=== PATIENT | female | born 1950 | race Caucasian/White ===

== ENCOUNTER 2021-02-13 11:30 | Outpatient (RCR) | payer MEDICARE, BC, SELFPAY ==
[2021-02-11 07:55] VITALS: BP 165/80; PULSE 65
--- NOTE | 2021-02-11 09:11 | MHC.PT.EP ---
[facility] [place] [facility] [place] Office [place] Office [address] Young Singh [address] [phone] F: [phone] F: [phone] F: [phone] F: [phone] Physical Therapy Plan of Care Date of Evaluation: Date of Surgery: Diagnosis: Vestibular rehab Assessment: Roslyn is a 70 year old female who is referred to PT for vestibular rehab . She reports of having room spinning dizziness for about 3 weeks. She reports of having these symptoms when looking up or down and they last for a few seconds. She also reports of having nausea. On PT examination she presented with intact saccades, smooth pursuit, visual tracking, DVA, DGI and static balance. She was positive for BPPV in [place]. She is independent with ADLS but moved through them very slowly due to dizziness. She would benefit from skilled PT to address the aforementioned impairments and improve tolerance to ADLS. Frequency and Duration: The patient will be seen 2/week for 4 weeks Short Term Goals: Patient to be educated on symptoms and indications to return to therapy when needed min 4 weeks. Pt will be negative for nystagmus or reports of vertigo in all diagnostic positions bilaterally to resolution of BPPV in 4 weeks. Refractory Grinder Operator Goals: Patient to be able to functionally move in all planes and directions without provocation of dizziness to show return to PLOF in 6 weeks. Treatment Plan: Modalities to reduce pain, spasms and effusion. Manual therapy to restore motion and function. Therapeutic exercise to improve strength and flexibility. Neuromuscular re-education for posture and balance. Therapeutic activities to return to functional activities of daily living. Electronically signed by: Marilee Guajardo PT DPT Please sign and return to therapist. Thank you for your referral.
--- NOTE | 2021-04-17 08:38 | MHC.PT.DC ---
[facility] [place] Office [place] Office [place] Office [address] Young Singh 140 [facility] [phone] F: [phone] F: [phone] F: [phone] F: [phone] Physical Therapy Discharge Report Diagnosis: Vestibular rehab Date of Surgery: Date of Evaluation: 02/11/21 Date of Discharge: 04/17/21 Treatments to Date: 2 Cancellations to Date: 0 No Shows to Date: 0 Discharge Status: Achieved Goals Discharge Summary: Roslyn has been asymptomatic for vertigo in the last 2 months. She has therefore been d/c from therapy. Electronically signed by: Marilee Guajardo PT DPT Please sign and return to therapist. Thank you for your referral.
== END 2021-04-17 08:40 | disposition home or self-care (01) ==
LOC: HO.PT 11:30
PROVIDERS: Visit Provider Otolaryngology
DX: R42 Dizziness and giddiness (principal)
CPT/HCPCS: 95992; 97112; 97161

== ENCOUNTER 2023-03-03 07:40 | Outpatient (RCR) | payer MEDICARE, OTHER, SELFPAY | END 2023-04-28 07:27 | disposition home or self-care (01) | LOC: HO.PT 07:40 | PROVIDERS: PCP Physician Assistant; Visit Provider Otolaryngology | DX: R42 Dizziness and giddiness (principal) | CPT/HCPCS: 97161 ==

== ENCOUNTER 2023-05-28 08:24 | Outpatient (AMB) | payer MEDICARE, OTHER, SELFPAY ==
--- NOTE | 2023-05-28 08:31 | MHC.PC.OV ---
Vital Signs 05/28/23 08:42 Height 5 ft 1.5 in Weight 138 lb 2 oz BMI 25.7 BP 138/78 Blood Pressure Location Lt brachial Position Sitting Respiration 14 Pulse 76 Pulse Source Pulse Oximeter Temp 98.1 F Temp Source Temporal Artery Scan Pulse Oximetry (%) 90 L Oxygen Delivery Method Room Air Intake Visit Reasons: follow up Intake Note: Follow up. 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: No Allergies No Known Allergies Allergy (Verified 05/28/23 08:31) Medication List - Last Reconciled 05/28/23 by Zuleima Rosas PA-C albuterol sulfate 90 mcg/actuation 2 puffs inhalation Q6H PRN Bifidobacterium infantis (Align) mg PO dicyclomine 10 mg PO BID famotidine (Acid Physical Scientist (famotidine)) 20 mg PO BID meclizine 25 mg PO DAILY PRN paroxetine HCl 20 mg PO DAILY pravastatin 20 mg PO DAILY vit C,I-Qf-tlvah-lutein-zeaxan 250-90-40-1 mg (PreserVision AREDS-2) 1 tab PO BID Tobacco use date assessed: 05/28/23 Fall risk assessment: 1 Fall in past year Last assessed Fall Risk: 05/28/23 Dental Screening Dental Screen Date: 05/28/23 Did you have a dental visit in the last 12 months?: Yes Did you have a dental problem in the last 6 months where you did not have access to dental care?: No Was dental information given to patient?: Patient has dentist HPI follow up HPI Details Patient is a 72-year-old female who presents today for a follow-up. She is new to [facility]. She is transferring from [facility] where she previously was a patient of [facility]. She has a significant past medical history of htn, hyperlipidemia, asthma, subclinical hypothyroidism and generalized anxiety disorder. She recently returned from [place]. She was able to complete labs prior to today's appointment the accidentally did them at [facility] and did not yet transfer her records. CV: Blood pressure today in the office is elevated at 138/78. She is on lisinopril 10 mg, increased from last visit 3 months ago. Her lipids have been managed with pravastatin 20 mg. No myalgias. No cp, sob, palpitations. Endo: Had labs completed at [facility]. Unable to review. Had these done on Thursday. She tells me that she is going to get a copy of this and bring it here. Psych: on paroxetine 20 mg and feeling well. No SI/HI. Has been on this for years. Mammogram: UTD, ordered by ORTHOPEDIC CAST SPECIALIST and followed by Kaylah Pap: UTD, follows with Kaylah annually-has an appointment June 2023 Bone density: overdue- will order today Colonoscopy:overdue, booked in August [facility] Medical History (Updated 05/28/23 @ 11:15 by Zuleima Rosas PA-C) Dyslipidemia Hypertension Generalized anxiety disorder Family History (Updated 05/28/23 @ 08:56 by Tamara Taylor CMA) Mother HTN (hypertension) Father Bladder cancer Social History Housing: House Patient Tobacco Use Status: Former Tobacco user Cigarette Packs Per Day: 1 Years Smoked: 30 e-Cigarette/Vaping Use: Never Used Second Hand Smoke Exposure: Yes service: No Current occupational status: retired Cognitive needs: No Hearing needs: No Vision needs: No Questionnaire PHQ-9 Over the last 2 weeks, how often have you been bothered by any of the following problems? 1. Little interest or pleasure in doing things: not at all 2. Feeling down, depressed, or hopeless: not at all 3. Trouble falling or staying asleep, or sleeping too much: not at all 4. Feeling tired or having little energy: not at all 5. Poor appetite or overeating: not at all 6. Feeling bad about yourself - or that you are a failure or have let yourself or your family down: not at all 7. Trouble concentrating on things, such as reading the newspaper or watching television: not at all 8. Moving or speaking so slowly that other people could have noticed. Or the opposite - being so fidgety or restless that you have been moving around a lot more than usual: not at all 9. Thoughts that you would be better off or of hurting yourself in some way: not at all Total score: 0 Depression Screening Interpretation: Negative Depression Screening Done: Yes 25242 - PHQ-9 Billing: Yes Source: Developed by Drs. Nacho Gonzalez, Bell Egan, Dinesh Saxena and colleagues, with an educational katia from [employer] Thrive Questionnaire Date Thrive assessed: 05/28/23 I am a: Patient What is your living situation today?: I have a steady place to live Within the past 12 months, did the food you bought not last and you didn't have the money to get more?: Never true Within the past 12 months, did you worry whether your food would run out before you got money to buy more?: Never true Do you have trouble paying for medicines?: No Do you have trouble getting transportation to medical appointments?: No Do you have trouble paying your heating and electricity bill?: No Do you have trouble taking care of your child, family member or friend?: No Do you have trouble with day-to-day activities such as bathing, preparing meals, shopping, managing finances, etc.?: No Are you currently unemployed and looking for a job?: No Are you interested in more education?: No Please select the resources that you would like help with: None Currently or been in a relationship where the following occur: no concerns reported THRIVE Score: 0 AUDIT C Alcohol Use Questionnaire (AUDIT-C) 1. How often do you have a drink containing alcohol?: 2-4 times a month 2. How many drinks containing alcohol do you have on a typical day when you are drinking?: 1 or 2 3. How often do you have six or more drinks on one occasion?: Never Total Score: 2 MICHEAL-7 AMB Questionnaire MICHEAL-7 Date MICHEAL - 7 assessed: 05/28/23 Feeling nervous, anxious, or on edge: 1 = Several days Not being able to stop or control worryin = Not at all Worrying too much about different things: 0 = Not at all Trouble relaxin = Several days Being so restless that it is hard to sit still: 1 = Several days Becoming easily annoyed or irritable: 0 = Not at all Feeling afraid as if something awful might happen: 0 = Not at all Total MICHEAL-7 score (0-4 normal; 5-9 mild; 10-14 moderate; 15-21 severe): 3 Source: Developed by Drs. Nacho Gonzalez, Bell Egan, Dinesh Saxena and colleagues, with an educational katia from [employer] MICHEAL-7 Assessment Billing MICHEAL-7 Assessment Tool: MICHEAL-7 Assessment 39725 Physical exam (Primary Care) Vital Signs: Last Vital Signs Temp 98.1 F 05/28/23 08:42 Pulse 76 05/28/23 08:42 Resp 14 05/28/23 08:42 BP 138/78 05/28/23 08:42 Pulse Ox 90 L 05/28/23 08:42 Oxygen Delivery Method Room Air 05/28/23 08:42 BMI result Body Mass Index 25.7 BMI Assessment/Plan discussion: Declined counseling Tobacco/Smoking Status: Tobacco use Status Tobacco use date assessed 05/28/23 05/28/23 08:46 Patient Tobacco Use Status Former Tobacco user 05/28/23 08:46 e-Cigarette/Vaping Use Never Used 05/28/23 08:46 PHQ-9: PHQ-9 Score PHQ-9: Total score 0 05/28/23 10:53 Depression Screening Interpretation: Negative Thrive Assessment: Date of Thrive Assessment Date Thrive assessed 05/28/23 05/28/23 08:58 Currently or been in a relationship where the following occur: no concerns reported Const General: no acute distress, well developed, alert, awake and Physically active Orientation/consciousness: patient oriented x3 HENMT Ears: hearing grossly normal bilaterally and TM's normal bilaterally Face and sinus: Yes sinuses nontender Mouth: Normal oral and palatal mucosa present Eyes Pupils: Equal, round and reactive pupils present EOM: EOMs intact bilaterally Neck Thyroid: Thyroid normal Lymphatic: no lymphadenopathy noted Resp Auscultation: clear to auscultation bilaterally Cardio Rate: regular rate Rhythm: regular rhythm Heart sounds: S1 normal heart sound present and S2 normal heart sound present Skin General skin exam: no rashes or lesions noted Neuro General: patient oriented x3 and gait normal Cranial nerves: Yes CN's II-XII intact bilaterally and Yes Equal, round and reactive pupils present Cognition (Neuro): normal cognition Psych Appearance: grossly normal and well kempt Insight: Good insight present (Psych) Judgement: Good judgement present (Psych) Assessment and Plan Assessment & Plan (1) Hypertension: Code(s): I10 - Essential (primary) hypertension Qualifiers: Hypertension type: primary hypertension Qualified Code(s): I10 - Essential (primary) hypertension Plan: Increase lisinopril to 20 mg. (2) Dyslipidemia: Code(s): E78.5 - Hyperlipidemia, unspecified Plan: Continue on pravastatin. We will recheck lipids and LFTs in 6 months. (3) Generalized anxiety disorder: Code(s): F41.1 - Generalized anxiety disorder Plan: Well controlled with paroxetine. Offered refill today but states that she has plenty. Plan Bone density ordered. Has follow-up arranged with GI for colonoscopy later this summer. 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 Panel Fast 05/26/23 Z00.00 - Encounter for general adult medical examination without abnormal findings XR DEXA axial skeleton Today N95.1 - Menopausal and female climacteric states Complete Blood Count Auto Diff 05/26/23 Z00.00 - Encounter for general adult medical examination without abnormal findings TSH reflex Free T4 05/26/23 Z00.00 - Encounter for general adult medical examination without abnormal findings Lipid Panel 05/26/23 Z00.00 - Encounter for general adult medical examination without abnormal findings Medications: New lisinopril 20 mg PO DAILY 90 tabs 3RF Coding Level of Care Code Est Pt Level 4 (65618) Diagnoses Primary hypertension I10 Hypertension type: primary hypertension Dyslipidemia E78.5 Generalized anxiety disorder F41.1 Additional Codes MICHEAL-7 Assessment Billing - MICHEAL-7 Assessment Tool: MICHEAL-7 Assessment 17898 ([id number])
[2023-05-28 08:42] VITALS: BP 138/78; PULSE 76; RESP 14; TEMP 36.7; O2SAT 90; BMI 25.7
== END 2023-05-28 09:14 | disposition home or self-care (01) ==
PROVIDERS: PCP Physician Assistant; Visit Provider Physician Assistant
DX: I10 Essential (primary) hypertension (principal); E78.5 Hyperlipidemia, unspecified; F41.1 Generalized anxiety disorder
CPT/HCPCS: 96127; 99214

== ENCOUNTER 2023-07-23 10:22 | Outpatient (REF) | payer MEDICARE, OTHER, SELFPAY ==
--- NOTE | ~2023-07-23 | XR_ITS ---
EXAMINATION: XR KNEE, LEFT CLINICAL INFORMATION: Pain in the left knee. COMPARISON: None available. TECHNIQUE: 3 views of the left knee. FINDINGS: Moderate knee joint effusion. [id number] narrowing of the medial compartment with small medial marginal osteophytes. XR/XR knee LT 3V IMPRESSION: Moderate knee joint effusion. [id number] degenerative changes.
== END 2023-07-23 10:23 | disposition home or self-care (01) ==
LOC: HO.HOSX 10:22
PROVIDERS: Visit Provider Orthopaedic Surgery
DX: M25.562 Pain in left knee (principal)
CPT/HCPCS: 73562; 99202

== ENCOUNTER 2023-07-23 13:43 | Outpatient (AMB) | payer MEDICARE, OTHER, SELFPAY ==
--- NOTE | 2023-07-23 13:45 | A.OFFVIS_ITS ---
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 The patient states that she injured her left knee several months ago when she twisted her knee while playing pickleball. Patient denies a ny significant pain or mechanical symptoms prior to that injury. Since that time she states that her left knee will give out several times per day. The patient has difficulty going up and down stairs because of the instability. She has tried wearing a knee brace which gives her minimal relief. She has also done physical therapy which aggravated her pain. She has tried Tylenol and ibuprofen which gave her only mild relief. She has failed the last 6 weeks of conservative treatments. Allergies No Known Allergies Allergy (Verified 07/23/23 14:03) Medication List - Last Reconciled 07/23/23 by Tacos Britton MD albuterol sulfate 90 mcg/actuation 2 puffs inhalation Q6H PRN Bifidobacterium infantis (Align) mg PO dicyclomine 10 mg PO BID famotidine (Acid Motion Picture Actor (famotidine)) 20 mg PO BID lisinopril 20 mg PO DAILY meclizine 25 mg PO DAILY PRN paroxetine HCl 20 mg PO DAILY pravastatin 20 mg PO DAILY vit C,J-Hg-oufud-lutein-zeaxan 250-90-40-1 mg (PreserVision AREDS-2) 1 tab PO BID PFSH Medical History Dyslipidemia Hypertension Generalized anxiety disorder Surgical History Hx of section History of back surgery Family History Mother HTN (hypertension) Father Bladder cancer Social History Housing: House Patient Tobacco Use Status: Former Tobacco user Cigarette Packs Per Day: 1 Years Smoked: 30 e-Cigarette/Vaping Use: Never Used Second Hand Smoke Exposure: Yes service: No Current occupational status: retired Cognitive needs: No Hearing needs: No Vision needs: No Physical Exam Vital Signs: BMI result Body Mass Index 25.6 Const Other: Well-nourished well-developed very friendly female awake alert and oriented x3 in no acute distress Extrem Other: Bilateral lower extremity examination shows good capillary refill, no skin lesions noted, normal sensation light touch Left knee examination shows a minimal effusion, minimal crepitus with range of motion, positive Bruno's test, no instability Results Reviewed Results Reviewed: Standing full weight-bearing x-rays of the patient's left knee show mild joint space narrowing, no acute bony abnormalities Assessment & Plan Assessment & Plan (1) Left knee pain: Code(s): M25.562 - Pain in left knee Category: Medical Plan Ms. Kerr presents with progressively worsening left knee pain and mechanical symptoms most likely due to a tear of her medial meniscus. Thus, I will send her for an MRI of her left knee for further evaluation. I will see her back once the MRI is completed to discuss the findings and treatment options. Feel free to call me at any time should questions regarding her orthopedic management arise. Thank you very much for asking me to see this very friendly patient. I spent 21 minutes in reviewing the patient's records and imaging studies, seeing the patient and documenting in the medical record. Orders: Orders XR knee LT 3V Today M25.562 - Pain in left knee MR knee LT wo con Today S83.242A - Other tear of medial meniscus, current injury, left knee, initial encounter Coding Level of Care Code New Pt Level 3 (40356) Diagnoses Left knee pain M25.562
[2023-07-23 13:46] VITALS: BMI 25.6
== END 2023-07-23 14:29 | disposition home or self-care (01) ==
PROVIDERS: PCP Physician Assistant; Visit Provider Orthopaedic Surgery
DX: M25.562 Pain in left knee (principal)
CPT/HCPCS: 99203

== ENCOUNTER 2023-08-05 08:41 | Outpatient (REF) | payer MEDICARE, OTHER, SELFPAY ==
--- NOTE | ~2023-08-05 | MM_ITS ---
EXAMINATION: BONE DENSITOMETRY CLINICAL INDICATION: Asymptomatic menopausal state. COMPARISON: This is the patient's baseline examination. TECHNIQUE: Using a IMASTE DXA System (software version: 13.1) manufactured by [employer], dual-energy x-ray absorptiometry was performed of the lumbar spine and left hip. The images are of good technical quality. Summary results are attached. FINDINGS: LEFT FEMUR, NECK: BMD 0.986 g/cm2, Z-score 1.5, T-score -0.4, normal. LEFT FEMUR, TOTAL: BMD 1.139 g/cm2, Z-score 2.7, T-score 1.0, normal. AP SPINE L1-L4 (excluding L3): The data of L1-L4 has been changed to exclude the L3 vertebral body, because degenerative sclerosis at this level may cause overestimation of lumbar spine density. BMD 1.418 g/cm2, Z-score 3.8, T-score 2.1, normal. IDENTIFIED RISK FACTORS: Menopause, current smoker. HISTORY OF FRACTURE: None listed. MEDICATIONS: None listed. MM/XR DEXA axial skeleton IMPRESSION: 1. DIAGNOSIS: Normal bone density based on the lowest T-score value of -0.4 in the femoral neck applying World Health Organization criteria. 2. 10-YEAR FRACTURE RISK PREDICTION, FRAX: According to the guidelines, FRAX calculation should only be performed on patients in the osteopenia bone density category. Therefore, FRAX was not performed on this patient. 3. Treatment Recommendations: NOF guidelines recommend consideration for treatment in postmenopausal women and men age 50 and older presenting with the following: -A hip or vertebral (clinical or morphometric) fracture. -T-score less than or equal to -2.5 at the femoral neck or spine after appropriate evaluation to exclude secondary causes. -Low bone mass at the hip or spine and a 10-year fracture probability by FRAX of greater than or equal to 3% for hip fracture or greater than or equal to 20% for major osteoporotic fracture based on the [place] adapted WHO algorithm. 4. Other Recommendations: All treatment decisions require clinical judgment and consideration of individual patient factors, including patient preferences, comorbidities, previous drug use, risk factors not captured in the FRAX model (e.g. frailty, falls, vitamin D deficiency, increased bone turnover, interval significant decline in bone density) and possible under or overestimation of fracture risk by FRAX. FUTURE SCAN RECOMMENDATION: People with diagnosed cases of osteoporosis or at high risk for fracture should have regular bone mineral density tests. For patients eligible for Medicare, routine testing is allowed once every 2 years. The testing frequency can be increased to one year for patients who have rapidly progressing disease, those who are receiving or discontinuing medical therapy to restore bone mass, or have additional risk factors.
== END 2023-08-05 08:42 | disposition home or self-care (01) ==
LOC: HO.MAMMO 08:41
PROVIDERS: PCP Physician Assistant; Visit Provider Physician Assistant
DX: Z13.820 Encounter for screening for osteoporosis (principal); Z78.0 Asymptomatic menopausal state; Z91.89 Other specified personal risk factors, not elsewhere classified
CPT/HCPCS: 77080

== ENCOUNTER 2023-09-10 08:26 | Outpatient (AMB) | payer MEDICARE, OTHER, SELFPAY ==
--- NOTE | 2023-09-10 08:29 | A.OFFPC_ITS ---
Vital Signs 09/10/23 08:36 Height 5 ft 1.5 in Weight 139 lb BMI 25.8 BP 108/58 L Blood Pressure Location Lt brachial Position Sitting Pulse 74 Pulse Source Pulse Oximeter Pulse Oximetry (%) 94 Oxygen Delivery Method Room Air Intake Visit Reasons: follow up htn, hypothyriod, lipids Intake Note: Follow up HTN. Requesting referral to Neurologist for benign tremors discussed w katharina Rodas in the past. Sprue Knocker Required: No Allergies No Known Allergies Allergy (Verified 09/10/23 08:35) Tobacco use date assessed: 05/28/23 Dental Screening Dental Screen Date: 05/28/23 HPI HPI Comments History of Present Illness Details This is a 72-year-old female with a past medical history of generalized anxiety disorder, hyperlipidemia and hypertension presenting for follow up. I am seeing the patient for her PCP today. Hypertension is treated with lisinopril 20 mg. Her dose was increased after her last visit. Her last 2 readings at an appointment and at home were 118/72 and 128/72. Today her blood pressure is a little low, but she denies dizziness. Hyperlipidemia is treated with pravastatin 20 mg daily. She has orders for fasting labs in the system. Anxiety is treated with Paxil 20 mg daily. She is stable on this dose. Patient says she has mentioned a tremor in her hands to her provider in the past. She notices it when she is holding something or writing. She denies resting tremor, gait instability, increased fatigue. She was told in the past it was a benign tremor. She had been offered a referral to neurology in the past, and she would like to see the neurologist. ROS: Constitutional: No unexplained weight loss, fevers or chills. Respiratory: No shortness of breath, cough or sputum production. Cardiovascular: No chest pain, chest pressure or chest discomfort. No palpitations or pedal edema. Neurologic: No headache, dizziness, syncope, unilateral weakness, ataxia, numbness or tingling in the extremities. Psychiatric: No depression.. No SI/HI. Physical exam: Constitutional: Alert, in no distress. Head: Normocephalic. Eyes: Pupils are equal, round and reactive to light. Extraocular muscles intact. Neck: Supple, Full range of motion. No lymphadenopathy. Respiratory: Clear to auscultation. Cardiovascular: S1 S2 regular. No murmurs. Neurologic:?Alert and oriented x 3, no focal deficits observed, CN 2-12 intact, [id number]-[id number] normal, sensation equal and symmetric, strength UE and LE 5/5 bilaterally, reflexes equal and symmetric.? Normal gait.? Patient able to heel walk, toe walk and walk heel-to-toe across the floor.? No pronator drift.? Negative Romberg. Extremities: Warm and well perfused. No clubbing, cyanosis or edema. Psychiatric: Normal mood and affect [facility] Medical History (Updated 09/10/23 @ 09:09 by RADHA Cassidy) Tremor of both hands Dyslipidemia Hypertension Generalized anxiety disorder Surgical History Hx of section History of back surgery Family History Mother HTN (hypertension) Father Bladder cancer Social History Housing: House Patient Tobacco Use Status: Former Tobacco user Cigarette Packs Per Day: 1 Years Smoked: 30 e-Cigarette/Vaping Use: Never Used Second Hand Smoke Exposure: Yes service: No Current occupational status: retired Cognitive needs: No Hearing needs: No Vision needs: No Questionnaire Thrive Questionnaire Date Thrive assessed: 05/28/23 MICHEAL-7 AMB Questionnaire MICHEAL-7 Date MICHEAL - 7 assessed: 05/28/23 Source: Developed by Drs. Nacho Gonzalez, Bell Egan, Dinesh Saxena and colleagues, with an educational katia from [employer]. Physical exam (Primary Care) Vital Signs: Last Vital Signs Pulse 74 09/10/23 08:36 BP 108/58 L 09/10/23 08:36 Pulse Ox 94 09/10/23 08:36 Oxygen Delivery Method Room Air 09/10/23 08:36 BMI result Body Mass Index 25.8 Tobacco/Smoking Status: Tobacco use Status Tobacco use date assessed 05/28/23 09/10/23 08:31 Patient Tobacco Use Status Former Tobacco user 09/10/23 08:31 e-Cigarette/Vaping Use Never Used 09/10/23 08:31 Thrive Assessment: Date of Thrive Assessment Date Thrive assessed 05/28/23 09/10/23 08:31 Assessment and Plan Assessment & Plan (1) Dyslipidemia: Code(s): E78.5 - Hyperlipidemia, unspecified (2) Hypertension: Code(s): I10 - Essential (primary) hypertension Qualifiers: Hypertension type: primary hypertension Qualified Code(s): I10 - Essential (primary) hypertension (3) Generalized anxiety disorder: Code(s): F41.1 - Generalized anxiety disorder (4) Tremor of both hands: Code(s): R25.1 - Tremor, unspecified Plan The patient will continue her current medications. She will send home blood pressure readings over the patient portal in a few weeks. If they are trending lower we will decrease lisinopril to 10 mg. She will have her fasting lab work done. I believe she has a benign essential tremor. No red flags on neuro exam. Advised patient that increased stress, fatigue and caffeine may worsened symptoms. She would like to see Neurology. Referral placed. Follow up in 6 months with PCP for medical wellness visit. Coding Level of Care Code Est Pt Level 4 (86223) Complex EM visit Add On G2211 Diagnoses Dyslipidemia E78.5 Primary hypertension I10 Hypertension type: primary hypertension Generalized anxiety disorder F41.1 Tremor of both hands R25.1
[2023-09-10 08:36] VITALS: BP 108/58; PULSE 74; O2SAT 94; BMI 25.8
== END 2023-09-10 09:06 | disposition home or self-care (01) ==
PROVIDERS: PCP Physician Assistant; Visit Provider Physician Assistant Medical
DX: E78.5 Hyperlipidemia, unspecified (principal); I10 Essential (primary) hypertension; F41.1 Generalized anxiety disorder; R25.1 Tremor, unspecified
CPT/HCPCS: 99214; G2211

== ENCOUNTER 2023-09-15 14:38 | Outpatient (AMB) | payer MEDICARE, OTHER, SELFPAY ==
--- NOTE | 2023-09-15 14:40 | MHC.OFFVIS ---
Intake Visit Reasons: OV- LT knee MRI f/u Intake Note: Roslyn is a 72 year old female who presents with left knee pain and giving way. The patient states that she injured her left knee several months ago when she twisted her knee while playing pickleball. Patient denies any significant pain or mechanical symptoms prior to that injury. Since that time she states that her left knee will give out several times per day. The patient has difficulty going up and down stairs because of the instability. She has tried wearing a knee brace which gives her mild relief. She has also done physical therapy which aggravated her pain. She has tried Tylenol and ibuprofen which gave her only mild relief. The patient has been able to ride a stationary bike but has not tried playing pickleball. Allergies No Known Allergies Allergy (Verified 09/15/23 14:40) Medication List - Last Reconciled 09/16/23 by Tacos Britton MD albuterol sulfate 90 mcg/actuation 2 puffs inhalation Q6H PRN Bifidobacterium infantis (Align) mg PO dicyclomine 10 mg PO BID famotidine (Acid Customer Engagement Specialist (famotidine)) 20 mg PO BID lisinopril 20 mg PO DAILY meclizine 25 mg PO DAILY PRN paroxetine HCl 20 mg PO DAILY pravastatin 20 mg PO DAILY vit C,W-Ts-eslmw-lutein-zeaxan 250-90-40-1 mg (PreserVision AREDS-2) 1 tab PO BID PFSH Medical History (Updated 09/10/23 @ 09:09 by RADHA Cassidy) Tremor of both hands Dyslipidemia Hypertension Generalized anxiety disorder Surgical History Hx of section History of back surgery Family History Mother HTN (hypertension) Father Bladder cancer Social History Housing: House Patient Tobacco Use Status: Former Tobacco user Cigarette Packs Per Day: 1 Years Smoked: 30 e-Cigarette/Vaping Use: Never Used Second Hand Smoke Exposure: Yes service: No Current occupational status: retired Cognitive needs: No Hearing needs: No Vision needs: No Physical Exam Const Other: Well-nourished well-developed very friendly female awake alert and oriented x3 in no acute distress Extrem Other: Bilateral lower extremity examination shows good capillary refill, no skin lesions noted, normal sensation light touch Left knee examination shows a minimal effusion, minimal crepitus with range of motion, tenderness along her medial and lateral joint lines, positive Bruno's test, slightly positive Haile's test Results Reviewed Results Reviewed: MRI of the patient's left knee shows a tear of the anterior horn of the lateral meniscus as well as possible tearing of the anterior cruciate ligament Assessment & Plan Assessment & Plan (1) Left knee pain: Code(s): M25.562 - Pain in left knee Category: Medical Plan Ms. Kerr presents with left knee pain and mechanical symptoms due to lateral meniscus tearing as well as possible anterior cruciate ligament tearing. Because of the patient's age I am not sure that she is a candidate for anterior cruciate ligament reconstructive surgery. It is also not clear whether or not the patient's symptoms could be improved with arthroscopic partial lateral meniscectomy. In order to get more information regarding her treatment options I will have her evaluated by my partner, Dr. Barrera. She will continue with her activity modifications in the meantime. Feel free to call me at any time should questions regarding her orthopedic management arise. Thank you very much for asking me to see this very friendly patient. I spent 22 minutes in reviewing the patient's records and imaging studies, seeing the patient and documenting in the medical record. Coding Level of Care Code Est Pt Level 3 (00671) Diagnoses Left knee pain M25.562
== END 2023-09-15 15:16 | disposition home or self-care (01) ==
PROVIDERS: PCP Physician Assistant; Visit Provider Orthopaedic Surgery
DX: M25.562 Pain in left knee (principal)
CPT/HCPCS: 99213

== ENCOUNTER → 2023-09-15 14:38 | Outpatient (BNVA) | payer MEDICARE, OTHER, SELFPAY | PROVIDERS: PCP Physician Assistant; Visit Provider Orthopaedic Surgery | DX: S83.282A Other tear of lateral meniscus, current injury, left knee, initial encounter (principal); S83.512A Sprain of anterior cruciate ligament of left knee, initial encounter | CPT/HCPCS: 99212 ==

== ENCOUNTER 2023-10-12 08:21 | Outpatient (AMB) | payer MEDICARE, OTHER, SELFPAY ==
--- NOTE | 2023-10-12 08:23 | MHC.OFFVIS ---
Vital Signs 10/12/23 08:24 Height 5 ft 1.5 in Intake Visit Reasons: OV- LT knee possible ACL tear Intake Note: Roslyn is a 73year old female who presents today as she was referred by Dr. Britton to discuss possible surgical intervention for lateral meniscus tearing as well as possible anterior cruciate ligament tearing. Patient reports that in the end of June she was playing pickle ball when she twisted the knee and the knee had given out on her. Allergies No Known Allergies Allergy (Verified 10/12/23 08:26) HPI HPI OV- LT knee possible ACL tear: Details: Roslyn is a 73year old female who presents today as she was referred by Dr. Britton to discuss possible surgical intervention for lateral meniscus tearing as well as possible anterior cruciate ligament tearing. Patient reports that in the end of June she was playing pickle ball when she twisted the knee and the knee had given out on her. She has no pain. She describes a giving way. She has had no further incidents. She is active and is a little worried about returning to normal activity but she feels well and has no complaints. [facility] Medical History Tremor of both hands Dyslipidemia Hypertension Generalized anxiety disorder Surgical History Hx of section History of back surgery Family History Mother HTN (hypertension) Father Bladder cancer Social History Housing: House Patient Tobacco Use Status: Former Tobacco user Cigarette Packs Per Day: 1 Years Smoked: 30 e-Cigarette/Vaping Use: Never Used Second Hand Smoke Exposure: Yes service: No Current occupational status: retired Cognitive needs: No Hearing needs: No Vision needs: No Physical Exam Extrem Other: No tenderness to palpation and normal left knee examination. She has 1+ Haile's with a firm endpoint no pivot shift. Results Reviewed Results Reviewed: I personally reviewed the MR images. Small posteromedial meniscus tear and partial tearing of the ACL of unknown chronicity Assessment & Plan Assessment & Plan (1) Left knee injury: Code(s): S89.92XA - Unspecified injury of left lower leg, initial encounter Category: Medical Plan: Roslyn twisted her knee playing pickleball. I see no reason to abstain from further activity. Clinically her ACL appears to be intact and knee MRI shows that it is partially intact with a possible partial tear of unknown chronicity. She has very little pain and I suspect that she will be fine. I did explain to her I the possibility that she will re-injure it but there is no evidence to suggest that it is unstable at this point. She understands and she will let me know if anything changes. Coding Level of Care Code Est Pt Level 4 (61810) Diagnoses Left knee injury S89.92XA
== END 2023-10-12 08:47 | disposition home or self-care (01) ==
PROVIDERS: PCP Physician Assistant; Visit Provider Orthopaedic Surgery
DX: S89.92XA Unspecified injury of left lower leg, initial encounter (principal)
CPT/HCPCS: 99212

== ENCOUNTER → 2023-10-12 08:21 | Outpatient (BNVA) | payer MEDICARE, OTHER, SELFPAY | PROVIDERS: PCP Physician Assistant; Visit Provider Orthopaedic Surgery | DX: S83.8X2A Sprain of other specified parts of left knee, initial encounter (principal); X58.XXXA Exposure to other specified factors, initial encounter; Y93.89 Activity, other specified; Y92.9 Unspecified place or not applicable; Y99.9 Unspecified external cause status | CPT/HCPCS: 99212 ==

== ENCOUNTER 2023-10-19 07:42 | Outpatient (REF) | payer MEDICARE, OTHER, SELFPAY ==
[2023-10-19 11:50] LABS: MANUAL DIFF FLAG NO
[2023-10-19 12:05] LABS: Basophils Percent Auto 0.7 % (0-2); Eosinophils Absolute Auto 0.2 X10*3/uL (0.0-0.4); Eosinophils Percent Auto 3.7 % (0-4); Hematocrit 38.9 % (37.0-47.0); Hemoglobin 12.9 g/dl (12.0-16.0); Imm Gran Abs Auto 0.01 X10*3/uL (0.00-0.03); Imm Gran Pct Auto 0.2 % (0.0-0.4); Lymphocytes Absolute Auto 1.5 X10*3/uL (1.2-4.9); Lymphocytes Percent Auto 32.9 % (20-40); Mean Corpuscular HGB Conc 33.2 g/dl (31.0-35.0); Mean Corpuscular Hemoglobin 32.3 pg (27.0-33.0); Mean Corpuscular Volume 97.3 fL (80.0-98.0); Mean Platelet Volume 10.5 fL (9.4-12.3); Monocytes Absolute Auto 0.4 X10*3/uL (0.1-1.2); Monocytes Percent Auto 9.6 % (2-11); Neutrophils Absolute Auto 2.4 x10*3/uL (2.0-8.3); Neutrophils Percent Auto 52.9 % (45-73); Platelet Count 223 X10*3/uL (160-400); Red Cell Distribution Width 12.6 % (11.0-16.0); White Blood Count 4.6 X10*3/uL (4.8-10.8)
[2023-10-19 12:39] LABS: Alanine Aminotransferase 20 U/L (0-31); Albumin Level 4.3 g/dL (3.5-5.0); Alkaline Phosphatase 49 U/L (39-117); Anion Gap 13 (12-20); Aspartate Amino Transferase 23 U/L (5-31); Bilirubin Total 0.5 mg/dL (0.0-1.0); Blood Urea Nitrogen 27 mg/dL (9-16); Calcium 9.5 mg/dL (8.4-10.2); Carbon Dioxide 24 mmol/L (22-29); Chloride 107 mmol/L (96-108); Cholesterol 196 mg/dL (<200); Estimated Glomerular Filt Rate > 60; Glucose Fasting 101 mg/dL (60-99); HDL Cholesterol 52 mg/dL (>40); LDL Cholesterol Calculated 114 mg/dL (<100); Potassium 4.5 mmol/L (3.3-5.1); Sodium 139 mmol/L (135-145); Total Protein 6.9 g/dL (6.5-8.0); Triglycerides 153 mg/dL (<150)
[2023-10-19 12:41] LABS: TSH reflex Free T4 2.36 uIU/mL (0.32-4.0)
== END 2023-10-19 07:43 | disposition home or self-care (01) ==
LOC: HO.WFDLDS 07:42
PROVIDERS: Visit Provider Physician Assistant
DX: Z00.00 Encounter for general adult medical examination without abnormal findings (principal)
CPT/HCPCS: 36415; 80053; 80061; 84443; 85025

== ENCOUNTER 2024-03-17 10:26 | Outpatient (AMB) | payer MEDICARE, OTHER, SELFPAY ==
--- NOTE | 2024-03-17 10:45 | A.OFFPC_ITS ---
Vital Signs 03/17/24 10:48 Height 5 ft 1.5 in Weight 137 lb 6 oz BMI 25.5 BP 116/64 Blood Pressure Location Lt brachial Position Sitting Pulse 68 Pulse Source Pulse Oximeter Pulse Oximetry (%) 96 Oxygen Delivery Method Room Air Intake Visit Reasons: Medical Wellness Annual -Sub Intake Note: Medical wellness visit. Has appt with back specialist in May. Needs refill on pravastatin Other Sports Coach Or Instructor Required: No Allergies No Known Allergies Allergy (Verified 03/17/24 10:46) Medication List - Last Reconciled 03/17/24 by Zuleima Rosas PA-C albuterol sulfate 90 mcg/actuation 2 puffs inhalation Q6H PRN Bifidobacterium infantis (Align) mg PO dicyclomine 10 mg PO BID famotidine (Acid Land Checker (famotidine)) 20 mg PO BID 90 days lisinopril 20 mg PO DAILY meclizine 25 mg PO DAILY PRN multivitamin 1 tab PO DAILY paroxetine HCl 20 mg PO DAILY pravastatin 20 mg PO DAILY vit C,P-Rb-xbquk-lutein-zeaxan 250-90-40-1 mg (PreserVision AREDS-2) 1 tab PO BID Tobacco use date assessed: 05/28/23 Fall risk assessment: No Falls in past year Dental Screening Dental Screen Date: 05/28/23 HPI Medical Wellness Annual -Sub HPI Details Patient is a 73-year-old female with a significant past medical history of impaired fasting glucose, hyperlipidemia, hypertension, anxiety, hereditary hemorrhagic telangiectasia, pulmonary arterial venous malformation presenting today for a wellness visit. CV: Blood pressure today in the office is 116/64. She is currently on lisinopril 20 mg. Cholesterol has been controlled with pravastatin 20 mg. Her proof operator was Dr. Donis, he since retired. She is still wtih PVC since her TIA in 2006. Vascular: Saw vascular IR at [place] for embolizing of the pulmonary AVMs. Feeling well since the procedure. Neuro: She states that over the last few months she has noticed that she is a bit more forgetful. Has a harder time with word finding. She thinks that she is probably right on point with her age but wants to make sure that she is not developing anything like dementia or Parkinson's. She does have a tremor that is present at times with rest. It seems like her left side is more effective than her right. It can be either side however. She does have an appointment with Neurology but not until May. She says that she had to move her appointment because of a trip to [place] and then [facility]. No change in her baseline migraines. She says that she has had migraines for most of her life and they can be debilitating. She states that she plans to be seeing the neurologist for this as well. She reports having an MRI done many years ago, around the time that she had a supposed a TIA in 2006. She states that she does not believe that she truly had a TIA at that point. She was a [facility] patient at that point we do not have any records of this. She denies any paresthesias, abnormal gait, vision changes, nausea, vomiting or weakness. Psych: Anxiety is well-controlled with paroxetine 20 mg. No SI/HI. Colonoscopy: Up-to-date, 2023, due in 2028. Mammo: mammo utd at [facility] Pap: utd- follows with [facility] Bone density: Up-to-date, 08/13/2023-[facility] Medical History Tremor of both hands Dyslipidemia Hypertension Generalized anxiety disorder Surgical History Hx of section History of back surgery Family History Mother HTN (hypertension) Father Bladder cancer Social History (Updated 03/17/24 @ 10:53 by Tamara Taylor CMA) Housing: House Alcohol intake: current Patient Tobacco Use Status: Former Tobacco user Cigarette Packs Per Day: 1 Years Smoked: 30 e-Cigarette/Vaping Use: Never Used Second Hand Smoke Exposure: Yes service: No Current occupational status: retired Cognitive needs: No Hearing needs: No Vision needs: No Questionnaire Thrive Questionnaire Date Thrive assessed: 03/16/24 I am a: Patient What is your living situation today?: I have a steady place to live Within the past 12 months, did the food you bought not last and you didn't have the money to get more?: Never true Within the past 12 months, did you worry whether your food would run out before you got money to buy more?: Never true Do you have trouble paying for medicines?: No Do you have trouble getting transportation to medical appointments?: No Do you have trouble paying your heating and electricity bill?: No Do you have trouble taking care of your child, family member or friend?: No Do you have trouble with day-to-day activities such as bathing, preparing meals, shopping, managing finances, etc.?: No Are you currently unemployed and looking for a job?: No Are you interested in more education?: No THRIVE Score: 0 AUDIT C Alcohol Use Questionnaire (AUDIT-C) 1. How often do you have a drink containing alcohol?: 2-4 times a month Total Score: 2 MICHEAL-7 AMB Questionnaire MICHEAL-7 Date MICHEAL - 7 assessed: 05/28/23 Feeling nervous, anxious, or on edge: 0 = Not at all Not being able to stop or control worryin = Not at all Worrying too much about different things: 0 = Not at all Trouble relaxin = Not at all Being so restless that it is hard to sit still: 0 = Not at all Becoming easily annoyed or irritable: 0 = Not at all Feeling afraid as if something awful might happen: 0 = Not at all Total MICHEAL-7 score (0-4 normal; 5-9 mild; 10-14 moderate; 15-21 severe): 0 Source: Developed by Drs. Nacho Gonzalez, Bell Egan, Dinesh Saxena and colleagues, with an educational katia from [employer]. Physical exam (Primary Care) Vital Signs: Last Vital Signs Pulse 68 03/17/24 10:48 BP 116/64 03/17/24 10:48 Pulse Ox 96 03/17/24 10:48 Oxygen Delivery Method Room Air 03/17/24 10:48 BMI result Body Mass Index 25.5 Tobacco/Smoking Status: Tobacco use Status Tobacco use date assessed 05/28/23 03/17/24 10:53 Patient Tobacco Use Status Former Tobacco user 03/17/24 10:53 e-Cigarette/Vaping Use Never Used 03/17/24 10:53 Thrive Assessment: Date of Thrive Assessment Date Thrive assessed 03/16/24 03/17/24 10:53 Const Orientation/consciousness: patient oriented x3 HENMT Ears: hearing grossly normal bilaterally and TM's normal bilaterally General nose exam: No nasal polyps present Face and sinus: Yes sinuses nontender Mouth: Normal oral and palatal mucosa present Eyes Pupils: Equal, round and reactive pupils present EOM: EOMs intact bilaterally Neck Neck: Yes full ROM and Yes no lymphadenopathy Thyroid: Thyroid normal Chest Chest palpation & inspection: normal inspection of the chest Resp Auscultation: clear to auscultation bilaterally Cardio Rate: regular rate Rhythm: regular rhythm Heart sounds: S1 normal heart sound present and S2 normal heart sound present Peripheral pulses: Peripheral pulses 2+ throughout GI Other: Soft, nontender Auscultation: normal bowel sounds Rectal Exam - Female: deferred General: Yes no CVA tenderness Back/Spine/Pelvis Other: Nontender Back: no CVA tenderness Skin General skin exam: no rashes or lesions noted Neuro General: patient oriented x3, gait normal, CN's II-XI intact bilaterally and deep tendon reflexes 2+ bilaterally Cranial nerves: Yes Equal, round and reactive pupils present Motor exam (neuro): 5/5 motor strength present throughout Sensory Exam: double simultaneous stimulation for sensation normal Coordination: [id number] test normal and Romberg test negative Extrem General: Yes normal to inspection and Yes full ROM Psych Affect: normal affect Attitude: cooperative Thought process: Normal thought process present Thought content: Normal thought content present Insight: Good insight present (Psych) Judgement: Good judgement present (Psych) Coding Level of Care Code Est Pt Level 4 (39536) Complex EM visit Add On G2211 Diagnoses Tremor of both hands R25.1 IFG (impaired fasting glucose) R73.01 Hereditary hemorrhagic telangiectasia I78.0 Forgetfulness R68.89 Assessment & Plan Assessment & Plan (1) Tremor of both hands: Code(s): R25.1 - Tremor, unspecified Category: Medical Plan: Has an appointment with Neurology. This has been overall stable for the last year. At times she does think it is a bit worse but that is been just the last couple of months. Labs ordered. (2) IFG (impaired fasting glucose): Code(s): R73.01 - Impaired fasting glucose Category: Medical Plan: A1c ordered (3) Hereditary hemorrhagic telangiectasia: Code(s): I78.0 - Hereditary hemorrhagic telangiectasia Category: Medical Plan: Following with vascular surgery at [place] (4) Forgetfulness: Code(s): R68.89 - Other general symptoms and signs Category: Medical Plan: Labs ordered an MRI. We will follow up pending test results Orders: Orders Comprehensive [place]. Panel Fast Today I78.0 - Hereditary hemorrhagic telangiectasia, Q25.72 - Congenital pulmonary arteriovenous malformation, R25.1 - Tremor, unspecified, R68.89 - Other general symptoms and signs, R73.01 - Impaired fasting glucose Lipid Panel Today I78.0 - Hereditary hemorrhagic telangiectasia, Q25.72 - Congenital pulmonary arteriovenous malformation, R25.1 - Tremor, unspecified, R68.89 - Other general symptoms and signs, R73.01 - Impaired fasting glucose TSH reflex Free T4 Today I78.0 - Hereditary hemorrhagic telangiectasia, Q25.72 - Congenital pulmonary arteriovenous malformation, R25.1 - Tremor, unspecified, R68.89 - Other general symptoms and signs, R73.01 - Impaired fasting glucose UA CC w/rflx Micro + Cult Today I78.0 - Hereditary hemorrhagic telangiectasia, Q25.72 - Congenital pulmonary arteriovenous malformation, R25.1 - Tremor, unspecified, R68.89 - Other general symptoms and signs, R73.01 - Impaired fasting glucose, Z13.220 - Encounter for screening for lipoid disorders Erythrocyte Sedimentation Rate Today R25.1 - Tremor, unspecified, R68.89 - Other general symptoms and signs Ferritin Today G43.909 - Migraine, unspecified, not intractable, without status migrainosus, R25.1 - Tremor, unspecified, R68.89 - Other general symptoms and signs IRON PROFILE Today G43.909 - Migraine, unspecified, not intractable, without status migrainosus, R25.1 - Tremor, unspecified, R68.89 - Other general symptoms and signs Hemoglobin A1c Today R25.1 - Tremor, unspecified, R68.89 - Other general symptoms and signs, R73.01 - Impaired fasting glucose Syphilis Screen Today R25.1 - Tremor, unspecified, R68.89 - Other general symptoms and signs, Z20.2 - Contact with and (suspected) exposure to infections with a predominantly sexual mode of transmission MR head/brain wo con Today G43.909 - Migraine, unspecified, not intractable, without status migrainosus, R25.1 - Tremor, unspecified, R68.89 - Other general symptoms and signs Complete Blood Count Auto Diff Today I78.0 - Hereditary hemorrhagic telangiectasia, Q25.72 - Congenital pulmonary arteriovenous malformation, R25.1 - Tremor, unspecified, R68.89 - Other general symptoms and signs, R73.01 - Impaired fasting glucose Vitamin B12 and Folate Today R25.1 - Tremor, unspecified, R68.89 - Other general symptoms and signs Magnesium Today R25.1 - Tremor, unspecified, R68.89 - Other general symptoms and signs Lyme IgG/IgM w/reflex to WB Today R25.1 - Tremor, unspecified, R68.89 - Other general symptoms and signs HIV Ab/Ag Today R25.1 - Tremor, unspecified, R68.89 - Other general symptoms and signs, Z20.2 - Contact with and (suspected) exposure to infections with a predominantly sexual mode of transmission Medications: New pravastatin 20 mg PO DAILY 90 tabs 3RF Refilled paroxetine HCl 20 mg PO DAILY 90 tabs 3RF lisinopril 20 mg PO DAILY 90 tabs 3RF
[2024-03-17 10:48] VITALS: BP 116/64; PULSE 68; O2SAT 96; BMI 25.5
== END 2024-03-17 11:33 | disposition home or self-care (01) ==
PROVIDERS: PCP Physician Assistant; Visit Provider Physician Assistant
DX: R25.1 Tremor, unspecified (principal); R73.01 Impaired fasting glucose; I78.0 Hereditary hemorrhagic telangiectasia; R68.89 Other general symptoms and signs

== ENCOUNTER → 2024-03-17 10:26 | Outpatient (BNVA) | payer MEDICARE, OTHER, SELFPAY | PROVIDERS: PCP Physician Assistant; Visit Provider Physician Assistant | DX: R25.1 Tremor, unspecified (principal); R73.01 Impaired fasting glucose; I78.0 Hereditary hemorrhagic telangiectasia; R68.89 Other general symptoms and signs | CPT/HCPCS: 99212 ==

== ENCOUNTER 2024-03-18 08:15 | Outpatient (REF) | payer MEDICARE, OTHER, SELFPAY ==
--- OUTSIDE RECORDS SUMMARY | 2024-03-18 08:27 | XMS_ITS | Clinical Summary ---
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 [address] [place] [address] Dr Colleen MA PCP - General 11/11/23
--- OUTSIDE RECORDS SUMMARY | 2024-03-18 08:28 | XMS_ITS | Clinical Summary ---
Author Organization [address] Address [address] [place] [phone] Care Team Providers Care Actuarial Analyst Name Role Phone Ruthie Chandra MD Primary Care Provider Allergies No known active allergies Medications PARoxetine (PAXIL) 20 MG tablet Take 1 tablet (20 mg total) by mouth every morning. Active vitamins A,C,E-zinc-jeimy er (ICAPS AREDS) 4,296 mcg-226 mg-90 mg Cap Take by mouth. 3 Active pravastatin (PRAVACHOL) 20 mg tablet Take 1 tablet (20 mg total) by mouth daily. Active lisinopriL (PRINIVIL,ZESTR IL) 10 mg tablet Take 2 tablets (20 mg total) by mouth daily. Active famotidine (PEPCID) 20 mg tablet Take 1 tablet (20 mg total) by mouth 2 (two) times daily. Active dicyclomine (BENTYL) 10 mg capsule TAKE 1 CAPSULE BY MOUTH FOUR TIMES DAILY NEEDED 3 Active triamcinolone (KENALOG) 0.025 % cream Apply 1 Application topically. 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 Overview (09/07/2023): >>OVERVIEW FOR HEREDITARY HEMORRHAGIC TELANGIECTASIA (HC CODE) WRITTEN ON 11/28/2016 10:27 AM BY MARQUEZ SIMPSON MD Added automatically from request for surgery [id number] GERD (gastroesophageal reflux disease) Eczema Immunizations Name Administration Dates Next Due COVID-19, MODERNA 12Y+, 0.5 mL 2,12/27/2020,06/11/2020,05/14 Pneumococcal conjugate PCV 13 05/28/2018 Pneumococcal polysaccharide PPSV23 11/18/2019 Td (>7 yo), 2 LF tetanus tox oid, PF, absorbed 02/26/2018 Tdap 05/07/2009 Family History Medical History Relation Name Comments Diabetes Brother Cancer Father Epistaxis Father Kidney disease Mother Epistaxis Son Relation Name Status Comments Brother Father Mother Sister Alive Son Alive Social History Tobacco Use Types Packs/Day Years Used Date Smoking Tobacco: Former Smokeless Tobacco: Never Tobacco Cessation:Counseling Given: Not Answered Alcohol Use Standard Drinks/Week Comments Not Asked 0 (1 standard drink = 0.6 oz pur e alcohol) socially Interpersonal Safety Answer Date Record ed Is there anyone in your life that is hurting or threatening you in anyway? no 10/22/2023 Physical Indicators of Abuse No evidence of phys ical abuse 10/22/2023 Comments Unknown Sex and Gender Information Value Date Recorded Sex Assigned at Not on file Legal Sex Female 7:46 AM EST Gender Identity Female 08/07/2023 10:53 AM EDT Sexual Orientation Straight 08/07/2023 10 :53 AM EDT Last Filed Vital Signs Vital Sign Reading Time Taken Comments Blood Pressure 139/60 10/22/2023 3:00 PM EDT Pulse 63 10/22/2023 6:52 AM EDT Temperature 36.2 ??C (97.2 ??F) 10/22/2023 6:52 AM ED T Respiratory Rate 17 10/22/2023 6:52 AM EDT Oxygen Saturation 91% 10/22/2023 3:00 PM EDT Inhaled Oxygen Concentration - - Weight 62.1 kg (137 lb) 10/22/2023 6:52 AM EDT Height 157.5 cm (5' 2 ) 10/22/2023 6:52 AM EDT Body Mass Index 25.06 10/22/2023 6:52 AM EDT Plan of Treatment Health Maintenance Due Date Last Done Comments HIV screening 09/15/1964 Hepatitis C screening 09/15/1969 Breast cancer screening 1991 Lipid disorder screening 1991 Diabetes screening 09/15/1996 Shingles vaccine (Shingrix) (1 of 2 - Shingrix (RZV) 2 Dose Standard Series) 09/15/2001 RSV Discussion (1 - Risk 60-74 years 1-dose series) 2011 Osteoporosis screening (bone density) 09/15/2016 Influenza vaccine 09/24/2023 Covid-19 vaccine series ( season) 2023 07/16/2021, 12/27/2020, 06/11/2020, Additional history exists Tetanus adult (Td q 10,TDAP once) 02/27/2028 02/26/2018, 05/07/2009 Colon cancer screening, Colonoscopy 02/09/2034 02/10/2024 Pneumo Vaccine 65+ Completed 11/18/2019, 05/28/2018 Cervical cancer screening Discontinued Meningococcal Vaccine Aged Out No ankit kristen eligible based on patient's age to complete this topic Medical Devices Implanted Type Area Deputy Bailiff Device Identifier Shelf Expiration Date Model / Serial / Lot Handle Lavern Coil Detachment - [id number] Implanted:Qty: 1 on 10/22/2023 by Marquez Simpson MD at [address] [id number] 08/30/2026 RH1 / / [id number] Coil Lavern Complex Standard 5mm X 12 Cm - [id number] Implanted:Qty: 1 on 10/22/2023 by Marquez Simpson MD at [address] [id number] 05/12/2031 [id number] / / [id number] Coil Pod Packing J Soft 5cm - [id number] Implanted:Qty: 1 on 10/22/2023 by Marquez Simpson MD at [address] [id number] 07/26/2031 [id number] / / [id number] Coil Lavern Complex Soft 2mm X 4cm - [id number] Implanted:Qty: 1 on 10/22/2023 by Marquez Simpson MD at [address] Implant PENUMBRA [id number] 07/08/2031 [id number] / / [id number] Plug Microvascular 3mm Mvp3q - [id number] Implanted:Qty: 1 on 10/22/2023 by Marquez Simpson MD at [address] Implant MEDTRONIC [id number] 02/22/2025 MVP-3Q / / [id number] Coil Lavern Complex Soft 3mm X 5cm - [id number] Implanted:Qty: 1 on 10/22/2023 by Marquez Simpson MD at [address] Implant PENUMBRA [id number] 07/11/2031 [id number] / / [id number] Coil Embo Detach Embold 0wqa6wk - [id number] Implanted:Qty: 1 on 10/22/2023 by Marquez Simpson MD at [address] Implant [employer] [id number] 07/15/2026 [id number] / / [id number] Coil Embo Detach Embold 5teb2tf - [id number] Implanted:Qty: 1 on 10/22/2023 by Marquez Simpson MD at [address] Implant [employer] [id number] 06/23/2026 [id number] / / [id number] Coil Pv Embo Concerto 5wwf95no - [id number] Implanted:2016 by Marquez Simpson MD at [address] (Quantity not on file) Other-impl ant MEDTRONIC (MEDT-ZZZZ) 07/28/2019 NV-8-30-H ELIX / / [id number] Amplatzer Vasc Plug4 5mmx10.5 - [id number] Implanted:2016 by Marquez Simpson MD at [address] (Quantity not on file) Other-impl ant [facility] SHALINI (STJU-ZZZZ) 07/23/2021 [id number] / / [id number] Embolization Coil - [id number] Implanted:2016 by Marquez Simpson MD at [address] (Quantity not on file) Other-impl ant COOK DIAG INTERVEN PRDT 11/27/2021 [id number] / / [id number] Coil Pv Embo Concerto [id number] - [id number] Implanted:2016 by Marquez Simpson MD at [address] (Quantity not on file) Other-impl ant [employer] (MEDT-ZZZZ) 10/10/2019 NV-5-15-H ELIX / / [id number] Coil Pv Embo Concerto 8dwo71wy - [id number] Implanted:2016 by Marquez Simpson MD at [address] (Quantity not on file) Other-impl ant [employer] (MEDT-ZZZZ) 10/10/2019 NV-5-15-H ELIX / / [id number] Coil Pv Embo Concerto 8onn51se - [id number] Implanted:2016 by Marquez Simpson MD at [address] (Quantity not on file) Other-impl ant [employer] (MEDT-ZZZZ) 09/15/2019 NV-4-10-H ELIX / / [id number] Coil Pv Embo Concerto 6sgo5wq - [id number] Implanted:2016 by Marquez Simpson MD at [address] (Quantity not on file) Other-impl ant [employer] (MEDT-ZZZZ) 09/18/2019 NV-3-8-HE LIX / / [id number] Amplatzer Vasc Plug4 0luy70ye - [id number] Implanted:2016 by Marquez Simpson MD at [address] (Quantity not on file) Other-impl ant ST SHALINI (STJU-ZZZZ) 08/22/2021 [id number] / / [id number] Coil Embol Mwce 35-4/3 Tornado - [id number] Implanted:2016 by Marquez Simpson MD at [address] (Quantity not on file) Other-impl ant [employer] VASC[employer] 11/12/2021 [id number] / / [id number] Coil Embol Mwce 35-4/3 Tornado - [id number] Implanted:2016 by Marquez Simpson MD at [address] (Quantity not on file) Other-impl ant [employer] V[employer] 11/12/2021 [id number] / / [id number] Embolization Coil - [id number] Implanted:2016 by Marquez Simpson MD at [address] (Quantity not on file) Other-impl ant [employer] 10/13/2021 [id number] / / [id number] Insurance MEDICARE [facility] MEDICARE [facility] MEDICARE [facility] Care Teams Actuarial Analyst Relationship Specialty Start Date End Date Ruthie Chandra MD [address] [place] [address] PCP - General Internal Medicine 11/18/16
--- OUTSIDE RECORDS SUMMARY | 2024-03-18 08:28 | XMS_ITS | Encounter Summary ---
Author Organization [facility] Address [address] [place] [address] Care Team Providers Care Supervisor Shipfitters Name Role Phone Ruthie Chandra MD Primary Care Provider Reason for Visit * Reason Onset Date Comments Results 10/06/2023 Encounter Details Date Type Department Care Team ([facility] st Contact Info) Description 10/06/2023 Telephone [facility] Interventional Radiology at [address] [phone] Alvarado Bullock MD [address] [place] [phone] Results Social History Tobacco Use Types Packs/Day Years Used Date Smoking Tobacco: Former Smokeless Tobacco: Never Alcohol Use Standard Drinks/Week Comments Not Asked 0 (1 standard drink = 0.6 oz pur e alcohol) socially Comments Unknown Sex and Gender Information Value Date Recorded Sex Assigned at Not on file Legal Sex Female 7:46 AM EST Gender Identity Female 08/07/2023 10:53 AM EDT Sexual Orientation Straight 08/07/2023 10 :53 AM EDT documented as of this encounter Miscellaneous Notes * Telephone Encounter - Melissa Mchugh - 10/06/2023 3:01 PM EDT joey patient on 10/06/23. asking her to get addition lab results from which we have not received. she said the lab took 4 tubes of blood and she would call them to have the fax the rest of the results.. documented in this encounter Plan of Treatment Not on file documented as of this encounter Visit Diagnoses Not on filedocumented in this encounter Additional Health Concerns Assessment Noted Time PHQ-9 Depression Total Score: 0 11/25/19 17 3:28 PM EDT documented as of this encounter Care Teams Supervisor Shipfitters Relationship Specialty Start Date End Date Ruthie Chandra MD [address] [place] [phone] PCP - General Internal Medicine 11/18/16 documented as of this encounter
--- OUTSIDE RECORDS SUMMARY | 2024-03-18 08:28 | XMS_ITS | Encounter Summary ---
Author Organization [facility] Address [address] [place] [phone] Care Team Providers Care Corporate Learning Consultant Name Role Phone Ruthie Chandra MD Primary Care Provider Encounter Details Date Type Department Care Team (Late st Contact Info) Description 10/13/2023 Scanned Document Interventional Radiology at [address] [phone] Provider, Historical . Social History Tobacco Use Types Packs/Day Years [...] AM EDT documented as of this encounter Plan of Treatment Not on file documented as of this encounter Procedures Procedure Name Priority Date/Time Associated Diagnosis Comments LAB SCAN Routine 10/13/2023 1:38 PM EDT documented in this encounter Results * Lab Scan (10/13/2023 1:38 PM EDT) us Historical Provider LAB BLOOD ORDERABLES Final R esult documented in this encounter Visit Diagnoses Not on filedocumented in this encounter Additional Health Concerns Assessment Noted Time PHQ-9 Depression Total Score: 0 11/25/19 3:28 PM EDT documented as of this encounter Care Teams Corporate Learning Consultant Relationship Specialty Start Date End Date Ruthie Chandra MD [address] [place] [phone] PCP - General Internal Medicine 11/18/16 documented as of this encounter
--- OUTSIDE RECORDS SUMMARY | 2024-03-18 08:28 | XMS_ITS | Clinical Summary ---
Author Organization [facility] Address [address] [place] [address] Care Team Providers Care Feather Shaper Name Role Phone Unknown, Primary Care Provider Unavailabl e Medications No known medications Social History Tobacco Use Types Packs/Day Years Used Date Smoking Tobacco: Never Assessed Sex and Gender Information Value Date Recorded Sex Assigned at Not on file Gender Identity Not on file Sexual Orientation Not on file Job Start Date Occupation Industry Not on file Not on file Not on file Last Filed Vital Signs Vital Sign Reading Time Taken Comments Blood Pressure - - Pulse - - Temperature - - Respiratory Rate - - Oxygen Saturation - - Inhaled Oxygen Concentration - - Weight 61.2 kg (135 lb) 02/05/2022 9:28 AM EST Height 156.2 cm (5' 1.5 ) 02/05/2022 9:28 AM EST Body Mass Index 25.09 02/05/2022 9:28 AM EST Plan of Treatment Health Maintenance Due Date Last Done Comments Hepatitis C Screening 1950 COVID-19 Vaccine (#1) 03/18/1952 Depression Screening 1963 Preventative Health Evaluation 09/15/1969 DTap / Tdap / Td (1 - Tdap) 09/15/1970 Colon Cancer Screening (Colonoscopy) 09/15/1996 Breast Cancer Screening (Mammogram) 09/15/2001 Shingrix-Zoster Vaccine (1 o f 2) 09/15/2001 Fall Risk Assessment 09/15/2016 Osteoporosis Screening (DEXA Scan) 09/15/2016 Influenza Vaccine (#1) 2023 RSV Adult > 60+ Yrs or (1 - 1-dose 75+ series) 09/15/2026 Pneumococcal Vaccine Completed 11/18/2019, 05/28/2018 Hepatitis B Vaccines Aged Out No long er eligible based on patient's age to complete this topic RSV Ped < 20 months Aged Out No longe r eligible based on patient's age to complete this topic Care Teams Feather Shaper Relationship Specialty Start Date End Date Unknown, PCP - General 01/30/22
--- OUTSIDE RECORDS SUMMARY | 2024-03-18 08:28 | XMS_ITS | Encounter Summary ---
Author Organization [facility] Address [address] [place] [address] Care Team Providers Care Embossing Machine Operator Helper Name Role Phone Ruthie Chandra MD Primary Care Provider Reason for Visit * Reason Onset Date Comments Appointment 09/08/2023 Encounter Details Date Type Department Care Team ([facility] st Contact Info) Description 09/08/2023 Telephone [facility] Interventional Radiology at [address] [phone] Alvarado Bullock MD [address] [place] [phone] Appointment Social History Tobacco Use Types Packs/Day Years [...] * Telephone Encounter - Melissa Mchugh - 09/08/2023 1:52 PM EDT Not Available - called patient on 09/08/23 to schedule her procedure. Spoke with and said hewas not available and he would have her call me when she gets home documented in this encounter Plan of Treatment Not on file documented as of this encounter Visit Diagnoses Not on filedocumented in this encounter Additional Health Concerns Assessment Noted Time PHQ-9 Depression Total Score: 0 11/25/19 3:28 PM EDT documented as of this encounter Care Teams Embossing Machine Operator Helper Relationship Specialty Start Date End Date Ruthie Chandra MD [address] [place] [phone] PCP - General Internal Medicine 11/18/16 documented as of this encounter
[2024-03-18 11:44] LABS: Appearance Urine Clear; Color Urine Yellow; Glucose Urine UA Negative (Negative); Leukocyte Esterase Urine Small (1+) (Negative); Nitrite Urine Negative (Negative); PH 7.5 (5.0-9.0); UMIC TRIGGER UACC YES; Urine Blood Negative (Negative); Urine Ketones Negative (Negative); Urine Protein Trace mg/dL (Neg-Trace)
[2024-03-18 11:49] LABS: MANUAL DIFF FLAG NO
[2024-03-18 11:50] LABS: Bacteria Urine None Seen (None Seen); Hyaline Casts Urine 0-2 /LPF (0-2); RBC Urine 0-2 /HPF (0-2); Squamous Epithelial Cell Urine 0-2 /HPF (0-2); UACC Culture Trigger YES
[2024-03-18 12:05] LABS: Basophils Percent Auto 0.4 % (0-2); Eosinophils Absolute Auto 0.2 X10*3/uL (0.0-0.4); Eosinophils Percent Auto 3.8 % (0-4); Hemoglobin 12.8 g/dl (12.0-16.0); Imm Gran Abs Auto 0.01 X10*3/uL (0.00-0.03); Imm Gran Pct Auto 0.2 % (0.0-0.4); Lymphocytes Absolute Auto 1.5 X10*3/uL (1.2-4.9); Lymphocytes Percent Auto 31.3 % (20-40); Mean Corpuscular HGB Conc 32.8 g/dl (31.0-35.0); Mean Corpuscular Volume 97.5 fL (80.0-98.0); Mean Platelet Volume 10.8 fL (9.4-12.3); Monocytes Absolute Auto 0.4 X10*3/uL (0.1-1.2); Monocytes Percent Auto 8.3 % (2-11); Neutrophils Absolute Auto 2.6 x10*3/uL (2.0-8.3); Platelet Count 228 X10*3/uL (160-400); Red Cell Distribution Width 12.5 % (11.0-16.0); White Blood Count 4.7 X10*3/uL (4.8-10.8)
[2024-03-18 12:44] LABS: Erythrocyte Sedimentation Rate 10 MM/HR (0-20)
[2024-03-18 13:04] LABS: Folate > 20.0 ng/mL (> or = 4.0); Vitamin B12 338 pg/mL (200-900)
[2024-03-18 13:05] LABS: Estimated Average Glucose 114 mg/dL; Hemoglobin A1C 127.0969 umol/L; Hemoglobin A1c % 5.6 % (<6.0); Total Hemoglobin (HGBA1C) 3348.5853 umol/L
[2024-03-18 15:17] LABS: Ferritin 51 ng/mL (10-250); TSH reflex Free T4 1.87 uIU/mL (0.32-4.0)
[2024-03-18 15:27] LABS: Anion Gap 16 (12-20)
[2024-03-18 15:32] LABS: Alanine Aminotransferase 26 U/L (0-31); Albumin Level 4.2 g/dL (3.5-5.0); Alkaline Phosphatase 53 U/L (39-117); Aspartate Amino Transferase 30 U/L (5-31); Bilirubin Total 0.4 mg/dL (0.0-1.0); Blood Urea Nitrogen 19 mg/dL (9-16); Calcium 9.4 mg/dL (8.4-10.2); Carbon Dioxide 25 mmol/L (22-29); Chloride 107 mmol/L (96-108); Cholesterol 184 mg/dL (<200); Estimated Glomerular Filt Rate > 60; Glucose Fasting 97 mg/dL (60-99); HDL Cholesterol 49 mg/dL (>40); Iron 66 mcg/dL (30-160); LDL Cholesterol Calculated 109 mg/dL (<100); Magnesium 2.3 mg/dL (1.6-2.6); Percent Iron Saturation 23 % (15-50); Potassium 4.7 mmol/L (3.3-5.1); Sodium 143 mmol/L (135-145); Total Iron Binding Capacity 291 mcg/dL (228-428); Total Protein 7.2 g/dL (6.5-8.0); Triglycerides 132 mg/dL (<150); Unsaturated Iron Binding 225 ug/dL
[2024-03-19 07:52] LABS: Syphilis Screen Nonreactive (Nonreactive)
[2024-03-19 08:21] LABS: HIV AB/AG Nonreactive (Nonreactive); HIV Num 1 0.05 S/CO (0.00-0.99)
[2024-03-21 22:09] LABS: Lyme Abs Screen <0.90 index
== END 2024-03-18 08:16 | disposition home or self-care (01) ==
LOC: HO.WFDLDS 08:15
PROVIDERS: Visit Provider Physician Assistant
DX: R73.01 Impaired fasting glucose (principal); I78.0 Hereditary hemorrhagic telangiectasia; R25.1 Tremor, unspecified; R68.89 Other general symptoms and signs; Q25.72 Congenital pulmonary arteriovenous malformation; G43.909 Migraine, unspecified, not intractable, without status migrainosus; Z20.2 Contact with and (suspected) exposure to infections with a predominantly sexual mode of transmission; Z13.220 Encounter for screening for lipoid disorders
CPT/HCPCS: 36415; 80053; 80061; 81001; 82607; 82728; 82746; 83036; 83540; 83735; 84443; 85025; 85652; 86617; 86618; 86780; 87086; 87389

== ENCOUNTER 2024-06-15 14:15 | Outpatient (AMB) | payer MEDICARE, OTHER, SELFPAY ==
--- NOTE | 2024-06-15 14:18 | A.OFFVIS_ITS ---
Vital Signs 06/15/24 14:19 Height 5 ft 1.5 in Weight 138 lb BMI 25.6 BP 142/82 H Blood Pressure Location Rt brachial Position Sitting Intake Visit Reasons: INP: Tremors-Conf Intake Note: Patient referred in house for bilateral hand tremors. Allergies No Known Allergies Allergy (Verified 06/15/24 14:22) Medication List - Last Reconciled 06/15/24 by Marie Brownlee MD albuterol sulfate 90 mcg/actuation 2 puffs inhalation Q6H PRN Bifidobacterium infantis (Align (B.infantis)) mg PO dicyclomine 10 mg PO BID famotidine (Acid Studio Technician (famotidine)) 20 mg PO BID 90 days lisinopril 20 mg PO DAILY meclizine 25 mg PO DAILY PRN multivitamin 1 tab PO DAILY paroxetine HCl 20 mg PO DAILY pravastatin 20 mg PO DAILY HPI Comments Details: 73y/o Right handed female comes for evaluation of tremors. she started noticing tremors in both her hands about 1 year ago. The tremors are mild intremittent - with action and posture. The tremors varies in intensity and she notices when she is holding acup of coffee or when she is signing she denies any impact on her ADLs. she denies weakness , stiffness, numbness she has anxiety and is on paroxetine - well controlled. No clear family h/o tremors . No head injury she has neck tightness but no tremors she has chronic back pain. No gait difficulty she is scheduled for MRI brain next week. [facility] Medical History Tremor of both hands Dyslipidemia Hypertension Generalized anxiety disorder Surgical History Hx of section History of back surgery Family History Mother HTN (hypertension) Father Bladder cancer Social History Housing: House Alcohol intake: current Patient Tobacco Use Status: Former Tobacco user Cigarette Packs Per Day: 1 Years Smoked: 30 e-Cigarette/Vaping Use: Never Used Second Hand Smoke Exposure: Yes service: No Current occupational status: retired Cognitive needs: No Hearing needs: No Vision needs: No Physical Exam Vital Signs: Last Vital Signs BP 142/82 H 06/15/24 14:19 BMI result Body Mass Index 25.6 Const General: cooperative, healthy appearing, comfortable, no acute distress and well developed Nutritional Appearance: average body habitus Orientation/consciousness: patient oriented x3 Eyes Pupils: Equal, round and reactive pupils present Neuro Other: no rest tremors very mild postural tremors and action tremors - when she madeleine the archimedes spiral Normal speech Normal facial expression and blink No cog wheel rigidity General: patient oriented x3, gait normal, tone normal, moves all extremities and no focal motor deficits Cranial nerves: Yes Facial sensation intact/muscles of mastication intact, Yes Equal, round and reactive pupils present, Yes Bilaterally intact EOM present, Yes Nystagmus not present, Yes Normal facial strength present, Yes Midline tongue present and Yes Symmetric palate elevation present Cognition (Neuro): normal cognition Gait exam (Neuro): Normal gait present Motor exam (neuro): 5/5 motor strength present throughout and Normal motor muscle tone present throughout Deep tendon reflexes (DTR's): Right triceps reflex intensity grade: 2+, Left triceps reflex intensity grade: 2+, Rt Biceps (C5, C6): 2+, Left biceps reflex intensity grade: 2+, Right brachioradialis reflex intensity grade: 2+, Left brac hioradialis reflex intensity grade: 2+, Right patellar reflex intensity grade: 3+ and Left patellar reflex intensity grade: 3+ Coordination: [id number] test normal Assessment & Plan Assessment & Plan (1) Tremor of both hands: Comment: exaggerated physiological vs senile tremors Code(s): R25.1 - Tremor, unspecified Category: Medical Plan No evidence of Parkinsons on todays exam The tremors are mild and does not affect her ADLs. will hold off on medications and monitor clinically. Coding Level of Care Code New Pt Level 4 (00755) Diagnoses Tremor of both hands R25.1
[2024-06-15 14:19] VITALS: BP 142/82; BMI 25.6
--- OUTSIDE RECORDS SUMMARY | 2024-06-15 17:08 | XMS_ITS | Encounter Summary ---
Author Organization [facility] Address [address] [place] [address] Care Team Providers Care Aircraft Electrical Systems Specialist Name Role Phone Ruthie Chandra MD Primary Care Provider Reason for Visit * Reason Onset Date Comments Appointment 09/08/2023 Encounter Details Date Type Department Care Team ([facility] st Contact Info) Description 09/08/2023 Telephone [facility] Interventional Radiology at [address] [phone] Alvarado Bullock MD [address] [place] [phone] Appointment Social History Tobacco Use Types [...] documented as of this encounter Care Teams Aircraft Electrical Systems Specialist Relationship Specialty Start Date End Date Ruthie Chandra MD [address] [place] [phone] PCP - General Internal Medicine 11/18/16 documented as of this encounter
--- OUTSIDE RECORDS SUMMARY | 2024-06-15 17:08 | XMS_ITS | Clinical Summary ---
Author Organization [employer] [facility] Address [address] [place] [address] Care Team Providers Care Mud Analysis Supervisor Name Role Phone Unknown, Primary Care Provider [...] age to complete this topic Care Teams Mud Analysis Supervisor Relationship Specialty Start Date End Date Unknown, PCP - General 01/30/22
--- OUTSIDE RECORDS SUMMARY | 2024-06-15 17:08 | XMS_ITS | Clinical Summary ---
Author Organization [facility] Address [address] [place] [address] Care Team Providers Care Supervisor Car And Yard Name Role Phone Corky Schaefer MD Primary Care Provider Allergies No known active allergies Medications polyethylene glycol (Golytely) 236-22.74-6.74 -5.86 gram solution Take 4L by mouth once for one dose. May substitue any PEG. Starting at 6PM the night before your procedure drink 1 8oz glasses at your own pace until you complete half of the gallon. Finish 2nd half of the gallon 5 hours before your procedure. 4000 mL 4 Active bisacodyL (DULCOLAX) 5 mg EC tablet Take 2 tablets by mouth right before beginning bowel prep. See instructions provided by the office 2 tablet 4 Active albuterol HFA (PROAIR HFA ; PROVENTIL HFA ; VENTOLIN HFA) 90 mcg/actuation inhaler Inhale 2 puffs by mouth. 1 Active famotidine (PEPCID) 20 mg tablet Take 1 tablet (20 mg total) by mouth 2 (two) times a day. Active lisinopriL (PRINIVIL,ZESTR IL) 10 mg tablet Take 1 tablet (10 mg total) by mouth 1 (one) time each day. 4 Active PARoxetine (PAXIL) 20 mg tablet Take 1 tablet (20 mg total) by mouth daily. Active pravastatin (PRAVACHOL) 20 mg tablet Take 1 tablet (20 mg total) by mouth 1 (one) time each day. 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); COMMENT: Follows at [facility] Eczema 02/10/2018 DX:Eczema GERD (gastroesophageal reflu x [...] Comments CABG Brother Diabetes Brother at 59- [place] Bladder Cancer Father Hypertension Mother Hyperlipidemia Other: [...] ed Physical Abuse 02/10/2024 Verbal Abuse 02/10/2024 Comments No Sex and Gender Information Value Date Recorded Sex Assigned at Female 02/25/2021 6:22 PM EST Legal Sex Female 6:15 PM EST Gender Identity Female 02/25/2021 6:22 PM EST Sexual Orientation Not on file Obstetrics History Last Filed [...] Vaccines (1 of 2) 09/15/2001 RSV Immunization Adult Patients (1 - Risk 60-74 years 1-dose series) 2011 Cholesterol Screening (Lipid Panel) 02/25/2021 Depression Screening 02/25/2021 Hepatitis C Screening 02/25/2021 Medicare Annual Wellness Visit 02/25/2021 Social Influencers of Health Screening 02/25/2021 Hypertension/CHF/CAD Annual BMP Blood Test 02/02/2022 Osteoporosis Screening (Bone Density Screening) 05/07/2023 05/06/2018 COVID-19 Vaccine ( season) 2023 07/16/2021, 12/27/2020, 06/11/2020, Additional history exists Influenza Vaccine (Season Ended) 2024 Falls Risk Assessment 02/09/2025 02/10/2024 Breast Cancer Screening 10/07/2025 10/08/19 24, 10/02/2022, 09/30/2021, Additional history exists DTaP,Tdap,and Td Vaccines (3 - Td or Tdap) 02/27/2028 02/26/2018, 05/07/2009 Colorectal Cancer Screening: Colonoscopy 02/09/2029 02/10/2024 Pneumococcal Vaccine: 50+ Years Completed 11/18/2019, 05/28/2018 HIB Vaccines Aged [...] patient's age to complete this topic Meningococcal B Vaccine Aged Out No l onger eligible based on patient's age to complete this topic RSV Immunization Patients Under 20 months Aged Out No longer eligible based on patient's age to complete this topic Varicella Vaccines Aged Out No longer eligible based on patient's age to complete this topic Procedures Procedure Name Priority Date/Time Associated Diagnosis Comments COLONOSCOPY Routine 02/10/2024 4:33 PM EST Colon polyps Colon cancer screening [facility] SCREENING DIGITAL Routine 10/08/2023 9:38 AM EDT Encounter for screening mammogram for malignant neoplasm of breast [facility] DEXA AXIAL SKELETON Routine 05/06/2018 3:39 PM EDT Asymptomatic menopausal state from Last 3 Months or Most Recently Relevant to Health Maintenance Results * COLONOSCOPY Anesthesia - MAC; [facility] ENDOSCOPY (02/10/2024 4:33 PM EST) Anatomical Region [...] for surveillance. Narrative 02/10/2024 4:36 PM EST [facility] GI Patient Name: Roslyn Mena Procedure Date: 02/10/2024 4:08 PM Date of [...] verified by the physician, the nurse, the pumper head ? and the ground water technician in the pre-procedure area in the [...] Procedure Code(s): ? --- Professional --- ? 27249, Colonoscopy, flexible; with biopsy, single or ? multiple Diagnosis Code(s): ? --- Professional --- ? D12.5, Benign neoplasm of sigmoid colon ? D12.3, Benign neoplasm of transverse colon (hepatic ? flexure or splenic flexure) CPT copyright 2020 [employer]. All rights reserved. The codes documented in this report are preliminary and upon solar sales representative and assessor review may be revised to meet current compliance requirements. Kiko Jalloh MD 02/10/2024 4:35:56 PM This report has been signed electronically.Kiko Jalloh MD Number of Addenda: 0 Note Initiated On: 02/10/2024 4:08 PM Scope Withdrawal Time: 0 hours 8 minutes 6 seconds Scope In: 4:20:13 PM Scope Out: 4:33:23 PM ? Endoscopy Department at [facility] - [address] [place] [address], ? [place] [address] Procedure Note Kiko Jalloh MD - 02/10/2024 [facility] GI Patient Name: Roslyn Mena Procedure Date: 02/10/2024 4:08 PM Date of [...] the physician, the nurse, theanesthetist and the ground water technician in the pre-procedure area in the [...] reduce spontaneously). Procedure Code(s): --- Professional --- 77030, Colonoscopy, flexible; with biopsy, singleor multiple Diagnosis Code(s): --- Professional --- D12.5, Benign neoplasm of sigmoid colon D12.3, Benign neoplasm of transverse colon (hepatic flexure or splenic flexure) CPT copyright 2020 [employer]. All rights reserved. The codes documented in this report are preliminary and upon solar sales representative and assessor reviewmay be revised to meet current compliance requirements. Kiko Jalloh MD 02/10/2024 4:35:56 PM This report has been signed electronically.Kiko Jalloh MD Number of Addenda: 0 Note Initiated On: 02/10/2024 4:08 PM Scope Withdrawal Time: 0 hours 8 minutes 6 seconds Scope In: 4:20:13 PM Scope Out: 4:33:23 PM Endoscopy Department at [facility] - [address] [place] [phone] IMPRESSION: - Three 1 to 3 mm polyps in the sigmoid colon and in the transverse colon, removed with a jumbo cold forceps. Resected and retrieved. - Internal hemorrhoids. Recommendation: - Await pathology results. - Repeat colonoscopy in 5 years for surveillance. us Kiko Jalloh MD GI~PROCEDURE ORDERABLES Fin al Result * [facility] SCREENING DIGITAL (10/08/2023 9:38 AM EDT) Anatomical Region Laterality Modality Mammography 10/08/2023 7:14 AM EDT Narrative 10/08/2023 9:38 AM EDT [facility] Diagnostic Imaging Department [address] [place] [address] Patient: ??RAJESH,ROSLYN ?/Age/Sex: 1950 - 73 - F Unit#: ??[id number] ? Location/Status: ??SPDIMAM/REG CLI ? Mnemonic/Ordering Site: ??DIGSC/SPMAM Ordering Physician: ??DANIELLE DE DIOS Manish Screening Digital - 10/08/23742 Report Status:Signed EXAM: Manish Screening Digital EXAM DATE AND TIME: 10/08/2023 7:43 AM HISTORY: ??Screening. COMPARISON: ??8/10/23, 09/30/21, 09/26/20 TECHNIQUE: Bilateral digital breast tomosynthesis was performed in the CC and MLO projections. Computer aided detection with [employer] 3D 3.1 was employed. TISSUE DENSITY: c. [...] Signed by: ??BAILEY LANDAVERDE MD Dic Date/Time: ??10/08/23 0937 Sign date/Time: ??10/08/23 0938 Procedure Note Bailey Landaverde MD - 12/09/2023 [facility] Diagnostic Imaging Department [address] [place] [address] Patient: RAJESHROSLYN /Age/Sex: 1950 - 73 - F Unit#: [id number] Location/Status: [facility] Mnemonic/Ordering Site: [facility] Ordering Physician: DANIELLE DE DIOS [facility] Screening Digital - 10/08/23 - 0743 Report Status:Signed EXAM: [facility] Screening Digital EXAM DATE AND TIME: 10/08/2023 7:43 AM HISTORY: Screening. COMPARISON: 10/02/22, 09/30/21, 09/26/20 TECHNIQUE: Bilateral digital breast tomosynthesis was performed in the CCand MLO projections. Computer aided detection with [employer] 3D 3.1was employed. TISSUE DENSITY: c. The [...] Signed by: BAILEY LANDAVERDE MD Dic Date/Time: 10/08/23936 Sign date/Time: 10/08/23937 Danielle GARCIA IMG BI PROCEDURES Final Result * [facility] DEXA AXIAL SKELETON (05/06/2018 3:39 PM EDT) Anatomical Region Laterality Modality Mammography 05/06/2018 2:03 PM EDT Narrative 05/06/2018 3:39 PM EDT [facility] Diagnostic Imaging Department [address] [place] [address] Patient: ??RAJESHROSLYN ?/Age/Sex: 1950 - 67 - F Unit#: ??[id number] ? Location/Status: ??SPDIMAM/REG CLI ? Mnemonic/Ordering Site: ??MAMDEXAAX/SPMAM Ordering Physician: ??CASE,BEVERLEY GRAFF [facility] Dexa Axial Skeleton - 05/06/18 - 1539 HISTORY: ??The patient is a 67-year-old postmenopausal [...] probability of hip fracture of 0.7%. Code 66923 Dictating Physician: ??LINDA MONTES MD Electronically Signed by: ??LINDA MONTES MD Dic Date/Time: ??05/06/181536 Sign date/Time: ??05/06/181538 Procedure Note Linda Montes MD - 02/12/2022 [facility] Diagnostic Imaging Department [address] [place], [place] [id number] Patient: ROSLYN MENA D.O.B./Age/Sex: 1950 67 - F Unit#: [id number] Location/Status: [facility] Ordering Physician: BEVERLEY GORDON MD [facility] Dexa Axial Skeleton - 05/06/181533 HISTORY: The [...] density of the femurs bilaterally is 1.101 gm/hu0ydtvf is 109% of that of young normals [...] probability of hip fracture of 0.7%. Code 67769 Dictating Physician: LINDA MONTES MD Electronically Signed by: LINDA MONTES MD Dic Date/Time: 05/06/18 1537 Sign date/Time: 05/06/18 1539 Beverley Gordon MD IM BI PROCEDURES Final Result from Last 3 Months or Most Recently Relevant to Health Maintenance Insurance MEDICARE [facility] Care Teams Supervisor Car And Yard Relationship Specialty Start Date End Date Corky Schaefer MD [address] [place] [address] Dr Colleen [place] PCP - General 11/11/23
--- OUTSIDE RECORDS SUMMARY | 2024-06-15 17:08 | XMS_ITS | Encounter Summary ---
Author Organization [facility] Address [address] [place] [address] Care Team Providers Care Corporate Job Titles Name Role Phone Ruthie Chandra MD Primary Care Provider Reason for Visit * Reason Onset Date Comments Results 10/06/2023 Encounter Details Date Type Department Care Team ([facility] st Contact Info) Description 10/06/2023 Telephone [facility] Interventional Radiology at [address] [phone] Alvarado Bullock MD [address] [place] [phone] Results Social History Tobacco Use Types [...] as of this encounter Care Teams Corporate Job Titles Relationship Specialty Start Date End Date Ruthie Chandra MD [address] [place] [phone] PCP - General Internal Medicine 11/18/16 documented as of this encounter
--- OUTSIDE RECORDS SUMMARY | 2024-06-15 17:08 | XMS_ITS | Clinical Summary ---
Author Organization [address] Address [address] [place] [phone] Care Team Providers Care Web Interface Developer Name Role Phone Ruthie Chandra MD Primary [...] (11/28/2016): Added automatically from request for surgery [id number] HHT (hereditary hemorrhagic telangiectasia) 08/2013 Overview (09/07/2023): >>OVERVIEW FOR HEREDITARY HEMORRHAGIC TELANGIECTASIA (HC CODE) WRITTEN ON 11/28/2016 10:27 AM BY MARQUEZ SIMPSNO MD Added automatically from request for surgery [id number] GERD (gastroesophageal reflux disease) Eczema Immunizations Name [...] (RZV) 2 Dose Standard Series) 09/15/2001 RSV Immunization (1 - Risk 60-74 years 1-dose series) 2011 Osteoporosis screening (bone density) 09/15/2016 Covid-19 vaccine series ( season) 2023 07/16/2021, 12/27/2020, 06/11/2020, Additional history exists Influenza vaccine 10/24/2024 Tetanus adult (Td q 10,TDAP once) 02/27/2028 02/26/2018, 05/07/2009 Colon cancer screening, Colonoscopy 02/09/2034 02/10/2024 Pneumococcal Vaccine (50+ years) Completed 11/18/2019, 05/28/2018 Cervical cancer screening Discontinued Meningococcal Vaccine Aged Out No ankit kristen eligible based on patient's age to complete this topic Medical Devices Implanted Type Area Breakdown Person Device Identifier Shelf Expiration Date Model / Serial / Lot Handle Lavern Coil Detachment - [id number] Implanted:Qty: 1 on 10/22/2023 by Marquez Simpson MD at [address] [id number] 08/30/2026 [id number] / / [id number] Coil Lavern Complex Standard 5mm X 12 Cm - [id number] Implanted:Qty: 1 on 10/22/2023 by Marquez Simpson MD at [address] [id number] 05/12/2031 [id number] / / [id number] Coil Pod Packing J Soft 5cm - [id number] Implanted:Qty: 1 on 10/22/2023 by Marquez Simpson MD at [address] [id number] 07/26/2031 [id number] / / [id number] Coil Lavern Complex Soft 2mm X 4cm - [id number] Implanted:Qty: 1 on 10/22/2023 by Marquez Simpson MD at [address] Implant PENUM[employer]RA [id number] 07/08/2031 [id number] / / [id number] Plug Microvascular 3mm Mvp3q - [id number] Implanted:Qty: 1 on 10/22/2023 by Marquez Simpson MD at [address] Implant [employer] [id number] 02/22/2025 MVP-3Q / / [id number] Coil Lavern Complex Soft 3mm X 5cm - [id number] Implanted:Qty: 1 on 10/22/2023 by Marquez Simpson MD at [address] Implant PENUM[employer]RA [id number] 07/11/2031 [id number] / / [id number] Coil Embo Detach Embold 2ecs3vt - [id number] Implanted:Qty: 1 on 10/22/2023 by Marquez Simpson MD at [address] Implant [employer] [id number] 07/15/2026 [id number] / / [id number] Coil Embo Detach Embold 0mbw0vb - [id number] Implanted:Qty: 1 on 10/22/2023 by Marquez Simpson MD at [address] Implant [employer] [id number] 06/23/2026 [id number] / / [id number] Coil Pv Embo Concerto 8ohn59ra - [id number] Implanted:2016 by Marquez Simpson MD at [address] (Quantity not on file) Other-impl ant [employer] (MEDT-ZZZZ) 07/28/2019 NV-8-30-H ELIX / / [id number] Amplatzer Vasc Plug4 5mmx10.5 - [id number] Implanted:2016 by Marquez Simpson MD at [address] (Quantity not on file) Other-impl ant [facility] SH[employer] (STJU-ZZZZ) 07/23/2021 9-[id number]- [id number] / / [id number] Embolization Coil - [id number] Implanted:2016 by Marquez Simpson MD at [address] (Quantity not on file) Other-impl ant [employer] PRDT 11/27/2021 [id number] / / [id number] Coil Pv Embo Concerto 1tel09cm - [id number] Implanted:2016 by Marquez Simpson MD at [address] (Quantity not on file) Other-impl ant [employer] (MEDT-ZZZZ) 10/10/2019 NV-5-15-H ELIX / / [id number] Coil Pv Embo Concerto 9mfp66mm - [id number] Implanted:2016 by Marquez Simpson MD at [address] (Quantity not on file) Other-impl ant [employer] (MEDT-ZZZZ) 10/10/2019 NV-5-15-H ELIX / / [id number] Coil Pv Embo Concerto 5ixo52ix - [id number] Implanted:2016 by Marquez Simpson MD at [address] (Quantity not on file) Other-impl ant [employer] (MEDT-ZZZZ) 09/15/2019 NV-4-10-H ELIX / / [id number] Coil Pv Embo Concerto 1gkh6bo - [id number] Implanted:2016 by Marquez Simpson MD at [address] (Quantity not on file) Other-impl ant [employer] (MEDT-ZZZZ) 09/18/2019 NV-3-8-HE LIX / / [id number] Amplatzer Vasc Plug4 5btm11tm - [id number] Implanted:2016 by Marquez Simpson MD at [address] (Quantity not on file) Other-impl ant ST SH[employer]IN[employer] (STJU-ZZZZ) 08/22/2021 [id number]- [id number] / / [id number] Coil Embol Mwce 35-4/3 Tornado - [id number] Implanted:2016 by Marquez Simpson MD at [address] (Quantity not on file) Other-impl ant [employer] 11/12/2021 [id number] / / [id number] Coil Embol Mwce 35-4/3 Tornado - [id number] Implanted:2016 by Marquez Simpson MD at [address] (Quantity not on file) Other-impl ant [employer] 11/12/2021 [id number] / / [id number] Embolization Coil - [id number] Implanted:2016 by Marquez Simpson MD at [address] (Quantity not on file) Other-impl ant [employer] 10/13/2021 [id number] / / [id number] Insurance MEDICARE [facility] MEDICARE [facility] Care Teams Web Interface Developer Relationship Specialty Start Date End Date Ruthie Chandra MD [address] [place] [address] PCP - General Internal Medicine 11/18/16
--- OUTSIDE RECORDS SUMMARY | 2024-06-15 17:08 | XMS_ITS | Encounter Summary ---
Author Organization [facility] Address [address] [place] [phone] Care Team Providers Care Cabbage Salter Name Role Phone Ruthie Chandra MD Primary Care Provider Encounter Details Date Type Department Care Team (Late st Contact Info) Description 10/13/2023 Scanned Document Interventional Radiology at [address] [phone] Provider, Historical . Social History Tobacco Use [...] documented as of this encounter Care Teams Cabbage Salter Relationship Specialty Start Date End Date Ruthie Cahndra MD [address] [place] [phone] PCP - General Internal Medicine 11/18/16 documented as of this encounter
--- OUTSIDE RECORDS SUMMARY | 2024-06-15 17:09 | XMS_ITS ---
Author Name [facility] Organization Unknown Encounters Encounter Type Encounter Reason Primary Diagnosis Location Date Ambulatory Hereditary hemorrhag ic telangiectasia (HC Code) Hereditary hemorrhagic telangiectasia (HC Code) [facility] 10/22/2023 Care Team Organization Name Specialty Phone Email Start Date End Da te [facility] 10/23/2023 11/21/2023 [facility] 10/22/2023
== END 2024-06-15 14:52 | disposition home or self-care (01) ==
LOC: HO.HSMS 14:15
PROVIDERS: PCP Physician Assistant; Visit Provider Psychiatry & Neurology Neurology
DX: R25.1 Tremor, unspecified (principal)
CPT/HCPCS: 99204

== ENCOUNTER → 2024-06-15 14:15 | Outpatient (BNVA) | payer MEDICARE, OTHER, SELFPAY | PROVIDERS: PCP Physician Assistant; Visit Provider Psychiatry & Neurology Neurology | DX: R25.1 Tremor, unspecified (principal) | CPT/HCPCS: 99202 ==

== ENCOUNTER → 2024-06-23 07:10 | Outpatient (BNV) | payer MEDICARE, OTHER, SELFPAY | PROVIDERS: PCP Physician Assistant; Visit Provider Radiology Diagnostic Radiology | DX: R90.82 White matter disease, unspecified (principal) | CPT/HCPCS: 70551 ==

== ENCOUNTER 2024-06-23 07:12 | Outpatient (REF) | payer MEDICARE, OTHER, SELFPAY ==
--- NOTE | ~2024-06-23 | MR_ITS ---
EXAMINATION: MR BRAIN WITHOUT IV CONTRAST HISTORY: G43.909 - Migraine, unspecified, not intractable, without status migraine... TECHNIQUE: Sagittal T1, and axial T1, FLAIR, T2, gradient echo, and diffusion weighted MR images of the brain were obtained. COMPARISON: None FINDINGS: There is diffuse prominence of the ventricular system and cortical sulci, consistent with atrophy. Periventricular and subcortical white matter hyperintensities are noted on the FLAIR and T2-weighted images which are nonspecific, but often seen in the setting of small vessel ischemic disease. There are multiple old lacunar infarcts of the bilateral cerebellar hemispheres. There is no mass effect or midline shift. No intra or extra-axial fluid collections are identified. There are no foci of restricted diffusion. Normal vascular flow voids are noted in the basilar and carotid arteries. The visualized paranasal sinuses are clear. MR/MR head/brain wo con IMPRESSION: Nonspecific white matter hyperintensities which can be seen in the setting of small vessel ischemic disease, migraine, Lyme disease, vasculitis, and demyelinating disease. 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 Electronically signed by: Nacho Pacheco MD 06/23/2024 11:13 AM EDT
--- OUTSIDE RECORDS SUMMARY | 2024-06-23 07:18 | XMS_ITS | Clinical Summary ---
Author Organization [facility] Address [address] [place] [address] Care Team Providers Care Stereotyper Helper Name Role Phone Corky Schaefer MD Primary [...] Facetectomy, foraminotomy OTHER SURGICAL HISTORY 12/2017 PROCEDURE: [place] HEMORRHOIDECTOMY INT & XTRNL 2/> [facility] COLONOSCOPY 03/01/2019 PROCEDURE: HISTORICAL COLONOSCOPY; COMMENT: polyps ESOPHAGOGASTRODUODENOSCOPY 03/01/2019 PROCEDURE: [place] EGD TRANSORAL BIOPSY SINGLE/MULTIPLE; COMMENT: gastritis. 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); COMMENT: Follows at [facility] Eczema 02/10/2018 DX:Eczema GERD (gastroesophageal reflu [...] Comments CABG Brother Diabetes Brother at 59- [place] Bladder Cancer Father Hypertension Mother Hyperlipidemia Other: [...] PM EST Colon polyps Colon cancer screening [facility] SCREENING DIGITAL Routine 10/08/2023 9:38 AM EDT Encounter for screening mammogram for malignant neoplasm of breast [facility] DEXA AXIAL SKELETON Routine 05/06/2018 3:39 PM EDT Asymptomatic menopausal state from Last 3 Months or Most Recently Relevant to Health Maintenance Results * COLONOSCOPY Anesthesia - MAC; [facility] ENDOSCOPY (02/10/2024 4:33 PM EST) Anatomical [...] for surveillance. Narrative 02/10/2024 4:36 PM EST [facility] GI Patient Name: Roslyn Mena [...] verified by the physician, the nurse, the biodiesel process control technician ? and the pharmaceutical development technician in the pre-procedure area in the [...] Procedure Code(s): ? --- Professional --- ? 01852, Colonoscopy, flexible; with biopsy, single or ? multiple Diagnosis Code(s): ? --- Professional --- ? D12.5, Benign neoplasm of sigmoid colon ? D12.3, Benign neoplasm of transverse colon (hepatic ? flexure or splenic flexure) CPT copyright 2020 [employer]. All rights reserved. The codes documented in this report are preliminary and upon chronometer assembler review may be revised to meet current compliance requirements. Kiko Jalloh MD 02/10/2024 4:35:56 PM This report has been signed electronically.Kiko Jalloh MD Number of Addenda: 0 Note Initiated On: 02/10/2024 4:08 PM Scope Withdrawal Time: 0 hours 8 minutes 6 seconds Scope In: 4:20:13 PM Scope Out: 4:33:23 PM ? Endoscopy Department at [facility] - [address] [place] [address], ? [place] [address] Procedure Note Kiko Jalloh MD - 02/10/2024 [facility] GI Patient Name: Roslyn Mena [...] the physician, the nurse, theanesthetist and the pharmaceutical development technician in the pre-procedure area in the [...] reduce spontaneously). Procedure Code(s): --- Professional --- 45153, Colonoscopy, flexible; with biopsy, singleor multiple Diagnosis Code(s): --- Professional --- D12.5, Benign neoplasm of sigmoid colon D12.3, Benign neoplasm of transverse colon (hepatic flexure or splenic flexure) CPT copyright 2020 [employer]. All rights reserved. The codes documented in this report are preliminary and upon chronometer assembler reviewmay be revised to meet current compliance requirements. Kiko Jalloh MD 02/10/2024 4:35:56 PM This report has been signed electronically.Kiko Jalloh MD Number of Addenda: 0 Note Initiated On: 02/10/2024 4:08 PM Scope Withdrawal Time: 0 hours 8 minutes 6 seconds Scope In: 4:20:13 PM Scope Out: 4:33:23 PM Endoscopy Department at [facility] - [address] [place] [phone] IMPRESSION: - Three 1 to 3 mm [...] AM EDT Narrative 10/08/2023 9:38 AM EDT [facility] Diagnostic Imaging Department [address] [place] [address] Patient: ??RAJESH,ROSLYN ?/Age/Sex: 1950 - 73 - F Unit#: ??[id number] ? Location/Status: ??SPDIMAM/REG CLI ? Mnemonic/Ordering Site: ??DIGSC/SPMAM Ordering Physician: ??DANIELLE DE DIOS [facility] Screening Digital - 10/08/23742 Report Status:Signed EXAM: [facility] Screening Digital EXAM DATE AND TIME: 10/08/2023 7:43 AM HISTORY: ??Screening. COMPARISON: ??8/10/23, 09/30/21, 09/26/20 TECHNIQUE: Bilateral digital breast tomosynthesis was performed in the CC and MLO projections. Computer aided detection with Jibe 3D 3.1 was employed. TISSUE DENSITY: c. [...] Procedure Note Bailey Landaverde MD - 12/09/2023 [facility] Diagnostic Imaging Department [address] [place] [address] Patient: RAJESHROSLYN /Age/Sex: 1950 - 73 - F Unit#: [id number] Location/Status: [facility] Mnemonic/Ordering Site: [facility] Ordering Physician: DANIELLE DE DIOS [facility] Screening Digital - 10/08/23 - 0743 Report Status:Signed EXAM: [facility] Screening Digital EXAM DATE AND TIME: 10/08/2023 7:43 AM HISTORY: Screening. COMPARISON: 10/02/22, 09/30/21, 09/26/20 TECHNIQUE: Bilateral digital breast tomosynthesis was performed in the CCand MLO projections. Computer aided detection with Jibe 3D 3.1was employed. TISSUE DENSITY: c. The [...] GARCIA IMG BI PROCEDURES Final Result * [facility] DEXA AXIAL SKELETON (05/06/2018 3:39 PM EDT) Anatomical Region Laterality Modality Mammography 05/06/2018 2:03 PM EDT Narrative 05/06/2018 3:39 PM EDT [facility] Diagnostic Imaging Department [address] [place] [address] Patient: ??RAJESHROSLYN ?/Age/Sex: 1950 - 67 - F Unit#: ??[id number] ? Location/Status: ??SPDIMAM/REG CLI ? Mnemonic/Ordering Site: ??MAMDEXAAX/SPMAM Ordering Physician: ??CASE,BEVERLEY GRAFF [facility] Dexa Axial Skeleton - 05/06/18 - 1538 HISTORY: ??The patient is a 67-year-old postmenopausal [...] probability of hip fracture of 0.7%. Code 54568 Dictating Physician: ??LINDA MONTES MD Electronically Signed by: ??LINDA MONTES MD Dic Date/Time: ??05/06/181536 Sign date/Time: ??05/06/181538 Procedure Note Linda Montes MD - 02/12/2022 [facility] Diagnostic Imaging Department [address] [place], [place] [address] Patient: ROSLYN MENA D.O.B./Age/Sex: 1950 67 - F Unit#: [id number] [facility] Ordering Physician: BEVERLEY GORDON MD [facility] Dexa Axial Skeleton - 05/06/181533 HISTORY: The [...] density of the femurs bilaterally is 1.101 gm/za2ekjjs is 109% of that of young normals [...] probability of hip fracture of 0.7%. Code 91922 Dictating Physician: LINDA MONTES MD Electronically Signed by: LINDA MONTES MD Dic Date/Time: 05/06/18 1537 Sign date/Time: 05/06/18 1539 Beverley Gordon MD IM BI PROCEDURES Final Result from Last 3 Months or Most Recently Relevant to Health Maintenance Insurance MEDICARE [facility] Care Teams Stereotyper Helper Relationship Specialty Start Date End Date Corky Schaefre MD [address] [place] [address] Dr Colleen MA PCP - General 11/11/23
--- OUTSIDE RECORDS SUMMARY | 2024-06-23 07:18 | XMS_ITS | Clinical Summary ---
Author Organization [address] Address [address] [place] [phone] Care Team Providers Care International Sourcing Manager Name Role Phone Ruthie Chandra MD Primary [...] (11/28/2016): Added automatically from request for surgery [id number] HHT (hereditary hemorrhagic telangiectasia) 08/2013 Overview (09/07/2023): >>OVERVIEW FOR HEREDITARY HEMORRHAGIC TELANGIECTASIA (HC CODE) WRITTEN ON 11/28/2016 10:27 AM BY MARQUEZ SIMPSON MD Added automatically from request for surgery [id number] GERD (gastroesophageal reflux disease) Eczema Immunizations Name [...] this topic Medical Devices Implanted Type Area Venetian Blind Mechanic Device Identifier Shelf Expiration Date Model / Serial / Lot Handle Lavern Coil Detachment - [id number] Implanted:Qty: 1 on 10/22/2023 by Marquez Simpson MD at [address] [id number] 08/30/2026 RH1 / / [id number] Coil Lavern Complex Standard 5mm X 12 Cm - [id number] Implanted:Qty: 1 on 10/22/2023 by Marquez Simpson MD at [address] [id number] 05/12/2031 [id number] / / [id number] Coil Pod Packing J Soft 5cm - [id number] Implanted:Qty: 1 on 10/22/2023 by Marquez Simpson MD at [address] [id number] 07/26/2031 [id number] / / [id number] Coil Lavern Complex Soft 2mm X 4cm - [id number] Implanted:Qty: 1 on 10/22/2023 by Marquez Simpson MD at [address] Implant PENUMBRA [id number] 07/08/2031 [id number] / / [id number] Plug Microvascular 3mm Mvp3q - [id number] Implanted:Qty: 1 on 10/22/2023 by Marquez Simpson MD at [address] Implant [employer] [id number] 02/22/2025 MVP-3Q / / [id number] Coil Lavern Complex Soft 3mm X 5cm - [id number] Implanted:Qty: 1 on 10/22/2023 by Marquez Simpson MD at [address] Implant PENUMBRA [id number] 07/11/2031 [id number] / / [id number] Coil Embo Detach Embold 7kpo0fj - [id number] Implanted:Qty: 1 on 10/22/2023 by Marquez Simpson MD at [address] Implant [employer] [id number] 07/15/2026 [id number] / / [id number] Coil Embo Detach Embold 9zjd8bg - [id number] Implanted:Qty: 1 on 10/22/2023 by Marquez Simpson MD at [address] Implant [employer] [id number] 06/23/2026 [id number] / / [id number] Coil Pv Embo Concerto 8wey67jo - [id number] Implanted:2016 by Marquez Simpson MD at [address] (Quantity not on file) Other-impl ant [employer]TR[employer] (MEDT-ZZZZ) 07/28/2019 NV-8-30-H ELIX / / [id number] Amplatzer Vasc Plug4 5mmx10.5 - [id number] Implanted:2016 by Marquez Simpson MD at [address] (Quantity not on file) Other-impl ant [facility] SHAL[employer] (STJU-ZZZZ) 07/23/2021 [id number] 005 / / [id number] Embolization Coil - [id number] Implanted:2016 by Marquez Simpson MD at [address] (Quantity not on file) Other-impl ant [employer] INTERVEN PRDT 11/27/2021 [id number] / / [id number] Coil Pv Embo Concerto 7enu40ku - [id number] Implanted:2016 by Marquez Simpson MD at [address] (Quantity not on file) Other-impl ant [employer] (MEDT-ZZZZ) 10/10/2019 NV-5-15-H ELIX / / [id number] Coil Pv Embo Concerto 3oko45bu - [id number] Implanted:2016 by Marquez Simpson MD at [address] (Quantity not on file) Other-impl ant [employer] (MEDT-ZZZZ) 10/10/2019 NV-5-15-H ELIX / / [id number] Coil Pv Embo Concerto 2egg99nz - [id number] Implanted:2016 by Marquez Simpson MD at [address] (Quantity not on file) Other-impl ant [employer] (MEDT-ZZZZ) 09/15/2019 NV-4-10-H ELIX / / [id number] Coil Pv Embo Concerto 8iyn7oc - [id number] Implanted:2016 by Marquez Simpson MD at [address] (Quantity not on file) Other-impl ant [employer] (MEDT-ZZZZ) 09/18/2019 NV-3-8-HE LIX / / [id number] Amplatzer Vasc Plug4 2ssb73rw - [id number] Implanted:2016 by Marquez Simpsno MD at [address] (Quantity not on file) Other-impl ant ST SHALINI (STJU-ZZZZ) 08/22/2021 [id number] / / [id number] Coil Embol Mwce 35-4/3 Tornado - [id number] Implanted:2016 by Marquez Simpson MD at [address] (Quantity not on file) Other-impl ant [employer] VASC[employer] 11/12/2021 [id number] / / [id number] Coil Embol Mwce 35-4/3 Tornado - [id number] Implanted:2016 by Marquez Simpson MD at [address] (Quantity not on file) Other-impl ant [employer] 11/12/2021 [id number] / / [id number] Embolization Coil - [id number] Implanted:2016 by Marquez Simpson MD at [address] (Quantity not on file) Other-impl ant [employer] 10/13/2021 [id number] / / [id number] Insurance MEDICARE [facility] MEDICARE [facility] Care Teams International Sourcing Manager Relationship Specialty Start Date End Date Ruthie Chandra MD [address] [place] [address] PCP - General Internal Medicine 11/18/16
--- OUTSIDE RECORDS SUMMARY | 2024-06-23 07:18 | XMS_ITS | Clinical Summary ---
Author Organization [employer] [facility] Address [address] [place] [address] Care Team Providers Care Hybrid Corn Breeder Name Role Phone Unknown, Primary Care Provider [...] age to complete this topic Care Teams Hybrid Corn Breeder Relationship Specialty Start Date End Date Unknown, PCP - General 01/30/22
--- OUTSIDE RECORDS SUMMARY | 2024-06-23 07:18 | XMS_ITS | Encounter Summary ---
Author Organization [facility] Address [address] [place] [address] Care Team Providers Care Shove Up Name Role Phone Ruthie Chandra MD Primary Care Provider Reason for Visit * Reason Onset Date Comments Appointment 09/08/2023 Encounter Details Date Type Department Care Team ([facility] st Contact Info) Description 09/08/2023 Telephone [facility] Interventional Radiology at [address] [phone] Alvarado Bullock MD [address] [place] [phone] Appointment Social History Tobacco Use Types [...] documented as of this encounter Care Teams Shove Up Relationship Specialty Start Date End Date Ruthie Chandra MD [address] [place] [phone] PCP - General Internal Medicine 11/18/16 documented as of this encounter
--- OUTSIDE RECORDS SUMMARY | 2024-06-23 07:18 | XMS_ITS | Encounter Summary ---
Author Organization [facility] Address [address] [place] [phone] Care Team Providers Care Collar Separator Name Role Phone Ruthie Chandra MD Primary Care Provider Encounter Details Date Type Department Care Team (Late st Contact Info) Description 10/13/2023 Scanned Document Interventional Radiology at [address] [phone] Provider, Historical . Social History Tobacco Use [...] documented as of this encounter Care Teams Collar Separator Relationship Specialty Start Date End Date Ruthie Chandra MD [address] [place] [phone] PCP - General Internal Medicine 11/18/16 documented as of this encounter
--- OUTSIDE RECORDS SUMMARY | 2024-06-23 07:18 | XMS_ITS | Encounter Summary ---
Author Organization [facility] Address [address] [place] [address] Care Team Providers Care Knitting Machine Operator Name Role Phone Ruthie Chandra MD Primary Care Provider Reason for Visit * Reason Onset Date Comments Results 10/06/2023 Encounter Details Date Type Department Care Team ([facility] st Contact Info) Description 10/06/2023 Telephone [facility] Interventional Radiology at [address] [phone] Alvarado Bullock MD [address] [place] [phone] Results Social History Tobacco Use Types [...] documented as of this encounter Care Teams Knitting Machine Operator Relationship Specialty Start Date End Date Ruthie Chandra MD [address] [place] [phone] PCP - General Internal Medicine 11/18/16 documented as of this encounter
== END 2024-06-23 07:13 | disposition home or self-care (01) ==
LOC: HO.MRI 07:12
PROVIDERS: PCP Physician Assistant; Visit Provider Physician Assistant
DX: G43.909 Migraine, unspecified, not intractable, without status migrainosus (principal); R68.89 Other general symptoms and signs; R25.1 Tremor, unspecified
CPT/HCPCS: 70551

== ENCOUNTER 2024-06-30 10:09 | Outpatient (AMB) | payer MEDICARE, OTHER, SELFPAY ==
--- NOTE | 2024-06-30 10:17 | MHC.PC.OV ---
Vital Signs 06/30/24 10:22 Height 5 ft 1.5 in Weight 132 lb BMI 24.5 BP 126/64 Blood Pressure Location Lt brachial Position Sitting Respiration 12 Pulse 67 Pulse Source Pulse Oximeter Pulse Oximetry (%) 94 Oxygen Delivery Method Room Air Intake Visit Reasons: meds Intake Note: Saw Dr De Leon for back pain. Also saw neurologist with [facility] Allergies No Known Allergies Allergy (Verified 06/15/24 14:22) Medication List - Last Reconciled 06/30/24 by Zuleima Rosas PA-C albuterol sulfate 90 mcg/actuation 2 puffs inhalation Q6H PRN Bifidobacterium infantis (Align (B.infantis)) mg PO dicyclomine 10 mg PO BID famotidine (Acid Program Coordinator For Residence Life (famotidine)) 20 mg PO BID 90 days lisinopril 20 mg PO DAILY meclizine 25 mg PO DAILY PRN multivitamin 1 tab PO DAILY paroxetine HCl 20 mg PO DAILY pravastatin 20 mg PO DAILY Tobacco use date assessed: 06/30/24 Fall risk assessment: No Falls in past year Last assessed Fall Risk: 06/30/24 Dental Screening Dental Screen Date: 05/28/23 Did you have a dental visit in the last 12 months?: Yes Did you have a dental problem in the last 6 months where you did not have access to dental care?: No Was dental information given to patient?: Patient has dentist HPI meds HPI Details Patient is a 73-year-old female with a significant past medical history of impaired fasting glucose, hyperlipidemia, hypertension, anxiety, hereditary hemorrhagic telangiectasia, pulmonary arterial venous malformation presenting today for a wellness visit. CV: Blood pressure today in the office is 126/64. She is currently on lisinopril 20 mg. Cholesterol has been controlled with pravastatin 20 mg. She is still with PVC since her TIA in 2006. Vascular: Saw vascular IR at [place] for embolizing of the pulmonary AVMs. Feeling well since the procedure. Neuro: Seeing Dr. Salazar. Tremor is so far stable. She had a recent MRI which showed previous infarcts. She reports having an MRI done many years ago, around the time that she had a supposed a TIA in 2006. She states that she does not believe that she truly had a TIA at that point. She thinks it was a migraine. She also does not recall a full workup. She was a [facility] patient at that point we do not have any records of this. She denies any paresthesias, abnormal gait, vision changes, nausea, vomiting or weakness. MSK: On meloxicam for back pain with Dr. Price. Psych: Anxiety is well-controlled with paroxetine 20 mg. No SI/HI. Colonoscopy: Up-to-date, 2023, due in 2028. Mammo: mammo utd at [facility] Pap: utd- follows with [facility] Bone density: Up-to-date, 08/13/2023-[facility] Medical History Tremor of both hands Dyslipidemia Hypertension Generalized anxiety disorder Surgical History Hx of section History of back surgery Family History Mother HTN (hypertension) Father Bladder cancer Social History Housing: House Alcohol intake: current Patient Tobacco Use Status: Former Tobacco user Cigarette Packs Per Day: 1 Years Smoked: 30 e-Cigarette/Vaping Use: Never Used Second Hand Smoke Exposure: Yes service: No Current occupational status: retired Cognitive needs: No Hearing needs: No Vision needs: No Questionnaire PHQ-9 Over the last 2 weeks, how often have you been bothered by any of the following problems? 1. Little interest or pleasure in doing things: not at all 2. Feeling down, depressed, or hopeless: not at all 3. Trouble falling or staying asleep, or sleeping too much: several days 4. Feeling tired or having little energy: several days 5. Poor appetite or overeating: not at all 6. Feeling bad about yourself - or that you are a failure or have let yourself or your family down: not at all 7. Trouble concentrating on things, such as reading the newspaper or watching television: not at all 8. Moving or speaking so slowly that other people could have noticed. Or the opposite - being so fidgety or restless that you have been moving around a lot more than usual: not at all 9. Thoughts that you would be better off or of hurting yourself in some way: not at all Total score: 2 Depression Screening Interpretation: Positive Depression Screening Follow-up: Existing condition and In treatment Depression Screening Done: Yes 65717 - PHQ-9 Billing: Yes Source: Developed by Drs. Nacho Gonzalez, Dinesh Hatfield and colleagues, with an educational katia from [employer]. Thrive Questionnaire Date Thrive assessed: 03/16/24 I am a: Patient What is your living situation today?: I have a steady place to live Within the past 12 months, did the food you bought not last and you didn't have the money to get more?: Never true Within the past 12 months, did you worry whether your food would run out before you got money to buy more?: Never true Do you have trouble paying for medicines?: No Do you have trouble getting transportation to medical appointments?: No Do you have trouble paying your heating and electricity bill?: No Do you have trouble taking care of your child, family member or friend?: No Do you have trouble with day-to-day activities such as bathing, preparing meals, shopping, managing finances, etc.?: No Are you currently unemployed and looking for a job?: No Are you interested in more education?: No Please select the resources that you would like help with: None Currently or been in a relationship where the following occur: No concerns reported THRIVE Score: 0 AUDIT C Alcohol Use Questionnaire (AUDIT-C) 1. How often do you have a drink containing alcohol?: Monthly or less 2. How many drinks containing alcohol do you have on a typical day when you are drinking?: 1 or 2 3. How often do you have six or more drinks on one occasion?: Never Total Score: 1 MICHEAL-7 AMB Questionnaire MICHEAL-7 Date MICHEAL - 7 assessed: 05/28/23 Source: Developed by Drs. Nacho Gonzalez, Dinesh Hatfield and colleagues, with an educational katia from [employer]. Physical exam (Primary Care) Vital Signs: Last Vital Signs Pulse 67 06/30/24 10:22 Resp 12 06/30/24 10:22 BP 126/64 06/30/24 10:22 Pulse Ox 94 06/30/24 10:22 Oxygen Delivery Method Room Air 06/30/24 10:22 BMI result Body Mass Index 24.5 Tobacco/Smoking Status: Tobacco use Status Tobacco use date assessed 06/30/24 06/30/24 10:26 Patient Tobacco Use Status Former Tobacco user 06/30/24 10:26 e-Cigarette/Vaping Use Never Used 06/30/24 10:26 PHQ-9: PHQ-9 Score PHQ-9: Total score 2 06/30/24 10:26 Depression Screening Interpretation: Positive Depression Screening Follow-up: Existing condition and In treatment Thrive Assessment: Date of Thrive Assessment Date Thrive assessed 03/16/24 06/30/24 10:26 Currently or been in a relationship where the following occur: No concerns reported Const Orientation/consciousness: patient oriented x3 HENMT Ears: hearing grossly normal bilaterally Neck Thyroid: Thyroid normal Lymphatic: no lymphadenopathy noted Resp Auscultation: clear to auscultation bilaterally Cardio Rate: regular rate Rhythm: regular rhythm Heart sounds: S1 normal heart sound present and S2 normal heart sound present GI Inspection: Yes normal to inspection Palpation (GI): Soft to palpation and Other GI palpation findings present (nontender, no cva tenderness) Auscultation: normoactive bowel sounds Rectal Exam - Female: deferred Skin General skin exam: no rashes or lesions noted Neuro General: patient oriented x3, gait normal and no focal motor deficits Results Reviewed Results Reviewed: MR/MR head/brain wo con IMPRESSION: Nonspecific white matter hyperintensities which can be seen in the setting of small vessel ischemic disease, migraine, Lyme disease, vasculitis, and demyelinating disease. 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 Coding Level of Care Code Est Pt Level 4 (19613) Complex EM visit Add On G2211 Diagnoses Dyslipidemia E78.5 Primary hypertension I10 Hypertension type: primary hypertension Tremor of both hands R25.1 IFG (impaired fasting glucose) R73.01 Additional Codes PHQ-9 - 71963 - PHQ-9 Billing: Yes ([id number]) Assessment & Plan Assessment & Plan (1) Dyslipidemia: Code(s): E78.5 - Hyperlipidemia, unspecified Category: Medical Plan: We will monitor. Currently on pravastatin 20 mg (2) Hypertension: Code(s): I10 - Essential (primary) hypertension Category: Medical Qualifiers: Hypertension type: primary hypertension Qualified Code(s): I10 - Essential (primary) hypertension Plan: WNL. Blood pressures are normal at home. (3) Tremor of both hands: Comment: exaggerated physiological vs senile tremors Code(s): R25.1 - Tremor, unspecified Category: Medical Plan: Following with Neurology (4) IFG (impaired fasting glucose): Code(s): R73.01 - Impaired fasting glucose Category: Medical Plan: A1c ordered Orders: Orders Microalbumin, Random (w Creat) Today E78.5 - Hyperlipidemia, unspecified, I10 - Essential (primary) hypertension, R25.1 - Tremor, unspecified, R73.01 - Impaired fasting glucose Complete Blood Count Auto Diff Today E78.5 - Hyperlipidemia, unspecified, I10 - Essential (primary) hypertension, R25.1 - Tremor, unspecified, R73.01 - Impaired fasting glucose Comprehensive [place]. Panel Fast Today E78.5 - Hyperlipidemia, unspecified, I10 - Essential (primary) hypertension, R25.1 - Tremor, unspecified, R73.01 - Impaired fasting glucose TSH reflex Free T4 Today E78.5 - Hyperlipidemia, unspecified, I10 - Essential (primary) hypertension, R25.1 - Tremor, unspecified, R73.01 - Impaired fasting glucose Hemoglobin A1c Today R73.01 - Impaired fasting glucose Lipid Panel Today E78.5 - Hyperlipidemia, unspecified
[2024-06-30 10:22] VITALS: BP 126/64; PULSE 67; RESP 12; O2SAT 94; BMI 24.5
--- OUTSIDE RECORDS SUMMARY | 2024-06-30 11:18 | XMS_ITS | Encounter Summary ---
Author Organization [facility] Address [address] [place] [address] Care Team Providers Care Business Info Consultant Name Role Phone Jasson Mcnally MD Primary Care Provider Unavailable Jasson Mcnally MD Primary Care Provider Unavailable Jasson Mcnally MD Unavailable Unavai Miko Plata MD Unavailable [phone] Sobeida Velasco NP Unavailable [phone] Glen Bañuelos DO Primary Care Provider Unavaila [facility] Primary Care Provider UnavailZuleima aNsh PA-C Primary Care Provider Unavail able Mandi Corrigan DNP Unavailable [phone] Corky Schaefer MD Primary Care Provider Unav ailable Encounter Details Date Type Department Care Team Description 11/16/2017 Drink Box Mechanic Report Medical Records [address] [place] [address] Aissatou Gordon MD Social History Tobacco Use Types Packs/Day Years Used Date Smoking Tobacco: Never Assessed Alcohol Habits Answer Date Recorded How often do you have a drink containing alcohol ? 2-3 times a week 01/08/2021 How many drinks containing a lcohol do you have on a typical day when you are drinking? 1 or 2 01/08/2021 How often do you have six or more drinks on one occasion? Never 01/08/2021 Social Isolation Answer Date Recorded In a typical week, how many times do you talk on the phone with family, friends, or neighbors? More than three times a week 01/08/2021 How often do you get togethe r with friends or relatives? More than three times a week 01/08/2021 How often do you attend chur ch or sabianism services? More than 4 times per year 01/08/2021 Do you belong to any clubs o r organizations such as cheondoism groups, unions, fraternal or athletic groups, or school groups? Yes 01/08/2021 How often do you attend meet ings of the clubs or organizations you belong to? More than 4 times per year 01/08/2021 Are you now , , , , never or living with a partner? 01/08/2021 Physical Activity Answer Date Recorded On average, how many days pe r week do you engage in moderate to strenuous exercise (like walking fast, running, jogging, dancing, swimming, biking, or other activities that cause a light or heavy sweat)? 7 days 01/08/2021 On average, how many minutes do you engage in exercise at this level? 60 min 01/08/2021 Stress Answer Date Recorded Do you feel stress - tense, restless, nervous, or anxious, or unable to sleep at night because your mind is troubled all the time - these days? Not at all 01/08/2021 Financial Resource Strain Answer Date R ecorded How hard is it for you to pa y for the very basics like food, housing, medical care, and heating? Not hard at all 01/08/2021 Intimate Partner Violence Answer Date R ecorded Within the last year, have y ou been afraid of your partner or ex-partner? No 01/08/2021 Within the last year, have y ou been humiliated or emotionally abused in other ways by your partner or ex-partner? No Within the last year, have y ou been kicked, hit, slapped, or otherwise physically hurt by your partner or ex-partner? No 01/08/2021 Within the last year, have y ou been raped or forced to have any kind of sexual activity by your partner or ex-partner? No 01/08/2021 Food Insecurity Answer Date Recorded Within the past 12 months, y ou worried that your food would run out before you got money to buy more. Never true 01/08/2021 Within the past 12 months, t he food you bought just didn't last and you didn't have money to get more. Never true 01/08/2021 Transportation Needs Answer Date Record ed In the past 12 months, has l ack of transportation kept you from medical appointments or from getting medications? No 12/24 In the past 12 months, has l ack of transportation kept you from meetings, work, or getting things needed for daily living? No 01/08/2021 Housing Stability Answer Date Recorded In the last 12 months, was t here a time when you were not able to pay the mortgage or rent on time? No 01/08/2021 In the last 12 months, how many places have you lived? 1 01/08/2021 In the last 12 months, was t here a time when you did not have a steady place to sleep or slept in a snf (including now)? No 01/08/2021 Sex Assigned at Date Recorded Not on file Job Start Date Occupation Industry Not on file Not on file Not on file documented as of this encounter Plan of Treatment Not on file documented as of this encounter Visit Diagnoses Not on filedocumented in this encounter Care Teams Business Info Consultant Relationship Specialty Start Date End Date Jasson Mcnally MD PCP - General Internal Medicine 10/06/17 12/17/17 Jasson Mcnally MD PCP - General 12/18/17 03/03/21 Glen Bañuelos DO [address] [place] [address] PCP - General Internal Medicine 03/04/21 01/07/22 [facility] [address] [place] [address] PCP - General Internal Medicine 01/08/22 08/26/22 Zuleima Rosas PA-C [address] [place] [address] PCP - General Internal Medicine 08/27/22 11/10/23 Corky Schaefer MD [address] [place] [address]184 PCP - General Family Practice 11/11/23 Jasson Mcnally MD Internal Medicine 12/18/17 08/26/22 Miko Donis MD [address] [place] [address] Specialist Cardiovascular Disease 01/08/21 Sobeida Velasco, JULIA [address] [place] [address] Cardiology 02/19/21 09/23/23 Mandi Corrigan, JOÃO [address] [place] [address] Specialist Nurse Practitioner Family 09/24/23 documented as of this encounter
--- OUTSIDE RECORDS SUMMARY | 2024-06-30 11:18 | XMS_ITS | Encounter Summary ---
Author Organization [facility] Address [address] [place] [address] Care Team Providers Care Tattoo Artist Name Role Phone Jasson Mcnally MD Primary Care Provider Unavailable Jasson Mcnally MD Unavailable Unajailenei Miko Plata MD Unavailable [phone] Sobeida Velasco NP Unavailable [phone] Glen Bañuelos DO Primary Care Provider Unavaila [facility] Pcp Primary Care Provider UnavailZuleima Nash PA-C Primary Care Provider Unavail able Mandi Corrigan DNP Unavailable [phone] Corky Schaefer MD Primary Care Provider Unav ailable Encounter Details Date Type Department Care Team Description 06/28/2020 Cam Milling Machine Operator Report Medical Records [address] [place] [id number] Kiel Trotter Social History Tobacco Use Types Packs/Day Years Used Date Smoking Tobacco: Former Cigarettes 1 30 Q uit: 1994 Smokeless Tobacco: Never Alcohol Use Standard Drinks/Week Comments Yes 0 (1 standard drink = 0.6 oz pur e alcohol) occ. Alcohol Habits Answer Date Recorded How often [...] 01/08/2021 How often do you attend chur or buddhism services? More than 4 times per year 01/08/2021 Do you belong to any clubs o r organizations such as restorationist groups, unions, fraternal or athletic groups, or [...] place to sleep or slept in a penitentiary (including now)? No 01/08/2021 Sex Assigned at Date Recorded Not on file Job Start Date Occupation Industry Not on file Not on file Not on file COVID-19 Exposure Response Date Recorded In the last month, have you been in contact with someone who was confirmed or suspected to have Coronavirus / COVID-19? No / Unsure 05/29/2020 9:11 AM EDT documented as of this encounter Plan of Treatment Not on file documented as of this encounter Visit Diagnoses Not on filedocumented in this encounter Care Teams Tattoo Artist Relationship Specialty Start Date End Date Jasson Mcnally MD PCP - General 12/18/17 03/03/21 Glen Bañuelos DO [address] [place] [id number] PCP - General Internal Medicine 03/04/21 01/07/22 [facility], Pcp [address] [place] [address] PCP - General Internal Medicine 01/08/22 08/26/22 Zuleima Rosas PA-C [address] [place] [address]75 PCP - General Internal Medicine 08/27/22 11/10/23 Corky Schaefer MD [address] [place] [address]36 PCP - General Family Practice 11/11/23 Jasson Mcnally MD Internal Medicine 12/18/17 08/26/22 Miko Donis MD [address] [place] [address] Specialist Cardiovascular Disease 01/08/21 Sobeida Velasco NP [address] [place] [address] Cardiology 02/19/21 09/23/23 Mandi Corrigan DNP [address] [place] [address] Specialist Nurse Practitioner Family 09/24/23 documented as of this encounter
--- OUTSIDE RECORDS SUMMARY | 2024-06-30 11:18 | XMS_ITS | Encounter Summary ---
Author [facility] Address [address] [place] [address] Care Team Providers Care Rail Signal Mechanic Name Role Phone Jasson Mcnally MD Primary Care Provider Unavailable Jasson Mcnally MD Primary Care Provider Unavailable Jasson Mcnally MD Unavailable Unavai Miko Plata MD Unavailable Sobeida Velasco NP Unavailable [phone] Glen Bañuelos DO Primary Care Provider Unavaila [facility] Primary Care Provider UnavailZuleima Nash PA-C Primary Care Provider Unavail able Mandi Corrigan DNP Unavailable [phone] Corky Schaefer MD Primary Care Provider Unav ailable Encounter Details Date Type Department Care Team Description 11/24/2017 Release of Information Medical Records [address] [place] [id number] Abstract, Provider Social History Tobacco Use Types Packs/Day Years Used Date Smoking Tobacco: Former Cigarettes 1 Q uit: 1994 Smokeless Tobacco: Never Alcohol [...] How often do you attend chur or church services? More than 4 times per year [...] place to sleep or slept in a jail (including now)? No 01/08/2021 Sex Assigned at Date Recorded Not on file Job Start Date Occupation Industry Not on file Not on file Not on file documented as of this encounter Plan of Treatment Not on file documented as of this encounter Visit Diagnoses Not on filedocumented in this encounter Care Teams Rail Signal Mechanic Relationship Specialty Start Date End Date Jasson Mcnally MD PCP - General Internal Medicine 10/06/17 12/17/17 Jasson Mcnally MD PCP - General 12/18/17 03/03/21 Glen Bañuelos, [address] [place] [id number] PCP - General Internal Medicine 03/04/21 01/07/22 [facility], Pcp [address] [place] [address] PCP - General Internal Medicine 01/08/22 08/26/22 Zuleima Rosas PA-C [address] [place] [address] PCP - General Internal Medicine 08/27/22 11/10/23 Corky Schaefer MD [address] [place] [address] PCP - General Family Practice 11/11/23 Jasson Mcnally MD Internal Medicine 12/18/17 08/26/22 Miko Donis MD [address] [place] [address] Specialist Cardiovascular Disease 01/08/21 Sobeida Velasco NP [address] [place] [address] Cardiology 02/19/21 09/23/23 Mandi Corrigan DNP [address] [place] [address] Specialist Nurse Practitioner Family 09/24/23 documented as of this encounter
--- OUTSIDE RECORDS SUMMARY | 2024-06-30 11:18 | XMS_ITS | Encounter Summary ---
Author Organization [facility] Address [address] [place] [address] Care Team Providers Care Acquisitions Assistant Name Role Phone Jasson Mcnally MD Unavailable UnaMiko Baltazar MD Unavailable [phone] Sobeida Velasco NP Unavailable [phone] Glen Bañuelos DO Primary Care Provider Unavaila [facility] Primary Care Provider UnavailZuleima Nash PA-C Primary Care Provider Unavail able Mandi Corrigan DNP Unavailable [phone] Corky Schaefer MD Primary Care Provider Unav ailable Reason for Visit * Reason Onset Date Comments Blood Pressure Elevated 07/17/2021 Encounter Details Date Type Department Care Team Description 07/17/2021 Telephone Adult [facility] - [address] [address] Glen Bañuelos DO Blood Pressure Elevated Social History Tobacco Use Types Packs/Day Years Used Date Smoking Tobacco: Former Cigarettes 1 30 Q uit: 1994 Smokeless Tobacco: Never Alcohol Use Standard Drinks/Week Comments Yes 0 (1 standard drink = 0.6 oz pur e alcohol) Occasional Alcohol Habits Answer Date Recorded How often [...] How often do you attend chur or religion services? More than 4 times per year 01/08/2021 Do you belong to any clubs o r organizations such as anabaptist groups, unions, fraternal or athletic groups, or [...] Exposure Response Date Recorded In the last 10 days, have yo u been in contact with someone who was confirmed or suspected to have Coronavirus/COVID-19? No / Unsure 07/03/2021 9:42 AM EDT documented as of this encounter Miscellaneous Notes * Telephone Encounter - Kindra Pinto R.N. - 07/17/2021 9:05 AM EDT Spoke with patient. Just started tracking BP yesterday. Was away shortly after her appt with PCP so started tracking yesterday. Readings were 170/103 and 157/102 in the morning and then 157/97 and 141/83 in the evening 157/102, 155/97 This morning's reading 180/100 at 3 am and then 136/82 at 8 am No complaints of symptoms. Denies dizziness, chest pain, SOB. Reports she is eating healthy, avoiding too much salt, exercising. Will forward to PCP for review. * Telephone Encounter - Summer Carbajal - 07/17/2021 8:59 AM EDT Symptoms patient is presenting: told pt to track her bp - bp all over the place For ALL patients calling to schedule any appointment (routine, sick visit, follow up, consult, etc.) in the outpatient setting please ask the following questions: ?? Do you have fever of higher than 101, sore throat with difficulty swallowing or severe shortnessof breath? NO If YES to any of these above symptoms, send a message to triage and do not book. Red dot. If no, an audio or video visit should be booked. ?? Have you had close contact with someone with Coronavirus in the last 14 days? NO ?? Have you traveled abroad? NO ?? Have you traveled recently to another state outside of [place], [place], [place], [place], [place], [place], [place]? NO o If yes, did you quarantine for 14 days or have a negative covid test? NO If yes to any of the above, patient is not to be scheduled in office until after 14 day quarantine or negative covid test. If pain or injury related was it due to an accident at work or from a motor vehicle accident? NO If yes, gather 3rd democrat insurance information Date of accident/Injury: How long has patient had these symptoms?: this past week PCP: Glen Bañuelos [place] / Plan: MEDICARE-[employer] / Product Type: MEDICARE [id number] documented in this encounter Plan of Treatment Not on file documented as of this encounter Visit Diagnoses Not on filedocumented in this encounter Care Teams Acquisitions Assistant Relationship Specialty Start Date End Date Glen Bañuelos DO [address] [place] [address] PCP - General Internal Medicine 03/04/21 01/07/22 [facility], Pcp [address] [place] [address] PCP - General Internal Medicine 01/08/22 08/26/22 Zuleima Rosas PA-C [address] [place] [address] PCP - General Internal Medicine 08/27/22 11/10/23 Corky Schaefer MD [address] [place] [address] PCP - General Family Practice 11/11/23 Jasson Mcnally MD Internal Medicine 12/18/17 08/26/22 Miko Donis MD [address] [place] [address] Specialist Cardiovascular Disease 01/08/21 Sobeida Velasco NP [address] [place] [address] Cardiology 02/19/21 09/23/23 Mandi Corrigan DNP [address] [place] [address] Specialist Nurse Practitioner Family 09/24/23 documented as of this encounter
--- OUTSIDE RECORDS SUMMARY | 2024-06-30 11:18 | XMS_ITS | Encounter Summary ---
Author Organization [facility] Address [address] [place] [address] Care Team Providers Care Creative Perfumer Name Role Phone Jasson Mcnally MD Primary Care Provider Unavailable Jasson Mcnally MD Unavailable Howardi Miko Plata MD Unavailable [phone] Sobeida Velasco NP Unavailable [phone] Glen Bañuelos DO Primary Care Provider Unavaila [facility] Primary Care Provider UnavailZuleima Nash PA-C Primary Care Provider Unavail able Mandi Corrigan DNP Unavailable [phone] Corky Schaefer MD Primary Care Provider Unav ailable Encounter Details Date Type Department Care Team Description 03/12/2020 Transfer Records Medical Records [address] [place] [address] Abstract, Provider Social History Tobacco Use Types [...] How often do you attend chur or faith services? More than 4 times per year 01/08/2021 Do you belong to any clubs o r organizations such as buddhist groups, unions, fraternal or athletic groups, or [...] place to sleep or slept in a half-way (including now)? No 01/08/2021 Sex Assigned at Date Recorded Not on file Job Start Date Occupation Industry Not on file Not on file Not on file documented as of this encounter Plan of Treatment Not on file documented as of this encounter Visit Diagnoses Not on filedocumented in this encounter Care Teams Creative Perfumer Relationship Specialty Start Date End Date Jasson Mcnally MD PCP - General 12/18/17 03/03/21 Glen Bañuelos DO [address] [place] [address] PCP - General Internal Medicine 03/04/21 01/07/22 [facility] [address] [place] [address] PCP - General Internal Medicine 01/08/22 08/26/22 Zuleima Rosas PA-C [address] [place] [address] PCP - General Internal Medicine 08/27/22 11/10/23 Corky Schaefer MD [address] [place] [address] PCP - General Family Practice 11/11/23 Jasson Mcnally MD Internal Medicine 12/18/17 08/26/22 Miko Donis MD [address] [place] [address] Specialist Cardiovascular Disease 01/08/21 Sobeida Velasco, JULIA [address] [place] [address] Cardiology 02/19/21 09/23/23 Mandi Corrigan, JOÃO [address] [place] [address] Specialist Nurse Practitioner Family 09/24/23 documented as of this encounter
--- OUTSIDE RECORDS SUMMARY | 2024-06-30 11:18 | XMS_ITS | Clinical Summary ---
Author Organization [facility] Address [address] [place] [address] Care Team Providers Care Elementary Tutor Name Role Phone Unknown, Primary Care Provider [...] age to complete this topic Care Teams Elementary Tutor Relationship Specialty Start Date End Date Unknown, PCP - General 01/30/22
--- OUTSIDE RECORDS SUMMARY | 2024-06-30 11:19 | XMS_ITS | Clinical Summary ---
Author Organization [facility] Address [address] [place] [address] Care Team Providers Care Furnace Tender Name Role Phone Corky Schaefer MD Primary [...] Facetectomy, foraminotomy OTHER SURGICAL HISTORY 12/2017 PROCEDURE: [place] HEMORRHOIDECTOMY INT & XTRNL 2/> COLUMN/KIRIT COLONOSCOPY 03/01/2019 PROCEDURE: HISTORICAL COLONOSCOPY; COMMENT: polyps ESOPHAGOGASTRODUODENOSCOPY 03/01/2019 PROCEDURE: [place] EGD TRANSORAL BIOPSY SINGLE/MULTIPLE; COMMENT: gastritis. 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 Eczema 02/10/2018 DX:Eczema GERD (gastroesophageal reflu x [...] Comments CABG Brother Diabetes Brother at 59- [place] Bladder Cancer Father Hypertension Mother Hyperlipidemia Other: [...] PM EST Colon polyps Colon cancer screening [facility] SCREENING DIGITAL Routine 10/08/2023 9:38 AM EDT Encounter for screening mammogram for malignant neoplasm of breast [facility] DEXA AXIAL SKELETON Routine 05/06/2018 3:39 PM EDT Asymptomatic menopausal state from Last 3 Months or Most Recently Relevant to Health Maintenance Results * COLONOSCOPY Anesthesia - MAC; [facility] ENDOSCOPY (02/10/2024 4:33 PM EST) Anatomical Region [...] for surveillance. Narrative 02/10/2024 4:36 PM EST [facility] GI Patient Name: Roslyn Mena Procedure [...] verified by the physician, the nurse, the superintendent marine ? and the chief technician x ray in the pre-procedure area in the ? [...] Procedure Code(s): ? --- Professional --- ? 00070, Colonoscopy, flexible; with biopsy, single or ? multiple Diagnosis Code(s): ? --- Professional --- ? D12.5, Benign neoplasm of sigmoid colon ? D12.3, Benign neoplasm of transverse colon (hepatic ? flexure or splenic flexure) CPT copyright 2020 [employer]. All rights reserved. The codes documented in this report are preliminary and upon tie bucker review may be revised to meet current compliance requirements. Kiko Jalloh MD 02/10/2024 4:35:56 PM This report has been signed electronically.Kiko Jalloh MD Number of Addenda: 0 Note Initiated On: 02/10/2024 4:08 PM Scope Withdrawal Time: 0 hours 8 minutes 6 seconds Scope In: 4:20:13 PM Scope Out: 4:33:23 PM ? Endoscopy Department at [facility] - [address] [place] [address], ? [place] [address] Procedure Note Kiko Jalloh MD - 02/10/2024 [facility] GI Patient Name: Roslyn Mena Procedure [...] the physician, the nurse, theanesthetist and the chief technician x ray in the pre-procedure area in the endoscopy [...] reduce spontaneously). Procedure Code(s): --- Professional --- 77884, Colonoscopy, flexible; with biopsy, singleor multiple Diagnosis Code(s): --- Professional --- D12.5, Benign neoplasm of sigmoid colon D12.3, Benign neoplasm of transverse colon (hepatic flexure or splenic flexure) CPT copyright 2020 [employer]. All rights reserved. The codes documented in this report are preliminary and upon tie bucker reviewmay be revised to meet current compliance requirements. Kiko Jalloh MD 02/10/2024 4:35:56 PM This report has been signed electronically.Kiko Jalloh MD Number of Addenda: 0 Note Initiated On: 02/10/2024 4:08 PM Scope Withdrawal Time: 0 hours 8 minutes 6 seconds Scope In: 4:20:13 PM Scope Out: 4:33:23 PM Endoscopy Department at [facility] - [address] [place] [phone] IMPRESSION: - Three 1 to 3 mm [...] AM EDT Narrative 10/08/2023 9:38 AM EDT [facility] Diagnostic Imaging Department [address] [place] [address] Patient: ??RAJESH,ROSLYN ?/Age/Sex: 1950 - 73 - F Unit#: ??[id number] ? Location/Status: ??SPDIMAM/REG CLI ? Mnemonic/Ordering Site: ??DIGSC/SPMAM Ordering Physician: ??DANIELLE DE DIOS [facility] Screening Digital - 10/08/23742 Report Status:Signed EXAM: [facility] Screening Digital EXAM DATE AND TIME: 10/08/2023 7:43 AM HISTORY: ??Screening. COMPARISON: ??8/10/23, 09/30/21, 09/26/20 TECHNIQUE: Bilateral digital breast tomosynthesis was performed in the CC and MLO projections. Computer aided detection with [employer] 3D 3.1 was employed. TISSUE DENSITY: c. [...] Procedure Note Bailey Landaverde MD - 12/09/2023 [facility] Diagnostic Imaging Department [address] [place] [address] Patient: RAJESHROSLYN /Age/Sex: 1950 - 73 - F Unit#: [id number] Location/Status: [facility] Mnemonic/Ordering Site: [facility] Ordering Physician: DANIELLE DE DIOS [facility] Screening Digital - 10/08/23 - 0743 Report Status:Signed EXAM: [facility] Screening Digital EXAM DATE AND TIME: 10/08/2023 7:43 AM HISTORY: Screening. COMPARISON: 10/02/22, 09/30/21, 09/26/20 TECHNIQUE: Bilateral digital breast tomosynthesis was performed in the CCand MLO projections. Computer aided detection with [employer] 3D 3.1was employed. TISSUE DENSITY: c. The [...] GARCIA IMG BI PROCEDURES Final Result * [facility] DEXA AXIAL SKELETON (05/06/2018 3:39 PM EDT) Anatomical Region Laterality Modality Mammography 05/06/2018 2:03 PM EDT Narrative 05/06/2018 3:39 PM EDT [facility] Diagnostic Imaging Department [address] [place] [address] Patient: ??RAJESHROSLYN ?/Age/Sex: 1950 - 67 - F Unit#: ??[id number] ? Location/Status: ??SPDIMAM/REG CLI ? Mnemonic/Ordering Site: ??MAMDEXAAX/SPMAM Ordering Physician: ??CASE,BEVERLEY GRAFF [facility] Dexa Axial Skeleton - 05/06/18 - 1533 HISTORY: ??The patient is a 67-year-old postmenopausal [...] probability of hip fracture of 0.7%. Code 79018 Dictating Physician: ??LINDA MONTES MD Electronically Signed by: ??LINDA MONTES MD Dic Date/Time: ??05/06/181536 Sign date/Time: ??05/06/181538 Procedure Note Linda Montes MD - 02/12/2022 [facility] Diagnostic Imaging Department [address] [place], [place] [address] Patient: ROSLYN MENA D.O.B./Age/Sex: 1950 67 - F Unit#: [id number] [facility] Ordering Physician: BEVERLEY GORDON MD [facility] Dexa Axial Skeleton - 05/06/181533 HISTORY: [...] density of the femurs bilaterally is 1.101 gm/bw9mgeqr is 109% of that of young normals [...] probability of hip fracture of 0.7%. Code 59671 Dictating Physician: LINDA MONTES MD Electronically Signed by: LINDA MONTES MD Dic Date/Time: 05/06/18 1537 Sign date/Time: 05/06/18 1539 Beverley Gordon MD IM BI PROCEDURES Final Result from Last 3 Months or Most Recently Relevant to Health Maintenance Insurance MEDICARE [facility] Care Teams Furnace Tender Relationship Specialty Start Date End Date Corky Schaefer MD [address] [place] [address] Dr Colleen [place] PCP - General 11/11/23
--- OUTSIDE RECORDS SUMMARY | 2024-06-30 11:19 | XMS_ITS | Encounter Summary ---
Author Organization [facility] Address [address] [place] [address] Care Team Providers Care Scallop Shucker Name Role Phone Ruthie Chandra MD Primary Care Provider Reason for Visit * Reason Onset Date Comments Results 10/06/2023 Encounter Details Date Type Department Care Team ([facility] st Contact Info) Description 10/06/2023 Telephone [facility] Interventional Radiology at [address] [address] Alvarado Bullock MD [address] [place] [phone] Results Social History Tobacco Use Types [...] documented as of this encounter Care Teams Scallop Shucker Relationship Specialty Start Date End Date Ruthie Chandra MD [address] [place] [phone] PCP - General Internal Medicine 11/18/16 documented as of this encounter
--- OUTSIDE RECORDS SUMMARY | 2024-06-30 11:19 | XMS_ITS | Encounter Summary ---
Author Organization [facility] Address [address] [place] [address] Care Team Providers Care Screen Printer Name Role Phone Jasson Mcnally MD Primary Care Provider Unavailable Jasson Mcnally MD Unavailable Unavai Miko Plata MD Unavailable [phone] Sobeida Velasco NP Unavailable [phone] Glen Bañuelos DO Primary Care Provider Unavaila [facility] Primary Care Provider UnavailZuleima Nash PA-C Primary Care Provider Unavail able Mandi Corrigan DNP Unavailable [phone] Coryk Schaefer MD Primary Care Provider Unav ailable Encounter Details Date Type Department Care Team Description 07/04/2019 Zig Zag Spring Machine Operator Report Medical Records [address] [place] [address] [place] [address] Social History Tobacco Use Types Packs/Day Years [...] How often do you attend chur or worship services? More than 4 times per year 01/08/2021 Do you belong to any clubs o r organizations such as latter-day groups, unions, fraternal or athletic groups, or [...] place to sleep or slept in a senior care (including now)? No 01/08/2021 Sex Assigned at Date Recorded Not on file Job Start Date Occupation Industry Not on file Not on file Not on file documented as of this encounter Plan of Treatment Not on file documented as of this encounter Visit Diagnoses Not on filedocumented in this encounter Care Teams Screen Printer Relationship Specialty Start Date End Date Jasson Mcnally MD PCP - General 12/18/17 03/03/21 Glen Bañuelos DO [address] [place] [address] PCP - General Internal Medicine 03/04/21 01/07/22 [facility] [address] [place] [address] PCP - General Internal Medicine 01/08/22 08/26/22 Zuleima Rosas PA-C [address] [place] [address] PCP - General Internal Medicine 08/27/22 11/10/23 Corky Schaefer MD [address] [place] [address] PCP - General Family Practice 11/11/23 Jasson Mcnally MD Internal Medicine 12/18/17 08/26/22 Miko Donis MD [address] [place] [address] Specialist Cardiovascular Disease 01/08/21 Sobeida Velasco NP [address] [place] [address] Cardiology 02/19/21 09/23/23 Mandi Corrigan DNP [address] [place] [address] Specialist Nurse Practitioner Family 09/24/23 documented as of this encounter
--- OUTSIDE RECORDS SUMMARY | 2024-06-30 11:19 | XMS_ITS | Encounter Summary ---
Author Organization [facility] Address [address] [place] [phone] Care Team Providers Care Wrist Closer Name Role Phone Ruthie Chandra MD Primary Care Provider Encounter Details Date Type Department Care Team (Late st Contact Info) Description 10/13/2023 Scanned Document Interventional Radiology at [address] [phone] Provider, Historical . Social History Tobacco Use [...] documented as of this encounter Care Teams Wrist Closer Relationship Specialty Start Date End Date Ruthie Chandra MD [address] [place] [phone] PCP - General Internal Medicine 11/18/16 documented as of this encounter
--- OUTSIDE RECORDS SUMMARY | 2024-06-30 11:19 | XMS_ITS | Encounter Summary ---
Author Organization [facility] Address [address] [place] [address] Care Team Providers Care Correctional Supply Supervisor Name Role Phone Jasson Mcnally MD Primary Care Provider Unavailable Jasson Mcnally MD Unavailable UnaMiko Baltazar MD Unavailable [phone] Sobeida Velasco NP Unavailable [phone] Glen Bañuelos DO Primary Care Provider Unavaila [facility] Pcp Primary Care Provider UnavailZuleima Nash PA-C Primary Care Provider Unavail able Mandi Corrigan DNP Unavailable [phone] Corky Schaefer MD Primary Care Provider Unav ailable Reason for Visit * Reason Comments E-prescribe Rx Request Encounter Details Date Type Department Care Team Description 02/25/2020 Refill Adult Medicine [address] [address] Jasson Mcnally MD E-prescribe Rx Request Social History Tobacco Use Types Packs/Day Years [...] How often do you attend chur or restoration services? More than 4 times per year 01/08/2021 Do you belong to any clubs o r organizations such as caodaism groups, unions, fraternal or athletic groups, or [...] on file documented as of this encounter Miscellaneous Notes * Telephone Encounter - Stacey Finney - 03/01/2020 11:42 AM EST Patient would like script to be: E-PRESCRIBED/FAXED TO PHARMACY WHEN WAS THE PATIENT'S LAST APPOINTMENT IN ADULT MEDICINE? 02/13/20 WHEN WAS THE LAST TIME THE PATIENT SAW THEIR PCP? Same as above Does patient have an upcoming appointment? No-unable to [facility] appointment due to refill request. Appt due 6 month 07/[address] LMOM (THE MEDICATION REQUESTED IS ON THE MED LIST ABOVE) All of the medications requested were on the CURRENT MEDS list Did you check the Pharmacy information above?: YES Patient wants: 90 -day supply Is this a mail order prescription request ? NO If the refill is from a FAXED refill request what is the RX # listed on the fax? N/A Patients current insurance carrier is: [place] / [place] / Product Type: MEDICARE [id number] documented in this encounter Plan of Treatment Not on file documented as of this encounter Visit Diagnoses Not on filedocumented in this encounter Care Teams Correctional Supply Supervisor Relationship Specialty Start Date End Date Jasson Mcnally MD PCP - General 12/18/17 03/03/21 Glen Bañuelos DO [address] [place] [address] PCP - General Internal Medicine 03/04/21 01/07/22 [facility], [facility] [address] [place] [address] PCP - General Internal Medicine 01/08/22 08/26/22 Zuleima Rosas PA-C [address] [place] [address] PCP - General Internal Medicine 08/27/22 11/10/23 Corky Schaefer MD [address] [place] [address] PCP - General Family Practice 11/11/23 Jasson Mcnally MD Internal Medicine 12/18/17 08/26/22 Miko Donis MD [address] [place] [address] Specialist Cardiovascular Disease 01/08/21 Sobeida Velasco NP [address] [place] [address] Cardiology 02/19/21 09/23/23 Mandi Corrigan DNP [address] [place] [address] Specialist Nurse Practitioner Family 09/24/23 documented as of this encounter
--- OUTSIDE RECORDS SUMMARY | 2024-06-30 11:19 | XMS_ITS | Encounter Summary ---
Author Organization [facility] Address [address] [place] [address] Care Team Providers Care Medical File Clerk Name Role Phone Ruthie Chandra MD Primary Care Provider Reason for Visit * Reason Onset Date Comments Appointment 09/08/2023 Encounter Details Date Type Department Care Team ([facility] st Contact Info) Description 09/08/2023 Telephone [facility] Interventional Radiology at [address] [address] Alvarado Bullock MD [address] [place] [phone] Appointment Social History Tobacco Use Types [...] documented as of this encounter Care Teams Medical File Clerk Relationship Specialty Start Date End Date Ruthie Chandra MD [address] [place] [phone] PCP - General Internal Medicine 11/18/16 documented as of this encounter
--- OUTSIDE RECORDS SUMMARY | 2024-06-30 11:19 | XMS_ITS | Clinical Summary ---
Author Organization [address] Address [address] [place] [id number] Care Team Providers Care Broadcast Correspondent Name Role Phone Ruthie Chandra MD Primary [...] (11/28/2016): Added automatically from request for surgery [id number] HHT (hereditary hemorrhagic telangiectasia) 08/2013 Overview (09/07/2023): >>OVERVIEW FOR HEREDITARY HEMORRHAGIC TELANGIECTASIA (HC CODE) WRITTEN ON 11/28/2016 10:27 AM BY MARQUEZ SIMPSON MD Added automatically from request for surgery [id number] GERD (gastroesophageal reflux disease) Eczema Immunizations Name [...] this topic Medical Devices Implanted Type Area Tire Duster Device Identifier Shelf Expiration Date Model / Serial / Lot Handle Lavern Coil Detachment - [id number] Implanted:Qty: 1 on 10/22/2023 by Marquez Simpson MD at [address] [id number] 08/30/2026 [id number] / / [id number] Coil Lavern Complex Standard 5mm X 12 Cm - [id number] Implanted:Qty: 1 on 10/22/2023 by Marquez Simpson MD at [address] [id number] 05/12/2031 [id number] / / [id number] Coil Pod Packing J Soft 5cm - [id number] Implanted:Qty: 1 on 10/22/2023 by Marquez Simpson MD at [address] [id number] 07/26/2031 [id number] / / [id number] Coil Lavern Complex Soft 2mm X 4cm - [id number] Implanted:Qty: 1 on 10/22/2023 by Marquez Simpson MD at [address] Implant PENUMBRA [id number] 07/08/2031 [id number] / / [id number] Plug Microvascular 3mm Mvp3q - [id number] Implanted:Qty: 1 on 10/22/2023 by Marquez Simpson MD at [address] Implant [employer] [id number] 02/22/2025 MVP-3Q / / [id number] Coil Lavern Complex Soft 3mm X 5cm - [id number] Implanted:Qty: 1 on 10/22/2023 by Marquez Simpson MD at [address] Implant PENUMBRA [id number] 07/11/2031 [id number] / / [id number] Coil Embo Detach Embold 7alv0se - [id number] Implanted:Qty: 1 on 10/22/2023 by Marquez Simpson MD at [address] Implant [employer] [id number] 07/15/2026 [id number] / / [id number] Coil Embo Detach Embold 0kbx1bd - [id number] Implanted:Qty: 1 on 10/22/2023 by Marquez Simpson MD at [address] Implant [employer] [id number] 06/23/2026 [id number] / / [id number] Coil Pv Embo Concerto 7vpz05ig - [id number] Implanted:2016 by Marquez Simpson MD at [address] (Quantity not on file) Other-impl ant MED[employer] (MEDT-ZZZZ) 07/28/2019 NV-8-30-H ELIX / / [id number] Amplatzer Vasc Plug4 5mmx10.5 - [id number] Implanted:2016 by Marquez Simpson MD at [address] (Quantity not on file) Other-impl ant [facility] (STJU-ZZZZ) 07/23/2021 [id number]- 005 / / [id number] Embolization Coil - [id number] Implanted:2016 by Marquez Simpson MD at [address] (Quantity not on file) Other-impl ant [employer] PRDT 11/27/2021 [id number] / / [id number] Coil Pv Embo Concerto 7wkx71sc - [id number] Implanted:2016 by Marquez Simpson MD at [address] (Quantity not on file) Other-impl ant [employer] (MEDT-ZZZZ) 10/10/2019 NV-5-15-H ELIX / / [id number] Coil Pv Embo Concerto 6xtf21ko - [id number] Implanted:2016 by Marquez Simpson MD at [address] (Quantity not on file) Other-impl ant [employer] (MEDT-ZZZZ) 10/10/2019 NV-5-15-H ELIX / / [id number] Coil Pv Embo Concerto 8buz95su - [id number] Implanted:2016 by Marquez Simpson MD at [address] (Quantity not on file) Other-impl ant [employer] (MEDT-ZZZZ) 09/15/2019 NV-4-10-H ELIX / / [id number] Coil Pv Embo Concerto [id number] - [id number] Implanted:2016 by Marquez Simpson MD at [address] (Quantity not on file) Other-impl ant [employer] (MEDT-ZZZZ) 09/18/2019 NV-3-8-HE LIX / / [id number] Amplatzer Vasc Plug4 0jxt89pp - [id number] Implanted:2016 by Marquez Simpson MD at [address] (Quantity not on file) Other-impl ant [employer] (STJU-ZZZZ) 08/22/2021 [id number]- 004 / / [id number] Coil Embol Mwce 35-4/3 Tornado - [id number] Implanted:2016 by Marquez Simpson MD at [address] (Quantity not on file) Other-impl ant [employer] 11/12/2021 [id number] / / [id number] Coil Embol Mwce 35-4/3 Tornado - [id number] Implanted:2016 by Marquez Simpson MD at [address] (Quantity not on file) Other-impl ant [employer] 11/12/2021 [id number] / / [id number] Embolization Coil - [id number] Implanted:2016 by Marquez Simpson MD at [address] (Quantity not on file) Other-impl ant [employer] 10/13/2021 [id number] / / [id number] Insurance MEDICARE [facility] MEDICARE [facility] Care Teams Broadcast Correspondent Relationship Specialty Start Date End Date Ruthie Chandra MD [address] [place] [address] PCP - General Internal Medicine 11/18/16
--- OUTSIDE RECORDS SUMMARY | 2024-06-30 11:19 | XMS_ITS | Encounter Summary ---
Author Organization [facility] Address [address] [place] [address] Care Team Providers Care Welder Oxyhydrogen Name Role Phone Jasson Mcnally MD Unavailable UnavaMiko Madrid MD Unavailable RodSobeida TOP SCREW Unavailable [phone] [facility], Pcp Primary Care Provider UnavailZuleima Nash PA-C Primary Care Provider Unavail able Mandi Corrigan DNP Unavailable [phone] Corky Schaefer MD Primary Care Provider Unav ailable Encounter Details Date Type Department Care Team Description 02/20/2022 Hospital Medical Records [address] [place] [id number] [place] [address] [place] Social History Tobacco Use Types Packs/Day Years [...] often do you attend chur ch or anglican services? More than 4 times per year 01/08/2021 Do you belong to any clubs o r organizations such as gnosticist groups, unions, fraternal or athletic groups, or [...] Procedure Name Priority Date/Time Associated Diagnosis Comments OUTSIDE PLAIN FILM Routine 02/20/2022 documented in this encounter Results * OUTSIDE PLAIN FILM (02/20/2022) Provider Default RADIOLOGY documented in this encounter Visit Diagnoses Not on filedocumented in this encounter Care Teams Welder Oxyhydrogen Relationship Specialty Start Date End Date Community, Pcp [address] [place] [address] PCP - General Internal Medicine 01/08/22 08/26/22 Zuleima Rosas PA-C [address] [place] [address] PCP - General Internal Medicine 08/27/22 11/10/23 Corky Schaefer MD [address] [place] [address] PCP - General Family Practice 11/11/23 Jasson Mcnally MD Internal Medicine 12/18/17 08/26/22 Miko Donis MD [address] [place] [address] Specialist Cardiovascular Disease 01/08/21 Sobeida Velasco NP [address] [place] [address] Cardiology 02/19/21 09/23/23 Mandi Corrigan, [facility] [address] [place] [address] Specialist Nurse Practitioner Family 09/24/23 documented as of this encounter
--- OUTSIDE RECORDS SUMMARY | 2024-06-30 11:19 | XMS_ITS | Encounter Summary ---
Author Organization [facility] Address [address] [place] [address] Care Team Providers Care Press Feeder Broomcorn Name Role Phone Jasson Mcnally MD Unavailable UnavaMiko Madrid MD Unavailable [phone] RodSobeida TANK CAR LOADER Unavailable [phone] [facility], Pcp Primary Care Provider UnavailZuleima Nash PA-C Primary Care Provider Unavail able Mandi Corrigan DNP Unavailable [phone] Corky Schaefer MD Primary Care Provider Unav ailable Encounter Details Date Type Department Care Team Description 06/27/2022 Hospital Medical Records [address] [place] [id number] [place] [address] [place] Social History Tobacco Use Types Packs/Day [...] often do you attend chur ch or jehovah's witness services? More than 4 times per year 01/08/2021 Do you belong to any clubs o r organizations such as mu-ism groups, unions, fraternal or athletic groups, or [...] place to sleep or slept in a alf (including now)? No 01/08/2021 Sex Assigned at Date Recorded Not on file Job Start Date Occupation Industry Not on file Not on file Not on file documented as of this encounter Plan of Treatment Not on file documented as of this encounter Procedures Procedure Name Priority Date/Time Associated Diagnosis Comments OUTSIDE EKG Routine 06/27/[address] Routine 06/27/2022 OUTSIDE LAB Routine 06/27/2022 documented in this encounter Results * OUTSIDE CT (06/27/2022) Provider Default RADIOLOGY * OUTSIDE LAB (06/27/2022) Provider Default LAB * OUTSIDE EKG (06/27/2022) Provider Default CARDIOLOGY documented in this encounter Visit Diagnoses Not on filedocumented in this encounter Care Teams Press Feeder Broomcorn Relationship Specialty Start Date End Date Community, Pcp [address] [place] [address] PCP - General Internal Medicine 01/08/22 08/26/22 Zuleima Rosas PA-C [address] [place] [address] PCP - General Internal Medicine 08/27/22 11/10/23 Corky Schaefer MD [address] [place] [address] PCP - General Family Practice 11/11/23 Jasson Mcnally MD Internal Medicine 12/18/17 08/26/22 Miko Donis MD [address] [place] [address] Specialist Cardiovascular Disease 01/08/21 Sobeida Velasco NP [address] [place] [address] Cardiology 02/19/21 09/23/23 Mandi Corrigan DNP [address] [place] [address] Specialist Nurse Practitioner Family 09/24/23 documented as of this encounter
--- OUTSIDE RECORDS SUMMARY | 2024-06-30 11:19 | XMS_ITS | Clinical Summary ---
Author Organization [facility] Address [address] [place] [address] Care Team Providers Care Manager Balance Name Role Phone Miko Donis MD Unavailable [phone] Mandi Corrigan DNP Unavailable [phone] Corky Schaefer MD Primary Care Provider Unav ailable Allergies No known active allergies Medications Medication Sig Dispensed Refills Start Date End Date Status ALBUTEROL SULFATE (ProAir HFA) 108 (90 Base) MCG/ACT Aero Soln Inhale 2 Puffs into the lungs every 4 hours as needed for Shortness of Breath for up to 180 days. 10 g 5 01/25/2021 Active paroxetine (PAXIL) 20 MG tablet Take 1 Tablet by mouth every morning. 30 Tablet 5 08/02/2021 Active amoxicillin (AMOXIL) 500 MG capsule TAKE 4 CAPSULES BY MOUTH 1 HOUR PRIOR TO DENTAL APPOINTMENT 0 08/29/2021 Active pravastatin (PRAVACHOL) 20 MG tablet Take 1 Tablet by mouth daily. 0 Active Multiple Vitamins-Minerals (PRESERVISION AREDS 2 OR) Take by mouth 2 times daily. 0 Active Lactobacillus (PROBIOTIC ACIDOPHILUS OR) Take by mouth daily. 0 Active dicyclomine (BENTYL) 10 MG capsule Take 1 Capsule by mouth 4 times daily as needed (For lower abdominal discomfort.). 120 Capsule 5 01/13/2023 Active lisinopril (PRINIVIL,ZESTRIL) 20 MG tablet Take 1 Tablet by mouth daily. 0 Active lisinopril (PRINIVIL,ZESTRIL) 10 MG tablet Take 1 Tablet by mouth daily. 0 10/21/2023 Active Probiotic Product (Align Dualbiotic) Chew Tab Take by mouth. 0 Active famotidine (PEPCID) 20 MG tablet Take 1 Tablet by mouth 2 times daily. 0 Active Meclizine HCl 25 MG Tab Take by mouth. 0 Active Iron-Vitamin C 65-125 MG Tab Take by mouth. 0 Active Active Problems Problem Noted Date Essential hypertension 08/28/2022 Last Assessment & Plan: Her blood pressure is well controlled on the increased dose of lisinopril yet she reports an increase of fatigue since this medication change. Patient to trial taking lisinopril 10 mg in AM and 10 mg in PM to see if this helps alleviate her symptoms. She is agreeable to this plan and instructed to call office if this change is not effective. If ineffective, would consider decreasing lisinopril to 10 mg daily with the addition of HCTZ or a beta chaparrita. A beta chaparrita may be beneficial for her as she is currently being worked up for a tremor in her hands. Chest pain 02/19/2021 Last Assessment & Plan: Patients description of very rare pain in her right lower chest that does not appear to be of cardiac nature. Patient educated to notify office is she has any new symptoms of chest discomfort. Numbness of right thumb 12/31/2019 Overview: CT head-patchy white matter changes Tubular adenoma 03/15/2019 Overview: 02/2019- rpt in 5 yrs PFO (patent foramen ovale) 05/28/2018 Overview: Dr Donis Irritable bowel syndrome with diarrhea 1 04/13/2017 Overview: Follows with GI Migraine 02/10/2018 Eczema 02/10/2018 Cataract 02/10/2018 Overview: Dr Gtz Insulin resistance 02/10/2018 Chronic neck pain 02/10/2018 Hyperlipidemia 11/18/2017 Overview: ASCVD 6.5% on Pravastatin Last Assessment & Plan: Patient started on an increased pravastatin dose last year and is planning to have lipid profile checked tomorrow 10/01/23. Her previous LDL from 06/12/22 was 144. Will assess the need to change her regimen once the labs are back. Patient educated to continue with active lifestyle and heart healthy diet. 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 Follows at [facility] [place] ?coiling-metallic fragment in the CAT scan noted in the right lung Last Assessment & Plan: Patient's exercise capacity is stable. She denies any worrisome sounding shortness of breath or chest discomfort. Her echocardiogram is stable as well. Would repeat her echocardiogram 3 years from her last (about 2 years from now). She will notify us of any changes in her current condition or exercise capacity. Immunizations Name Administration Dates Next Due COVID-19 (Moderna) 07/16/2021,,06/11/2020,05/14 Pneumoccoccal(Adult) Polysac charide PPSV23 11/18/2019 Pneumococcal Conjugate PCV-13 05/28/2018 TD (STATE SUPPLIED FOR ADULT S AND CHILDREN) 02/26/2018 Family History Medical History Relation Name Comments CABG Brother Diabetes Brother at 59- [place] Cancer of the Bladder Father Hypertension Mother Hyperlipidemia Other Sister on Paxil Relation Name Status Comments Brother Father Mother Sister Alive Son Alive Social History Tobacco Use Types Packs/Day Years Used Date Smoking Tobacco: Former Cigarettes 1 30 Q uit: 1994 Smokeless Tobacco: Never Tobacco Cessation:Counseling Given: Yes Alcohol Use Standard Drinks/Week Comments Yes 0 [...] week 01/08/2021 How often do you attend [facility] or rastafari services? More than 4 times per year [...] place to sleep or slept in a mcc (including now)? No 01/08/2021 Sex Assigned at Date Recorded Not on file Job Start Date Occupation Industry Not on file Not on file Not on file Last Filed Vital Signs Vital Sign Reading Time Taken Comments Blood Pressure 129/70 09/30/2023 10:09 AM EDT Pulse 65 09/30/2023 10:09 AM EDT Temperature 36.4 ??C (97.6 ??F) 10/08/2021 11:21 AM E DT Respiratory Rate 14 02/03/2020 9:47 AM EST Oxygen Saturation 91% 09/30/2023 10:09 AM EDT Inhaled Oxygen Concentration - - Weight 64 kg (141 lb) 09/30/2023 10:09 AM EDT Height 157.5 cm (5' 2 ) 09/30/2023 10:09 AM EDT Body Mass Index 25.79 09/30/2023 10:09 AM EDT Plan of Treatment Health Maintenance Due Date Last Done Comments SHINGLES VACCINE (1 of 2) 09/15/2001 DEPRESSION SCREEN 01/08/2022 01/08/2021, (Completed), 09/28/2018 FALL RISK ASSESSMENT 01/08/2022 01/08/2021, 09/28/2018 (Completed), 09/28/2018 COLON CANCER SCREENING 03/01/2022 0 (Completed), 03/01/2019, 05/02/2015 (External Completion) MAMMOGRAM 09/30/2022 09/30/2021 (Exte rnal Completion), 09/26/2020, 09/26/2020 (External Completion), Additional history exists BONE DENSITY SCREENING 05/07/2023 9, 06/02/2013 (External Completion) Covid-19 Vaccine ( season) 2023 07/16/2021, 12/27/2020, 06/11/2020, Additional history exists BMI CHECK/ADVISE 02/24/2024 05/16/2019 (Com pleted), 05/16/2019, 05/28/2018, Additional history exists INFLUENZA (Season Ended) 2024 020 (Refused), 05/16/2019 (Refused), 11/17/2017 (Refused) CHOLESTEROL SCREENING 10/10/2026 10/10/2021 , 11/23/2020, 05/17/2020, Additional history exists DTAP/TDAP/TD (4 - Td or Tdap) 05/28/2028 05/28/2018 (Exception), 02/26/2018, 05/07/2009 HEPATITIS C SCREENING Addressed 08/05/2016 (External Completion of test per patient (Patient reports normal results)) Overridden with the intention of not completing the topic PNEUMOCOCCAL VACCINE Completed 11/18/2019, 05/29/19 19 Care Teams Manager Balance Relationship Specialty Start Date End Date Corky Schaefer MD [address] [place] [address] PCP - General Family Practice 11/11/23 Miko Donis MD [address] [place] [address] Specialist Cardiovascular Disease 01/08/21 Mandi Corrigan DNP [address] [place] [address] Specialist Nurse Practitioner Family 09/24/23
--- OUTSIDE RECORDS SUMMARY | 2024-06-30 11:19 | XMS_ITS | Encounter Summary ---
Author Organization [facility] Address [address] [place] [address] Care Team Providers Care Custom Designer Name Role Phone Jasson Mcnally MD Unavailable Unavai Miko Plata MD Unavailable [phone] Sobeida Velasco NP Unavailable [phone] Glen Bañuelos DO Primary Care Provider Unavaila [facility] Primary Care Provider UnavailZuleima Nash PA-C Primary Care Provider Unavail able Mandi Corrigan DNP Unavailable [phone] Corky Schaefer MD Primary Care Provider Unav ailable Reason for Visit * Reason Comments E-prescribe Rx Request Encounter Details Date Type Department Care Team Description 01/02/2022 Refill Adult Medicine [address] [address] Glen Bañuelos DO E-prescribe Rx Request Social History Tobacco Use [...] How often do you attend chur or buddhist services? More than 4 times per year 01/08/2021 Do you belong to any clubs o r organizations such as yazidism groups, unions, fraternal or athletic groups, or [...] encounter Miscellaneous Notes * Telephone Encounter - Yessy Victoria - 01/07/2022 10:07 AM EST REFILL LAST OFFICE VIST: 10/08/21 LAST PCP VISIT: NEXT OFFICE VISIT: 01/08/22 documented in this encounter Plan of Treatment Not on file documented as of this encounter Visit Diagnoses Diagnosis Hypertension, unspecified type documented in this encounter Care Teams Custom Designer Relationship Specialty Start Date End Date Glen Bañuelos DO [address] [place] [address] PCP - General Internal Medicine 03/04/21 01/07/22 [facility], Pcp [address] [place] [address] PCP - General Internal Medicine 01/08/22 08/26/22 Zuleima Rosas PA-C [address] [place] [address] PCP - General Internal Medicine 08/27/22 11/10/23 Corky Schaefer MD [address] [place] [address] PCP - General Family Practice 11/11/23 Jasson Mcnally MD Internal Medicine 12/18/17 08/26/22 Miko Donis MD [address] [place] [address] Specialist Cardiovascular Disease 01/08/21 Sobeida Velasco NP [address] [place] [address] Cardiology 02/19/21 09/23/23 Mandi Corrigan DNP [address] [place] [address] Specialist Nurse Practitioner Family 09/24/23 documented as of this encounter
== END 2024-06-30 10:52 | disposition home or self-care (01) ==
LOC: HO.HMCFM 10:10
PROVIDERS: PCP Physician Assistant; Visit Provider Physician Assistant
DX: E78.5 Hyperlipidemia, unspecified (principal); I10 Essential (primary) hypertension; R25.1 Tremor, unspecified; R73.01 Impaired fasting glucose

== ENCOUNTER → 2024-06-30 10:09 | Outpatient (BNVA) | payer MEDICARE, OTHER, SELFPAY | PROVIDERS: PCP Physician Assistant; Visit Provider Physician Assistant | DX: E78.5 Hyperlipidemia, unspecified (principal); R25.1 Tremor, unspecified; I10 Essential (primary) hypertension; R73.01 Impaired fasting glucose | CPT/HCPCS: 96127; 99212 ==

== ENCOUNTER 2024-07-11 07:29 | Outpatient (REF) | payer MEDICARE, OTHER, SELFPAY ==
--- OUTSIDE RECORDS SUMMARY | 2024-07-11 07:33 | XMS_ITS | Encounter Summary ---
Author Organization [facility] Address [address] [place] [address] Care Team Providers Care Lead Electrician Name Role Phone Jasson Mcnally MD Primary Care Provider Unavailable Jasson Mcnally MD Primary Care Provider Unavailable Jasson Mcnally MD Unavailable Unavai Miko Plata MD Unavailable [phone] Sobeida Velasco NP Unavailable [phone] Glen Bañuelos DO Primary Care Provider Unavaila [facility] Primary Care Provider UnavailZuleima Nash PA-C Primary Care Provider Unavail able Mandi Corrigan DNP Unavailable [phone] Corky Schaefer MD Primary Care Provider Unav ailable Encounter Details Date Type Department Care Team Description 11/24/2017 Orders Only Adult Medicine - [address] [address] Jasson Mcnally MD Preoperative examination; Screening for deficiency anemia Social History Tobacco Use Types Packs/Day Years [...] How often do you attend chur or mu-ism services? More than 4 times per year 01/08/2021 Do you belong to any clubs o r organizations such as baptism groups, unions, fraMusicnotes or athletic groups, or school groups? Yes [...] place to sleep or slept in a intermediate (including now)? No 01/08/2021 Sex Assigned at Date Recorded Not on file Job Start Date Occupation Industry Not on file Not on file Not on file documented as of this encounter Plan of Treatment Not on file documented as of this encounter Results * (ABNORMAL) COMPREHENSIVE METABOLIC PANEL (12/22/2017 11:42 AM EDT) [facility] GLUCOSE 106(H) 70 - 100 mg/dL 12/22/2017 4:24 PM [facility] Comment: Reference range applicable to fasting specimens only Based on recommendations from the ADA and AACE, the fasting glucose reference range has been changed to 70-100 mg/dL. ??This change is effective July 09, 2009 BUN 21 5 - 25 mg/dL 12/22/2017 4:24 PM [facility] CREAT 1.0 0.7 - 1.5 mg/dL 12/22/2017 4:24 PM [facility] BUN/CREAT RATIO 21.0(H) 6.0 - 20.0 12/22/2017 4:24 PM EDT [facility] GFR 59(L) >60 12/22/2017 4:24 PM EDT [facility] Comment: If patient is -Martiniquais, multiply result by 1.21 Chronic Kidney Disease: < 60 ml/min/1.73 square meters Kidney Failure: < 15 ml/min/1.73 square meters Sodium 142 133 - 145 mEq/L 12/22/2017 4:24 PM EDT [facility] Potassium 4.6 3.5 - 5.5 mEq/L 12/22/2017 4:24 PM EDT [facility] Chloride 103 96 - 108 mEq/L 12/22/2017 4:24 PM EDT [facility] CO2 23.9 21.0 - 32.0 mEq/L 12/22/2017 4:24 PM EDT [facility] CALCIUM 9.9 8.5 - 10.5 mg/dL 12/22/2017 4:24 PM EDT [facility] TOTAL PROTEIN 7.4 6.0 - 8.3 gm/dL 12/22/2017 4:24 PM EDT [facility] Albumin 4.6 3.2 - 5.6 gm/dL 12/22/2017 4:24 PM EDT [facility] GLOBULIN 2.8 1.9 - 4.4 gm/dL 12/22/2017 4:24 PM EDT [facility] A/G RATIO 1.6 1.1 - 2.3 12/22/2017 4:24 PM EDT [facility] BILI,TOTAL 0.4 0.0 - 1.2 mg/dL 12/22/2017 4:24 PM EDT [facility] AST (SGOT) 19 10 - 42 U/L 12/22/2017 4:24 PM EDT [facility] ALT( SGPT) 15 10 - 60 U/L 12/22/2017 4:24 PM EDT [facility] ALK PHOS 51 42 - 121 U/L 12/22/2017 4:24 PM EDT [facility] 12/22/2017 11:4 2 AM EDT 12/22/2017 11:42 AM EDT Jasson Mcnally MD LAB [facility] [address] [facility] * (ABNORMAL) CBC (AUTO DIFF PLATELET) (12/22/2017 11:42 AM EDT) WBC 5.6 4.8 - 10.8 x10-3 12/22/2017 3:14 PM EDT [facility] RBC 4.5 3.8 - 4.8 x10-6 12/22/2017 3:14 PM EDT [facility] HGB 12.8 11.5 - 16.0 g/dl 12/22/2017 3:14 PM EDT [facility] HCT 39.5 35 - 47 % 12/22/2017 3:14 PM EDT [facility] MCV 88.6 79 - 98 fl 12/22/2017 3:14 PM EDT [facility] MCH 28.7 27 - 32 pg 12/22/2017 3:14 PM EDT [facility] MCHC 32.4 32 - 37 g/dl 12/22/2017 3:14 PM EDT [facility] RDW 14.0 11 - 15 % 12/22/2017 3:14 PM EDT [facility] PLT COUNT 259 130 - 400 x10-3 12/22/2017 3:14 PM EDT [facility] MEAN PLATELET VOLUME 11.4(H) 7 - 11 fl 12/22/2017 3:14 PM EDT [facility] NEUT % 55.8 41 - 85 % 12/22/2017 3:14 PM EDT [facility] LYMPH % 33.6 15 - 48 % 12/22/2017 3:14 PM EDT [facility] MONO % 7.7 0 - 12 % 12/22/2017 3:14 PM EDT [facility] EOS % 2.5 0 - 5 % 12/22/2017 3:14 PM EDT [facility] BASO % 0.4 0 - 2 % 12/22/2017 3:14 PM EDT [facility] 12/22/2017 11:4 2 AM EDT 12/22/2017 11:42 AM EDT Jasson Mcnally MD LAB Performing Organization Address City/State/[facility] Co de Phone Number [facility] [address] [facility] documented in this encounter Visit Diagnoses Diagnosis Preoperative examination Preoperative examination, unspecified Screening for deficiency anemia Screening for other and unspecified deficiency anemia documented in this encounter Care Teams Lead Electrician Relationship Specialty Start Date End Date Jasson Mcnally MD PCP - General Internal Medicine 10/06/17 12/17/17 Jasson Mcnally MD PCP - General 12/18/17 03/03/21 Glen Bañuelos DO [address] [place] [address] PCP - General Internal Medicine 03/04/21 01/07/22 [facility] [address] [place] [address] PCP - General Internal Medicine 01/08/22 08/26/22 Zuleima Rosas PA-C [address] [place] [address] PCP - General Internal Medicine 08/27/22 11/10/23 Corky Schaefer MD [address] [place] [address] PCP - General Family Practice 11/11/23 Jasson Mcnally MD Internal Medicine 12/18/17 08/26/22 Miko Donis MD [address] [place] [address] Specialist Cardiovascular Disease 01/08/21 Sobeida Velasco, JULIA [address] [place] [address] Cardiology 02/19/21 09/23/23 Mandi Corrigan DNP [address] [place] [address] Specialist Nurse Practitioner Family 09/24/23 documented as of this encounter
--- OUTSIDE RECORDS SUMMARY | 2024-07-11 07:33 | XMS_ITS | Encounter Summary ---
Author Organization [facility] Address [address] [place] [address] Care Team Providers Care Bezel Cutter Name Role Phone Jasson Mcnally MD Primary Care Provider Unavailable Jasson Mcnally MD Unavailable UnaMiko Blatazar MD Unavailable [phone] Sobeida Velasco NP Unavailable [phone] Glen Bañuelos DO Primary Care Provider Unavaila [facility] Pcp Primary Care Provider UnavailZuleima Nash PA-C Primary Care Provider Unavail able Mandi Corrigan DNP Unavailable [phone] Corky Schaefer MD Primary Care Provider Unav ailable Reason for Visit * Reason Comments E-prescribe Rx Request Encounter Details Date Type Department Care Team Description 02/25/2020 Refill Adult Medicine [address] [address] Jasson Mcnally MD E-prescribe Rx Request Social [...] How often do you attend chur or sikh services? More than 4 times per year 01/08/2021 Do you belong to any clubs o r organizations such as protestant groups, unions, fraternal or athletic groups, or [...] place to sleep or slept in a halfway (including now)? No 01/08/2021 Sex Assigned at [...] have an upcoming appointment? No-unable to reach [facility] to call for appointment due to refill [...] / Plan: [place] / Product Type: MEDICARE [id number] documented in this encounter Plan of Treatment Not on file documented as of this encounter Visit Diagnoses Not on filedocumented in this encounter Care Teams Bezel Cutter Relationship Specialty Start Date End Date Jasson Mcnally MD PCP - General 12/18/17 03/03/21 Glen Bañuelos DO [address] [place] [address] PCP - General Internal Medicine 03/04/21 01/07/22 [facility] [address] [place] [address] PCP - General Internal Medicine 01/08/22 08/26/22 Zuleima Rosas PA-C [address] [place] [address] PCP - General Internal Medicine 08/27/22 11/10/23 Corky Schaefer MD [address] [place] [address] PCP - General Family Practice 11/11/23 Jasson Mcnally MD Internal Medicine 12/18/17 08/26/22 Miko Donis MD [address] [place] [address] Specialist Cardiovascular Disease 01/08/21 Sobeida Velasco NP [address] [place] [address] Cardiology 02/19/21 09/23/23 Mandi Corrigan DNP [address] [place] [address] Specialist Nurse Practitioner Family 09/24/23 documented as of this encounter
--- OUTSIDE RECORDS SUMMARY | 2024-07-11 07:33 | XMS_ITS | Encounter Summary ---
Author Organization [facility] Address [address] [place] [phone] Care Team Providers Care Psychiatric Tech Name Role Phone Ruthie Chandra MD Primary Care Provider Encounter Details Date Type Department Care Team (Late st Contact Info) Description 10/13/2023 Scanned Document Interventional Radiology at [address] [phone] Provider, Historical . Social History Tobacco Use [...] documented as of this encounter Care Teams Psychiatric Tech Relationship Specialty Start Date End Date Ruthie Chandra MD [address] [place] [phone] PCP - General Internal Medicine 11/18/16 documented as of this encounter
--- OUTSIDE RECORDS SUMMARY | 2024-07-11 07:33 | XMS_ITS | Encounter Summary ---
Author Organization [facility] Address [address] [place] [address] Care Team Providers Care Tourist Home Keeper Name Role Phone Jasson Mcnally MD Unavailable Unavai Miko Plata MD Unavailable Sobeida Velasco HEADING SAW OPERATOR Unavailable [phone] [facility], Pcp Primary Care Provider Unavailabl Zuleima Rubio PA-C Primary Care Provider Unavail able Mandi Corrigan DNP Unavailable [phone] Corky Schaefer MD Primary Care Provider Unav ailable Encounter Details Date Type Department Care Team Description 06/12/2022 SCAN Medical Records [address] [place] [address] Zuleima Rosas PA-C Social History Tobacco Use Types Packs/Day Years [...] How often do you attend chur or temple services? More than 4 times per year 01/08/2021 Do you belong to any clubs o r organizations such as adventist groups, unions, fraternal or athletic groups, or [...] place to sleep or slept in a fci (including now)? No 01/08/2021 Sex Assigned at Date Recorded Not on file Job Start Date Occupation Industry Not on file Not on file Not on file documented as of this encounter Plan of Treatment Not on file documented as of this encounter Procedures Procedure Name Priority Date/Time Associated Diagnosis Comments OUTSIDE LAB Routine 06/12/2022 documented in this encounter Results * OUTSIDE LAB (06/12/2022) Provider Default LAB documented in this encounter Visit Diagnoses Not on filedocumented in this encounter Care Teams Tourist Home Keeper Relationship Specialty Start Date End Date Community, Pcp [address] [place] [address] PCP - General Internal Medicine 01/08/22 08/26/22 Zuleima Rosas PA-C [address] [place] [address] PCP - General Internal Medicine 08/27/22 11/10/23 Corky Schaefer MD [address] [place] [address] PCP - General Family Practice 11/11/23 Jasson Mcnally MD Internal Medicine 12/18/17 08/26/22 Miko Donis MD [address] [place] [address] Specialist Cardiovascular Disease 01/08/21 Sobeida Velasco NP [address] [place] [address] Cardiology 02/19/21 09/23/23 Mandi Corrigan, JOÃO [address] [place] [address] Specialist Nurse Practitioner Family 09/24/23 documented as of this encounter
--- OUTSIDE RECORDS SUMMARY | 2024-07-11 07:33 | XMS_ITS | Encounter Summary ---
Author Organization [facility] Address [address] [place] [address] Care Team Providers Care Gold Prospector Name Role Phone Jasson Mcnally MD Primary Care Provider Unavailable Jasson Mcnally MD Unavailable Unajailenei Miko Plata MD Unavailable [phone] Sobeida Velasco NP Unavailable [phone] Glen Bañuelos DO Primary Care Provider Unavaila [facility] Primary Care Provider UnavailZuleima Nash PA-C Primary Care Provider Unavail able Mandi Corrigan DNP Unavailable [phone] Corky Schaefer MD Primary Care Provider Unav ailable Reason for Visit * Reason Onset Date Comments TEST RESULTS 06/04/2020 Encounter Details Date Type Department Care Team Description 06/04/2020 Telephone Adult [facility] - [address] [address] Jasson Mcnally MD TEST RESULTS Social History Tobacco Use Types Packs/Day Years [...] How often do you attend chur or voodoo services? More than 4 times per year 01/08/2021 Do you belong to any clubs o r organizations such as mandaen groups, unions, fraternal or athletic groups, or [...] encounter Miscellaneous Notes * Telephone Encounter - Naomie Petty M.A. - 06/05/2020 11:48 AM EDT Left voicemail asking to return call regarding message below. * Telephone Encounter - Jasson Mcnally MD - 06/05/2020 11:37 AM EDT Patient was notified of the results on 05/31/2020. See result note for details. Ultrasound normal. If still has issues will refer her to gastroenterology. * Telephone Encounter - Summer Carbajal - 06/04/2020 4:03 PM EDT Inform patient: ANY URGENT OR ABNORMAL RESULTS WIILL RESULT IN A CALL BACK TO THE PATIENT TRACIE. Type of test: : ultrasound Date test was performed: 05/29/2020 Where was the test performed: [email or web address] Who ordered this test?: Dr Mata Is the doctor here today?: YES Can the message wait until the doctor returns?: NO IF PATIENT'S PCP IS NOT IN INSTRUCT PATIENT THAT THEY WILL RECEIVE A CALL BACK WHEN THE PCP IS IN THE OFFICE NEXT. documented in this encounter Plan of Treatment Not on file documented as of this encounter Visit Diagnoses Not on filedocumented in this encounter Care Teams Gold Prospector Relationship Specialty Start Date End Date Jasson Mcnally MD PCP - General 12/18/17 03/03/21 Glen Bañuelos DO [address] [place] [address] PCP - General Internal Medicine 03/04/21 01/07/22 [facility] [address] [place] [address] PCP - General Internal Medicine 01/08/22 08/26/22 Zuleima Rosas PA-C [address] [place] [address] PCP - General Internal Medicine 08/27/22 11/10/23 Corky Schaefer MD [address] [place] [address] PCP - General Family Practice 11/11/23 Jasson Mcnally MD Internal Medicine 12/18/17 08/26/22 Miko Donis MD [address] [place] [address] Specialist Cardiovascular Disease 01/08/21 Sobeida Velasco, JULIA [address] [place] [address] Cardiology 02/19/21 09/23/23 Mandi Corrigan DNP [address] [place] [address] Specialist Nurse Practitioner Family 09/24/23 documented as of this encounter
--- OUTSIDE RECORDS SUMMARY | 2024-07-11 07:33 | XMS_ITS | Encounter Summary ---
Author Organization [facility] Address [address] [place] [address] Care Team Providers Care Silk Blocker Name Role Phone Ruthie Chandra MD Primary Care Provider Reason for Visit * Reason Onset Date Comments Results 10/06/2023 Encounter Details Date Type Department Care Team ([facility] st Contact Info) Description 10/06/2023 Telephone [facility] Interventional Radiology at [address] [address] Alvarado Bullock MD [address] [place] [phone] Results Social History Tobacco Use Types [...] documented as of this encounter Care Teams Silk Blocker Relationship Specialty Start Date End Date Ruthie Chandra MD [address] [place] [phone] PCP - General Internal Medicine 11/18/16 documented as of this encounter
--- OUTSIDE RECORDS SUMMARY | 2024-07-11 07:33 | XMS_ITS | Encounter Summary ---
Author Organization [facility] Address [address] [place] [address] Care Team Providers Care Limb Driver Name Role Phone Jasson Mcnally MD Primary Care Provider Unavailable Jasson Mcnally MD Unavailable Unavai Miko Plata MD Unavailable Sobeida Velasco NP Unavailable [phone] Glen Bañuelos DO Primary Care Provider Unavaila [facility] Primary Care Provider UnavailZuleima Nash PA-C Primary Care Provider Unavail able Mandi Corrigan DNP Unavailable [phone] Corky Schaefer MD Primary Care Provider Unav ailable Encounter Details Date Type Department Care Team Description 06/29/2018 Tile Machine Operator Report Medical Records [address] [place] [address] [address] [place] [address] Social History Tobacco Use Types Packs/Day Years [...] How often do you attend chur or catholic services? More than 4 times per year 01/08/2021 Do you belong to any clubs o r organizations such as episcopalian groups, unions, fraternal or athletic groups, or [...] on filedocumented in this encounter Care Teams Limb Driver Relationship Specialty Start Date End Date Jasson Mcnally MD PCP - General 12/18/17 03/03/21 Glen Bañuelos DO [address] [place] [address] PCP - General Internal Medicine 03/04/21 01/07/22 [facility] [address] [place] [address] PCP - General Internal Medicine 01/08/22 08/26/22 Zuleima Rosas PA-C [address] [place] [address] PCP - General Internal Medicine 08/27/22 11/10/23 Corky Schaefer MD [address] [place] [address] PCP - General Family Practice 11/11/23 Jasson Mcnally MD Internal Medicine 12/18/17 08/26/22 Miko Donis MD [address] [place] [address] Specialist Cardiovascular Disease 01/08/21 Sobeida Velasco NP [address] [place] [address] Cardiology 02/19/21 09/23/23 Mandi Corrigan DNP [address] [place] [address] Specialist Nurse Practitioner Family 09/24/23 documented as of this encounter
--- OUTSIDE RECORDS SUMMARY | 2024-07-11 07:33 | XMS_ITS | Clinical Summary ---
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 Overview (09/07/2023): >>OVERVIEW FOR HEREDITARY HEMORRHAGIC TELANGIECTASIA (HC CODE) WRITTEN ON 11/28/2016 10:27 AM BY MARQUEZ SIMPSON MD Added automatically from request for surgery [id number] GERD (gastroesophageal reflux disease) Eczema Immunizations Name [...] this topic Medical Devices Implanted Type Area Automobile Brake Bonder Device Identifier Shelf Expiration Date Model / Serial / Lot Handle Lavern Coil Detachment - [id number] Implanted:Qty: 1 on 10/22/2023 by Marquez Simpson MD at [address] [id number] 08/30/2026 [id number] / / [id number] Coil Lavern Complex Standard 5mm X 12 Cm - [id number] Implanted:Qty: 1 on 10/22/2023 by Marquez Simpson MD at [address] [id number] 05/12/2031 [id number] / / [id number] Coil Pod Packing J Soft 5cm - [id number] Implanted:Qty: 1 on 10/22/2023 by Marquez Simpson MD at [address] [id number] 07/26/2031 [id number] / / [id number] Coil Lvaern Complex Soft 2mm X 4cm - [id number] Implanted:Qty: 1 on 10/22/2023 by Marquez Simpson MD at [address] Implant PENUMBRA [id number] 07/08/2031 [id number] / / [id number] Plug Microvascular 3mm Mvp3q - [id number] Implanted:Qty: 1 on 10/22/2023 by Marquez Simpson MD at [address] Implant [employer] [id number] 02/22/2025 MVP-3Q / / [id number] Coil Lavern Complex Soft 3mm X 5cm - [id number] Implanted:Qty: 1 on 10/22/2023 by Marquez Simpson MD at [address] Implant PENUMBRA [id number] 07/11/2031 [id number] / / [id number] Coil Embo Detach Embold 0mxj0ip - [id number] Implanted:Qty: 1 on 10/22/2023 by Marquez Simpson MD at [address] Implant [employer] [id number] 07/15/2026 [id number] / / [id number] Coil Embo Detach Embold 6enk3zo - [id number] Implanted:Qty: 1 on 10/22/2023 by Marquez Simpson MD at [address] Implant [employer] [id number] 06/23/2026 [id number] / / [id number] Coil Pv Embo Concerto [id number] - [id number] Implanted:2016 by Marquez Simpson MD at [address] (Quantity not on file) Other-impl ant [employer] (MEDT-ZZZZ) 07/28/2019 NV-8-30-H ELIX / / [id number] Amplatzer Vasc Plug4 5mmx10.5 - [id number] Implanted:2016 by Marquez Simpson MD at [address] (Quantity not on file) Other-impl ant [facility] (STJU-ZZZZ) 07/23/2021 [id number]- 005 / / [id number] Embolization Coil - [id number] Implanted:2016 by Marquez Simpson MD at [address] (Quantity not on file) Other-impl ant [employer] INTERVEN PRDT 11/27/2021 [id number] / / [id number] Coil Pv Embo Concerto [id number] - [id number] Implanted:2016 by Marquez Simpson MD at [address] (Quantity not on file) Other-impl ant [employer] (MEDT-ZZZZ) 10/10/2019 NV-5-15-H ELIX / / [id number] Coil Pv Embo Concerto 8vue02sa - [id number] Implanted:2016 by Marquez Simpson MD at [address] (Quantity not on file) Other-impl ant [employer] (MEDT-ZZZZ) 10/10/2019 NV-5-15-H ELIX / / [id number] Coil Pv Embo Concerto [id number] - [id number] Implanted:2016 by Marquez Simpson MD at [address] (Quantity not on file) Other-impl ant [employer] (MEDT-ZZZZ) 09/15/2019 NV-4-10-H ELIX / / [id number] Coil Pv Embo Concerto 0ltt3su - [id number] Implanted:2016 by Marquez Simpson MD at [address] (Quantity not on file) Other-impl ant [employer] (MEDT-ZZZZ) 09/18/2019 NV-3-8-HE LIX / / [id number] Amplatzer Vasc Plug4 2vqm77ka - [id number] Implanted:2016 by Marquez Simpson MD at [address] (Quantity not on file) Other-impl ant [facility] SH[employer]IN[employer] (STJU-ZZZZ) 08/22/2021 9-[id number]- 004 / / [id number] Coil Embol Mwce 35-4/3 Tornado - [id number] Implanted:2016 by Marquez Simpson MD at [address] (Quantity not on file) Other-impl ant [employer] 11/12/2021 [id number] / / [id number] Coil Embol Mwce 35-4/3 Tornado - [id number] Implanted:2016 by Marquez Simpson MD at [address] (Quantity not on file) Other-impl ant [employer] 11/12/2021 [id number] / / [id number] Embolization Coil - [id number] Implanted:2016 by Marquez Simpson MD at [address] (Quantity not on file) Other-impl ant [employer] 10/13/2021 [id number] / / [id number] Insurance [facility] Care Teams Discharge Rn Relationship Specialty Start Date End Date Ruthie Chandra MD [address] [place] [address] PCP - General Internal Medicine 11/18/16
--- OUTSIDE RECORDS SUMMARY | 2024-07-11 07:33 | XMS_ITS | Clinical Summary ---
Author Organization [facility] Address [address] [place] [address] Care Team Providers Care Facilities Specialist Name Role Phone Corky Schaefer MD Primary [...] Facetectomy, foraminotomy OTHER SURGICAL HISTORY 12/2017 PROCEDURE: NM HEMORRHOIDECTOMY INT & XTRNL 2/> COLUMN/KIRIT COLONOSCOPY 03/01/2019 PROCEDURE: HISTORICAL COLONOSCOPY; COMMENT: polyps ESOPHAGOGASTRODUODENOSCOPY 03/01/2019 PROCEDURE: NM EGD TRANSORAL BIOPSY SINGLE/MULTIPLE; COMMENT: gastritis. 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); COMMENT: Follows at [facility] Eczema 02/10/2018 DX:Eczema GERD (gastroesophageal reflu x [...] Comments CABG Brother Diabetes Brother at 59- [place] Bladder Cancer Father Hypertension Mother Hyperlipidemia Other: [...] PM EST Colon polyps Colon cancer screening [facility] SCREENING DIGITAL Routine 10/08/2023 9:38 AM EDT Encounter for screening mammogram for malignant neoplasm of breast [facility] DEXA AXIAL SKELETON Routine 05/06/2018 3:39 PM EDT Asymptomatic menopausal state from Last 3 Months or Most Recently Relevant to Health Maintenance Results * COLONOSCOPY Anesthesia - MAC; [facility] ENDOSCOPY (02/10/2024 4:33 PM EST) [...] for surveillance. Narrative 02/10/2024 4:[address] [facility] Patient Name: Roslyn Mena Procedure Date: [...] verified by the physician, the nurse, the registered dental assistant rda ? and the electronic development technician in the pre-procedure area in [...] Procedure Code(s): ? --- Professional --- ? 12678, Colonoscopy, flexible; with biopsy, single or ? multiple Diagnosis Code(s): ? --- Professional --- ? D12.5, Benign neoplasm of sigmoid colon ? D12.3, Benign neoplasm of transverse colon (hepatic ? flexure or splenic flexure) CPT copyright 2020 [employer]. All rights reserved. The codes documented in this report are preliminary and upon riding teacher review may be revised to meet current compliance requirements. Kiko Jalloh MD 02/10/2024 4:35:56 PM This report has been signed electronically.Kiko Jalloh MD Number of Addenda: 0 Note Initiated On: 02/10/2024 4:08 PM Scope Withdrawal Time: 0 hours 8 minutes 6 seconds Scope In: 4:20:13 PM Scope Out: 4:33:23 PM ? Endoscopy Department at [facility] - [address] [place] [address], ? [place] [address] Procedure Note Kiko Jalloh MD - 02/10/2024 [facility] Patient Name: Roslyn Mena Procedure Date: [...] the physician, the nurse, theanesthetist and the electronic development technician in the pre-procedure area in [...] reduce spontaneously). Procedure Code(s): --- Professional --- 83792, Colonoscopy, flexible; with biopsy, singleor multiple Diagnosis Code(s): --- Professional --- D12.5, Benign neoplasm of sigmoid colon D12.3, Benign neoplasm of transverse colon (hepatic flexure or splenic flexure) CPT copyright 2020 [employer]. All rights reserved. The codes documented in this report are preliminary and upon riding teacher reviewmay be revised to meet current compliance requirements. Kiko Jalloh MD 02/10/2024 4:35:56 PM This report has been signed electronically.Kiko Jalloh MD Number of Addenda: 0 Note Initiated On: 02/10/2024 4:08 PM Scope Withdrawal Time: 0 hours 8 minutes 6 seconds Scope In: 4:20:13 PM Scope Out: 4:33:23 PM Endoscopy Department at [facility] - [address] [place] [phone] IMPRESSION: - Three 1 to 3 mm [...] AM EDT Narrative 10/08/2023 9:38 AM EDT [facility] Diagnostic Imaging Department [address] [place] [address] Patient: ??RAJESH,ROSLYN ?/Age/Sex: 1950 - 73 - F Unit#: ??[id number] ? Location/Status: ??SPDIMAM/REG CLI ? Mnemonic/Ordering Site: ??DIGSC/SPMAM Ordering Physician: ??DANIELLE DE DIOS [facility] Screening Digital - 10/08/23742 Report Status:Signed EXAM: [facility] Screening Digital EXAM DATE AND TIME: 10/08/2023 7:43 AM HISTORY: ??Screening. COMPARISON: ??8/10/23, 09/30/21, 09/26/20 TECHNIQUE: Bilateral digital breast tomosynthesis was performed in the CC and MLO projections. Computer aided detection with [employer] 3D 3.1 was employed. TISSUE DENSITY: c. [...] Procedure Note Bailey Landaverde MD - 12/09/2023 [facility] Diagnostic Imaging Department [address] [place] [address] Patient: RAJESHROSLYN /Age/Sex: 1950 - 73 - F Unit#: [id number] Location/Status: [facility] Mnemonic/Ordering Site: [facility] Ordering Physician: DANIELLE DE DIOS [facility] Screening Digital - 10/08/23 - 0743 Report Status:Signed EXAM: [facility] Screening Digital EXAM DATE AND TIME: 10/08/2023 7:43 AM HISTORY: Screening. COMPARISON: 10/02/22, 09/30/21, 09/26/20 TECHNIQUE: Bilateral digital breast tomosynthesis was performed in the CCand MLO projections. Computer aided detection with [employer] 3D 3.1was employed. TISSUE DENSITY: c. The [...] GARCIA IMG BI PROCEDURES Final Result * [facility] DEXA AXIAL SKELETON (05/06/2018 3:39 PM EDT) Anatomical Region Laterality Modality Mammography 05/06/2018 2:03 PM EDT Narrative 05/06/2018 3:39 PM EDT [facility] Diagnostic Imaging Department [address] [place] [address] Patient: ??RAJESHROSLYN ?/Age/Sex: 1950 - 67 - F Unit#: ??[id number] ? Location/Status: ??SPDIMAM/REG CLI ? Mnemonic/Ordering Site: ??MAMDEXAAX/SPMAM Ordering Physician: ??CASE,BEVERLEY GRAFF [facility] Dexa Axial Skeleton - 05/06/18 - 1530 HISTORY: ??The patient is a 67-year-old postmenopausal [...] probability of hip fracture of 0.7%. Code 30043 Dictating Physician: ??LINDA MONTES MD Electronically Signed by: ??LINDA MONTES MD Dic Date/Time: ??05/06/181536 Sign date/Time: ??05/06/181538 Procedure Note Linda Montes MD - 02/12/2022 [facility] Diagnostic Imaging Department [address] [place], [place] [id number] Patient: ROSLYN MENA D.O.B./Age/Sex: 1950 67 - F Unit#: [id number] [facility] Ordering Physician: BEVERLEY GORDON MD [facility] Dexa Axial Skeleton - 05/06/181533 HISTORY: [...] density of the femurs bilaterally is 1.101 gm/gv2mpaxp is 109% of that of young normals [...] probability of hip fracture of 0.7%. Code 64568 Dictating Physician: LINDA MONTES MD Electronically Signed by: LINDA MONTES MD Dic Date/Time: 05/06/18 1537 Sign date/Time: 05/06/18 1539 Beverley Gordon MD IM BI PROCEDURES Final Result from Last 3 Months or Most Recently Relevant to Health Maintenance Insurance MEDICARE [employer] Care Teams Facilities Specialist Relationship Specialty Start Date End Date Corky Schaefer MD [address] [place] [address] Dr Colleen [place] PCP - General 11/11/23
--- OUTSIDE RECORDS SUMMARY | 2024-07-11 07:33 | XMS_ITS | Encounter Summary ---
Author Organization [facility] Address [address] [place] [address] Care Team Providers Care Metal Control Coordinator Name Role Phone Jasson Mcnally MD Primary Care Provider Unavailable Jasson Mcnally MD Unavailable Miko Ríos MD Unavailable [phone] Sobeida Velasco NP Unavailable [phone] Glen Bañuelos DO Primary Care Provider Unavaila [facility] Primary Care Provider UnavailZuleima Nash PA-C Primary Care Provider Unavail able Mandi Corrigan DNP Unavailable [phone] Corky Schaefer MD Primary Care Provider Unav ailable Encounter Details Date Type Department Care Team Description 02/26/2018 Orders Only Adult Medicine - [address] [address] Jasson Mcnally MD Social History Tobacco Use Types Packs/Day [...] How often do you attend chur or pentecostal services? More than 4 times per year 01/08/2021 Do you belong to any clubs o r organizations such as pentecostalism groups, unions, fraternal or athletic groups, or [...] on filedocumented in this encounter Care Teams Metal Control Coordinator Relationship Specialty Start Date End Date Jasson Mcnally MD PCP - General 12/18/17 03/03/21 Glen Bañuelos DO [address] [place] [address] PCP - General Internal Medicine 03/04/21 01/07/22 [facility], [facility] [address] [place] [address] PCP - General Internal Medicine 01/08/22 08/26/22 Zuleima Rosas PA-C [address] [place] [address] PCP - General Internal Medicine 08/27/22 11/10/23 Corky Schaefer MD [address] [place] [address] PCP - General Family Practice 11/11/23 Jasson Mcnally MD Internal Medicine 12/18/17 08/26/22 Miko Donis MD [address] [place] [address] Specialist Cardiovascular Disease 01/08/21 Sobeida Velasco, JULIA [address] [place] [address] Cardiology 02/19/21 09/23/23 Mandi Corrigan, JOÃO [address] [place] [address] Specialist Nurse Practitioner Family 09/24/23 documented as of this encounter
--- OUTSIDE RECORDS SUMMARY | 2024-07-11 07:33 | XMS_ITS | Encounter Summary ---
Author Organization [facility] Address [address] [place] [address] Care Team Providers Care Urogynaecologist Name Role Phone Jasson Mcnally MD Unavailable UnaMiko Baltazar MD Unavailable [phone] Sobeida Velasco NP Unavailable [phone] Glen Bañuelos DO Primary Care Provider Unavaila [facility] Primary Care Provider UnavailZuleima Nash PA-C Primary Care Provider Unavail able Mandi Corrigan DNP Unavailable [phone] Corky Schaefer MD Primary Care Provider Unav ailable Reason for Visit * Reason Onset Date Comments Blood Pressure Elevated 07/17/2021 Encounter Details Date Type Department Care Team Description 07/17/2021 Telephone Adult [facility] - [address] [address] Glen Bañuelos DO Blood Pressure Elevated Social [...] How often do you attend chur or quaker services? More than 4 times per year 01/08/2021 Do you belong to any clubs o r organizations such as restoration groups, unions, fraternal or athletic groups, or [...] place to sleep or slept in a care home (including now)? No 01/08/2021 Sex Assigned at [...] traveled recently to another state outside of [place], [place], [place], [place], [place], [place], [place]? NO o If yes, did you quarantine [...] vehicle accident? NO If yes, gather 3rd libertarian insurance information Date of accident/Injury: How long has patient had these symptoms?: this past week PCP: Glen Bañuelos [place] / Plan: [email or web address] / Product Type: MEDICARE [id number] documented in this encounter Plan of Treatment Not on file documented as of this encounter Visit Diagnoses Not on filedocumented in this encounter Care Teams Urogynaecologist Relationship Specialty Start Date End Date Glen Bañuelos DO [address] [place] [address] PCP - General Internal Medicine 03/04/21 01/07/22 [facility], Pcp [address] [place] [address] PCP - General Internal Medicine 01/08/22 08/26/22 Zuleima Rosas PA-C [address] [place] [address] PCP - General Internal Medicine 08/27/22 11/10/23 Corky Schaefer MD [address] [place] [address] PCP - General Family Practice 11/11/23 Jasson Mcnally MD Internal Medicine 12/18/17 08/26/22 Miko Donis MD [address] [place] [address] Specialist Cardiovascular Disease 01/08/21 Sobeida Velasco NP [address] [place] [address] Cardiology 02/19/21 09/23/23 Mandi Corrigan DNP [address] [place] [address] Specialist Nurse Practitioner Family 09/24/23 documented as of this encounter
--- OUTSIDE RECORDS SUMMARY | 2024-07-11 07:33 | XMS_ITS | Encounter Summary ---
Author Organization [facility] Address [address] [place] [address] Care Team Providers Care Strategic Marketing Associate Name Role Phone Jasson Mcnally MD Unavailable UnavaMiko Madrid MD Unavailable [phone] RodSobeida FISH PEDDLER Unavailable [phone] [facility], Pcp Primary Care Provider UnavailZuleima Nash PA-C Primary Care Provider Unavail able Mandi Corrigan DNP Unavailable [phone] Corky Schaefer MD Primary Care Provider Unav ailable Encounter Details Date Type Department Care Team Description 06/27/2022 Hospital Medical Records [address] [place] [id number] [place] [address] [place] Social History Tobacco Use Types Packs/Day [...] often do you attend chur ch or jew services? More than 4 times per year 01/08/2021 Do you belong to any clubs o r organizations such as hoahaoism groups, unions, fraternal or athletic groups, or [...] place to sleep or slept in a [place] health care facility (including now)? No 01/08/2021 Sex Assigned at [...] on filedocumented in this encounter Care Teams Strategic Marketing Associate Relationship Specialty Start Date End Date Community, Pcp [address] [place] [address] PCP - General Internal Medicine 01/08/22 08/26/22 Zuleima Rosas PA-C [address] [place] [address] PCP - General Internal Medicine 08/27/22 11/10/23 Corky Schaefer MD [address] [place] [address] PCP - General Family Practice 11/11/23 Jasson Mcnally MD Internal Medicine 12/18/17 08/26/22 Miko Donis MD [address] [place] [address] Specialist Cardiovascular Disease 01/08/21 Sobeida Velasco NP [address] [place] [address] Cardiology 02/19/21 09/23/23 Mandi Corrigan DNP [address] [place] [address] Specialist Nurse Practitioner Family 09/24/23 documented as of this encounter
--- OUTSIDE RECORDS SUMMARY | 2024-07-11 07:33 | XMS_ITS | Clinical Summary ---
Author Organization [facility] Address [address] [place] [address] Care Team Providers Care Home Day Care Provider Name Role Phone Miko Donis MD Unavailable [phone] Mandi Corrigan DNP Unavailable [phone] Corky Schaefer MD Primary Care Provider [...] telangiectasia Overview: PFO, Pulmonary AVMs. Follows at [facility] [place] ?coiling-metallic fragment in the CAT scan noted [...] Comments CABG Brother Diabetes Brother at 59- [place] Cancer of the Bladder Father Hypertension Mother [...] week 01/08/2021 How often do you attend [facility] or islam services? More than 4 times per year 01/08/2021 Do you belong to any clubs o r organizations such as jain groups, unions, fraternal or athletic groups, or [...] VACCINE Completed 11/18/2019, 05/29/19 19 Care Teams Home Day Care Provider Relationship Specialty Start Date End Date Corky Schaefer MD [address] [place] [address] PCP - General Family Practice 11/11/23 Miko Donis MD [address] [place] [address] Specialist Cardiovascular Disease 01/08/21 Mandi Corrigan DNP [address] [place] [address] Specialist Nurse Practitioner Family 09/24/23
--- OUTSIDE RECORDS SUMMARY | 2024-07-11 07:33 | XMS_ITS | Encounter Summary ---
Author Organization [facility] Address [address] [place] [address] Care Team Providers Care Central Lab Technician Name Role Phone Jasson Mcnally MD Unavailable UnavaMiko Madrid MD Unavailable [phone] RodSobeida TOOL MACHINE SET UP OPERATOR Unavailable [phone] [facility], Pcp Primary Care Provider UnavailZuleima Nash PA-C Primary Care Provider Unavail able Mandi Corrigan DNP Unavailable [phone] Corky Schaefer MD Primary Care Provider Unav ailable Encounter Details Date Type Department Care Team Description 02/20/2022 Hospital Medical Records [address] [place] [id number] [place] [address] Kess[place] Social History Tobacco Use Types Packs/Day [...] often do you attend chur ch or scientology services? More than 4 times per year 01/08/2021 Do you belong to any clubs o r organizations such as sikhism groups, unions, fraternal or athletic groups, or [...] on filedocumented in this encounter Care Teams Central Lab Technician Relationship Specialty Start Date End Date Community, Pcp [address] [place] [address] PCP - General Internal Medicine 01/08/22 08/26/22 Zuleima Rosas PA-C [address] [place] [address] PCP - General Internal Medicine 08/27/22 11/10/23 Corky Schaefer MD [address] [place] [address] PCP - General Family Practice 11/11/23 Jasson Mcnally MD Internal Medicine 12/18/17 08/26/22 Miko Donis MD [address] [place] [address] Specialist Cardiovascular Disease 01/08/21 Sobeida Velasco NP [address] [place] [address] Cardiology 02/19/21 09/23/23 Mandi Corrigan, [facility] [address] [place] [address] Specialist Nurse Practitioner Family 09/24/23 documented as of this encounter
--- OUTSIDE RECORDS SUMMARY | 2024-07-11 07:33 | XMS_ITS | Encounter Summary ---
Author Organization [facility] Address [address] [place] [address] Care Team Providers Care Object Oriented Programmer Name Role Phone Jasson Mcnally MD Primary Care Provider Unavailable Jasson Mcnally MD Unavailable Unavai Miko Plata MD Unavailable [phone] Sobeida Velasco NP Unavailable [phone] Glen Bañuelos DO Primary Care Provider Unavaila [facility] Primary Care Provider UnavailZuleima Nash PA-C Primary Care Provider Unavail able Mandi Corrigan DNP Unavailable [phone] Corky Schaefer MD Primary Care Provider Unav ailable Encounter Details Date Type Department Care Team Description 07/04/2019 Nail Machine Operator Report Medical Records [address] [place] [address] [address] [place] [address] Social History Tobacco Use Types Packs/Day Years [...] How often do you attend chur or taoist services? More than 4 times per year [...] on filedocumented in this encounter Care Teams Object Oriented Programmer Relationship Specialty Start Date End Date Jasson Mcnally MD PCP - General 12/18/17 03/03/21 Glen Bañuelos DO [address] [place] [address] PCP - General Internal Medicine 03/04/21 01/07/22 [facility] [address] [place] [address] PCP - General Internal Medicine 01/08/22 08/26/22 Zuleima Rosas PA-C [address] [place] [address] PCP - General Internal Medicine 08/27/22 11/10/23 Corky Schaefer MD [address] [place] [address] PCP - General Family Practice 11/11/23 Jasson Mcnally MD Internal Medicine 12/18/17 08/26/22 Miko Donis MD [address] [place] [address] Specialist Cardiovascular Disease 01/08/21 Sobeida Velasco NP [address] [place] [address] Cardiology 02/19/21 09/23/23 Mandi Corrigan DNP [address] [place] [address] Specialist Nurse Practitioner Family 09/24/23 documented as of this encounter
--- OUTSIDE RECORDS SUMMARY | 2024-07-11 07:33 | XMS_ITS | Encounter Summary ---
Author Organization [facility] Address [address] [place] [address] Care Team Providers Care Fine Arts Model Name Role Phone Jasson Mcnally MD Unavailable Unavai Miko Plata MD Unavailable [phone] Sobeida Velasco NP Unavailable [phone] [facility], Pcp Primary Care Provider UnavailZuleima Nash PA-C Primary Care Provider Unavail able Mandi Corrigan DNP Unavailable [phone] Corky Schaefer MD Primary Care Provider Unav ailable Reason for Visit * Reason Onset Date Comments APPOINTMENT 05/03/2022 Recall appointme nt Encounter Details Date Type Department Care Team Description 05/03/2022 Telephone Cardio PVC POC [address] [place] [address] Miko Donis MD [address] [place] [address] APPOINTMENT (Recall appointment) Social History Tobacco Use Types Packs/Day Years [...] How often do you attend chur or baptist services? More than 4 times per year 01/08/2021 Do you belong to any clubs o r organizations such as bahai groups, unions, fraternal or athletic groups, or [...] place to sleep or slept in a group home (including now)? No 01/08/2021 Sex Assigned at Date Recorded Not on file Job Start Date Occupation Industry Not on file Not on file Not on file documented as of this encounter Miscellaneous Notes * Telephone Encounter - Tamar Lee - 05/03/2022 1:13 PM EST Called patient, [email or web address] Please schedule patient from recall list . documented in this encounter Plan of Treatment Not on file documented as of this encounter Visit Diagnoses Not on filedocumented in this encounter Care Teams Fine Arts Model Relationship Specialty Start Date End Date Community, Pcp [address] [place] [address] PCP - General Internal Medicine 01/08/22 08/26/22 Zuleima Rosas PA-C [address] [place] [address] PCP - General Internal Medicine 08/27/22 11/10/23 Corky Schaefer MD [address] [place] [address] PCP - General Family Practice 11/11/23 Jasson Mcnally MD Internal Medicine 12/18/17 08/26/22 Miko Donis MD [address] [place] [address] Specialist Cardiovascular Disease 01/08/21 Sobeida Velasco NP [address] [place] [address] Cardiology 02/19/21 09/23/23 Mandi Corrigan DNP [address] [place] [address] Specialist Nurse Practitioner Family 09/24/23 documented as of this encounter
--- OUTSIDE RECORDS SUMMARY | 2024-07-11 07:33 | XMS_ITS | Encounter Summary ---
Author Organization [facility] Address [address] [place] [address] Care Team Providers Care Mortician Supplies Sales Representative Name Role Phone Jasson Mcnally MD Primary Care Provider Unavailable Jasson Mcnally MD Unavailable Miko Ríos MD Unavailable [phone] Sobeida Velasco NP Unavailable [phone] Glen Bañuelos DO Primary Care Provider Unavaila [facility] Pcp Primary Care Provider UnavailZuleima Nash PA-C Primary Care Provider Unavail able Mandi Corrigan DNP Unavailable [phone] Corky Schaefer MD Primary Care Provider Unav ailable Encounter Details Date Type Department Care Team Description 03/04/2019 Orders Only Medical Records [address] [place] [id number] Taylor Jalloh MD [address] [place] [address] Social History Tobacco Use Types Packs/Day Years [...] How often do you attend chur or amish services? More than 4 times per year 01/08/2021 Do you belong to any clubs o r organizations such as synagogue groups, unions, fraternal or athletic groups, or [...] place to sleep or slept in a residential (including now)? No 01/08/2021 Sex Assigned at Date Recorded Not on file Job Start Date Occupation Industry Not on file Not on file Not on file documented as of this encounter Progress Notes * Kiko Jalloh MD - 03/14/2019 1:55 PM EST Dear Roslyn, The polyp(s) that were removed during your colonoscopy were precancerous, but benign. Fortunately, we removed them and therefore, they will not cause any more problems in the future. Based on the number, the size, and the features of the polyp(s) removed, I recommend a follow-up colonoscopy in 5 years. Before, the 5 years are due, we will send you a reminder in the mail asking you to contact our office to have the colonoscopy scheduled. In addition to this, the stomach biopsies taken during your endoscopy show inflammation associated with irritants. Please follow up in order to discuss these findings with the referring physician at [facility] gastroenterology clinic. I would like to personally thank you for allowing us to take care of you. Please don't hesitate to call us for any questions or concerns. Regards, Silverio Jalloh MD Board Certified Gastroenterology and Internal Medicine Transplant Hepatology [facility] documented in this encounter Plan of Treatment Not on file documented as of this encounter Procedures Procedure Name Priority Date/Time Associated Diagnosis Comments OUTSIDE PATHOLOGY Routine 03/01/2019 documented in this encounter Results * OUTSIDE PATHOLOGY (03/01/2019) H Jeff Jalloh MD OUTSIDE LAB documented in this encounter Visit Diagnoses Not on filedocumented in this encounter Care Teams Mortician Supplies Sales Representative Relationship Specialty Start Date End Date Jasson Mcnally MD PCP - General 12/18/17 03/03/21 Glen Bañuelos DO [address] [place] [address] PCP - General Internal Medicine 03/04/21 01/07/22 [facility], [facility] [address] [place] [address]374 PCP - General Internal Medicine 01/08/22 08/26/22 Zuleima Rosas PA-C [address] [place] [address]692 PCP - General Internal Medicine 08/27/22 11/10/23 Corky Schaefer MD [address] [place] [address]275 PCP - General Family Practice 11/11/23 Jasson Mcnally MD Internal Medicine 12/18/17 08/26/22 Miko Donis MD [address] [place] [address]563 Specialist Cardiovascular Disease 01/08/21 Sobeida Velasco, JULIA [address] [place] [address]295 Cardiology 02/19/21 09/23/23 Mandi Corrigan, JOÃO [address] [place] [address]292 Specialist Nurse Practitioner Family 09/24/23 documented as of this encounter
--- OUTSIDE RECORDS SUMMARY | 2024-07-11 07:33 | XMS_ITS | Encounter Summary ---
Author Organization [facility] Address [address] [place] [address] Care Team Providers Care Drum Carrier Name Role Phone Jasson Mcnally MD Primary Care Provider Unavailable Jasson Mcnally MD Unavailable Miko Ríos MD Unavailable [phone] Sobeida Velasco NP Unavailable [phone] Glen Bañuelos DO Primary Care Provider Unavaila [facility] Pcp Primary Care Provider UnavailZuleima Nash PA-C Primary Care Provider Unavail able Mandi Corrigan DNP Unavailable [phone] Corky Schaefer MD Primary Care Provider Unav ailable Encounter Details Date Type Department Care Team Description 03/01/2019 Hospital Medical Records [address] [place] [address] Taylor Jalloh MD [address] [place] [address] Social History Tobacco Use Types Packs/Day Years [...] often do you attend chur ch or mormon services? More than 4 times per year 01/08/2021 Do you belong to any clubs o r organizations such as rastafari groups, unions, fraternal or athletic groups, or [...] place to sleep or slept in a usp (including now)? No 01/08/2021 Sex Assigned at Date Recorded Not on file Job Start Date Occupation Industry Not on file Not on file Not on file documented as of this encounter Plan of Treatment Not on file documented as of this encounter Visit Diagnoses Not on filedocumented in this encounter Care Teams Drum Carrier Relationship Specialty Start Date End Date Jasson Mcnally MD PCP - General 12/18/17 03/03/21 Glen Bañuelos DO [address] [place] [address] PCP - General Internal Medicine 03/04/21 01/07/22 [facility] [address] [place] [address]107 PCP - General Internal Medicine 01/08/22 08/26/22 Zuelima Rosas PA-C [address] [place] [address]122 PCP - General Internal Medicine 08/27/22 11/10/23 Corky Schaefer MD [address] [place] [address] 31183 PCP - General Family Practice 11/11/23 Jasson Mcnally MD Internal Medicine 12/18/17 08/26/22 Miko Donis MD [address] [place] [address]80 Specialist Cardiovascular Disease 01/08/21 Sobeida Velasco, JULIA [address] [place] [address] 39207 Cardiology 02/19/21 09/23/23 Mandi Corrigan, JOÃO [address] [place] [address] Specialist Nurse Practitioner Family 09/24/23 documented as of this encounter
--- OUTSIDE RECORDS SUMMARY | 2024-07-11 07:33 | XMS_ITS | Clinical Summary ---
Author Organization [facility] Address [address] [place] [address] Care Team Providers Care Wall Washer Name Role Phone Unknown, Primary Care Provider [...] age to complete this topic Care Teams Wall Washer Relationship Specialty Start Date End Date Unknown, PCP - General 01/30/22
--- OUTSIDE RECORDS SUMMARY | 2024-07-11 07:33 | XMS_ITS | Encounter Summary ---
Author Organization [facility] Address [address] [place] [address] Care Team Providers Care Nurse Case Manager Name Role Phone Ruthie Chandra MD Primary Care Provider Reason for Visit * Reason Onset Date Comments Appointment 09/08/2023 Encounter Details Date Type Department Care Team ([facility] st Contact Info) Description 09/08/2023 Telephone [facility] Interventional Radiology at [address] [phone] Alvarado Bullock MD [address] [place] [phone] Appointment Social History Tobacco Use Types [...] documented as of this encounter Care Teams Nurse Case Manager Relationship Specialty Start Date End Date Ruthie Chandra MD [address] [place] [phone] PCP - General Internal Medicine 11/18/16 documented as of this encounter
--- OUTSIDE RECORDS SUMMARY | 2024-07-11 07:33 | XMS_ITS | Encounter Summary ---
Author Organization [facility] Address [address] [place] [address] Care Team Providers Care Tracer Bullet Charging Machine Operator Name Role Phone Jasson Mcnally MD Primary Care Provider Unavailable Jasson Mcnally MD Unavailable Unavai Miko Plata MD Unavailable [phone] Sobeida Velasco NP Unavailable [phone] Glen Bañuelos DO Primary Care Provider Unavaila [facility] Pcp Primary Care Provider UnavailZuleima Nash PA-C Primary Care Provider Unavail able Mandi Corrigan DNP Unavailable [phone] Corky Schaefer MD Primary Care Provider Unav ailable Reason for Visit * Reason Comments E-prescribe Rx Request Encounter Details Date Type Department Care Team Description 11/27/2020 Refill Cardio PVC POC [address] [facility] [address] [place] [address] Miko Donis MD [address] [place] [address] E-prescribe Rx Request Social History Tobacco Use [...] week 01/08/2021 How often do you attend [facility] or mu-ism services? More than 4 times per year 01/08/2021 Do you belong to any clubs o r organizations such as moravian groups, unions, fraternal or athletic groups, or [...] have Coronavirus / COVID-19? No / Unsure 11/23/2020 8:50 AM EDT documented as of this encounter Miscellaneous Notes * Telephone Encounter - Tri Marrero - 11/27/2020 2:26 PM EDT Pt due for f/u last appt was a telehealth 08/25/19. Per note f/u 6 months or a year dx chest discomfort sob hld. Pravastatin 10 mg refilled Lab Results Component Value Date CHOL 185 11/23/2020 LDL 95 11/23/2020 HDL 56 11/23/2020 TRIG 171 11/23/2020 SGOT 20 11/23/2020 SGPT 23 11/23/2020 documented in this encounter Plan of Treatment Not on file documented as of this encounter Visit Diagnoses Not on filedocumented in this encounter Care Teams Tracer Bullet Charging Machine Operator Relationship Specialty Start Date End Date Jasson Mcnally MD PCP - General 12/18/17 03/03/21 Glen Bañuelos, [address] [place] [address] PCP - General Internal Medicine 03/04/21 01/07/22 [facility], [facility] [address] [place] [address] PCP - General Internal Medicine 01/08/22 08/26/22 Zuleima Rosas PA-C [address] [place] [address] PCP - General Internal Medicine 08/27/22 11/10/23 Corky Schaefer MD [address] [place] [address]97 PCP - General Family Practice 11/11/23 Jasson Mcnally MD Internal Medicine 12/18/17 08/26/22 Miko Donis MD [address] [place] [address] Specialist Cardiovascular Disease 01/08/21 Sobeida Velasco, JULIA [address] [place] [address] Cardiology 02/19/21 09/23/23 Mandi Corrigan DNP [address] [place] [address] Specialist Nurse Practitioner Family 09/24/23 documented as of this encounter
[2024-07-11 11:02] LABS: MANUAL DIFF FLAG NO
[2024-07-11 11:14] LABS: Appearance Urine Clear; Color Urine Yellow; Glucose Urine UA Negative (Negative); Leukocyte Esterase Urine Trace (Negative); Nitrite Urine Negative (Negative); Specific Gravity - Urine 1.025 (1.005-1.025); UMIC TRIGGER UACC YES; Urine Blood Negative (Negative); Urine Ketones Negative (Negative); Urine Protein Negative (Neg-Trace)
[2024-07-11 11:18] LABS: Estimated Average Glucose 111 mg/dL; Hemoglobin A1C 120.8167 umol/L; Hemoglobin A1c % 5.5 % (<6.0)
[2024-07-11 11:21] LABS: Basophils Percent Auto 0.5 % (0-2); Eosinophils Absolute Auto 0.2 X10*3/uL (0.0-0.4); Eosinophils Percent Auto 3.8 % (0-4); Hemoglobin 12.5 g/dl (12.0-16.0); Imm Gran Abs Auto 0.01 X10*3/uL (0.00-0.03); Imm Gran Pct Auto 0.2 % (0.0-0.4); Lymphocytes Absolute Auto 1.5 X10*3/uL (1.2-4.9); Lymphocytes Percent Auto 27.3 % (20-40); Mean Corpuscular HGB Conc 32.1 g/dl (31.0-35.0); Mean Corpuscular Hemoglobin 31.5 pg (27.0-33.0); Mean Corpuscular Volume 98.2 fL (80.0-98.0); Mean Platelet Volume 10.7 fL (9.4-12.3); Monocytes Absolute Auto 0.5 X10*3/uL (0.1-1.2); Monocytes Percent Auto 8.1 % (2-11); Neutrophils Absolute Auto 3.4 x10*3/uL (2.0-8.3); Neutrophils Percent Auto 60.1 % (45-73); Platelet Count 227 X10*3/uL (160-400); Red Blood Count 3.97 X10*6/uL (4.20-5.50); Red Cell Distribution Width 13.2 % (11.0-16.0); White Blood Count 5.6 X10*3/uL (4.8-10.8)
[2024-07-11 11:38] LABS: Creatinine Urine 77.46 mg/dL; Microalbum/Creatinine Ratio Ur 30.9 ug/mg cr (<30)
[2024-07-11 11:47] LABS: RBC Urine 0-2 /HPF (0-2); WBC Urine 0-5 /HPF (0-5)
[2024-07-11 11:48] LABS: Bacteria Urine None Seen (None Seen); Hyaline Casts Urine 0-2 /LPF (0-2); Squamous Epithelial Cell Urine 0-2 /HPF (0-2)
[2024-07-11 12:04] LABS: Alanine Aminotransferase 34 U/L (0-31); Albumin Level 4.1 g/dL (3.5-5.0); Alkaline Phosphatase 53 U/L (39-117); Anion Gap 11 (12-20); Aspartate Amino Transferase 28 U/L (5-31); Bilirubin Total 0.4 mg/dL (0.0-1.0); Blood Urea Nitrogen 27 mg/dL (9-16); Calcium 9.4 mg/dL (8.4-10.2); Carbon Dioxide 26 mmol/L (22-29); Chloride 107 mmol/L (96-108); Cholesterol 178 mg/dL (<200); Estimated Glomerular Filt Rate > 60; Glucose Fasting 90 mg/dL (60-99); HDL Cholesterol 58 mg/dL (>40); LDL Cholesterol Calculated 95 mg/dL (<100); Potassium 4.6 mmol/L (3.3-5.1); Sodium 139 mmol/L (135-145); Total Protein 6.8 g/dL (6.5-8.0); Triglycerides 125 mg/dL (<150)
== END 2024-07-11 07:30 | disposition home or self-care (01) ==
LOC: HO.WFDLDS 07:29
PROVIDERS: Visit Provider Physician Assistant
DX: R73.01 Impaired fasting glucose (principal); E78.5 Hyperlipidemia, unspecified; I10 Essential (primary) hypertension; R25.1 Tremor, unspecified; Z13.220 Encounter for screening for lipoid disorders; R68.89 Other general symptoms and signs; I78.0 Hereditary hemorrhagic telangiectasia; Q25.72 Congenital pulmonary arteriovenous malformation
CPT/HCPCS: 36415; 80053; 80061; 81001; 82043; 82570; 83036; 84443; 85025

== ENCOUNTER → 2024-08-03 13:55 | Outpatient (REF) | payer MEDICARE, OTHER, SELFPAY ==
--- NOTE | ~2024-08-03 | US_ITS ---
EXAMINATION: US EXTRACRANIAL CAROTID DUPLEX, BILATERAL CLINICAL INFORMATION: Palpitations, hyperlipidemia, hypertension and tobacco abuse. COMPARISON: None available. TECHNIQUE: Real-time ultrasound and Doppler techniques (integrating B-mode 2-D vascular images, Doppler spectral analysis and color-flow Doppler imaging) were utilized to interrogate the extracranial carotid arteries, the vertebral arteries and proximal subclavian arteries bilaterally. The degree of stenosis is determined by criteria similar to NASCET. FINDINGS: Right Side: 1. There is calcified atherosclerotic plaque seen in the bifurcation/proximal ICA region. 2. The common carotid artery PSV proximally is 102 cm/s and distally 84 cm/s. 3. The proximal internal carotid artery velocities are 86 cm/s systolic and 19 cm/s diastolic. 4. The proximal external carotid artery PSV is 94 cm/s. 5. The vertebral artery shows antegrade flow. 6. The subclavian artery waveforms are normal. Left Side: 1. There is minimal atherosclerotic plaque seen in the bifurcation/proximal ICA region. Minimal intimal thickening 2. The common carotid artery PSV proximally is 81 cm/s and distally 104 cm/s. 3. The proximal internal carotid artery velocities are 94 cm/s systolic and 21 cm/s diastolic. 4. The proximal external carotid artery PSV is 119 cm/s. 5. The vertebral artery shows antegrade flow. 6. The subclavian artery waveforms are normal. US/US carotid duplex BI IMPRESSION: 1. RIGHT: 0-49% stenosis 2. LEFT: 0-49% range stenosis 3. There is no change in the category severity of disease when compared to the previous study dated. Electronically signed by: Gary Dunbar MD 08/04/2024 07:07 AM EDT
--- NOTE | 2024-08-03 13:58 | HM_ITS ---
Conclusion: 1. Patient was monitored for total period of 14 days 2. Baseline was normal sinus rhythm with average heart of 67 beats per minute 3. Occasional PACs noted with frequent short runs of SVT, longest lasting 13 beats with a max heart rate of 183 beats per minute 4. No significant pauses noted next 5. Patient marked the counter 1 time with no symptoms reported correlating with sinus rhythm MTDD
--- NOTE | 2024-08-03 13:58 | CA_ITS ---
Transthoracic Echocardiogram Patient (Last, First, Middle): Roslyn Kerr, Gender: Female Date of : 1950 Age: 73 Procedure Date: 08/03/2024 Procedure Type: Transthoracic Echocardiogram Location: OP Height: 154.94 cm Weight: 59.88 kg BSA: 1.58 m2 Heart Rate: bpm BP: 126 / 62 mmHg Client Development Consultant: MARY Referring MD: Zuleima Rosas PA-C Personal Lines Account Manager: Benji Gamez MD Symptoms: Z86.73 - Personal history of transient ischemic attack (TIA), and cerebr... Study Quality: Adequate ECG Rhythm: Sinus Conclusions: - Essentially normal study with grade 1 diastolic dysfunction Findings Left Ventricle Normal left ventricular size, thickness, and systolic function. The visually estimated ejection fraction is between 65-70%. Spectral Doppler is indicative of an impaired relaxation filling pattern. E/E prime ratio is <8, consistent with normal filling pressures. Evidence suggests grade I (mild) diastolic dysfunction. Right Ventricle Normal right ventricular cavity size and systolic function. Atria Both atria are normal in size. There is no evidence of interatrial shunt. Aortic Valve The aortic valve structure and function is likely normal. There is no aortic valve stenosis. There is no aortic valve regurgitation. Mitral Valve Normal mitral valve structure and function. There is trace mitral valve regurgitation. There is no mitral valve stenosis. Pulmonic Valve The pulmonic valve was not well visualized. Tricuspid Valve Likely normal tricuspid valve structure and function. There is trace tricuspid valve regurgitation. The right ventricular systolic pressure is normal. The right ventricular systolic pressure is 24 mmHg. Normal right atrial pressure. There is no evidence of pulmonary hypertension. Great Vessels The pulmonary artery was not well visualized. There is no dilatation of the ascending aorta measuring 2.70 cm. Venous The inferior vena cava is normal in size and collapses greater than 50% with inspiration. Pericardium/Pleural There is no evidence of pericardial effusion. Prior Study Comparison No prior study available for comparison. Measurements 2D Linear Measurements IVSd: 0.98 0.6-0.9/0.6-1.0 cm LVIDd: 3.97 3.9-5.3/4.2-5.9 cm LVIDd Index: 2.51 2.4-3.2/2.2-3.1 cm/m2 LVIDs: 2.04 2.0-3.6 cm LVPWd: 0.93 0.7-1.1 cm LA Diam: 2.90 2.7-3.8/3.0-4.0 cm LAIDs Index: 1.84 1.5-2.3 cm/m2 LV Mass: 146.79 67-162/88-224 g LV Mass Index: 92.90 43-95/49-115 g/m2 LVOT Diam: 1.90 3.0+(-)1.3 cm 2D Systolic Function EF 4C: 69.10 >55% EF 2C: 69.10 >55% EF BiP: 68.30 >55% Mitral Valve MV Pk E: 0.77 MV PK A: 1.06 MV Decel Time: 324.00 E/A: 0.70 E'Lateral: 6.09 E'Medial: 5.11 E/E' Med: 15.10 E/E' Lat: 12.70 PHT: 95.00 MVA PHT: 2.32 Decel Eagle: 2.38 Aortic Valve AoV Pk Chip: 2.00 AoV Mn Chip: 1.40 AoV VTI: 0.43 AoV Pk Grad: 16.00 Aov Mn Grad: 9.00 YANIV Cont.VTI: 1.83 LVOT LVOT Pk Chip: 1.27 LVOT Mn Chip: 0.90 LVOT VTI: 0.28 LVOT Pk Grad: 6.00 LVOT Mn Grad: 4.00 LVOT Diam: 1.90 LVOT Area: 2.84 Diastolic Function MV Pk E: 0.77 MV Pk A: 1.06 E/A: 0.70 E'Medial: 5.11 E/E' Med: 15.10 E' Laterial: 6.09 E/E' Lat: 12.70 Right Ventricle TAPSE (mm): 23.80 TVS' Chip: 14.90 Tricuspid Valve TR Pk Chip: 2.27 TR Pk Grad: 21.00 RA Press: 3.00 RVSP: 24.00 Great Vessels Aorta Sinus of Valsalva: 2.87 2.0-3.5 cm Ao Asc: 2.70 2.1-3.4 cm Updated in Other Vendor System with Status of Final Benji Gamez MD electronically signed on 08/03/2024 5:15:40 PM with status of Final
--- OUTSIDE RECORDS SUMMARY | 2024-08-03 15:54 | XMS_ITS | Encounter Summary ---
Author Organization [facility] Address [address] [place] [address] Care Team Providers Care Underwriting Operations Manager Name Role Phone Jasson Mcnally MD Primary Care Provider Unavailable Jasson Mcnally MD Unavailable Miko Ríos MD Unavailable Sobeida Velasco NP Unavailable [phone] Glen Bañuelos DO Primary Care Provider Unavaila [facility] Primary Care Provider UnavailZuleima Nash PA-C Primary Care Provider Unavail able Mandi Corrigan DNP Unavailable [phone] Corky Schaefer MD Primary Care Provider Unav ailable Encounter Details Date Type Department Care Team Description 02/26/2018 Orders Only Adult Medicine - [address] [address] Jasson Mcnally MD Social History Tobacco Use [...] How often do you attend chur or mormonism services? More than 4 times per year 01/08/2021 Do you belong to any clubs o r organizations such as rastafarian groups, unions, fraternal or athletic groups, or [...] place to sleep or slept in a chcf (including now)? No 01/08/2021 Sex Assigned at Date Recorded Not on file Job Start Date Occupation Industry Not on file Not on file Not on file documented as of this encounter Plan of Treatment Not on file documented as of this encounter Visit Diagnoses Not on filedocumented in this encounter Care Teams Underwriting Operations Manager Relationship Specialty Start Date End Date Jasson Mcnally MD PCP - General 12/18/17 03/03/21 Glen Bañuelos DO [address] [place] [address] PCP - General Internal Medicine 03/04/21 01/07/22 [facility] [address] [place] [address]23 PCP - General Internal Medicine 01/08/22 08/26/22 Zuleima Rosas PA-C [address] [place] [address]20 PCP - General Internal Medicine 08/27/22 11/10/23 Corky Schaefer MD [address] [place] [address]507 PCP - General Family Practice 11/11/23 Jsason Mcnally MD Internal Medicine 12/18/17 08/26/22 Miko Donis MD [address] [place] [address] Specialist Cardiovascular Disease 01/08/21 Sobeida Velasco, JULIA [address] [place] [address] Cardiology 02/19/21 09/23/23 Mandi Corrigan, JOÃO [address] [place] [address] Specialist Nurse Practitioner Family 09/24/23 documented as of this encounter
== END ==
LOC: HO.CARD 13:55
PROVIDERS: PCP Physician Assistant; Visit Provider Physician Assistant
DX: G43.909 Migraine, unspecified, not intractable, without status migrainosus (principal); R00.2 Palpitations; I10 Essential (primary) hypertension; Z86.73 Personal history of transient ischemic attack (TIA), and cerebral infarction without residual deficits
CPT/HCPCS: 93246; 93306; 93880

== ENCOUNTER → 2024-08-03 13:58 | Outpatient (BNV) | payer MEDICARE, OTHER, SELFPAY | PROVIDERS: PCP Physician Assistant; Visit Provider Internal Medicine Cardiovascular Disease | DX: I49.1 Atrial premature depolarization (principal); I47.10 Supraventricular tachycardia, unspecified | CPT/HCPCS: 93248 ==

== ENCOUNTER → 2024-08-03 15:19 | Outpatient (BNV) | payer MEDICARE, OTHER, SELFPAY | PROVIDERS: PCP Physician Assistant; Visit Provider Radiology Diagnostic Radiology | DX: I65.23 Occlusion and stenosis of bilateral carotid arteries (principal) | CPT/HCPCS: 93880 ==

== ENCOUNTER 2024-10-10 11:23 | Outpatient (AMB) | payer MEDICARE, OTHER, SELFPAY ==
--- NOTE | 2024-10-10 11:30 | A.OFFPC_ITS ---
Vital Signs 10/10/24 11:42 Height 5 ft 1.5 in Weight 137 lb 4 oz BMI 25.5 BP 116/62 Blood Pressure Location Rt brachial Position Sitting Respiration 12 Pulse 87 Pulse Source Pulse Oximeter Temp 98.6 F Temp Source Temporal Artery Scan Pulse Oximetry (%) 95 Oxygen Delivery Method Room Air Intake Visit Reasons: Stomach pain /abdomen Intake Note: Roslyn presents in the office today for stomach/abdominal pain. Allergies No Known Allergies Allergy (Verified 10/10/24 11:38) Tobacco use date assessed: 10/10/24 Dental Screening Dental Screen Date: 10/10/24 Did you have a dental visit in the last 12 months?: Yes Did you have a dental problem in the last 6 months where you did not have access to dental care?: No Was dental information given to patient?: Patient has dentist HPI HPI Comments History of Present Illness Details This is a 74-year-old female with a past medical history of TIA, hereditary hemorrhagic telangiectasia, impaired fasting glucose, hypertension, anxiety and dyslipidemia presenting for evaluation of abdominal pain. Yesterday she was not feeling well, and over the course of the day she developed pain in the right lower quadrant. It is constant. It varies in intensity. It sometimes is an 8/10 and feels like a knife is stabbing her, and she doubles over. She has had some nausea and decreased appetite as well as diarrhea yesterday. It was difficult to sleep last night due to the pain. She denies fevers or chills. She has a history of IBS, and she treats with dicyclomine. This pain feels different than her IBS symptoms. She does need a refill on dicyclomine. She denies symptoms. No recent hospitalizations or infections. She has a history of chronic back pain. She sees Albert. This is at baseline. She needs a refill of her meloxicam. ROS: Constitutional: Denies fevers, chills, night sweats, unexplained weight loss. +fatigue. Respiratory: No shortness of breath Cardiovascular: No chest pain Gastrointestinal: See HPI Genitourinary: No dysuria, hematuria, urinary frequency. Denies flank pain. Neurologic: No headache, dizziness, syncope Skin: No rash Physical exam: Constitutional: Alert, in no distress. Neck: Supple, Full range of motion. No lymphadenopathy. Respiratory: Clear to auscultation. Cardiovascular: S1 S2 regular. No murmurs. Gastrointestinal: No palpable masses. Bowel sounds normoactive in 4 quadrants.+ tenderness in the right lower quadrant with guarding. Patient winces with palpation in the right lower quadrant. +rovsings sign. Genitourinary: No costovertebral angle tenderness. Neurologic: No focal neurological deficits. Skin: No rash Extremities: Warm and well perfused. No clubbing, cyanosis or edema. [facility] Medical History Tremor of both hands Dyslipidemia Hypertension Generalized anxiety disorder Surgical History Hx of section History of back surgery Family History Mother HTN (hypertension) Father Bladder cancer Social History (Updated 10/10/24 @ 11:42 by Naomie Jerome MA) Housing: House Alcohol intake: current Patient Tobacco Use Status: Former Tobacco user Cigarette Packs Per Day: 1 Years Smoked: 30 e-Cigarette/Vaping Use: Never Used Second Hand Smoke Exposure: Yes service: No Current occupational status: retired Cognitive needs: No Hearing needs: No Vision needs: No Questionnaire Thrive Questionnaire Date Thrive assessed: 03/16/24 I am a: Patient What is your living situation today?: I have a steady place to live Within the past 12 months, did the food you bought not last and you didn't have the money to get more?: Never true Within the past 12 months, did you worry whether your food would run out before you got money to buy more?: Never true Do you have trouble paying for medicines?: No Do you have trouble getting transportation to medical appointments?: No Do you have trouble paying your heating and electricity bill?: No Do you have trouble taking care of your child, family member or friend?: No Do you have trouble with day-to-day activities such as bathing, preparing meals, shopping, managing finances, etc.?: No Are you currently unemployed and looking for a job?: No Are you interested in more education?: No Please select the resources that you would like help with: None Currently or been in a relationship where the following occur: No concerns reported THRIVE Score: 0 MICHEAL-7 AMB Questionnaire MICHEAL-7 Date MICHEAL - 7 assessed: 05/28/23 Source: Developed by Drs. Nacho Gonzalez, Bell Egan, Dinesh Saxena and colleagues, with an educational katia from [employer]. Physical exam (Primary Care) Vital Signs: Last Vital Signs Temp 98.6 F 10/10/24 11:42 Pulse 87 10/10/24 11:42 Resp 12 10/10/24 11:42 BP 116/62 10/10/24 11:42 Pulse Ox 95 10/10/24 11:42 Oxygen Delivery Method Room Air 10/10/24 11:42 BMI result Body Mass Index 25.5 Tobacco/Smoking Status: Tobacco use Status Tobacco use date assessed 10/10/24 10/10/24 11:46 Patient Tobacco Use Status Former Tobacco user 10/10/24 11:42 e-Cigarette/Vaping Use Never Used 10/10/24 11:42 Thrive Assessment: Date of Thrive Assessment Date Thrive assessed 03/16/24 10/10/24 11:31 Currently or been in a relationship where the following occur: No concerns reported Coding Level of Care Code Est Pt Level 4 (45678) Complex EM visit Add On G2211 Diagnoses Right lower quadrant pain R10.31 Assessment & Plan Assessment & Plan (1) Right lower quadrant pain: Code(s): R10.31 - Right lower quadrant pain Plan 74-year-old female with acute right lower quadrant pain with positive Rovsing's sign and guarding on exam. Advised patient to go to the ED for further evaluation. She needs emergent imaging to rule out appendicitis, diverticulitis, colitis, ovarian torsion not excluding other diagnoses. She verbalizes understanding. She declined ambulance. I called the hospital with a the expect and called the patient later to confirmed she went to ED. She was waiting to be seen. Medications: New dicyclomine 10 mg PO BID 60 caps 0RF meloxicam 7.5 mg PO DAILY PRN 30 tabs 0RF pain
[2024-10-10 11:42] VITALS: BP 116/62; PULSE 87; RESP 12; TEMP 37; O2SAT 95; BMI 25.5
--- OUTSIDE RECORDS SUMMARY | 2024-10-10 12:45 | XMS_ITS | Clinical Summary ---
Author Organization [address] Address [address] [place] [id number] Care Team Providers Care Rn Medication Name Role Phone Ruthie Chandra MD Primary [...] (11/28/2016): Added automatically from request for surgery [id number] HHT (hereditary hemorrhagic telangiectasia) 08/2013 Overview (09/07/2023): >>OVERVIEW FOR HEREDITARY HEMORRHAGIC TELANGIECTASIA (HC CODE) WRITTEN ON 11/28/2016 10:27 AM BY MARQUEZ SIMPSON MD Added automatically from request for surgery [id number] GERD (gastroesophageal reflux disease) Eczema Immunizations Immunization Administration Dates Next Due COVID-19, MODERNA 12Y+, [...] 64 10/22/2023 6:52 AM EDT Temperature 36.2 C (97.2 F) 10/22/2023 6:52 AM EDT Respiratory Rate 17 10/22/2023 6:52 AM EDT [...] Shingrix (RZV) 2 Dose Standard Series) 09/15/2001 Osteoporosis screening (bone density) 09/15/2016 Covid-19 vaccine series ( season) 2023 07/16/2021, 12/27/2020, 06/11/2020, Additional history exists Influenza vaccine 10/24/2024 RSV Immunization (1 - 1-dose 75+ series) 09/15/2026 Tetanus adult (Td q 10,TDAP once) 02/27/2028 02/26/2018, 05/07/2009 Colon cancer screening, Colonoscopy 02/09/2034 02/10/2024 Pneumococcal Vaccine (50+ years) Completed 11/18/2019, 05/28/2018 Cervical cancer screening Discontinued Meningococcal Vaccine Aged Out No ankit kristen eligible based on patient's age to complete this topic Medical Devices Implanted Type Area Bowling Alley Manager Device Identifier Shelf Expiration Date Model / Serial / Lot Handle Lavern Coil Detachment - [id number] Implanted:Qty: 1 on 10/22/2023 by Marquez Simpson MD at [address] [id number] 08/30/2026 [id number] / / [id number] Coil Lavern Complex Standard 5mm X 12 Cm - [id number] Implanted:Qty: 1 on 10/22/2023 by Marquez Simpson MD at [address] [id number] 05/12/2031 [id number] / / [id number] Coil Pod Packing J Soft 5cm - [id number] Implanted:Qty: 1 on 10/22/2023 by Marquez Simpson MD at [address] [id number] 07/26/2031 [id number] / / [id number] Coil Lavern Complex Soft 2mm X 4cm - [id number] Implanted:Qty: 1 on 10/22/2023 by Marquez Simpson MD at [address] Implant PENUMBRA [id number] 07/08/2031 [id number] / / [id number] Plug Microvascular 3mm Mvp3q - [id number] Implanted:Qty: 1 on 10/22/2023 by Marquez Simpson MD at [address] Implant [employer] [id number] 02/22/2025 MVP-3Q / / [id number] Coil Lavern Complex Soft 3mm X 5cm - [id number] Implanted:Qty: 1 on 10/22/2023 by Marquez Simpson MD at [address] Implant PENUMBRA [id number] 07/11/2031 [id number] / / [id number] Coil Embo Detach Embold 4lcf3uy - [id number] Implanted:Qty: 1 on 10/22/2023 by Marquez Simpson MD at [address] Implant [employer] [id number] 07/15/2026 [id number] / / [id number] Coil Embo Detach Embold 2ftv5iq - [id number] Implanted:Qty: 1 on 10/22/2023 by Marquez Simpson MD at [address] Implant [employer] [id number] 06/23/2026 [id number] / / [id number] Coil Pv Embo Concerto 2dgq20vo - [id number] Implanted:2016 by Marquez Simpson MD at [address] (Quantity not on file) Other-impl ant [employer] (MEDT-ZZZZ) 07/28/2019 NV-8-30-H ELIX / / [id number] Amplatzer Vasc Plug4 5mmx10.5 - [id number] Implanted:2016 by Marquez Simpson MD at [address] (Quantity not on file) Other-impl ant [facility] SHALIN[employer] (STJU-ZZZZ) 07/23/2021 [id number] / / [id number] Embolization Coil - [id number] Implanted:2016 by Marquez Simpson MD at [address] (Quantity not on file) Other-impl ant [employer] PRDT 11/27/2021 [id number] / / [id number] Coil Pv Embo Concerto 6bhf83rm - [id number] Implanted:2016 by Marquez Simpson MD at [address] (Quantity not on file) Other-impl ant [employer] (MEDT-ZZZZ) 10/10/2019 NV-5-15-H ELIX / / [id number] Coil Pv Embo Concerto 1kjf06zk - [id number] Implanted:2016 by Marquez Simpson MD at [address] (Quantity not on file) Other-impl ant [employer] (MEDT-ZZZZ) 10/10/2019 NV-5-15-H ELIX / / [id number] Coil Pv Embo Concerto 5man58li - [id number] Implanted:2016 by Marquez Simpson MD at [address] (Quantity not on file) Other-impl ant [employer] (MEDT-ZZZZ) 09/15/2019 NV-4-10-H ELIX / / [id number] Coil Pv Embo Concerto 6fbu2fx - [id number] Implanted:2016 by Marquez Simpson MD at [address] (Quantity not on file) Other-impl ant [employer] (MEDT-ZZZZ) 09/18/2019 NV-3-8-HE LIX / / [id number] Amplatzer Vasc Plug4 5qab40ct - [id number] Implanted:2016 by Marquez Simpson MD at [address] (Quantity not on file) Other-impl ant ST SHALINI (STJU-ZZZZ) 08/22/2021 [id number] / / [id number] Coil Embol Mwce 35-4/3 Tornado - [id number] Implanted:2016 by Marquez Simpson MD at [address] (Quantity not on file) Other-impl ant [employer] 11/12/2021 [id number] / / [id number] Coil Embol Mwce 35-4/3 Tornado - [id number] Implanted:2016 by Marquez Simpson MD at [address] (Quantity not on file) Other-impl ant [employer] 11/12/2021 [id number] / / [id number] Embolization Coil - [id number] Implanted:2016 by Marquez Simpson MD at [address] (Quantity not on file) Other-impl ant [employer] 10/13/2021 [id number] / / [id number] Insurance MEDICARE [facility] MEDICARE [facility] MEDICARE [facility] [employer] Care Teams Rn Medication Relationship Specialty Start Date End Date Ruthie Chandra MD [address] [place] [address] PCP - General Internal Medicine 11/18/16
--- OUTSIDE RECORDS SUMMARY | 2024-10-10 12:45 | XMS_ITS | Clinical Summary ---
Author Organization [facility] Address [address] [place] [address] Care Team Providers Care Ice Seller Name Role Phone Corky Schaefer MD Primary [...] Facetectomy, foraminotomy OTHER SURGICAL HISTORY 12/2017 PROCEDURE: ND HEMORRHOIDECTOMY INT & XTRNL 2/> COLUMN/KIRIT COLONOSCOPY 03/01/2019 PROCEDURE: HISTORICAL COLONOSCOPY; COMMENT: polyps ESOPHAGOGASTRODUODENOSCOPY 03/01/2019 PROCEDURE: ND EGD TRANSORAL BIOPSY SINGLE/MULTIPLE; COMMENT: gastritis. 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); COMMENT: Follows at [facility] Eczema 02/10/2018 DX:Eczema GERD (gastroesophageal reflu [...] Comments CABG Brother Diabetes Brother at 59- NE Bladder Cancer Father Hypertension Mother Hyperlipidemia Other: [...] 73 02/10/2024 4:54 PM EST Temperature 36.6 C (97.8 F) 02/10/2024 3:19 PM EST Respiratory Rate 20 02/10/2024 4:54 PM EST Oxygen Saturation 96% 02/10/2024 4:54 PM EST Inhaled Oxygen Concentration - - Weight 61.7 kg (136 lb) 02/10/2024 3:19 PM EST Height 157.5 cm (5' 2 ) 02/10/2024 3:19 PM EST Body Mass Index 24.87 02/10/2024 3:19 PM EST Plan of Treatment Health Maintenance Due Date Last Done Comments Zoster Vaccines (1 of 2) 09/15/2001 Cholesterol Screening (Lipid Panel) 02/25/2021 Hepatitis C Screening 02/25/2021 Medicare Annual Wellness Visit 02/25/2021 Social Influencers of Health Screening 02/25/2021 Hypertension/CHF/CAD Annual BMP Blood Test 02/02/2022 Osteoporosis Screening (Bone Density Screening) 05/07/2023 05/06/2018 COVID-19 Vaccine ( season) 2023 07/16/2021, 12/27/2020, 06/11/2020, Additional history exists Depression Screening 02/24/2024 Influenza Vaccine (#1) 2024 Falls Risk Assessment 02/09/2025 02/10/2024 Breast Cancer Screening 10/07/2025 10/08/19, 10/02/2022, 09/30/2021, Additional history exists RSV Immunization Adult Patients (1 - 1-dose 75+ series) 09/15/2026 DTaP,Tdap,and Td Vaccines (3 - Td or [...] PM EST Colon polyps Colon cancer screening [facility] SCREENING DIGITAL Routine 10/08/2023 9:38 AM EDT Encounter for screening mammogram for malignant neoplasm of breast [facility] DEXA AXIAL SKELETON Routine 05/06/2018 3:39 PM EDT Asymptomatic menopausal state from Last 3 Months or Most Recently Relevant to Health Maintenance Results * COLONOSCOPY Anesthesia - MAC; [facility] ENDOSCOPY (02/10/2024 4:33 PM EST) Anatomical [...] for surveillance. Narrative 02/10/2024 4:36 PM EST [facility] GI Patient Name: Roslyn Mena Procedure Date: 02/10/2024 4:08 PM Date of : 1950 Age: 73 Gender: Female Note Status: Finalized Attending MD: Kiko Jalloh MD, Procedure Date No Time: 02/10/2024 Procedure: Colonoscopy Indications: High risk colon cancer surveillance: Personal history of colonic polyps, Last colonoscopy: February 2019 Providers: Kiko Jalloh MD Referring MD: Kiko Jalloh MD Medicines: Monitored Anesthesia Care Complications: No immediate complications. Estimated blood loss: Minimal. Estimated Blood Loss: Estimated blood loss was minimal. Procedure: Pre-Anesthesia Assessment: - Prior to the procedure, a History and Physical was performed, and patient medications and allergies were reviewed. The patient is competent. The risks and benefits of the procedure and the sedation options and risks were discussed with the patient. All questions were answered and informed consent was obtained. Patient identification and proposed procedure were verified by the physician, the nurse, the ambulance paramedic and the motorcycle technician in the pre-procedure area in the endoscopy suite. Mental Status Examination: alert and oriented. Airway Examination: normal oropharyngeal airway and neck mobility. Respiratory Examination: clear to auscultation. CV Examination: normal. Prophylactic Antibiotics: The patient does not require prophylactic antibiotics. Prior Anticoagulants: The patient has taken no anticoagulant or antiplatelet agents. ASA Grade Assessment: II - A patient with mild systemic disease. After reviewing the risks and [...] monitored throughout the procedure. The physical status of the patient was re-assessed after the procedure. After I obtained informed consent, the scope was passed under direct vision. Throughout the procedure, the patient's blood pressure, pulse, and oxygen saturations were monitored continuously. The Olympus Colonoscope was introduced through the anus and advanced to the cecum, identified by appendiceal orifice and ileocecal valve. The colonoscopy was performed without difficulty. The patient tolerated the procedure well. The quality of the bowel preparation was good. Findings: The perianal and digital rectal examinations were normal. Three sessile polyps were found in the sigmoid colon and transverse colon. The polyps were 1 to 3 mm in size. These polyps were removed with a jumbo cold forceps. Resection and retrieval were complete. Estimated blood loss was minimal. Internal hemorrhoids were found during retroflexion. The hemorrhoids were Grade II (internal hemorrhoids that prolapse but reduce spontaneously). Procedure Code(s): --- Professional --- 91085, Colonoscopy, flexible; with biopsy, single or multiple Diagnosis Code(s): --- Professional --- D12.5, Benign neoplasm of sigmoid colon D12.3, Benign neoplasm of transverse colon (hepatic flexure or splenic flexure) CPT copyright 2020 [employer]. All rights reserved. The codes documented in this report are preliminary and upon ballistic technician review may be revised to meet current compliance requirements. Kiko Jalloh MD 02/10/2024 4:35:56 PM This report has been signed electronically.Kiko Jalloh MD Number of Addenda: 0 Note Initiated On: 02/10/2024 4:08 PM Scope Withdrawal Time: 0 hours 8 minutes 6 seconds Scope In: 4:20:13 PM Scope Out: 4:33:23 PM Endoscopy Department at [facility] - [address] [place] [phone] Procedure Note Kiko Jalloh MD - 02/10/2024 [facility] GI Patient Name: Roslyn Mena Procedure Date: [...] the physician, the nurse, theanesthetist and the motorcycle technician in the pre-procedure area in the [...] reduce spontaneously). Procedure Code(s): --- Professional --- 69446, Colonoscopy, flexible; with biopsy, singleor multiple Diagnosis Code(s): --- Professional --- D12.5, Benign neoplasm of sigmoid colon D12.3, Benign neoplasm of transverse colon (hepatic flexure or splenic flexure) CPT copyright 2020 [employer]. All rights reserved. The codes documented in this report are preliminary and upon ballistic technician reviewmay be revised to meet current compliance requirements. Kiko Jalloh MD 02/10/2024 4:35:56 PM This report has been signed electronically.Kiko Jalloh MD Number of Addenda: 0 Note Initiated On: 02/10/2024 4:08 PM Scope Withdrawal Time: 0 hours 8 minutes 6 seconds Scope In: 4:20:13 PM Scope Out: 4:33:23 PM Endoscopy Department at [facility] - [address] [place] [phone] IMPRESSION: - Three 1 to 3 mm [...] EDT Narrative 10/08/2023 9:38 AM EDT [facility] Diagnostic Imaging Department [address] [place] [address] Patient: ROSLYN MENA /Age/Sex: 1950 - 73 - F Unit#: [id number] Location/Status: SPDIMAM/REG CLI Mnem[facility] Order[facility] Physician: DANIELLE DE DIOS [facility] Screening Digital - 10/08/23 - 43 Report Status:Signed EXAM: [facility] Screening Digital EXAM DATE AND TIME: 10/08/2023 7:43 AM HISTORY: Screening. COMPARISON: 10/02/22, 09/30/21, 09/26/20 TECHNIQUE: Bilateral digital breast tomosynthesis was performed in the CC and MLO projections. Computer aided detection with [employer] 3D 3.1 was employed. TISSUE DENSITY: c. [...] appearance of the breasts. No evidence of malignancy is seen. A negative mammogram in the presence of a clinically suspicious palpable abnormality does not preclude the possibility of malignancy or alter the indications for biopsy. BI-RADS: Category 2: Benign RECOMMENDATION(S): 1: Routine screening mammogram BILATERAL in 1 year. Dictating Physician: BAILEY LANDAVERDE MD Electronically Signed by: BAILEY LANDAVERDE MD Dic Date/Time: 10/08/23936 Sign date/Time: 10/08/23937 Procedure Note Bailey Landaverde MD - 12/09/2023 [facility] Diagnostic Imaging Department [address] [place] [address] Patient: ROSLYN MENA /Age/Sex: 1950 - 73 - F Unit#: [id number] Location/Status: [facility] CLI Mnemonic/Ordering Site: [facility] Ordering Physician: DANIELLE DE DIOS [facility] Screening Digital - 10/08/23 - 0743 Report Status:Signed EXAM: [facility] Screening Digital EXAM DATE AND TIME: 10/08/2023 7:43 AM HISTORY: Screening. COMPARISON: 10/02/22, 09/30/21, 09/26/20 TECHNIQUE: Bilateral digital breast tomosynthesis was performed in the CCand MLO projections. Computer aided detection with [employer] 3D 3.1was employed. TISSUE DENSITY: c. The [...] Signed by: BAILEY LANDAVERDE MD Dic Date/Time: 10/08/23 0937 Sign date/Time: 10/08/23937 us Danielle GARCIA IMG BI PROCEDURES Final Result * [facility] DEXA AXIAL SKELETON (05/06/2018 3:39 PM EDT) Anatomical Region Laterality Modality Mammography 05/06/2018 2:0 3 PM EDT Narrative 05/06/2018 3:39 PM EDT [facility] Diagnostic Imaging Department [address] [place] [address] Patient: ROSLYN MENA /Age/Sex: 1950 - 67 - F Unit#: [id number] Location/Status: SPDIMAM/REG CLI Mnemonic[facility] Ordering Physician: BEVERLEY GORDON MD [facility] Dexa Axial Skeleton - 05/06/18 - 5304 HISTORY: The patient is a 67-year-old postmenopausal female with clinical concern for metabolic bone disease. FINDINGS: Dual [...] 131% of that of age matched controls. This yields a T-score of 0.7 and a Z-score of 2.1 and there is therefore no evidence of osteoporosis or osteopenia here. IMPRESSION: 1. There is no evidence of osteoporosis or osteopenia. There has been an increase of 4.5% in bone mineral density in the lumbar spine since the prior examination of 04/04/2013. There has been a decrease of 0.7% in bone mineral density in the right femur and an increase of 1.2% in bone mineral density in the left femur. 2. FRAX analysis yields a 10-year probability of major osteoporotic fracture of 8.4% and a 10-year probability of hip fracture of 0.7%. Code 28150 Dictating Physician: LINDA MONTES MD Electronically Signed by: LINDA MONTES MD Dic Date/Time: 05/06/181536 Sign date/Time: 05/06/181538 Procedure Note Linda Montes MD - 02/12/2022 [facility] Diagnostic Imaging Department [address] [place] [address] Patient: RAJESHROSLYN./Age/Sex: 1950 67 - F Unit#: [id number] Location/Status: [facility] Mnemonic[facility] Ordering Physician: BEVERLEY GORDON MD [facility] Dexa Axial Skeleton - 05/06/181533 [...] density of the femurs bilaterally is 1.101 gm/zf4dtdda is 109% of that of young normals [...] probability of hip fracture of 0.7%. Code 68482 Dictating Physician: LINDA MONTES MD Electronically Signed by: LINDA MONTES MD Dic Date/Time: 05/06/18 1537 Sign date/Time: 05/06/18 153 Beverley Gordon MD IM BI PROCEDURES Final Result from Last 3 Months or Most Recently Relevant to Health Maintenance Insurance MEDICARE [facility] Care Teams Ice Seller Relationship Specialty Start Date End Date Corky Schaefer MD [address] [place] [address] Dr Colleen MA PCP - General 11/11/23
--- OUTSIDE RECORDS SUMMARY | 2024-10-10 12:45 | XMS_ITS ---
Author Name [facility] Organization Unknown Encounters Encounter Type Encounter Reason Primary Diagnosis Location Date Ambulatory Hereditary hemorrhag ic telangiectasia (HC Code) Hereditary hemorrhagic telangiectasia (HC Code) [facility] 10/22/2023 Care Team Organization Name Specialty Phone Email Start Date End Da te [facility] Primary Care 10/23/2023 11/21/2023 [facility] Primary Care 10/22/2023 [facility] Glen Bañuelos DO Primary Care 04/30/202209/23 [facility] Termed, PROVIDER Primary Care 12/31/202109/23
--- OUTSIDE RECORDS SUMMARY | 2024-10-10 12:45 | XMS_ITS | Clinical Summary ---
Author Organization [facility] Address [address] [place] [address] Care Team Providers Care Shrimp Pond Laborer Name Role Phone Unknown, Primary Care Provider [...] Screening (DEXA Scan) 09/15/2016 Influenza Vaccine (#1) 2024 RSV Adult > 60+ Yrs or (1 - 1-dose 75+ series) 09/15/2026 Pneumococcal Vaccine Completed 11/18/2019, 05/28/2018 Hepatitis B Vaccines Aged Out No long er eligible based on patient's age to complete this topic RSV Ped < 20 months Aged Out No longe r eligible based on patient's age to complete this topic Care Teams Shrimp Pond Laborer Relationship Specialty Start Date End Date Unknown, PCP - General 01/30/22
== END 2024-10-10 12:19 | disposition home or self-care (01) ==
LOC: HO.HMCFM 11:24
PROVIDERS: PCP Physician Assistant; Visit Provider Physician Assistant Medical
DX: R10.31 Right lower quadrant pain (principal)

== ENCOUNTER → 2024-10-10 11:23 | Outpatient (BNVA) | payer MEDICARE, OTHER, SELFPAY | PROVIDERS: PCP Physician Assistant; Visit Provider Physician Assistant Medical | DX: R10.31 Right lower quadrant pain (principal); I10 Essential (primary) hypertension; I78.0 Hereditary hemorrhagic telangiectasia; F41.9 Anxiety disorder, unspecified; E78.5 Hyperlipidemia, unspecified; Z86.73 Personal history of transient ischemic attack (TIA), and cerebral infarction without residual deficits | CPT/HCPCS: 99212 ==

== ENCOUNTER 2024-10-20 13:39 | Outpatient (AMB) | payer MEDICARE, OTHER, SELFPAY ==
--- NOTE | 2024-10-20 13:45 | A.OFFPC_ITS ---
Vital Signs 10/20/24 13:47 Height 5 ft 1.5 in Weight 138 lb BMI 25.6 BP 122/64 Blood Pressure Location Rt brachial Position Sitting Respiration 12 Pulse 64 Pulse Source Pulse Oximeter Temp 98.1 F Temp Source Oral Pulse Oximetry (%) 94 Oxygen Delivery Method Room Air Intake Visit Reasons: [facility] Intake Note: Emergency room follow up Financial Management Consultant Required: No Allergies No Known Allergies Allergy (Verified 10/20/24 13:45) Medication List - Last Reconciled 10/20/24 by Zuleima Rosas PA-C albuterol sulfate 90 mcg/actuation 2 puffs inhalation Q6H PRN Bifidobacterium infantis (Align (B.infantis)) mg PO dicyclomine 10 mg PO BID famotidine (Acid Family Services Specialist (famotidine)) 20 mg PO BID 90 days lisinopril 20 mg PO DAILY meloxicam 7.5 mg PO DAILY PRN multivitamin 1 tab PO DAILY paroxetine HCl 20 mg PO DAILY pravastatin 20 mg PO DAILY Tobacco use date assessed: 10/20/24 Fall risk assessment: No Falls in past year Last assessed Fall Risk: 10/20/24 Dental Screening Dental Screen Date: 10/10/24 HPI pi[facility] apendisitis HPI Details Patient is a 74-year-old female with a significant past medical history of impaired fasting glucose, hyperlipidemia, hypertension, anxiety, hereditary hemorrhagic telangiectasia, pulmonary arterial venous malformation presenting today for a hospital follow up. GI: recently went to [facility] with RLQ pain and was dx with appendicitis. She had an appendectomy on 10/11/2024 and was able to go home that same day. She says that she is doing well just feels a little bit bloated and distended from it. She is having bowel movements. She is currently on a stool softener. She has follow up with her surgeon on 11/03. No fever chills. She has some slight tenderness in the lower abdomen but overall is feeling a lot better. She was referred last year to GI for a possible endoscopy for ongoing GERD but never heard from Clint. She says that she is having breakthrough symptoms despite being on famotidine. She used to be on pantoprazole but had stopped this due to concerns over possible risks of long-term use of PPIs. She tries to follow a healthy diet but states that she could do a little bit better with an acid reflux like diet. No difficulty swallowing, weight loss, swelling in the neck. CV: Blood pressure today in the office is 122/64. She is currently on lisinopril 20 mg. Cholesterol has been controlled with pravastatin 20 mg. She is still with PVC since her TIA in 2006. Vascular: Saw vascular IR at [facility] for embolizing of the pulmonary AVMs. Feeling well since the procedure. Neuro: Seeing Dr. Salazar. Tremor is so far stable. She had a recent MRI which showed previous infarcts. She reports having an MRI done many years ago, around the time that she had a supposed a TIA in 2006. She states that she does not believe that she truly had a TIA at that point. She thinks it was a migraine. She also does not recall a full workup. She was a [facility] patient at that point we do not have any records of this. She denies any paresthesias, abnormal gait, vision changes, nausea, vomiting or weakness. MSK: On meloxicam for back pain with Dr. Price. Psych: Anxiety is well-controlled with paroxetine 20 mg. No SI/HI. Colonoscopy: Up-to-date, 2023, due in 2028. Mammo: mammo utd at [facility] Pap: utd- follows with [facility] Bone density: Up-to-date, 08/13/2023[facility] Medical History Tremor of both hands Dyslipidemia Hypertension Generalized anxiety disorder Surgical History Hx of section History of back surgery Family History Mother HTN (hypertension) Father Bladder cancer Social History (Updated 10/10/24 @ 11:42 by Naomie Jerome MA) Housing: House Alcohol intake: current Patient Tobacco Use Status: Former Tobacco user Cigarette Packs Per Day: 1 Years Smoked: 30 e-Cigarette/Vaping Use: Never Used Second Hand Smoke Exposure: Yes service: No Current occupational status: retired Cognitive needs: No Hearing needs: No Vision needs: No Questionnaire Thrive Questionnaire Date Thrive assessed: 03/16/24 I am a: Patient What is your living situation today?: I have a steady place to live Within the past 12 months, did the food you bought not last and you didn't have the money to get more?: Never true Within the past 12 months, did you worry whether your food would run out before you got money to buy more?: Never true Do you have trouble paying for medicines?: No Do you have trouble getting transportation to medical appointments?: No Do you have trouble paying your heating and electricity bill?: No Do you have trouble taking care of your child, family member or friend?: No Do you have trouble with day-to-day activities such as bathing, preparing meals, shopping, managing finances, etc.?: No Are you currently unemployed and looking for a job?: No Are you interested in more education?: No Please select the resources that you would like help with: None Currently or been in a relationship where the following occur: No concerns reported THRIVE Score: 0 MICHEAL-7 AMB Questionnaire MICHEAL-7 Date MICHEAL - 7 assessed: 05/28/23 Source: Developed by Drs. Nacho Gonzalez, Bell Egan, Dinesh Saxena and colleagues, with an educational katia from [employer]. Physical exam (Primary Care) BMI result Body Mass Index 25.6 Tobacco/Smoking Status: Tobacco use Status Tobacco use date assessed 10/20/24 10/20/24 13:47 Patient Tobacco Use Status Former Tobacco user 10/20/24 13:47 e-Cigarette/Vaping Use Never Used 10/20/24 13:47 Thrive Assessment: Date of Thrive Assessment Date Thrive assessed 03/16/24 10/20/24 13:47 Currently or been in a relationship where the following occur: No concerns reported Const Orientation/consciousness: patient oriented x3 HENMT Ears: hearing grossly normal bilaterally Neck Thyroid: Thyroid normal Lymphatic: no lymphadenopathy noted Resp Auscultation: clear to auscultation bilaterally Cardio Rate: regular rate Rhythm: regular rhythm Heart sounds: S1 normal heart sound present and S2 normal heart sound present GI Inspection: Yes normal to inspection Palpation (GI): Soft to palpation and Other GI palpation findings present (nontender, no cva tenderness) Auscultation: normoactive bowel sounds Rectal Exam - Female: deferred Skin General skin exam: no rashes or lesions noted Neuro General: patient oriented x3, gait normal and no focal motor deficits Coding Level of Care Code Est Pt Level 4 (80405) Complex EM visit Add On G2211 Diagnoses GERD (gastroesophageal reflux disease) K21.9 Primary hypertension I10 Hypertension type: primary hypertension S/P appendectomy Z90.49 Assessment & Plan Assessment & Plan (1) GERD (gastroesophageal reflux disease): Code(s): K21.9 - Gastro-esophageal reflux disease without esophagitis Category: Medical Plan: Advised H pylori test into avoid H2 blockers and PPIs for a couple of weeks before providing the stool test Referral to GI (2) Hypertension: Code(s): I10 - Essential (primary) hypertension Category: Medical Qualifiers: Hypertension type: primary hypertension Qualified Code(s): I10 - Essential (primary) hypertension Plan: WNL. Continue current regimen (3) S/P appendectomy: Code(s): Z90.49 - Acquired absence of other specified parts of digestive tract Category: Surgical Plan: Feeling better. Has follow up with surgeon. We will let us know if anything changes Orders: Orders H pylori Ag Stool Today K21.9 - Gastro-esophageal reflux disease without esophagitis Complete Blood Count Auto Diff Today I10 - Essential (primary) hypertension, K21.9 - Gastro-esophageal reflux disease without esophagitis, Z90.49 - Acquired absence of other specified parts of digestive tract Comprehensive Met. Panel Today I10 - Essential (primary) hypertension, K21.9 - Gastro-esophageal reflux disease without esophagitis, Z90.49 - Acquired absence of other specified parts of digestive tract TSH reflex Free T4 Today I10 - Essential (primary) hypertension, K21.9 - G angelina-esophageal reflux disease without esophagitis, Z90.49 - Acquired absence of other specified parts of digestive tract Ferritin Today I10 - Essential (primary) hypertension, K21.9 - Gastro- esophageal reflux disease without esophagitis, Z90.49 - Acquired absence of other specified parts of digestive tract IRON PROFILE Today I10 - Essential (primary) hypertension, K21.9 - Gastro- esophageal reflux disease without esophagitis, Z90.49 - Acquired absence of other specified parts of digestive tract Referrals Gastroenterology Referral K21.9 - Gastro-esophageal reflux disease without esophagitis
[2024-10-20 13:47] VITALS: BP 122/64; PULSE 64; RESP 12; TEMP 36.7; O2SAT 94; BMI 25.6
--- OUTSIDE RECORDS SUMMARY | 2024-10-20 14:23 | XMS_ITS | Clinical Summary ---
Author Organization [employer] [facility] Address [address] [place] [address] Care Team Providers Care Crime Lab Technician Name Role Phone Unknown, Primary Care Provider [...] age to complete this topic Care Teams Crime Lab Technician Relationship Specialty Start Date End Date Unknown, PCP - General 01/30/22
--- OUTSIDE RECORDS SUMMARY | 2024-10-20 14:23 | XMS_ITS | Clinical Summary ---
Author Organization [facility] Address [address] [place] [address] Care Team Providers Care Last Puller Name Role Phone Corky Schaefer MD Primary [...] Facetectomy, foraminotomy OTHER SURGICAL HISTORY 12/2017 PROCEDURE: MI HEMORRHOIDECTOMY INT & XTRNL 2/> COLUMN/KIRIT COLONOSCOPY 03/01/2019 PROCEDURE: HISTORICAL COLONOSCOPY; COMMENT: polyps ESOPHAGOGASTRODUODENOSCOPY 03/01/2019 PROCEDURE: MI EGD TRANSORAL BIOPSY SINGLE/MULTIPLE; COMMENT: gastritis. 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); COMMENT: Follows at [facility] Eczema 02/10/2018 DX:Eczema GERD (gastroesophageal reflu [...] Comments CABG Brother Diabetes Brother at 59- [place] Bladder Cancer Father Hypertension Mother Hyperlipidemia Other: [...] PM EST Colon polyps Colon cancer screening [facility] SCREENING DIGITAL Routine 10/08/2023 9:38 AM EDT Encounter for screening mammogram for malignant neoplasm of breast [facility] DEXA AXIAL SKELETON Routine 05/06/2018 3:39 PM EDT Asymptomatic menopausal state from Last 3 Months or Most Recently Relevant to Health Maintenance Results * COLONOSCOPY Anesthesia - MAC; [facility] ENDOSCOPY (02/10/2024 4:33 PM EST) [...] for surveillance. Narrative 02/10/2024 4:36 PM EST [facility] GI Patient Name: Roslyn Mena [...] verified by the physician, the nurse, the high school hvac r instructor and the thin film technician in the pre-procedure area in the [...] reduce spontaneously). Procedure Code(s): --- Professional --- 53004, Colonoscopy, flexible; with biopsy, single or multiple Diagnosis Code(s): --- Professional --- D12.5, Benign neoplasm of sigmoid colon D12.3, Benign neoplasm of transverse colon (hepatic flexure or splenic flexure) CPT copyright 2020 [employer]. All rights reserved. The codes documented in this report are preliminary and upon dietary clerk review may be revised to meet current compliance requirements. Kiko Jalloh MD 02/10/2024 4:35:56 PM This report has been signed electronically.Kiko Jalloh MD Number of Addenda: 0 Note Initiated On: 02/10/2024 4:08 PM Scope Withdrawal Time: 0 hours 8 minutes 6 seconds Scope In: 4:20:13 PM Scope Out: 4:33:23 PM Endoscopy Department at [facility] - [address] [place] [phone] Procedure Note Kiko Jalloh MD - 02/10/2024 [facility] GI Patient Name: Roslyn Mena [...] the physician, the nurse, theanesthetist and the thin film technician in the pre-procedure area in the [...] reduce spontaneously). Procedure Code(s): --- Professional --- 82759, Colonoscopy, flexible; with biopsy, singleor multiple Diagnosis Code(s): --- Professional --- D12.5, Benign neoplasm of sigmoid colon D12.3, Benign neoplasm of transverse colon (hepatic flexure or splenic flexure) CPT copyright 2020 [employer]. All rights reserved. The codes documented in this report are preliminary and upon dietary clerk reviewmay be revised to meet current compliance requirements. Kiko Jalloh MD 02/10/2024 4:35:56 PM This report has been signed electronically.Kiko Jalloh MD Number of Addenda: 0 Note Initiated On: 02/10/2024 4:08 PM Scope Withdrawal Time: 0 hours 8 minutes 6 seconds Scope In: 4:20:13 PM Scope Out: 4:33:23 PM Endoscopy Department at [facility] - [address] [place] [phone] IMPRESSION: - Three 1 to 3 mm [...] AM EDT Narrative 10/08/2023 9:38 AM EDT [facility] Diagnostic Imaging Department [address] [place] [address] Patient: ROSLYN MENA /Age/Sex: 1950 - 73 - F Unit#: [id number] Location/Status: SPDIMAM/REG CLI Mnemonic/Ordering Site: [facility] Ordering Physician: DANIELLE DE DIOS [facility] Screening Digital - 10/08/23 - 43 Report Status:Signed EXAM: [facility] Screening Digital EXAM DATE AND TIME: 10/08/2023 7:43 AM HISTORY: Screening. COMPARISON: 10/02/22, 09/30/21, 09/26/20 TECHNIQUE: Bilateral digital breast tomosynthesis was performed in the CC and MLO projections. Computer aided detection with [employer] 3D 3.1 was employed. TISSUE DENSITY: c. [...] Physician: BAILEY LANDAVERDE MD Electronically Signed by: BAILYE LANDAVERDE MD Dic Date/Time: 10/08/23936 Sign date/Time: 10/08/23937 Procedure Note Bailey Landaverde MD - 12/09/2023 [facility] Diagnostic Imaging Department [address] [place] [address] Patient: ROSLYN MENA /Age/Sex: 1950 - 73 - F Unit#: [id number] Location/Status: [facility] CLI Mnemonic/Ordering Site: [facility] Ordering Physician: DANIELLE DE DIOS [facility] Screening Digital - 10/08/23 - 0743 Report Status:Signed EXAM: [facility] Screening Digital EXAM DATE AND TIME: 10/08/2023 7:43 AM HISTORY: Screening. COMPARISON: 10/02/22, 09/30/21, 09/26/20 TECHNIQUE: Bilateral digital breast tomosynthesis was performed in the CCand MLO projections. Computer aided detection with [employer] 3D 3.1was employed. TISSUE DENSITY: c. The [...] GARCIA IMG BI PROCEDURES Final Result * [facility] DEXA AXIAL SKELETON (05/06/2018 3:39 PM EDT) Anatomical Region Laterality Modality Mammography 05/06/2018 2:03 PM EDT Narrative 05/06/2018 3:39 PM EDT [facility] Diagnostic Imaging Department [address] [place] [address] Patient: ROSLYN MENA /Age/Sex: 1950 - 67 - F Unit#: [id number] Location/Status: SPDIMAM/REG CLI Mnemonic/Ordering Site: [facility] Ordering Physician: BEVERLEY GORDON MD [facility] Dexa Axial Skeleton - 05/06/181533 [...] probability of hip fracture of 0.7%. Code 34604 Dictating Physician: LINDA MONTES MD Electronically Signed by: LINDA MONTES MD Dic Date/Time: 05/06/181536 Sign date/Time: 05/06/181538 Procedure Note Linda Montes MD - 02/12/2022 [facility] Diagnostic Imaging Department [address] [place] [address] Patient: MIRAUGUSTINE BULLOCKROSLYNMARSHAL Daniel D.O.B./Age/Sex: 1950 67 - F Unit#: [id number] Location/Status: [facility]em[facility] Ordering Physician: BEVERLEY GORDON MD [facility] Dexa Axial Skeleton - 05/06/181533 [...] density of the femurs bilaterally is 1.101 gm/yi8ptlee is 109% of that of young normals [...] probability of hip fracture of 0.7%. Code 12000 Dictating Physician: LINDA MONTES MD Electronically Signed by: LINDA MONTES MD Dic Date/Time: 05/06/18 1537 Sign date/Time: 05/06/18 153 Beverley Gordon MD IM BI PROCEDURES Final Result from Last 3 Months or Most Recently Relevant to Health Maintenance Insurance MEDICARE [facility] Care Teams Last Puller Relationship Specialty Start Date End Date Corky Schaefer MD [address] [place] [address] Dr Colleen MA PCP - General 11/11/23
--- OUTSIDE RECORDS SUMMARY | 2024-10-20 14:23 | XMS_ITS | Encounter Summary ---
Author Organization [facility] Address [address] [place] [phone] Care Team Providers Care Clockmaker Name Role Phone Ruthie Chandra MD Primary Care Provider Encounter Details Date Type Department Care Team (Late st Contact Info) Description 10/13/2023 Scanned Document Interventional Radiology at [address] [phone] Provider, Historical . Social History Tobacco Use [...] documented as of this encounter Care Teams Clockmaker Relationship Specialty Start Date End Date Ruthie Chandra MD [address] [place] [phone] PCP - General Internal Medicine 11/18/16 documented as of this encounter
--- OUTSIDE RECORDS SUMMARY | 2024-10-20 14:23 | XMS_ITS | Clinical Summary ---
Author Organization [address] Address [address] [place] [phone] Care Team Providers Care Forwarder Operator Name Role Phone Ruthie Chandra MD [...] (11/28/2016): Added automatically from request for surgery [id number] HHT (hereditary hemorrhagic telangiectasia) 08/2013 Overview (09/07/2023): >>OVERVIEW FOR HEREDITARY HEMORRHAGIC TELANGIECTASIA (HC CODE) WRITTEN ON 11/28/2016 10:27 AM BY MARQUEZ SIMPSON MD Added automatically from request for surgery [id number] GERD (gastroesophageal reflux disease) Eczema Immunizations Immunization [...] this topic Medical Devices Implanted Type Area Permit Agent Device Identifier Shelf Expiration Date Model / Serial / Lot Handle Lavern Coil Detachment - [id number] Implanted:Qty: 1 on 10/22/2023 by Marquez Simpson MD at [address] [id number] 08/30/2026 [id number] / / [id number] Coil Lavern Complex Standard 5mm X 12 Cm - [id number] Implanted:Qty: 1 on 10/22/2023 by Marquez Simpson MD at [address] [id number] 05/12/2031 [id number] / / [id number] Coil Pod Packing J Soft 5cm - [id number] Implanted:Qty: 1 on 10/22/2023 by Marquez Simspon MD at [address] [id number] 07/26/2031 [id number] / / [id number] Coil Lavern Complex Soft 2mm X 4cm - [id number] Implanted:Qty: 1 on 10/22/2023 by Marquez Simpson MD at [address] Implant PENUM[employer]RA [id number] 07/08/2031 [id number] / / [id number] Plug Microvascular 3mm Mvp3q - [id number] Implanted:Qty: 1 on 10/22/2023 by Marquez Simpson MD at [address] Implant [employer] [id number] 02/22/2025 MVP-3Q / / [id number] Coil Lavern Complex Soft 3mm X 5cm - [id number] Implanted:Qty: 1 on 10/22/2023 by Marquez Simpson MD at [address] Implant PENUM[employer]RA [id number] 07/11/2031 [id number] / / [id number] Coil Embo Detach Embold 8rbu0eb - [id number] Implanted:Qty: 1 on 10/22/2023 by Marquez Simpson MD at [address] Implant [employer] [id number] 07/15/2026 [id number] / / [id number] Coil Embo Detach Embold 3yiz8ep - [id number] Implanted:Qty: 1 on 10/22/2023 by Marquez Simpson MD at [address] Implant [employer] [id number] 06/23/2026 [id number] / / [id number] Coil Pv Embo Concerto 8gqt09lu - [id number] Implanted:2016 by Marquez Simpson MD at [address] (Quantity not on file) Other-impl ant [employer] (MEDT-ZZZZ) 07/28/2019 NV-8-30-H ELIX / / [id number] Amplatzer Vasc Plug4 5mmx10.5 - [id number] Implanted:2016 by Marquez Simpson MD at [address] (Quantity not on file) Other-impl ant [facility] (STJU-ZZZZ) 07/23/2021 [id number]- 005 / / [id number] Embolization Coil - [id number] Implanted:2016 by Marquez Simpson MD at [address] (Quantity not on file) Other-impl ant [employer] PRDT 11/27/2021 [id number] / / [id number] Coil Pv Embo Concerto 3ckj02en - [id number] Implanted:2016 by Marquez Simpson MD at [address] (Quantity not on file) Other-impl ant [employer] (MEDT-ZZZZ) 10/10/2019 NV-5-15-H ELIX / / [id number] Coil Pv Embo Concerto [id number] - [id number] Implanted:2016 by Marquez Simpson MD at [address] (Quantity not on file) Other-impl ant [employer] (MEDT-ZZZZ) 10/10/2019 NV-5-15-H ELIX / / [id number] Coil Pv Embo Concerto 0utu60la - [id number] Implanted:2016 by Marquez Simpson MD at [address] (Quantity not on file) Other-impl ant [employer] (MEDT-ZZZZ) 09/15/2019 NV-4-10-H ELIX / / [id number] Coil Pv Embo Concerto 5dat7au - [id number] Implanted:2016 by Marquez Simpson MD at [address] (Quantity not on file) Other-impl ant [employer] (MEDT-ZZZZ) 09/18/2019 NV-3-8-HE LIX / / [id number] Amplatzer Vasc Plug4 0uwv38zz - [id number] Implanted:2016 by Marquez Simpson MD at [address] (Quantity not on file) Other-impl ant [employer] (STJU-ZZZZ) 08/22/2021 [id number]- [id number] / / [id number] Coil Embol Mwce 35-4/3 Tornado - [id number] Implanted:2016 by Marquez Simpson MD at [address] (Quantity not on file) Other-impl ant [employer] 11/12/2021 [id number] / / [id number] Coil Embol Mwce 35-4/3 Tornado - [id number] Implanted:2016 by Marquez Simpson MD at [address] (Quantity not on file) Other-impl ant [employer] 11/12/2021 [id number] / / [id number] Embolization Coil - [id number] Implanted:2016 by aMrquez Simpson MD at [address] (Quantity not on file) Other-impl ant [employer] 10/13/2021 [id number] / / [id number] Insurance [facility]ICARE [facility] Care Teams Forwarder Operator Relationship Specialty Start Date End Date Ruthie Chandra MD [address] [place] [phone] PCP - General Internal Medicine 11/18/16
--- OUTSIDE RECORDS SUMMARY | 2024-10-20 14:23 | XMS_ITS | Encounter Summary ---
Author Organization [facility] and [facility] Address [address] [place] [address] Care Team Providers Care Sap Treasury Consultant Name Role Phone Ruthie Chandra MD Primary Care Provider Reason for Visit * Reason Onset Date Comments Appointment 09/08/2023 Encounter Details Date Type Department Care Team ([facility] st Contact Info) Description 09/08/2023 Telephone [facility] Interventional Radiology at [address] [address] Alvarado Bullock MD [address] [place] [phone] Appointment Social History Tobacco Use Types [...] documented as of this encounter Care Teams Sap Treasury Consultant Relationship Specialty Start Date End Date Ruthie Chandra MD [address] [place] [phone] PCP - General Internal Medicine 11/18/16 documented as of this encounter
--- OUTSIDE RECORDS SUMMARY | 2024-10-20 14:23 | XMS_ITS | Encounter Summary ---
Author Organization [facility] and [facility] Address [address] [place] [address] Care Team Providers Care Christian Science Healer Name Role Phone Ruthie Chandra MD Primary Care Provider Reason for Visit * Reason Onset Date Comments Results 10/06/2023 Encounter Details Date Type Department Care Team ([facility] st Contact Info) Description 10/06/2023 Telephone [facility] Interventional Radiology at [address] [address] Alvarado Bullock MD [address] [place] [phone] Results Social History Tobacco Use Types [...] documented as of this encounter Care Teams Christian Science Healer Relationship Specialty Start Date End Date Ruthie Chandra MD [address] [place] [address] PCP - General Internal Medicine 11/18/16 documented as of this encounter
== END 2024-10-20 15:30 | disposition home or self-care (01) ==
LOC: HO.HMCFM 13:40
PROVIDERS: PCP Physician Assistant; Visit Provider Physician Assistant
DX: K21.9 Gastro-esophageal reflux disease without esophagitis (principal); I10 Essential (primary) hypertension; Z90.49 Acquired absence of other specified parts of digestive tract

== ENCOUNTER → 2024-10-20 13:39 | Outpatient (BNVA) | payer MEDICARE, OTHER, SELFPAY | PROVIDERS: PCP Physician Assistant; Visit Provider Physician Assistant | DX: K21.9 Gastro-esophageal reflux disease without esophagitis (principal); I10 Essential (primary) hypertension; Z90.49 Acquired absence of other specified parts of digestive tract | CPT/HCPCS: 99212 ==

== ENCOUNTER 2024-10-21 07:34 | Outpatient (REF) | payer MEDICARE, OTHER, SELFPAY ==
--- OUTSIDE RECORDS SUMMARY | 2024-10-21 07:36 | XMS_ITS | Clinical Summary ---
Author Organization [facility] Address [address] [place] [address] Care Team Providers Care Wastewater Treatment Plant Attendant Name Role Phone Unknown, Primary Care Provider [...] age to complete this topic Care Teams Wastewater Treatment Plant Attendant Relationship Specialty Start Date End Date Unknown, PCP - General 01/30/22
--- OUTSIDE RECORDS SUMMARY | 2024-10-21 07:36 | XMS_ITS | Encounter Summary ---
Author Organization [facility] Address [address] [place] [address] Care Team Providers Care Rooter Operator Name Role Phone Jasson Mcnally MD Primary Care Provider Unavailable Jasson Mcnally MD Unavailable Unavai Miko Plata MD Unavailable [phone] Sobeida Velasco NP Unavailable [phone] Glen Bañuelos DO Primary Care Provider Unavaila [facility] Primary Care Provider UnavailZuleima Nash PA-C Primary Care Provider Unavail able Mandi Corrigan DNP Unavailable [phone] Corky Schaefer MD Primary Care Provider Unav ailable Encounter Details Date Type Department Care Team Description 07/04/2019 Tack Puller Report Medical Records [address] [place] [address] [address] [place] [address] Social History Tobacco Use Types Packs/Day Years [...] How often do you attend chur or hinduism services? More than 4 times per year 01/08/2021 Do you belong to any clubs o r organizations such as buddhism groups, unions, fraternal or athletic groups, or [...] on filedocumented in this encounter Care Teams Rooter Operator Relationship Specialty Start Date End Date Jasson Mcnally MD PCP - General 12/18/17 03/03/21 Glen Bañuelos DO [address] [place] [address] PCP - General Internal Medicine 03/04/21 01/07/22 [facility] [address] [place] [address] PCP - General Internal Medicine 01/08/22 08/26/22 Zuleima Rosas PA-C [address] [place] [address] PCP - General Internal Medicine 08/27/22 11/10/23 Corky Schaefer MD [address] [place] [address] PCP - General Family Practice 11/11/23 Jasson Mcnally MD Internal Medicine 12/18/17 08/26/22 Miko Donis MD [address] [place] [address] Specialist Cardiovascular Disease 01/08/21 Sobeida Velasco NP [address] [place] [address] Cardiology 02/19/21 09/23/23 Mandi Corrigan DNP [address] [place] [address] Specialist Nurse Practitioner Family 09/24/23 documented as of this encounter
--- OUTSIDE RECORDS SUMMARY | 2024-10-21 07:36 | XMS_ITS | Encounter Summary ---
Author Organization [facility] Address [address] [place] [address] Care Team Providers Care Engraver Automatic Name Role Phone Jasson Mcnally MD Primary Care Provider Unavailable Jasson Mcnally MD Unavailable UnaMiko Baltazar MD Unavailable [phone] Sobeida Velasco NP Unavailable [phone] Glen Bañuelos DO Primary Care Provider Unavaila [facility] Pcp Primary Care Provider UnavailZuleima Nash PA-C Primary Care Provider Unavail able Mandi Corrigan DNP Unavailable [phone] Corky Schaefer MD Primary Care Provider Unav ailable Reason for Visit * Reason Comments E-prescribe Rx Request Encounter Details Date Type Department Care Team Description 02/25/2020 Refill Adult Medicine [address] [address] Jasson Mcnally MD E-prescribe Rx Request Social [...] How often do you attend chur or orthodoxy services? More than 4 times per year 01/08/2021 Do you belong to any clubs o r organizations such as gnosticism groups, unions, fraternal or athletic groups, or [...] upcoming appointment? No-unable to reach [facility] to call for appointment due to [...] / Plan: [place] / Product Type: MEDICARE [id number] documented in this encounter Plan of Treatment Not on file documented as of this encounter Visit Diagnoses Not on filedocumented in this encounter Care Teams Engraver Automatic Relationship Specialty Start Date End Date Jasson Mcnally MD PCP - General 12/18/17 03/03/21 Glen Bañuelos DO [address] [place] [address] PCP - General Internal Medicine 03/04/21 01/07/22 [facility] [address] [place] [address] PCP - General Internal Medicine 01/08/22 08/26/22 Zuleima Rosas PA-C [address] [place] [address] PCP - General Internal Medicine 08/27/22 11/10/23 Corky Schaefer MD [address] [place] [address] PCP - General Family Practice 11/11/23 Jasson Mcnally MD Internal Medicine 12/18/17 08/26/22 Miko Donis MD [address] [place] [address] Specialist Cardiovascular Disease 01/08/21 Sobeida Velasco NP [address] [place] [address] Cardiology 02/19/21 09/23/23 Mandi Corrigan DNP [address] [place] [address] Specialist Nurse Practitioner Family 09/24/23 documented as of this encounter
--- OUTSIDE RECORDS SUMMARY | 2024-10-21 07:36 | XMS_ITS | Encounter Summary ---
Author Organization [facility] Address [address] [place] [address] Care Team Providers Care Business Intelligence Administrator Name Role Phone Jasson Mcnally MD Primary Care Provider Unavailable Jasson Mcnally MD Unavailable Howardi Miko Plata MD Unavailable [phone] Sobeida Velasco NP Unavailable [phone] Glen Bañuelos DO Primary Care Provider Unavaila [facility] Primary Care Provider UnavailZuleima Nash PA-C Primary Care Provider Unavail able Mandi Corrigan DNP Unavailable [phone] Corky Schaefer MD Primary Care Provider Unav ailable Encounter Details Date Type Department Care Team Description 03/12/2020 Transfer Records Medical Records [address] [place] [address] Abstract, Provider Social History Tobacco Use Types [...] How often do you attend chur or mosque services? More than 4 times per year [...] filedocumented in this encounter Care Teams Business Intelligence Administrator Relationship Specialty Start Date End Date Jasson Mcnally MD PCP - General 12/18/17 03/03/21 Glen Bañuelos DO [address] [place] [address] PCP - General Internal Medicine 03/04/21 01/07/22 [facility] [address] [place] [address] PCP - General Internal Medicine 01/08/22 08/26/22 Zuleima Rosas PA-C [address] [place] [address] PCP - General Internal Medicine 08/27/22 11/10/23 Corky Schaefer MD [address] [place] [address] PCP - General Family Practice 11/11/23 Jasson Mcnally MD Internal Medicine 12/18/17 08/26/22 Miko Donis MD [address] [place] [address] Specialist Cardiovascular Disease 01/08/21 Sobeida Velasco, JULIA [address] [place] [address] Cardiology 02/19/21 09/23/23 Mandi Corrigan, JOÃO [address] [place] [address] Specialist Nurse Practitioner Family 09/24/23 documented as of this encounter
--- OUTSIDE RECORDS SUMMARY | 2024-10-21 07:36 | XMS_ITS | Encounter Summary ---
Author Organization [facility] and [facility] Address [address] [place] [address] Care Team Providers Care Cna Ltc Name Role Phone Ruthie Chandra MD Primary Care Provider Reason for Visit * Reason Onset Date Comments Results 10/06/2023 Encounter Details Date Type Department Care Team ([facility] st Contact Info) Description 10/06/2023 Telephone [facility] Interventional Radiology at [address] [address] Alvarado Bullock MD [address] [place] [phone] Results Social History Tobacco Use Types [...] documented as of this encounter Care Teams Cna Ltc Relationship Specialty Start Date End Date Ruthie Chandra MD [address] [place] [address] PCP - General Internal Medicine 11/18/16 documented as of this encounter
--- OUTSIDE RECORDS SUMMARY | 2024-10-21 07:36 | XMS_ITS | Encounter Summary ---
Author Organization [facility] and [facility] Address [address] [place] [address] Care Team Providers Care Byproducts Maker Name Role Phone Ruthie Chandra MD Primary Care Provider Reason for Visit * Reason Onset Date Comments Appointment 09/08/2023 Encounter Details Date Type Department Care Team ([facility] st Contact Info) Description 09/08/2023 Telephone [facility] Interventional Radiology at [address] [address] Alvarado Bullock MD [address] [place] [phone] Appointment Social History Tobacco Use Types [...] Miscellaneous Notes * Telephone Encounter - Melissa Mchuhg - 09/08/2023 1:52 PM EDT Not Available [...] documented as of this encounter Care Teams Byproducts Maker Relationship Specialty Start Date End Date Ruthie Chandra MD [address] [place] [phone] PCP - General Internal Medicine 11/18/16 documented as of this encounter
--- OUTSIDE RECORDS SUMMARY | 2024-10-21 07:36 | XMS_ITS | Encounter Summary ---
Author Organization [facility] Address [address] [place] [address] Care Team Providers Care Guest Relations Manager Name Role Phone Jasson Mcnally MD Unavailable UnaMiko Baltazar MD Unavailable Sobeida Velasco NP Unavailable [phone] Glen Bañuelos DO Primary Care Provider Unavaila [facility] Primary Care Provider UnavailZuleima Nash PA-C Primary Care Provider Unavail able Mandi Corrigan DNP Unavailable [phone] Corky Schaefer MD Primary Care Provider Unav ailable Reason for Visit * Reason Onset Date Comments Blood Pressure Elevated 07/17/2021 Encounter Details Date Type Department Care Team Description 07/17/2021 Telephone Adult [facility] - [address] [address] Glen Bañuelos DO Blood Pressure Elevated Social [...] How often do you attend chur or christianity services? More than 4 times per year 01/08/2021 Do you belong to any clubs o r organizations such as baptist groups, unions, fraternal or athletic groups, or [...] place to sleep or slept in a custodial (including now)? No 01/08/2021 Sex Assigned at [...] traveled recently to another state outside of [place], [place], [place], [place], [place], [place], [place]? NO o If yes, did you [...] vehicle accident? NO If yes, gather 3rd republican insurance information Date of accident/Injury: How long has patient had these symptoms?: this past week PCP: Glen Bañuelos Payor: [place]ARE-[place] / Plan: MEDICARE-[employer] / Product Type: MEDICARE [id number] documented in this encounter Plan of Treatment Not on file documented as of this encounter Visit Diagnoses Not on filedocumented in this encounter Care Teams Guest Relations Manager Relationship Specialty Start Date End Date Glen Bañuelos DO [address] [place] [address] PCP - General Internal Medicine 03/04/21 01/07/22 [facility], Pcp [address] [place] [address] PCP - General Internal Medicine 01/08/22 08/26/22 Zuleima Rosas PA-C [address] [place] [address] PCP - General Internal Medicine 08/27/22 11/10/23 Corky Schaefer MD [address] [place] [address] PCP - General Family Practice 11/11/23 Jasson Mcnally MD Internal Medicine 12/18/17 08/26/22 Miko Donis MD [address] [place] [address] Specialist Cardiovascular Disease 01/08/21 Sobeida Velasco NP [address] [place] [address] Cardiology 02/19/21 09/23/23 Mandi Corrigan DNP [address] [place] [address] Specialist Nurse Practitioner Family 09/24/23 documented as of this encounter
--- OUTSIDE RECORDS SUMMARY | 2024-10-21 07:36 | XMS_ITS | Encounter Summary ---
Author Organization [facility] Address [address] [place] [address] Care Team Providers Care Payer Specialist Name Role Phone Jasson Mcnally MD Primary Care Provider Unavailable Jasson Mcnally MD Unavailable Unavai Miko Plata MD Unavailable [phone] Sobeida Velasco NP Unavailable [phone] Glen Bañuelos DO Primary Care Provider Unavaila [facility] Primary Care Provider UnavailZuleima Nash PA-C Primary Care Provider Unavail able Mandi Corrigan DNP Unavailable [phone] Corky Schaefer MD Primary Care Provider Unav ailable Encounter Details Date Type Department Care Team Description 07/04/2019 Artist Relationship Manager Report Medical Records [address] [place] [address] Miko Donis MD [address] [place] [address] Social History Tobacco Use Types Packs/Day Years [...] How often do you attend chur or shinto services? More than 4 times per year [...] on filedocumented in this encounter Care Teams Payer Specialist Relationship Specialty Start Date End Date Jasson Mcnally MD PCP - General 12/18/17 03/03/21 Glen Bañuelos DO [address] [place] [address] PCP - General Internal Medicine 03/04/21 01/07/22 [facility] [address] [place] [address] PCP - General Internal Medicine 01/08/22 08/26/22 Zuleima Rosas PA-C [address] [place] [address] PCP - General Internal Medicine 08/27/22 11/10/23 Corky Schaefer MD [address] [place] [address] PCP - General Family Practice 11/11/23 Jasson Mcnally MD Internal Medicine 12/18/17 08/26/22 Miko Donis MD [address] [place] [address] Specialist Cardiovascular Disease 01/08/21 Sobeida Velasco NP [address] [place] [address] Cardiology 02/19/21 09/23/23 Mandi Corrigan DNP [address] [place] [address] Specialist Nurse Practitioner Family 09/24/23 documented as of this encounter
--- OUTSIDE RECORDS SUMMARY | 2024-10-21 07:36 | XMS_ITS | Encounter Summary ---
Author Organization [facility] and [facility] Address [address] [place] [address] Care Team Providers Care Typewriter Repairer Name Role Phone Ruthie Chandra MD Primary Care Provider Encounter Details Date Type Department Care Team (Late st Contact Info) Description 10/13/2023 Scanned Document Interventional Radiology at [address] [phone] Provider, Historical . Social History Tobacco Use [...] documented as of this encounter Care Teams Typewriter Repairer Relationship Specialty Start Date End Date Ruthie Chandra MD [address] [place] [address] PCP - General Internal Medicine 11/18/16 documented as of this encounter
--- OUTSIDE RECORDS SUMMARY | 2024-10-21 07:36 | XMS_ITS | Encounter Summary ---
Author Organization [facility] Address [address] [place] [address] Care Team Providers Care Rehabilitation Caseworker Name Role Phone Jasson Mcnally MD Primary Care Provider Unavailable Jasson Mcnally MD Unavailable UnaMiko Baltazar MD Unavailable [phone] Sobeida Velasco NP Unavailable [phone] Glen Bañuelos DO Primary Care Provider Unavaila [facility] Primary Care Provider UnavailZuleima Nash PA-C Primary Care Provider Unavail able Mandi Corrigan DNP Unavailable [phone] Corky Schaefer MD Primary Care Provider Unav ailable Reason for Visit * Reason Onset Date Comments TEST RESULTS 06/04/2020 Encounter Details Date Type Department Care Team Description 06/04/2020 Telephone Adult [facility] - [address] [address] Jasson Mcnally MD TEST RESULTS Social History [...] How often do you attend chur or yazidi services? More than 4 times per year [...] on filedocumented in this encounter Care Teams Rehabilitation Caseworker Relationship Specialty Start Date End Date Jasson Mcnally MD PCP - General 12/18/17 03/03/21 Glen Bañuelso DO [address] [place] [address] PCP - General Internal Medicine 03/04/21 01/07/22 [facility] [address] [place] [address] PCP - General Internal Medicine 01/08/22 08/26/22 Zuleima Rosas PA-C [address] [place] [address] PCP - General Internal Medicine 08/27/22 11/10/23 Corky Schaefer MD [address] [place] [address] PCP - General Family Practice 11/11/23 Jasson Mcnally MD Internal Medicine 12/18/17 08/26/22 Miko Donis MD [address] [place] [address] Specialist Cardiovascular Disease 01/08/21 Sobeida Velasco, JULIA [address] [place] [address] Cardiology 02/19/21 09/23/23 Mandi Corrigan DNP [address] [place] [address] Specialist Nurse Practitioner Family 09/24/23 documented as of this encounter
--- OUTSIDE RECORDS SUMMARY | 2024-10-21 07:36 | XMS_ITS | Encounter Summary ---
Author Organization [facility] Address [address] [place] [address] Care Team Providers Care Administration Dean Name Role Phone Jasson Mcnally MD Primary Care Provider Unavailable Jasson Mcnally MD Unavailable Unavai Miko Plata MD Unavailable [phone] Sobeida Velasco NP Unavailable [phone] Glen Bañuelos DO Primary Care Provider Unavaila [facility] Primary Care Provider UnavailZuleima Nash PA-C Primary Care Provider Unavail able Mandi Corrigan DNP Unavailable [phone] Corky Schaefer MD Primary Care Provider Unav ailable Encounter Details Date Type Department Care Team Description 08/25/2019 Pit Supervisor Report Medical Records [address] [place] [address] [address] [place] [address] Social History Tobacco Use Types Packs/Day Years [...] How often do you attend chur or jainism services? More than 4 times per year 01/08/2021 Do you belong to any clubs o r organizations such as denominational groups, unions, fraternal or athletic groups, or [...] place to sleep or slept in a fpc (including now)? No 01/08/2021 Sex Assigned at Date Recorded Not on file Job Start Date Occupation Industry Not on file Not on file Not on file documented as of this encounter Plan of Treatment Not on file documented as of this encounter Visit Diagnoses Not on filedocumented in this encounter Care Teams Administration Dean Relationship Specialty Start Date End Date Jasson Mcnally MD PCP - General 12/18/17 03/03/21 Glen Bañuelos DO [address] [place] [address] PCP - General Internal Medicine 03/04/21 01/07/22 [facility] [address] [place] [address] PCP - General Internal Medicine 01/08/22 08/26/22 Zuleima Rosas PA-C [address] [place] [address] PCP - General Internal Medicine 08/27/22 11/10/23 Corky Schaefer MD [address] [place] [address] PCP - General Family Practice 11/11/23 Jasson Mcnally MD Internal Medicine 12/18/17 08/26/22 Miko Donis MD [address] [place] [address] Specialist Cardiovascular Disease 01/08/21 Sobeida Velasco NP [address] [place] [address] Cardiology 02/19/21 09/23/23 Mandi Corrigan DNP [address] [place] [address] Specialist Nurse Practitioner Family 09/24/23 documented as of this encounter
--- OUTSIDE RECORDS SUMMARY | 2024-10-21 07:36 | XMS_ITS | Encounter Summary ---
Author Organization [facility] Address [address] [place] [address] Care Team Providers Care Flame Hardener Name Role Phone Jasson Mcnally MD Primary Care Provider Unavailable Jasson Mcnally MD Unavailable Unajailenei Miko Plata MD Unavailable [phone] Sobeida Velasco NP Unavailable [phone] Glen Bañuelos DO Primary Care Provider Unavaila [facility] Pcp Primary Care Provider UnavailZuleima Nash PA-C Primary Care Provider Unavail able Mandi Corrigan DNP Unavailable [phone] Corky Schaefer MD Primary Care Provider Unav ailable Encounter Details Date Type Department Care Team Description 06/28/2020 Counter Pocket Trimmer Report Medical Records [address] [place] [address] Kiel Trotter Social History Tobacco Use Types [...] How often do you attend chur or episcopalian services? More than 4 times per year 01/08/2021 Do you belong to any clubs o r organizations such as mormon groups, unions, fraternal or athletic groups, or [...] on filedocumented in this encounter Care Teams Flame Hardener Relationship Specialty Start Date End Date Jsason Mcnally MD PCP - General 12/18/17 03/03/21 Glen Bañuelos DO [address] [place] [address] PCP - General Internal Medicine 03/04/21 01/07/22 [facility], Pcp [address] [place] [address] PCP - General Internal Medicine 01/08/22 08/26/22 Zuleima Rosas PA-C [address] [place] [address] PCP - General Internal Medicine 08/27/22 11/10/23 Corky Schaefer MD [address] [place] [address] PCP - General Family Practice 11/11/23 Jasosn Mcnally MD Internal Medicine 12/18/17 08/26/22 Miko Donis MD [address] [place] [address] Specialist Cardiovascular Disease 01/08/21 Sobeida Velasco NP [address] [place] [address] Cardiology 02/19/21 09/23/23 Mandi Corrigan DNP [address] [place] [address] Specialist Nurse Practitioner Family 09/24/23 documented as of this encounter
--- OUTSIDE RECORDS SUMMARY | 2024-10-21 07:36 | XMS_ITS | Encounter Summary ---
Author Organization [facility] Address [address] [place] [address] Care Team Providers Care Scheduling Clerk Name Role Phone Jasson Mcnally MD Primary Care Provider Unavailable Jasson Mcnally MD Primary Care Provider Unavailable Jasson Mcnally MD Unavailable Unavai Miko Plata MD Unavailable [phone] Sobeida Velasco NP Unavailable [phone] Glen Bañuelos DO Primary Care Provider Unavaila [facility] Primary Care Provider UnavailZuleima Nash PA-C Primary Care Provider Unavail able Mandi Corrigan DNP Unavailable [phone] Corky Schaefer MD Primary Care Provider Unav ailable Encounter Details Date Type Department Care Team Description 11/24/2017 Release of Information Medical Records [address] [place] [address] Abstract, Provider Social History Tobacco Use Types [...] How often do you attend chur or orthodox services? More than 4 times per year 01/08/2021 Do you belong to any clubs o r organizations such as congregation groups, unions, fraternal or athletic groups, or [...] place to sleep or slept in a assisted (including now)? No 01/08/2021 Sex Assigned at Date Recorded Not on file Job Start Date Occupation Industry Not on file Not on file Not on file documented as of this encounter Plan of Treatment Not on file documented as of this encounter Visit Diagnoses Not on filedocumented in this encounter Care Teams Scheduling Clerk Relationship Specialty Start Date End Date Jasson Mcnally MD PCP - General Internal Medicine 10/06/17 12/17/17 Jasson Mcnally MD PCP - General 12/18/17 03/03/21 Glen Bañuelos, [address] [place] [address] PCP - General Internal Medicine 03/04/21 01/07/22 [facility], Pcp [address] [place] [address]892 PCP - General Internal Medicine 01/08/22 08/26/22 Zuleima Rosas PA-C [address] [place] [address]1974 PCP - General Internal Medicine 08/27/22 11/10/23 Corky Schaefer MD [address] [place] [address] PCP - General Family Practice 11/11/23 Jasson Mcnally MD Internal Medicine 12/18/17 08/26/22 Miko Donis MD [address] [place] [address] Specialist Cardiovascular Disease 01/08/21 Sobeida Velasco NP [address] [place] [address] Cardiology 02/19/21 09/23/23 Mandi Corrigan DNP [address] [place] [address] Specialist Nurse Practitioner Family 09/24/23 documented as of this encounter
--- OUTSIDE RECORDS SUMMARY | 2024-10-21 07:36 | XMS_ITS | Clinical Summary ---
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 Overview (09/07/2023): >>OVERVIEW FOR HEREDITARY HEMORRHAGIC TELANGIECTASIA (HC CODE) WRITTEN ON 11/28/2016 10:27 AM BY MARQUEZ SIMPSON MD Added automatically from request for surgery [id number] GERD (gastroesophageal reflux disease) Eczema Immunizations Immunization [...] 11/18/2019, 05/28/2018 Cervical cancer screening Discontinued Meningococcal B Vaccine Aged Out No l onger eligible based on patient's age to complete this topic Meningococcal Vaccine Aged Out No ankit kristen eligible based on patient's age to complete this topic Medical Devices Implanted Type Area Hotel [employer] Mot[employer] Room Service Supervisor Device Identifier Shelf Expiration Date Model / Serial / Lot Handle Lavern Coil Detachment - [id number] Implanted:Qty: 1 on 10/22/2023 by Marquez Simpson MD at [address] [id number] 08/30/2026 [id number] / / [id number] Coil Lavern Complex Standard 5mm X 12 Cm - [id number] Implanted:Qty: 1 on 10/22/2023 by Marquez Simpson MD at [address] [id number] 05/12/2031 [id number] / / [id number] Coil Pod Packing J Soft 5cm - [id number] Implanted:Qty: 1 on 10/22/2023 by Marquez Simpson MD at [address] [id number] 07/26/2031 [id number] / / [id number] Coil Lavern Complex Soft 2mm X 4cm - [id number] Implanted:Qty: 1 on 10/22/2023 by Marquez Simpson MD at [address] Implant [facility] [id number] 07/08/2031 [id number] / / [id number] Plug Microvascular 3mm Mvp3q - [id number] Implanted:Qty: 1 on 10/22/2023 by Marquez Simpson MD at [address] Implant [employer] [id number] 02/22/2025 MVP-3Q / / [id number] Coil Lavern Complex Soft 3mm X 5cm - [id number] Implanted:Qty: 1 on 10/22/2023 by Marquez Simpson MD at [address] [facility] [id number] 07/11/2031 [id number] / / [id number] Coil Embo Detach Embold 5arp4es - [id number] Implanted:Qty: 1 on 10/22/2023 by Marquez Simpson MD at [address] Implant [employer] [id number] 07/15/2026 [id number] / / [id number] Coil Embo Detach Embold 4pup7rp - [id number] Implanted:Qty: 1 on 10/22/2023 by Marquez Simpson MD at [address] Implant [employer] [id number] 06/23/2026 [id number] / / [id number] Coil Pv Embo Concerto 8rgj02pe - [id number] Implanted:2016 by Marquez Simpson MD at [address] (Quantity not on file) Other-impl ant [employer] (MEDT-ZZZZ) 07/28/2019 NV-8-30-H ELIX / / [id number] Amplatzer Vasc Plug4 5mmx10.5 - [id number] Implanted:2016 by Marquez Simpson MD at [address] (Quantity not on file) Other-impl ant [facility] (STJU-ZZZZ) 07/23/2021 [id number]- 005 / / [id number] Embolization Coil - [id number] Implanted:2016 by Marquez Simpson MD at [address] (Quantity not on file) Other-impl ant [employer] PR[employer] 11/27/2021 [id number] / / [id number] Coil Pv Embo Concerto 1blb75rg - [id number] Implanted:2016 by Marquez Simpson MD at [address] (Quantity not on file) Other-impl ant [employer] (MEDT-ZZZZ) 10/10/2019 NV-5-15-H ELIX / / [id number] Coil Pv Embo Concerto 7hvm54yy - [id number] Implanted:2016 by Marquez Simpson MD at [address] (Quantity not on file) Other-impl ant [employer] (MEDT-ZZZZ) 10/10/2019 NV-5-15-H ELIX / / [id number] Coil Pv Embo Concerto 8gyd23aa - [id number] Implanted:2016 by Marquez Simpson MD at [address] (Quantity not on file) Other-impl ant [employer] (MEDT-ZZZZ) 09/15/2019 NV-4-10-H ELIX / / [id number] Coil Pv Embo Concerto 3ymm6wp - [id number] Implanted:2016 by Marquez Simpson MD at [address] (Quantity not on file) Other-impl ant [employer] (MEDT-ZZZZ) 09/18/2019 NV-3-8-HE LIX / / [id number] Amplatzer Vasc Plug4 4uei09cb - [id number] Implanted:2016 by Marquez Simpson MD at [address] (Quantity not on file) Other-impl ant [facility] (STJU-ZZZZ) 08/22/2021 [id number]- 004 / / [id number] Coil Embol Mwce 35-4/3 Tornado - [id number] Implanted:2016 by Mraquez Simpson MD at [address] (Quantity not on file) Other-impl ant [employer] 11/12/2021 [id number] / / [id number] Coil Embol Mwce 35-4/3 Tornado - [id number] Implanted:2016 by Marquez Simpson MD at [address] (Quantity not on file) Other-impl ant [employer] 11/12/2021 [id number] / / [id number] Embolization Coil - [id number] Implanted:2016 by Marquez Simpson MD at [address] (Quantity not on file) Other-impl ant [employer] 10/13/2021 [id number] / / [id number] Insurance MEDICARE [facility] MEDICARE [facility] MEDICARE [facility] Care Teams Machining Manager Relationship Specialty Start Date End Date Ruthie Chandra MD [address] [place] [id number] PCP - General Internal Medicine 11/18/16
--- OUTSIDE RECORDS SUMMARY | 2024-10-21 07:36 | XMS_ITS | Encounter Summary ---
Author Organization [facility] Address [address] [place] [address] Care Team Providers Care Insect Control Aide Name Role Phone Jasson Mcnally MD Primary Care Provider Unavailable Jasson Mcnally MD Primary Care Provider Unavailable Jasson Mcnally MD Unavailable Unavai Miko Plata MD Unavailable [phone] Sobeida Velasco NP Unavailable [phone] Glen Bañuelos DO Primary Care Provider Unavaila [facility] Primary Care Provider UnavailZuleima Nash PA-C Primary Care Provider Unavail able Mandi Corrigan DNP Unavailable [phone] Corky Schaefer MD Primary Care Provider Unav ailable Encounter Details Date Type Department Care Team Description 11/16/2017 Gravity Prospector Report Medical Records [address] [place] [address] Aissatou Gordon MD Social History Tobacco Use [...] often do you attend chur ch or orthodox services? More than 4 times per year 01/08/2021 Do you belong to any clubs o r organizations such as yazidi groups, unions, fraternal or athletic groups, or [...] on filedocumented in this encounter Care Teams Insect Control Aide Relationship Specialty Start Date End Date Jasson Mcnally MD PCP - General Internal Medicine 10/06/17 12/17/17 Jasson Mcnally MD PCP - General 12/18/17 03/03/21 Glen Bañuelos DO [address] [place] [address] PCP - General Internal Medicine 03/04/21 01/07/22 [facility], [facility] [address] [place] [address] PCP - General Internal Medicine 01/08/22 08/26/22 Zuleima Rosas PA-C [address] [place] [address] PCP - General Internal Medicine 08/27/22 11/10/23 Corky Schaefer MD [address] [place] [address]494 PCP - General Family Practice 11/11/23 Jasson Mcnally MD Internal Medicine 12/18/17 08/26/22 Miko Donis MD [address] [place] [address] Specialist Cardiovascular Disease 01/08/21 Sobeida Velasco, JULIA [address] [place] [address] Cardiology 02/19/21 09/23/23 Mandi Corrigan, JOÃO [address] [place] [address] Specialist Nurse Practitioner Family 09/24/23 documented as of this encounter
--- OUTSIDE RECORDS SUMMARY | 2024-10-21 07:37 | XMS_ITS | Clinical Summary ---
Author Organization [facility] Address [address] [place] [address] Care Team Providers Care Design Project Manager Name Role Phone Miko Donis MD Unavailable [phone] Mandi Corrigan DNP Unavailable [phone] Corky Schaefer MD Primary Care Provider [...] telangiectasia Overview: PFO, Pulmonary AVMs. Follows at [place], [place] ?coiling-metallic fragment in the CAT scan noted [...] CABG Brother Diabetes Brother at 59- CT Cancer of the Bladder Father Hypertension Mother [...] week 01/08/2021 How often do you attend [facility] or roman catholic services? More than 4 times per year 01/08/2021 Do you belong to any clubs o r organizations such as christianity groups, unions, fraternal or athletic groups, or [...] 66 09/30/2023 10:09 AM EDT Temperature 36.4 C (97.6 F) 10/08/2021 11:21 AM EDT Respiratory Rate 14 02/03/2020 9:47 AM EST [...] pleted), 05/16/2019, 05/28/2018, Additional history exists INFLUENZA (#1) 2024 11/18/2019 (Refu sed), 05/16/2019 (Refused), 11/17/2017 (Refused) CHOLESTEROL SCREENING 10/10/2026 10/10/2021 , 11/23/2020, 05/17/2020, Additional history exists DTAP/TDAP/TD (4 - Td or Tdap) 05/28/2028 05/28/2018 (Exception), 02/26/2018, 05/07/2009 HEPATITIS C SCREENING Addressed 08/05/2016 (External Completion of test per patient (Patient reports normal results)) Overridden with the intention of not completing the topic PNEUMOCOCCAL VACCINE Completed 11/18/2019, 05/29/19 19 Care Teams Design Project Manager Relationship Specialty Start Date End Date Corky Schaefer MD [address] [place] [address] PCP - General Family Practice 11/11/23 Miko Donis MD [address] [place] [address] Specialist Cardiovascular Disease 01/08/21 Mandi Corrigan DNP [address] [place] [address] Specialist Nurse Practitioner Family 09/24/23
--- OUTSIDE RECORDS SUMMARY | 2024-10-21 07:37 | XMS_ITS | Encounter Summary ---
Author Organization [facility] Address [address] [place] [address] Care Team Providers Care Linen Tech Name Role Phone Jasson Mcnally MD Primary Care Provider Unavailable Jasson Mcnally MD Unavailable Unavai Miko Plata MD Unavailable [phone] Sobeida Velasco NP Unavailable [phone] Glen Bañuelos DO Primary Care Provider Unavaila [facility] Primary Care Provider UnavailZuleima Nash PA-C Primary Care Provider Unavail able Mandi Corrigan DNP Unavailable [phone] Corky Schaefer MD Primary Care Provider Unav ailable Encounter Details Date Type Department Care Team Description 06/29/2018 Senior Cobol Developer Report Medical Records [address] [place] [address] [address] [place] [address] Social History Tobacco Use Types Packs/Day Years [...] How often do you attend chur or cheondoism services? More than 4 times per year [...] place to sleep or slept in a detention (including now)? No 01/08/2021 Sex Assigned at Date Recorded Not on file Job Start Date Occupation Industry Not on file Not on file Not on file documented as of this encounter Plan of Treatment Not on file documented as of this encounter Visit Diagnoses Not on filedocumented in this encounter Care Teams Linen Tech Relationship Specialty Start Date End Date Jasson Mcnally MD PCP - General 12/18/17 03/03/21 Glen Bañuelos DO [address] [place] [address] PCP - General Internal Medicine 03/04/21 01/07/22 [facility] [address] [place] [address]15 PCP - General Internal Medicine 01/08/22 08/26/22 Zuleima Rosas PA-C [address] [place] [address]81 PCP - General Internal Medicine 08/27/22 11/10/23 Corky Schaefer MD [address] [place] [address]112 PCP - General Family Practice 11/11/23 Jasson Mcnally MD Internal Medicine 12/18/17 08/26/22 Miko Donis MD [address] [place] [address] Specialist Cardiovascular Disease 01/08/21 Sobeida Velasco NP [address] [place] [address] Cardiology 02/19/21 09/23/23 Mandi Corrigan DNP [address] [place] [address] Specialist Nurse Practitioner Family 09/24/23 documented as of this encounter
--- OUTSIDE RECORDS SUMMARY | 2024-10-21 07:37 | XMS_ITS | Encounter Summary ---
Author Organization [facility] Address [address] [place] [address] Care Team Providers Care Gas Shovel Operator Name Role Phone Jasson Mcnally MD Unavailable UnavaMiko Madrid MD Unavailable [phone] RodSobeida INSPECTOR PLUMBING Unavailable [phone] [facility], Pcp Primary Care Provider UnavailZuleima Nash PA-C Primary Care Provider Unavail able Mandi Corrigan DNP Unavailable [phone] Corky Schaefer MD Primary Care Provider Unav ailable Encounter Details Date Type Department Care Team Description 02/20/2022 Hospital Medical Records [address] [place] [id number] [place] [address] [place] Social History Tobacco Use Types Packs/Day [...] often do you attend chur ch or mandaeism services? More than 4 times per year [...] place to sleep or slept in a long-term (including now)? No 01/08/2021 Sex Assigned at [...] on filedocumented in this encounter Care Teams Gas Shovel Operator Relationship Specialty Start Date End Date Community, Pcp [address] [place] [address] PCP - General Internal Medicine 01/08/22 08/26/22 Zuleima Rosas PA-C [address] [place] [address]289 PCP - General Internal Medicine 08/27/22 11/10/23 Corky Schaefer MD [address] [place] [address]08 PCP - General Family Practice 11/11/23 Jasson Mcnally MD Internal Medicine 12/18/17 08/26/22 Miko Donis MD [address] [place] [address] Specialist Cardiovascular Disease 01/08/21 Sobeida Velasco NP [address] [place] [address] Cardiology 02/19/21 09/23/23 Mandi Corrigan, [facility] [address] [place] [address] Specialist Nurse Practitioner Family 09/24/23 documented as of this encounter
--- OUTSIDE RECORDS SUMMARY | 2024-10-21 07:37 | XMS_ITS | Encounter Summary ---
Author Organization [facility] Address [address] [place] [address] Care Team Providers Care Milk Tester Name Role Phone Jasson Mcnally MD Primary Care Provider Unavailable Jasson Mcnally MD Unavailable UnaMiko Baltazar MD Unavailable [phone] Sobeida Velasco NP Unavailable [phone] Glen Bañuelos DO Primary Care Provider Unavaila [facility] Pcp Primary Care Provider UnavailZuleima Nash PA-C Primary Care Provider Unavail able Mandi Corrigan DNP Unavailable [phone] Corky Schaefer MD Primary Care Provider Unav ailable Encounter Details Date Type Department Care Team Description 04/26/2018 Orders Only Radiology - [address] [address] Jasson Mcnally MD Screening for diabetes mellitus (Primary Dx) Social History Tobacco Use Types Packs/Day Years [...] often do you attend chur ch or christianity services? More than 4 times per year 01/08/2021 Do you belong to any clubs o r organizations such as mormonism groups, unions, fraternal or athletic groups, or [...] to sleep or slept in a senior living (including now)? No 01/08/2021 Sex Assigned at Date Recorded Not on file Job Start Date Occupation Industry Not on file Not on file Not on file documented as of this encounter Plan of Treatment Not on file documented as of this encounter Results * CREATININE, BLOOD ASSAY (05/01/2018 8:31 AM EST) CREAT 0.93 0.5 - 1.1 mg/dL 05/01/2018 12:34 PM EST [facility] GLOMERULAR FILTRATION RATE 60 05/01/2018 12:34 PM EST [facility] Comment: If patient is -Tai[place]ese, multiply result by 1.21 Chronic Kidney Disease: < 60 ml/min/1.73 square meters Kidney Failure: < 15 ml/min/1.73 square meters 05/01/2018 8:31 AM EST 05/01/2018 8:33 AM EST Jasson Mcnally MD LAB [facility] documented in this encounter Visit Diagnoses Diagnosis Screening for diabetes mellitus- Primary documented in this encounter Care Teams Milk Tester Relationship Specialty Start Date End Date Jasson Mcnally MD PCP - General 12/18/17 03/03/21 Glen Bañuelos DO [address] [place] [address] PCP - General Internal Medicine 03/04/21 01/07/22 [facility], [facility] [address] [place] [address] PCP - General Internal Medicine 01/08/22 08/26/22 Zuleima Rosas PA-C [address] [place] [address] PCP - General Internal Medicine 08/27/22 11/10/23 Corky Schaefer MD [address] [place] [address]649 PCP - General Family Practice 11/11/23 Jasson Mcnally MD Internal Medicine 12/18/17 08/26/22 Miko Donis MD [address] [place] [address] Specialist Cardiovascular Disease 01/08/21 Sobeida Velasco, JULIA [address] [place] [address]36 Cardiology 02/19/21 09/23/23 Mandi Corrigan DNP [address] [place] [address] Specialist Nurse Practitioner Family 09/24/23 documented as of this encounter
--- OUTSIDE RECORDS SUMMARY | 2024-10-21 07:37 | XMS_ITS | Encounter Summary ---
Author Organization [facility] Address [address] [place] [address] Care Team Providers Care Residential Caregiver Name Role Phone Jasson Mcnally MD Unavailable Unavai Miko Plata MD Unavailable [phone] RodSobeida TUMBLER DYEING MACHINE OPERATOR Unavailable [phone] [facility], Pcp Primary Care Provider Unavailabl Zuleima Rubio PA-C Primary Care Provider Unavail able Mandi Corrigan DNP Unavailable [phone] Corky Schaefer MD Primary Care Provider Unav ailable Encounter Details Date Type Department Care Team Description 06/10/2022 Machine Etcher Report Medical Records [address] [place] [address] Zuleima Rosas PA-C Social History Tobacco Use [...] How often do you attend chur or yarsanism services? More than 4 times per year [...] on filedocumented in this encounter Care Teams Residential Caregiver Relationship Specialty Start Date End Date Community, Pcp [address] [place] [address] PCP - General Internal Medicine 01/08/22 08/26/22 Zuleima Rosas PA-C [address] [place] [address] PCP - General Internal Medicine 08/27/22 11/10/23 Corky Schaefer MD [address] [place] [address] 6[address]48 PCP - General Family Practice 11/11/23 Jasson Mcnally MD Internal Medicine 12/18/17 08/26/22 Miko Donis MD [address] [place] [address] Specialist Cardiovascular Disease 01/08/21 Sobeida Velasco, JULIA [address] [place] [address] Cardiology 02/19/21 09/23/23 Mandi Corrigan DNP [address] [place] [address]204 Specialist Nurse Practitioner Family 09/24/23 documented as of this encounter
--- OUTSIDE RECORDS SUMMARY | 2024-10-21 07:37 | XMS_ITS | Clinical Summary ---
Author Organization [facility] Address [address] [place] [address] Care Team Providers Care Career Technology Teacher Name Role Phone Corky Schaefer MD Primary [...] Comments CABG Brother Diabetes Brother at 59- [place] Bladder Cancer Father Hypertension Mother Hyperlipidemia Other: [...] PM EST Colon polyps Colon cancer screening [facility] SCREENING DIGITAL Routine 10/08/2023 9:38 AM EDT Encounter for screening mammogram for malignant neoplasm of breast [facility] DEXA AXIAL SKELETON Routine 05/06/2018 3:39 PM EDT Asymptomatic menopausal state from Last 3 Months or Most Recently Relevant to Health Maintenance Results * COLONOSCOPY Anesthesia - MAC; [facility] ENDOSCOPY (02/10/2024 4:33 PM EST) [...] for surveillance. Narrative 02/10/2024 4:36 PM EST [facility] Patient Name: Roslyn Mena Procedure Date: [...] verified by the physician, the nurse, the crayon grader and the construction services technician in the pre-procedure area in the [...] reduce spontaneously). Procedure Code(s): --- Professional --- 87890, Colonoscopy, flexible; with biopsy, single or multiple Diagnosis Code(s): --- Professional --- D12.5, Benign neoplasm of sigmoid colon D12.3, Benign neoplasm of transverse colon (hepatic flexure or splenic flexure) CPT copyright 2020 [employer]. All rights reserved. The codes documented in this report are preliminary and upon dyed raw stock blower feeder review may be revised to meet current compliance requirements. Kiko Jalloh MD 02/10/2024 4:35:56 PM This report has been signed electronically.Kiko Jalloh MD Number of Addenda: 0 Note Initiated On: 02/10/2024 4:08 PM Scope Withdrawal Time: 0 hours 8 minutes 6 seconds Scope In: 4:20:13 PM Scope Out: 4:33:23 PM Endoscopy Department at [facility] - [address] [place] [phone] Procedure Note Kiko Jalloh MD - 02/10/2024 [facility] Patient Name: Roslyn Mena Procedure Date: [...] the physician, the nurse, theanesthetist and the construction services technician in the pre-procedure area in the [...] reduce spontaneously). Procedure Code(s): --- Professional --- 54194, Colonoscopy, flexible; with biopsy, singleor multiple Diagnosis Code(s): --- Professional --- D12.5, Benign neoplasm of sigmoid colon D12.3, Benign neoplasm of transverse colon (hepatic flexure or splenic flexure) CPT copyright 2020 [employer]. All rights reserved. The codes documented in this report are preliminary and upon dyed raw stock blower feeder reviewmay be revised to meet current compliance requirements. Kiko Jalloh MD 02/10/2024 4:35:56 PM This report has been signed electronically.Kiko Jalloh MD Number of Addenda: 0 Note Initiated On: 02/10/2024 4:08 PM Scope Withdrawal Time: 0 hours 8 minutes 6 seconds Scope In: 4:20:13 PM Scope Out: 4:33:23 PM Endoscopy Department at [facility] - [address] [place] [phone] IMPRESSION: - Three 1 to 3 mm [...] AM EDT Narrative 10/08/2023 9:38 AM EDT [facility] Diagnostic Imaging Department [address] [place] [address] Patient: ROSLYN MENA /Age/Sex: 1950 - 73 - F Unit#: [id number] Location/Status: SPDIMAM/REG CLI Mnemonic[facility] Physician: DANIELLE DE DIOS [facility] Screening Digital - 10/08/23 - 43 Report Status:Signed EXAM: [facility] Screening Digital EXAM DATE AND TIME: 10/08/2023 7:43 AM HISTORY: Screening. COMPARISON: 10/02/22, 09/30/21, 09/26/20 TECHNIQUE: Bilateral digital breast tomosynthesis was performed in the CC and MLO projections. Computer aided detection with Huupy 3D 3.1 was employed. TISSUE DENSITY: c. [...] Procedure Note Bailey Landaverde MD - 12/09/2023 [facility] Diagnostic Imaging Department [address] [place] [address] Patient: ROSLYN MENA /Age/Sex: 1950 - 73 - F Unit#: [id number] Location/Status: [facility] CLI Mnemonic/Ordering Site: [facility] Ordering Physician: DANIELLE DE DIOS [facility] Screening Digital - 10/08/23 - 0743 Report Status:Signed EXAM: [facility] Screening Digital EXAM DATE AND TIME: 10/08/2023 7:43 AM HISTORY: Screening. COMPARISON: 10/02/22, 09/30/21, 09/26/20 TECHNIQUE: Bilateral digital breast tomosynthesis was performed in the CCand MLO projections. Computer aided detection with Huupy 3D 3.1was employed. TISSUE DENSITY: c. The [...] GARCIA IMG BI PROCEDURES Final Result * [facility] DEXA AXIAL SKELETON (05/06/2018 3:39 PM EDT) Anatomical Region Laterality Modality Mammography 05/06/2018 2:03 PM EDT Narrative 05/06/2018 3:39 PM EDT [facility] Diagnostic Imaging Department [address] [place] [address] Patient: ROSLYN MENA /Age/Sex: 1950 - 67 - F Unit#: [id number] Location/Status: SPDIMAM/REG CLI Mnemonic/Ordering Site: [facility] Ordering [...] probability of hip fracture of 0.7%. Code 21118 Dictating Physician: LINDA MONTES MD Electronically Signed by: LINDA MONTES MD Dic Date/Time: 05/06/181536 Sign date/Time: 05/06/181538 Procedure Note Linda Montes MD - 02/12/2022 [facility] Diagnostic Imaging Department [address] [place] [address] Patient: MIRAUGUSTINE BULLOCKROSLYNMARSHAL Daniel D.O.B./Age/Sex: 1950 67 - F Unit#: [id number] Location/Status: [facility] Mnemonic[facility]ing [facility] Ordering Physician: BEVERLEY GORDON MD [facility] Dexa Axial Skeleton - 05/06/181533 HISTORY: [...] density of the femurs bilaterally is 1.101 gm/xi7ljjnm is 109% of that of young normals [...] probability of hip fracture of 0.7%. Code 41310 Dictating Physician: LINDA MONTES MD Electronically Signed by: LINDA MONTES MD Dic Date/Time: 05/06/18 1537 Sign date/Time: 05/06/18 153 Beverley Gordon MD IM BI PROCEDURES Final Result from Last 3 Months or Most Recently Relevant to Health Maintenance Insurance MEDICARE [employer] Care Teams Career Technology Teacher Relationship Specialty Start Date End Date Corky Schaefer MD [address] [place] [address] Dr Colleen [place] PCP - General 11/11/23
--- OUTSIDE RECORDS SUMMARY | 2024-10-21 07:37 | XMS_ITS | Encounter Summary ---
Author Organization [facility] Address [address] [place] [address] Care Team Providers Care Machine Cloth Measurer Name Role Phone Miko Donis MD Unavailable [phone] Sobeida Velasco NP Unavailable [phone] Zuleima Rosas PA-C Primary Care Provider Unavail able Mandi Corrigan DNP Unavailable [phone] Corky Schaefer MD Primary Care Provider Unav ailable Reason for Visit * Reason Onset Date Comments Faxed Refill 01/12/2023 Encounter Details Date Type Department Care Team Description 01/12/2023 Refill Gastroenterology [address] [place] [address] Nancy Whitt MD Faxed Refill Social History Tobacco Use Types Packs/Day Years [...] place to sleep or slept in a longterm (including now)? No 01/08/2021 Sex Assigned at Date Recorded Not on file Job Start Date Occupation Industry Not on file Not on file Not on file documented as of this encounter Miscellaneous Notes * Telephone Encounter - Sophia Baron - 01/12/2023 12:50 PM EST Prev [place] patient, not est with new provider LOV12/11/20 NOV n/a documented in this encounter Plan of Treatment Not on file documented as of this encounter Visit Diagnoses Not on filedocumented in this encounter Care Teams Machine Cloth Measurer Relationship Specialty Start Date End Date Zuleima Rsoas PA-C [address] [place] [address] PCP - General Internal Medicine 08/27/22 11/10/23 Corky Schaefer MD [address] [place] [address] PCP - General Family Practice 11/11/23 Miko Donis MD [address] [place] [address] Specialist Cardiovascular Disease 01/08/21 Sobeida Velasco NP [address] [place] [address] Cardiology 02/19/21 09/23/23 Mandi Corrigan, JOÃO [address] [place] [address] Specialist Nurse Practitioner Family 09/24/23 documented as of this encounter
[2024-10-21 11:39] LABS: MANUAL DIFF FLAG NO
[2024-10-21 12:04] LABS: Hematocrit 38.5 % (37.0-47.0); Hemoglobin 12.3 g/dl (12.0-16.0); Imm Gran Abs Auto 0.06 X10*3/uL (0.00-0.03); Imm Gran Pct Auto 1.0 % (0.0-0.4); Lymphocytes Absolute Auto 1.9 X10*3/uL (1.2-4.9); Mean Corpuscular HGB Conc 31.9 g/dl (31.0-35.0); Mean Corpuscular Hemoglobin 31.1 pg (27.0-33.0); Mean Corpuscular Volume 97.5 fL (80.0-98.0); NRBC Abs Auto 0.000 X10*3/uL (0.0-0.012); NRBC Pct Auto 0.0 /100WBC (0.0-0.2); Platelet Count 351 X10*3/uL (160-400); Red Blood Count 3.95 X10*6/uL (4.20-5.50); White Blood Count 6.0 X10*3/uL (4.8-10.8)
[2024-10-21 13:00] LABS: Alanine Aminotransferase 28 U/L (0-31); Albumin Level 4.3 g/dL (3.5-5.0); Alkaline Phosphatase 64 U/L (39-117); Anion Gap 15 (12-20); Aspartate Amino Transferase 27 U/L (5-31); Blood Urea Nitrogen 26 mg/dL (9-16); Calcium 9.7 mg/dL (8.4-10.2); Carbon Dioxide 25 mmol/L (22-29); Chloride 106 mmol/L (96-108); Estimated Glomerular Filt Rate 56; Iron 74 mcg/dL (30-160); Percent Iron Saturation 23 % (15-50); Potassium 4.5 mmol/L (3.3-5.1); Sodium 141 mmol/L (135-145); Total Iron Binding Capacity 315 mcg/dL (228-428); Total Protein 7.2 g/dL (6.5-8.0); Unsaturated Iron Binding 241 ug/dL
[2024-10-21 13:19] LABS: Ferritin 102 ng/mL (10-250)
[2024-10-21 14:15] LABS: Free T4 (Free Thyroxine) 0.91 ng/dL (0.71-1.85)
== END 2024-10-21 07:35 | disposition home or self-care (01) ==
LOC: HO.WFDLDS 07:34
PROVIDERS: Visit Provider Physician Assistant
DX: K21.9 Gastro-esophageal reflux disease without esophagitis (principal); I10 Essential (primary) hypertension; R79.89 Other specified abnormal findings of blood chemistry; Z90.49 Acquired absence of other specified parts of digestive tract
CPT/HCPCS: 36415; 80053; 82248; 82728; 83540; 84439; 84443; 85025

== ENCOUNTER 2024-10-25 11:11 | Outpatient (REF) | payer MEDICARE, OTHER, SELFPAY ==
--- OUTSIDE RECORDS SUMMARY | 2024-10-25 12:45 | XMS_ITS | Encounter Summary ---
Author Organization [facility] Address [address] [place] [address] Care Team Providers Care Machine Sewer Name Role Phone Jasson Mcnally MD Primary Care Provider Unavailable Jasson Mcnally MD Unavailable Unavai Miko Plata MD Unavailable [phone] Sobeida Velasco NP Unavailable [phone] Glen Bañuelos DO Primary Care Provider Unavaila [facility] Primary Care Provider UnavailZuleima Nash PA-C Primary Care Provider Unavail able Mandi Corrigan DNP Unavailable [phone] Corky Schaefer MD Primary Care Provider Unav ailable Encounter Details Date Type Department Care Team Description 07/04/2019 Composition Worker Report Medical Records [address] [place] [address] [address] [place] [address] Social History Tobacco Use Types Packs/Day Years [...] How often do you attend chur or lutheran services? More than 4 times per year [...] place to sleep or slept in a retirement (including now)? No 01/08/2021 Sex Assigned at Date Recorded Not on file Job Start Date Occupation Industry Not on file Not on file Not on file documented as of this encounter Plan of Treatment Not on file documented as of this encounter Visit Diagnoses Not on filedocumented in this encounter Care Teams Machine Sewer Relationship Specialty Start Date End Date Jasson Mcnally MD PCP - General 12/18/17 03/03/21 Glen Bañuelos DO [address] [place] [address] PCP - General Internal Medicine 03/04/21 01/07/22 [facility] [address] [place] [address] PCP - General Internal Medicine 01/08/22 08/26/22 Zuleima Rosas PA-C [address] [place] [address] PCP - General Internal Medicine 08/27/22 11/10/23 Corky Schaefer MD [address] [place] [address] PCP - General Family Practice 11/11/23 Jasson Mcnally MD Internal Medicine 12/18/17 08/26/22 Miko Donis MD [address] [place] [address] Specialist Cardiovascular Disease 01/08/21 Sobeida Velasco NP [address] [place] [address] Cardiology 02/19/21 09/23/23 Mandi Corrigan DNP [address] [place] [address] Specialist Nurse Practitioner Family 09/24/23 documented as of this encounter
--- OUTSIDE RECORDS SUMMARY | 2024-10-25 12:45 | XMS_ITS | Encounter Summary ---
Author Organization [facility] Address [address] [place] [address] Care Team Providers Care Building Mover Name Role Phone Jasson Mcnally MD Primary Care Provider Unavailable Jasson Mcnally MD Unavailable Unavai Miko Plata MD Unavailable [phone] Sobeida Velasco NP Unavailable [phone] Glen Bañuelos DO Primary Care Provider Unavaila [facility] Primary Care Provider UnavailZuleima Nash PA-C Primary Care Provider Unavail able Mandi Corrigan DNP Unavailable [phone] Corky Schaefer MD Primary Care Provider Unav ailable Encounter Details Date Type Department Care Team Description 07/04/2019 Chisel Mortiser Operator Report Medical Records [address] [place] [address] Miko Donis MD [address] [place] [address] Social History Tobacco Use Types Packs/Day Years [...] How often do you attend chur or roman catholic services? More than 4 times per year 01/08/2021 Do you belong to any clubs o r organizations such as mandaeism groups, unions, fraternal or athletic groups, or [...] on filedocumented in this encounter Care Teams Building Mover Relationship Specialty Start Date End Date Jasson Mcnally MD PCP - General 12/18/17 03/03/21 Glen Bañuelos DO [address] [place] [address] PCP - General Internal Medicine 03/04/21 01/07/22 [facility] [place] [facility] [place] [place] [address] [place] [address] PCP - General Internal Medicine 01/08/22 08/26/22 Zuleima Rosas PA-C [address] [place] [address] PCP - General Internal Medicine 08/27/22 11/10/23 Corky Schaefer MD [address] [place] [address] PCP - General Family Practice 11/11/23 Jasson Mcnally MD Internal Medicine 12/18/17 08/26/22 Miko Donis MD [address] [place] [address] Specialist Cardiovascular Disease 01/08/21 Sobeida Velasco NP [address] [place] [address] Cardiology 02/19/21 09/23/23 Mandi Corrigan DNP [address] [place] [address] Specialist Nurse Practitioner Family 09/24/23 documented as of this encounter
--- OUTSIDE RECORDS SUMMARY | 2024-10-25 12:45 | XMS_ITS | Encounter Summary ---
Author Organization [facility] Address [address] [place] [address] Care Team Providers Care Lead Applications Developer Name Role Phone Jasson Mcnally MD Unavailable Unavai Miko Plata MD Unavailable [phone] Sobeida Velasco NP Unavailable [phone] [facility], Pcp Primary Care Provider UnavailZuleima Nash PA-C Primary Care Provider Unavail able Mandi Corrigan DNP Unavailable [phone] Corky Schaefer MD Primary Care Provider Unav ailable Reason for Visit * Reason Onset Date Comments APPOINTMENT 05/03/2022 Recall appointme nt Encounter Details Date Type Department Care Team Description 05/03/2022 Telephone Cardio PVC POC [address] [place] [address] Miko Donis MD [address] [place] [address] APPOINTMENT (Recall appointment) Social History Tobacco Use [...] any clubs o r organizations such as sabianism groups, unions, fraternal or athletic groups, or [...] on filedocumented in this encounter Care Teams Lead Applications Developer Relationship Specialty Start Date End Date Community, Pcp [address] [place] [address] PCP - General Internal Medicine 01/08/22 08/26/22 Zuleima Rosas PA-C [address] [place] [address] PCP - General Internal Medicine 08/27/22 11/10/23 Corky Schaefer MD [address] [place] [address] PCP - General Family Practice 11/11/23 Jasson Mcnally MD Internal Medicine 12/18/17 08/26/22 Miko Donis MD [address] [place] [address] Specialist Cardiovascular Disease 01/08/21 Sobeida Velasco NP [address] [place] [address] Cardiology 02/19/21 09/23/23 Mandi Corrigan DNP [address] [place] [address] Specialist Nurse Practitioner Family 09/24/23 documented as of this encounter
--- OUTSIDE RECORDS SUMMARY | 2024-10-25 12:45 | XMS_ITS | Encounter Summary ---
Author Organization [facility] Address [address] [place] [address] Care Team Providers Care Choir Director Name Role Phone Jasson Mcnally MD Unavailable UnaMiko Baltazar MD Unavailable Sobeida Velasco NP Unavailable [phone] Glen Bañuelos DO Primary Care Provider Unavaila [facility] Primary Care Provider UnavailZuleima Nash PA-C Primary Care Provider Unavail able Mandi Corrigan DNP Unavailable [phone] Corky Schaefer MD Primary Care Provider Unav ailable Reason for Visit * Reason Onset Date Comments Blood Pressure Elevated 07/17/2021 Encounter Details Date Type Department Care Team Description 07/17/2021 Telephone Adult [facility] - [address] [address] Glen Bañuelos DO Blood Pressure Elevated Social [...] How often do you attend chur or caodaism services? More than 4 times per year [...] place to sleep or slept in a nursing home (including now)? No 01/08/2021 Sex Assigned [...] traveled recently to another state outside of [place], [place], [place], [place], [place], [place], [place]? NO o If yes, did you quarantine [...] PCP: Glen Bañuelos [place] / Plan: [place]IC[place]-[employer] / Product Type: MEDICARE [id number] documented in this encounter Plan of Treatment Not on file documented as of this encounter Visit Diagnoses Not on filedocumented in this encounter Care Teams Choir Director Relationship Specialty Start Date End Date Glen Bañuelos DO [address] [place] [address] PCP - General Internal Medicine 03/04/21 01/07/22 [facility], Pcp [address] [place] [address] PCP - General Internal Medicine 01/08/22 08/26/22 Zuleima Rosas PA-C [address] [place] [address] PCP - General Internal Medicine 08/27/22 11/10/23 Corky Schaefer MD [address] [place] [address] PCP - General Family Practice 11/11/23 Jasson Mcnally MD Internal Medicine 12/18/17 08/26/22 Miko Donis MD [address] [place] [address] Specialist Cardiovascular Disease 01/08/21 Sobeida Velasco NP [address] [place] [address] Cardiology 02/19/21 09/23/23 Mandi Corrigan DNP [address] [place] [address] Specialist Nurse Practitioner Family 09/24/23 documented as of this encounter
--- OUTSIDE RECORDS SUMMARY | 2024-10-25 12:45 | XMS_ITS | Encounter Summary ---
Author Organization [facility] Address [address] [place] [address] Care Team Providers Care Breaker Unit Assembler Name Role Phone Jasson Mcnally MD Primary Care Provider Unavailable Jasson Mcnally MD Unavailable Unajailenei Miko Plata MD Unavailable [phone] Sobeida Velasco NP Unavailable [phone] Glen Bañuelos DO Primary Care Provider Unavaila [facility] Primary Care Provider UnavailZuleima Nash PA-C Primary Care Provider Unavail able Mandi Corrigan DNP Unavailable [phone] Corky Schaefer MD Primary Care Provider Unav ailable Reason for Visit * Reason Onset Date Comments TEST RESULTS 06/04/2020 Encounter Details Date Type Department Care Team Description 06/04/2020 Telephone Adult [facility] - [address] [address] Jasson Mcnally MD TEST RESULTS Social History [...] How often do you attend chur or jehovah's witness services? More than 4 times per year 01/08/2021 Do you belong to any clubs o r organizations such as temple groups, unions, fraternal or athletic groups, or [...] on filedocumented in this encounter Care Teams Breaker Unit Assembler Relationship Specialty Start Date End Date Jasson Mcnally MD PCP - General 12/18/17 03/03/21 Glen Bañuelos DO [address] [place] [address] PCP - General Internal Medicine 03/04/21 01/07/[facility] [address] [place] [address] PCP - General Internal Medicine 01/08/22 08/26/22 Zuleima Rosas PA-C [address] [place] [address] PCP - General Internal Medicine 08/27/22 11/10/23 Corky Schaefer MD [address] [place] [address] PCP - General Family Practice 11/11/23 Jasson Mcnally MD Internal Medicine 12/18/17 08/26/22 Miko Donis MD [address] [place] [address] Specialist Cardiovascular Disease 01/08/21 Sobeida Velasco, JULIA [address] [place] [address] Cardiology 02/19/21 09/23/23 Mandi Corrigan DNP [address] [place] [address] Specialist Nurse Practitioner Family 09/24/23 documented as of this encounter
--- OUTSIDE RECORDS SUMMARY | 2024-10-25 12:45 | XMS_ITS | Encounter Summary ---
Author Organization [facility] Address [address] [place] [phone] Care Team Providers Care Burglar Alarm Mechanic Name Role Phone Ruthie Chandra MD Primary Care Provider Encounter Details Date Type Department Care Team (Late st Contact Info) Description 10/13/2023 Scanned Document Interventional Radiology at [address] [phone] Provider, Historical . Social History Tobacco Use [...] documented as of this encounter Care Teams Burglar Alarm Mechanic Relationship Specialty Start Date End Date Ruthie Chandra MD [address] [place] [address] PCP - General Internal Medicine 11/18/16 documented as of this encounter
--- OUTSIDE RECORDS SUMMARY | 2024-10-25 12:45 | XMS_ITS | Encounter Summary ---
Author Organization [facility] Address [address] [place] [address] Care Team Providers Care Centrifugal Machine Tender Name Role Phone Jasson Mcnally MD Primary Care Provider Unavailable Jasson Mcnally MD Unavailable UnaMiko Baltazar MD Unavailable [phone] Sobeida Velasco NP Unavailable [phone] Glen Bañuelos DO Primary Care Provider Unavaila [facility] Pcp Primary Care Provider UnavailZuleima Nash PA-C Primary Care Provider Unavail able Mandi Corrigan DNP Unavailable [phone] Corky Schaefer MD Primary Care Provider Unav ailable Reason for Visit * Reason Comments E-prescribe Rx Request Encounter Details Date Type Department Care Team Description 02/25/2020 Refill Adult Medicine [address] [address] Jasson Mcnally MD E-prescribe Rx Request Social [...] How often do you attend chur or advent services? More than 4 times per year 01/08/2021 Do you belong to any clubs o r organizations such as sikh groups, unions, fraternal or athletic groups, or [...] have an upcoming appointment? No-unable to reach [facility] to call for appointment due to refill [...] / Plan[place] / Product Type: MEDICARE [id number] documented in this encounter Plan of Treatment Not on file documented as of this encounter Visit Diagnoses Not on filedocumented in this encounter Care Teams Centrifugal Machine Tender Relationship Specialty Start Date End Date Jasson Mcnally MD PCP - General 12/18/17 03/03/21 Glen Bañuelos DO [address] [place] [address] PCP - General Internal Medicine 03/04/21 01/07/22 [facility] [address] [place] [address] PCP - General Internal Medicine 01/08/22 08/26/22 Zuleima Rosas PA-C [address] [place] [address] PCP - General Internal Medicine 08/27/22 11/10/23 Corky Schaefer MD [address] [place] [address] PCP - General Family Practice 11/11/23 Jasson Mcnally MD Internal Medicine 12/18/17 08/26/22 Miko Donis MD [address] [place] [address] Specialist Cardiovascular Disease 01/08/21 Sobeida Velasco NP [address] [place] [address] Cardiology 02/19/21 09/23/23 Mandi Corrigan DNP [address] [place] [address] Specialist Nurse Practitioner Family 09/24/23 documented as of this encounter
--- OUTSIDE RECORDS SUMMARY | 2024-10-25 12:45 | XMS_ITS | Encounter Summary ---
Author Organization [facility] Address [address] [place] [address] Care Team Providers Care Project Control Manager Name Role Phone Jasson Mcnally MD Primary Care Provider Unavailable Jasson Mcnally MD Unavailable Miko Ríos MD Unavailable [phone] Sobeida Velasco NP Unavailable [phone] Glen Bañuelos DO Primary Care Provider Unavaila [facility] Pcp Primary Care Provider UnavailZuleima Nash PA-C Primary Care Provider Unavail able Mandi Corrigan DNP Unavailable [phone] Corky Schaefer MD Primary Care Provider Unav ailable Encounter Details Date Type Department Care Team Description 03/04/2019 Orders Only Medical Records [address] [place] [address] Taylor Jalloh MD [address] [place] [address] Social History Tobacco Use Types Packs/Day Years [...] How often do you attend chur or muslim services? More than 4 times per year [...] these findings with the referring physician at [facility] gastroenterology clinic. I would like to personally thank you for allowing us to take care of you. Please don't hesitate to call us for any questions or concerns. Regards, Silverio Jalloh MD Board Certified Gastroenterology and Internal Medicine Transplant Hepatology [facility] documented in this encounter Plan of Treatment Not on file documented as of this encounter Procedures Procedure Name Priority Date/Time Associated Diagnosis Comments OUTSIDE PATHOLOGY Routine 03/01/2019 documented in this encounter Results * OUTSIDE PATHOLOGY (03/01/2019) H Jeff Jalloh MD OUTSIDE LAB documented in this encounter Visit Diagnoses Not on filedocumented in this encounter Care Teams Project Control Manager Relationship Specialty Start Date End Date Jasson Mcnally MD PCP - General 12/18/17 03/03/21 Glen Bañuelos DO [address] [place] [address] PCP - General Internal Medicine 03/04/21 01/07/22 [facility] [address] [place] [address] PCP - General Internal Medicine 01/08/22 08/26/22 Zuleima Rosas PA-C [address] [place] [address] PCP - General Internal Medicine 08/27/22 11/10/23 Corky Schaefer MD [address] [place] [address] PCP - General Family Practice 11/11/23 Jasson Mcnally MD Internal Medicine 12/18/17 08/26/22 Miko Donis MD [address] [place] [address] Specialist Cardiovascular Disease 01/08/21 Sobeida Velasco, JULIA [address] [place] [address] Cardiology 02/19/21 09/23/23 Mandi Corrigan, JOÃO [address] [place] [address] Specialist Nurse Practitioner Family 09/24/23 documented as of this encounter
--- OUTSIDE RECORDS SUMMARY | 2024-10-25 12:45 | XMS_ITS | Encounter Summary ---
Author Organization [facility] Address [address] [place] [address] Care Team Providers Care Golf Course Manager Name Role Phone Ruthie Chandra MD Primary Care Provider Reason for Visit * Reason Onset Date Comments Appointment 09/08/2023 Encounter Details Date Type Department Care Team ([facility] st Contact Info) Description 09/08/2023 Telephone [facility] Interventional Radiology at [address] [address] Alvarado Bullock MD [address] [place] [phone] Appointment Social History Tobacco Use Types [...] documented as of this encounter Care Teams Golf Course Manager Relationship Specialty Start Date End Date Ruthie Chandra MD [address] [place] [address] PCP - General Internal Medicine 11/18/16 documented as of this encounter
--- OUTSIDE RECORDS SUMMARY | 2024-10-25 12:45 | XMS_ITS | Clinical Summary ---
Author Organization [facility] Address [address] [place] [address] Care Team Providers Care Enroute Controller Name Role Phone Corky Schaefer MD Primary [...] Facetectomy, foraminotomy OTHER SURGICAL HISTORY 12/2017 PROCEDURE: [place] HEMORRHOIDECTOMY INT & XTRNL 2/> COLUMN/KIRIT COLONOSCOPY 03/01/2019 PROCEDURE: HISTORICAL COLONOSCOPY; COMMENT: polyps ESOPHAGOGASTRODUODENOSCOPY 03/01/2019 PROCEDURE: [place] EGD TRANSORAL BIOPSY SINGLE/MULTIPLE; COMMENT: gastritis. 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); COMMENT: Follows at [facility] Eczema 02/10/2018 DX:Eczema GERD (gastroesophageal reflu [...] Comments CABG Brother Diabetes Brother at 59- [place] Bladder Cancer Father Hypertension Mother Hyperlipidemia Other: [...] Osteoporosis Screening (Bone Density Screening) 05/07/2023 05/06/2018 Depression Screening 02/24/2024 COVID-19 Vaccine ( season) 2024 07/16/2021, 12/27/2020, 06/11/2020, Additional history exists Influenza Vaccine (#1) 2024 Falls Risk Assessment [...] PM EST Colon polyps Colon cancer screening [facility] SCREENING DIGITAL Routine 10/08/2023 9:38 AM EDT Encounter for screening mammogram for malignant neoplasm of breast [facility] DEXA AXIAL SKELETON Routine 05/06/2018 3:39 PM EDT Asymptomatic menopausal state from Last 3 Months or Most Recently Relevant to Health Maintenance Results * COLONOSCOPY Anesthesia - MAC; [facility] ENDOSCOPY (02/10/2024 4:33 PM [...] for surveillance. Narrative 02/10/2024 4:36 PM EST [facility] GI Patient Name: Roslyn Mena Procedure [...] verified by the physician, the nurse, the sludge filtration operator and the assembly technician in the pre-procedure area in the [...] reduce spontaneously). Procedure Code(s): --- Professional --- 09831, Colonoscopy, flexible; with biopsy, single or multiple Diagnosis Code(s): --- Professional --- D12.5, Benign neoplasm of sigmoid colon D12.3, Benign neoplasm of transverse colon (hepatic flexure or splenic flexure) CPT copyright 2020 [employer]. All rights reserved. The codes documented in this report are preliminary and upon air tool operator review may be revised to meet current compliance requirements. Kiko Jalloh MD 02/10/2024 4:35:56 PM This report has been signed electronically.Kiko Jalloh MD Number of Addenda: 0 Note Initiated On: 02/10/2024 4:08 PM Scope Withdrawal Time: 0 hours 8 minutes 6 seconds Scope In: 4:20:13 PM Scope Out: 4:33:23 PM Endoscopy Department at [facility] - [address] [place] [phone] Procedure Note Kiko Jalloh MD - 02/10/2024 [facility] GI Patient Name: Roslyn Mena Procedure [...] the physician, the nurse, theanesthetist and the assembly technician in the pre-procedure area in the [...] reduce spontaneously). Procedure Code(s): --- Professional --- 06223, Colonoscopy, flexible; with biopsy, singleor multiple Diagnosis Code(s): --- Professional --- D12.5, Benign neoplasm of sigmoid colon D12.3, Benign neoplasm of transverse colon (hepatic flexure or splenic flexure) CPT copyright 2020 [employer]. All rights reserved. The codes documented in this report are preliminary and upon air tool operator reviewmay be revised to meet current compliance requirements. Kiko Jalloh MD 02/10/2024 4:35:56 PM This report has been signed electronically.Kiko Jalloh MD Number of Addenda: 0 Note Initiated On: 02/10/2024 4:08 PM Scope Withdrawal Time: 0 hours 8 minutes 6 seconds Scope In: 4:20:13 PM Scope Out: 4:33:23 PM Endoscopy Department at [facility] - [address] [place] [phone] IMPRESSION: - Three 1 to 3 mm [...] AM EDT Narrative 10/08/2023 9:38 AM EDT [facility] Diagnostic Imaging Department [address] [place] [address] Patient: ROSLYN MENA /Age/Sex: 1950 - 73 - F Unit#: [id number] Location/Status: SPDIMAM/REG CLI Mnemonic[facility] Order[facility] Physician: DANIELLE DE DIOS [facility] Screening Digital - 10/08/23 - 43 Report Status:Signed EXAM: [facility] Screening Digital EXAM DATE AND TIME: 10/08/2023 7:43 AM HISTORY: Screening. COMPARISON: 10/02/22, 09/30/21, 09/26/20 TECHNIQUE: Bilateral digital breast tomosynthesis was performed in the CC and MLO projections. Computer aided detection with [employer] 3D 3.1 was employed. TISSUE DENSITY: c. [...] Procedure Note Bailey Landaverde MD - 12/09/2023 [facility] Diagnostic Imaging Department [address] [place] [address] Patient: ROSLYN MENA /Age/Sex: 1950 - 73 - F Unit#: [id number] Location/Status: [facility] CLI Mnemonic/Ordering Site: [facility] Ordering Physician: DANIELLE DE DIOS [facility] Screening Digital - 10/08/23 - 0743 Report Status:Signed EXAM: [facility] Screening Digital EXAM DATE AND TIME: 10/08/2023 7:43 AM HISTORY: Screening. COMPARISON: 10/02/22, 09/30/21, 09/26/20 TECHNIQUE: Bilateral digital breast tomosynthesis was performed in the CCand MLO projections. Computer aided detection with [employer] 3D 3.1was employed. TISSUE DENSITY: c. The [...] GARCIA IMG BI PROCEDURES Final Result * [facility] DEXA AXIAL SKELETON (05/06/2018 3:39 PM EDT) Anatomical Region Laterality Modality Mammography 05/06/2018 2:03 PM EDT Narrative 05/06/2018 3:39 PM EDT [facility] Diagnostic Imaging Department [address] [place] [address] Patient: ROSLYN MENA /Age/Sex: 1950 - 67 - F Unit#: [id number] Location/Status: SPDIMAM/REG CLI Mnemonic/Ordering Site: [facility] Ordering [...] probability of hip fracture of 0.7%. Code 99887 Dictating Physician: LINDA MONTES MD Electronically Signed by: LINDA MONTES MD Dic Date/Time: 05/06/181536 Sign date/Time: 05/06/181538 Procedure Note Linda Montes MD - 02/12/2022 [facility] Diagnostic Imaging Department [address] [place] [address] Patient: MIRAUGUSTINE BULLOCKROSLYNMARSHAL Daniel D.O.B./Age/Sex: 1950 67 - F Unit#: [id number] Location/Status: [facility] Mnemonic[facility]ing [facility] Ordering Physician: BEVERLEY GORDON MD [facility] Dexa Axial Skeleton - 05/06/181533 [...] density of the femurs bilaterally is 1.101 gm/bb3niqld is 109% of that of young normals [...] probability of hip fracture of 0.7%. Code 95714 Dictating Physician: LINDA MONTES MD Electronically Signed by: LINDA MONTES MD Dic Date/Time: 05/06/18 1537 Sign date/Time: 05/06/18 153 Beverley Gordon MD IM BI PROCEDURES Final Result from Last 3 Months or Most Recently Relevant to Health Maintenance Insurance MEDICARE [facility] Care Teams Enroute Controller Relationship Specialty Start Date End Date Corky Schaefer MD [address] [place] [address] Dr Colleen [place] PCP - General 11/11/23
--- OUTSIDE RECORDS SUMMARY | 2024-10-25 12:45 | XMS_ITS | Encounter Summary ---
Author Organization [facility] Address [address] [place] [address] Care Team Providers Care Fast Food Supervisor Name Role Phone Jasson Mcnally MD Primary Care Provider Unavailable Jasson Mcnally MD Unavailable Unajailenei Miko Plata MD Unavailable [phone] Sobeida Velasco NP Unavailable [phone] Glen Bañuelos DO Primary Care Provider Unavaila [facility] Pcp Primary Care Provider UnavailZuleima Nash PA-C Primary Care Provider Unavail able Mandi Corrigan DNP Unavailable [phone] Corky Schaefer MD Primary Care Provider Unav ailable Encounter Details Date Type Department Care Team Description 01/28/2019 Shirt Hemmer Report Medical Records [address] [place] [address] Aissatou Gordon MD Social History Tobacco Use [...] How often do you attend chur or uatsdin services? More than 4 times per year 01/08/2021 Do you belong to any clubs o r organizations such as faith groups, unions, fraternal or athletic groups, or [...] on filedocumented in this encounter Care Teams Fast Food Supervisor Relationship Specialty Start Date End Date Jasson Mcnally MD PCP - General 12/18/17 03/03/21 Glen Bañuelos DO [address] [place] [address] PCP - General Internal Medicine 03/04/21 01/07/22 [facility] [address] [place] [address] PCP - General Internal Medicine 01/08/22 08/26/22 Zuleima Rosas PA-C [address] [place] [address] PCP - General Internal Medicine 08/27/22 11/10/23 Corky Schaefer MD [address] [place] [address] PCP - General Family Practice 11/11/23 Jasson Mcnally MD Internal Medicine 12/18/17 08/26/22 Miko Donis MD [address] [place] [address] Specialist Cardiovascular Disease 01/08/21 Sobeida Velasco, JULIA [address] [place] [address] Cardiology 02/19/21 09/23/23 Mandi Corrigan, JOÃO [address] [place] [address] Specialist Nurse Practitioner Family 09/24/23 documented as of this encounter
--- OUTSIDE RECORDS SUMMARY | 2024-10-25 12:45 | XMS_ITS | Encounter Summary ---
Author [facility] Address [address] [place] [address] Care Team Providers Care Freight Receiver Name Role Phone Jasson Mcnally MD Primary Care Provider Unavailable Jasson Mcnally MD Unavailable Miko Ríos MD Unavailable [phone] Sobeida Velasco NP Unavailable [phone] Glen Bañuelos DO Primary Care Provider Unavaila [facility] Pcp Primary Care Provider UnavailZuleima Nash PA-C Primary Care Provider Unavail able Mandi Corrigan DNP Unavailable [phone] Corky Schaefer MD Primary Care Provider Unav ailable Encounter Details Date Type Department Care Team Description 03/01/2019 Hospital Medical Records [address] [place] [address] Taylor Jalloh MD [address] [place] [address] Social History Tobacco Use Types Packs/Day Years [...] often do you attend chur ch or confucianism services? More than 4 times per year [...] place to sleep or slept in a prison (including now)? No 01/08/2021 Sex Assigned at Date Recorded Not on file Job Start Date Occupation Industry Not on file Not on file Not on file documented as of this encounter Plan of Treatment Not on file documented as of this encounter Visit Diagnoses Not on filedocumented in this encounter Care Teams Freight Receiver Relationship Specialty Start Date End Date Jasson Mcnally MD PCP - General 12/18/17 03/03/21 Glen Bañuelos DO [address] [place] [address] PCP - General Internal Medicine 03/04/21 01/07/22 [facility] [address] [place] [address] PCP - General Internal Medicine 01/08/22 08/26/22 Zuleima Rosas PA-C [address] [place] [address] PCP - General Internal Medicine 08/27/22 11/10/23 Corky Schaefer MD [address] [place] [address] PCP - General Family Practice 11/11/23 Jasson Mcnally MD Internal Medicine 12/18/17 08/26/22 Miko Donis MD [address] [place] [address] Specialist Cardiovascular Disease 01/08/21 Sobeida Velasco, JULIA [address] [place] [address] Cardiology 02/19/21 09/23/23 Mandi Corrigan, JOÃO [address] [place] [address] Specialist Nurse Practitioner Family 09/24/23 documented as of this encounter
--- OUTSIDE RECORDS SUMMARY | 2024-10-25 12:45 | XMS_ITS | Clinical Summary ---
Author Organization [facility] Address [address] [place] [address] Care Team Providers Care Middleware Consultant Name Role Phone Miko Donis MD Unavailable Mandi Corrigan DNP Unavailable [phone] Corky Schaefer MD Primary Care Provider [...] telangiectasia Overview: PFO, Pulmonary AVMs. Follows at [place], [place] ?coiling-metallic fragment in the CAT scan noted [...] Comments CABG Brother Diabetes Brother at 59- [place] Cancer of the Bladder Father Hypertension Mother [...] week 01/08/2021 How often do you attend [facility] or tenriism services? More than 4 times per year [...] VACCINE Completed 11/18/2019, 05/29/19 19 Care Teams Middleware Consultant Relationship Specialty Start Date End Date Corky Schaefer MD [address] [place] [address] PCP - General Family Practice 11/11/23 Miko Donis MD [address] [place] [address] Specialist Cardiovascular Disease 01/08/21 Mandi Corrigan DNP [address] [place] [address] Specialist Nurse Practitioner Family 09/24/23
--- OUTSIDE RECORDS SUMMARY | 2024-10-25 12:45 | XMS_ITS | Encounter Summary ---
Author Organization [facility] Address [address] [place] [address] Care Team Providers Care Personalized Living Manager Nurse Name Role Phone Ruthie Chandra MD Primary Care Provider Reason for Visit * Reason Onset Date Comments Results 10/06/2023 Encounter Details Date Type Department Care Team ([facility] st Contact Info) Description 10/06/2023 Telephone [facility] Interventional Radiology at [address] [address] Alvarado Bullock MD [address] [place] [phone] Results Social History Tobacco Use Types [...] documented as of this encounter Care Teams Personalized Living Manager Nurse Relationship Specialty Start Date End Date Ruthie Chandra MD [address] [place] [phone] PCP - General Internal Medicine 11/18/16 documented as of this encounter
--- OUTSIDE RECORDS SUMMARY | 2024-10-25 12:45 | XMS_ITS | Encounter Summary ---
Author Organization [facility] Address [address] [place] [address] Care Team Providers Care Edi Programmer Name Role Phone Jasson Mcnally MD Unavailable UnavaMiko Madrid MD Unavailable [phone] [facility] DIRECT[facility] Unavailable [phone] [facility], Pcp Primary Care Provider UnavailZuleima Nash PA-C Primary Care Provider Unavail able Mandi Corrigan DNP Unavailable [phone] Corky Schaefer MD Primary Care Provider Unav ailable Encounter Details Date Type Department Care Team Description 06/27/2022 Hospital Medical Records [address] [place] [id number] [place] [address] [place] Social History Tobacco Use Types Packs/Day [...] often do you attend chur ch or lutheran services? More than 4 times per year 01/08/2021 Do you belong to any clubs o r organizations such as voodoo groups, unions, fraternal or athletic groups, or [...] on filedocumented in this encounter Care Teams Edi Programmer Relationship Specialty Start Date End Date Community, Pcp [address] [place] [address] PCP - General Internal Medicine 01/08/22 08/26/22 Zuleima Rosas PA-C [address] [place] [address] PCP - General Internal Medicine 08/27/22 11/10/23 Corky Schaefer MD [address] [place] [address] PCP - General Family Practice 11/11/23 Jasson Mcnally MD Internal Medicine 12/18/17 08/26/22 Miko Donis MD [address] [place] [address] Specialist Cardiovascular Disease 01/08/21 Sobeida Velasco NP [address] [place] [address] Cardiology 02/19/21 09/23/23 Mandi Corrigan DNP [address] [place] [address] Specialist Nurse Practitioner Family 09/24/23 documented as of this encounter
--- OUTSIDE RECORDS SUMMARY | 2024-10-25 12:45 | XMS_ITS | Encounter Summary ---
Author Organization [facility] Address [address] [place] [address] Care Team Providers Care Forensic Specialist Name Role Phone Jasson Mcnally MD Unavailable Unavai Miko Plata MD Unavailable Sobeida Velasco NP Unavailable [phone] [facility], Pcp Primary Care Provider Unavailabl Zuleima Rubio PA-C Primary Care Provider Unavail able Mandi Corrigan DNP Unavailable [phone] Corky Schaefer MD Primary Care Provider Unav ailable Encounter Details Date Type Department Care Team Description 06/12/2022 [facility] Medical Records [address] [place] [address] Zuleima Rosas PA-C Social History Tobacco Use [...] How often do you attend chur or jew services? More than 4 times per year 01/08/2021 Do you belong to any clubs o r organizations such as sabianist groups, unions, fraternal or athletic groups, or [...] place to sleep or slept in a fdc (including now)? No 01/08/2021 Sex Assigned at [...] on filedocumented in this encounter Care Teams Forensic Specialist Relationship Specialty Start Date End Date Community, Pcp [address] [place] [address] PCP - General Internal Medicine 01/08/22 08/26/22 Zuleima Rosas PA-C [address] [place] [address] PCP - General Internal Medicine 08/27/22 11/10/23 Corky Schaefer MD [address] [place] [address] PCP - General Family Practice 11/11/23 Jasson Mcnally MD Internal Medicine 12/18/17 08/26/22 Miko Donis MD [address] [place] [address] Specialist Cardiovascular Disease 01/08/21 Sobeida Velasco NP [address] [place] [address] Cardiology 02/19/21 09/23/23 Mandi Corrigan, JOÃO [address] [place] [address] Specialist Nurse Practitioner Family 09/24/23 documented as of this encounter
--- OUTSIDE RECORDS SUMMARY | 2024-10-25 12:45 | XMS_ITS | Encounter Summary ---
Author Organization [facility] Address [address] [place] [address] Care Team Providers Care Health Researcher Name Role Phone Jasson Mcnally MD Unavailable UnavaMiko Madrid MD Unavailable [phone] Sobeida Velasco NP Unavailable [phone] Glen Bañuelos DO Primary Care Provider Unavaila [facility] Primary Care Provider UnavailZuelima Nash PA-C Primary Care Provider Unavail able Mandi Corrigan DNP Unavailable [phone] Corky Schaefer MD Primary Care Provider Unav ailable Reason for Visit * Reason Comments E-prescribe Rx Request Encounter Details Date Type Department Care Team Description 01/02/2022 Refill Adult Medicine [address] [address] Glen Bañuelos DO E-prescribe Rx Request Social [...] How often do you attend chur or rastafarian services? More than 4 times per year [...] type documented in this encounter Care Teams Health Researcher Relationship Specialty Start Date End Date Glen Bañuelos DO [address] [place] [address] PCP - General Internal Medicine 03/04/21 01/07/22 [facility], Pcp [address] [place] [address] PCP - General Internal Medicine 01/08/22 08/26/22 Zuleima Rosas PA-C [address] [place] [address] PCP - General Internal Medicine 08/27/22 11/10/23 Corky Schaefer MD [address] [place] [address] PCP - General Family Practice 11/11/23 Jasson Mcnally MD Internal Medicine 12/18/17 08/26/22 Miko Donis MD [address] [place] [address] Specialist Cardiovascular Disease 01/08/21 Sobeida Velasco NP [address] [place] [address] Cardiology 02/19/21 09/23/23 Mandi Corrigan DNP [address] [place] [address] Specialist Nurse Practitioner Family 09/24/23 documented as of this encounter
--- OUTSIDE RECORDS SUMMARY | 2024-10-25 12:45 | XMS_ITS | Encounter Summary ---
Author Organization [facility] Address [address] [place] [address] Care Team Providers Care Curriculum Designer Name Role Phone Jasson Mcnally MD Primary Care Provider Unavailable Jasson Mcnally MD Primary Care Provider Unavailable Jasson Mcnally MD Unavailable Unavai Miko Plata MD Unavailable [phone] Sobeida Velasco NP Unavailable [phone] Glen Bañuelos DO Primary Care Provider Unavaila [facility] Primary Care Provider UnavailZuleima Nash PA-C Primary Care Provider Unavail able Mandi Corrigan DNP Unavailable [phone] Corky Schaefer MD Primary Care Provider Unav ailable Encounter Details Date Type Department Care Team Description 11/24/2017 Orders Only Adult Medicine - [address] [address] Jasson Mcnally MD Preoperative examination; Screening for [...] How often do you attend chur or yazdanism services? More than 4 times per year 01/08/2021 Do you belong to any clubs o r organizations such as nondenominational groups, unions, [employer]NewGalexy [employer] or athletic groups, or school groups? Yes [...] COMPREHENSIVE METABOLIC PANEL (12/22/2017 11:42 AM EDT) [facility] GLUCOSE 106(H) 70 - 100 mg/dL 12/22/2017 4:24 PM [facility] Comment: Reference range applicable to fasting specimens only Based on recommendations from the ADA and AACE, the fasting glucose reference range has been changed to 70-100 mg/dL. This change is effective July 09, 2009 BUN 21 5 - 25 mg/dL 12/22/2017 4:24 PM [facility] CREAT 1.0 0.7 - 1.5 mg/dL 12/22/2017 4:24 PM [facility] BUN/CREAT RATIO 21.0(H) 6.0 - 20.0 12/22/2017 4:24 PM EDT [facility] GFR 59(L) >60 12/22/2017 4:24 PM EDT [facility] Comment: If patient is -Swiss, multiply result by 1.21 Chronic Kidney Disease: < 60 ml/min/1.73 square meters Kidney Failure: < 15 ml/min/1.73 square meters Sodium 142 133 - 145 mEq/L 12/22/2017 4:24 PM EDT [facility] Potassium 4.6 3.5 - 5.5 mEq/L 12/22/2017 4:24 PM EDT [facility] Chloride 103 96 - 108 mEq/L 12/22/2017 4:24 PM EDT [facility] CO2 23.9 21.0 - 32.0 mEq/L 12/22/2017 4:24 PM EDT [facility] CALCIUM 9.9 8.5 - 10.5 mg/dL 12/22/2017 4:24 PM EDT [facility] TOTAL PROTEIN 7.4 6.0 - 8.3 gm/dL 12/22/2017 4:24 PM EDT [facility] Albumin 4.6 3.2 - 5.6 gm/dL 12/22/2017 4:24 PM EDT [facility] GLOBULIN 2.8 1.9 - 4.4 gm/dL 12/22/2017 4:24 PM EDT [facility] A/G RATIO 1.6 1.1 - 2.3 12/22/2017 4:24 PM EDT [facility] BILI,TOTAL 0.4 0.0 - 1.2 mg/dL 12/22/2017 4:24 PM EDT [facility] AST (SGOT) 19 10 - 42 U/L 12/22/2017 4:24 PM EDT [facility] ALT( SGPT) 15 10 - 60 U/L 12/22/2017 4:24 PM EDT [facility] ALK PHOS 51 42 - 121 U/L 12/22/2017 4:24 PM EDT [facility] 12/22/2017 11:4 2 AM EDT 12/22/2017 11:42 AM EDT Jass[facility] Mcnally [facility] [address] [facility] * (ABNORMAL) CBC (AUTO DIFF PLATELET) [...] 11:42 AM EDT Jasson Mcnally MD LAB [facility] documented in this encounter Visit Diagnoses Diagnosis Preoperative examination Preoperative examination, unspecified Screening for deficiency anemia Screening for other and unspecified deficiency anemia documented in this encounter Care Teams Curriculum Designer Relationship Specialty Start Date End Date Jasson Mcnally MD PCP - General Internal Medicine 10/06/17 12/17/17 Jasson Mcnally MD PCP - General 12/18/17 03/03/21 Glen Bañuelos DO [address] [place] [address] PCP - General Internal Medicine 03/04/21 01/07/22 [facility] [address] [place] [address] PCP - General Internal Medicine 01/08/22 08/26/22 Zuleima Rosas PA-C [address] [place] [address] PCP - General Internal Medicine 08/27/22 11/10/23 Corky Schaefer MD [address] [place] [address] PCP - General Family Practice 11/11/23 Jasson Mcnally MD Internal Medicine 12/18/17 08/26/22 Miko Donis MD [address] [place] [address] Specialist Cardiovascular Disease 01/08/21 Sobeida Velasco, JULIA [address] [place] [address] Cardiology 02/19/21 09/23/23 Mandi Corrigan DNP [address] [place] [address] Specialist Nurse Practitioner Family 09/24/23 documented as of this encounter
--- OUTSIDE RECORDS SUMMARY | 2024-10-25 12:45 | XMS_ITS | Encounter Summary ---
Author Organization [facility] Address [address] [place] [address] Care Team Providers Care Occupational Health Coordinator Name Role Phone Jasson Mcnally MD Primary Care Provider Unavailable Jasson Mcnally MD Primary Care Provider Unavailable Jasson Mcnally MD Unavailable Unavai Miko Plata MD Unavailable [phone] Sobeida Velasco NP Unavailable [phone] Glen Bañuelos DO Primary Care Provider Unavaila [facility] Primary Care Provider UnavailZuleima Nash PA-C Primary Care Provider Unavail able Mandi Corrigan DNP Unavailable [phone] Corky Schaefer MD Primary Care Provider Unav ailable Encounter Details Date Type Department Care Team Description 11/24/2017 Release of Information Medical Records [address] [place] [id number] Abstract, Provider Social History Tobacco Use Types [...] How often do you attend chur or yarsani services? More than 4 times per year [...] place to sleep or slept in a skilled nursing (including now)? No 01/08/2021 Sex Assigned at Date Recorded Not on file Job Start Date Occupation Industry Not on file Not on file Not on file documented as of this encounter Plan of Treatment Not on file documented as of this encounter Visit Diagnoses Not on filedocumented in this encounter Care Teams Occupational Health Coordinator Relationship Specialty Start Date End Date Jasson Mcnally MD PCP - General Internal Medicine 10/06/17 12/17/17 Jasson Mcnally MD PCP - General 12/18/17 03/03/21 Glen Bañuelos, [address] [place] [address] PCP - General Internal Medicine 03/04/21 01/07/22 [facility], Pcp [address] [place] [address] PCP - General Internal Medicine 01/08/22 08/26/22 Zuleima Rosas PA-C [address] [place] [address] PCP - General Internal Medicine 08/27/22 11/10/23 Corky Schaefer MD [address] [place] [address] PCP - General Family Practice 11/11/23 Jasson Mncally MD Internal Medicine 12/18/17 08/26/22 Miko Donis MD [address] [place] [address] Specialist Cardiovascular Disease 01/08/21 Sobeida Velasco NP [address] [place] [address] Cardiology 02/19/21 09/23/23 Mandi Corrigan DNP [address] [place] [address] Specialist Nurse Practitioner Family 09/24/23 documented as of this encounter
--- OUTSIDE RECORDS SUMMARY | 2024-10-25 12:45 | XMS_ITS | Clinical Summary ---
Author Organization [facility] Address [address] [place] [address] Care Team Providers Care Mottler Machine Feeder Name Role Phone Unknown, Primary Care Provider [...] age to complete this topic Care Teams Mottler Machine Feeder Relationship Specialty Start Date End Date Unknown, PCP - General 01/30/22
--- OUTSIDE RECORDS SUMMARY | 2024-10-25 12:45 | XMS_ITS | Encounter Summary ---
Author Organization [facility] Address [address] [place] [address] Care Team Providers Care Rf Manager Name Role Phone Miko Donis MD Unavailable [phone] Sobeida Velasco NP Unavailable [phone] Zuleima Rosas PA-C Primary Care Provider Unavail able Mandi Corrigan DNP Unavailable [phone] Corky Schaefer MD Primary Care Provider Unav ailable Reason for Visit * Reason Onset Date Comments Faxed Refill 01/12/2023 Encounter Details Date Type Department Care Team Description 01/12/2023 Refill Gastroenterology [address] [place] [address] Nancy Whitt MD Faxed Refill [...] on filedocumented in this encounter Care Teams Rf Manager Relationship Specialty Start Date End Date Zuleima Rosas PA-C [address] [place] [address] PCP - General Internal Medicine 08/27/22 11/10/23 Corky Schaefer MD [address] [place] [address] PCP - General Family Practice 11/11/23 Miko Donis MD [address] [place] [address] Specialist Cardiovascular Disease 01/08/21 Sobeida Velasco NP [address] [place] [address] Cardiology 02/19/21 09/23/23 Mandi Corrigan, JOÃO [address] [place] [address] Specialist Nurse Practitioner Family 09/24/23 documented as of this encounter
--- OUTSIDE RECORDS SUMMARY | 2024-10-25 12:45 | XMS_ITS | Encounter Summary ---
Author Organization [facility] Address [address] [place] [address] Care Team Providers Care Craft Superintendent Name Role Phone Jasson Mcnally MD Primary Care Provider Unavailable Jasson Mcnally MD Unavailable Unajailenei Miko Plata MD Unavailable [phone] Sobeida Velasco NP Unavailable [phone] Glen Bañuelos DO Primary Care Provider Unavaila [facility] Pcp Primary Care Provider UnavailZuleima Nash PA-C Primary Care Provider Unavail able Mandi Corrigan DNP Unavailable [phone] Corky Schaefer MD Primary Care Provider Unav ailable Encounter Details Date Type Department Care Team Description 06/28/2020 Roving Technician Report Medical Records [address] [place] [address] Kiel Trotter Social History Tobacco Use Types [...] on filedocumented in this encounter Care Teams Craft Superintendent Relationship Specialty Start Date End Date Jasson Mcnally MD PCP - General 12/18/17 03/03/21 Glen Bañuelos DO [address] [place] [address] PCP - General Internal Medicine 03/04/21 01/07/22 [facility], Pcp [address] [place] [address] PCP - General Internal Medicine 01/08/22 08/26/22 Zuleima Rosas PA-C [address] [place] [address] PCP - General Internal Medicine 08/27/22 11/10/23 Corky Schaefer MD [address] [place] [address] PCP - General Family Practice 11/11/23 Jasson Mcnally MD Internal Medicine 12/18/17 08/26/22 Miko Donis MD [address] [place] [address] Specialist Cardiovascular Disease 01/08/21 Sobeida Velasco NP [address] [place] [address] Cardiology 02/19/21 09/23/23 Mandi Corrigan DNP [address] [place] [address] Specialist Nurse Practitioner Family 09/24/23 documented as of this encounter
== END 2024-10-25 11:12 | disposition home or self-care (01) ==
LOC: HO.LNP 11:11
PROVIDERS: Visit Provider Physician Assistant
DX: K21.9 Gastro-esophageal reflux disease without esophagitis (principal)
CPT/HCPCS: 87338

== ENCOUNTER 2024-12-21 08:42 | Outpatient (REF) | payer MEDICARE, OTHER, SELFPAY ==
--- OUTSIDE RECORDS SUMMARY | 2024-12-21 10:44 | XMS_ITS | Encounter Summary ---
Author Organization [facility] Address [address] [place] [address] Care Team Providers Care Medical Technologist Blood Bank Name Role Phone Jasson Mcnally MD Primary Care Provider Unavailable Jasson Mcnally MD Unavailable Howardi Miko Plata MD Unavailable [phone] Sobeida Velasco NP Unavailable [phone] Glen Bañuelos DO Primary Care Provider Unavaila [facility] Pcp Primary Care Provider UnavailZuleima Nash PARadha Primary Care Provider Unavail able Mandi Corrigan DNP Unavailable [phone] Corky Schaefer MD Primary Care Provider Unav ailable Encounter Details Date Type Department Care Team Description 02/26/2018 Orders Only Adult Medicine - [address] [address] Jasson Mcnally MD Social History Tobacco Use [...] on filedocumented in this encounter Care Teams Medical Technologist Blood Bank Relationship Specialty Start Date End Date Jasson Mcnally MD PCP - General 12/18/17 03/03/21 Glen Bañuelos DO [address] [place] [address] PCP - General Internal Medicine 03/04/21 01/07/22 [facility], Pcp [address] [place] [address] PCP - General Internal Medicine 01/08/22 08/26/22 Zuleima Rosas PA-C [address] [place] [address] PCP - General Internal Medicine 08/27/22 11/10/23 Corky Schaefer MD [address] [place] [address] PCP - General Family Practice 11/11/23 Jasson Mcnally MD Internal Medicine 12/18/17 08/26/22 Miko Donis MD [address] [place] [address] Specialist Cardiovascular Disease 01/08/21 Sobeida Velasco, JULIA [address] [place] [address] Cardiology 02/19/21 09/23/23 Mandi Corrigan, JOÃO [address] [place] [address] Specialist Nurse Practitioner Family 09/24/23 documented as of this encounter
--- OUTSIDE RECORDS SUMMARY | 2024-12-21 10:45 | XMS_ITS | Encounter Summary ---
Author Organization [facility] Address [address] [place] [address] Care Team Providers Care Rn Case Mgr Name Role Phone Jasson Mcnally MD Primary Care Provider Unavailable Jasson Mcnally MD Unavailable Unajailenei Miko Plata MD Unavailable [phone] Sobeida Velasco NP Unavailable [phone] Glen Bañuelos DO Primary Care Provider Unavaila [facility] Pcp Primary Care Provider UnavailZuleima Nash PARadha Primary Care Provider Unavail able Mandi Corrigan DNP Unavailable [phone] Corky Schaefer MD Primary Care Provider Unav ailable Encounter Details Date Type Department Care Team Description 03/01/2019 Hospital Medical Records [address] [place] [address] Taylor Jalloh MD [address] [place] [address] Social History Tobacco Use Types Packs/Day Years [...] often do you attend chur ch or bahai services? More than 4 times per year [...] on filedocumented in this encounter Care Teams Rn Case Mgr Relationship Specialty Start Date End Date Jasson Mcnally MD PCP - General 12/18/17 03/03/21 Glen Bañuelos DO [address] [place] [address] PCP - General Internal Medicine 03/04/21 01/07/22 [facility] [address] [place] [address] PCP - General Internal Medicine 01/08/22 08/26/22 Zuleima Rosas PA-C [address] [place] [address] PCP - General Internal Medicine 08/27/22 11/10/23 Corky Schaefer MD [address] [place] [address] PCP - General Family Practice 11/11/23 Jasson Mcnally MD Internal Medicine 12/18/17 08/26/22 Miko Donis MD [address] [place] [address] Specialist Cardiovascular Disease 01/08/21 Sobeida Velasco, JULIA [address] [place] [address] Cardiology 02/19/21 09/23/23 Mandi Corrigan, JOÃO [address] [place] [address] Specialist Nurse Practitioner Family 09/24/23 documented as of this encounter
--- OUTSIDE RECORDS SUMMARY | 2024-12-21 10:45 | XMS_ITS | Encounter Summary ---
Author Organization [facility] Address [address] [place] [address] Care Team Providers Care Bisque Cleaner Name Role Phone Jasson Mcnally MD Unavailable UnavaMiko Madrid MD Unavailable [phone] Sobeida Velasco NP Unavailable [phone] Glen Bañuelos DO Primary Care Provider Unavaila [facility] Primary Care Provider UnavailZuleima Nash PA-C Primary Care Provider Unavail able Mandi Corrigan DNP Unavailable [phone] Corky Schaefer MD Primary Care Provider Unav ailable Reason for Visit * Reason Comments E-prescribe Rx Request Encounter Details Date Type Department Care Team Description 01/02/2022 Refill Adult Medicine [address] [address] Glen Bañuelos DO E-prescribe Rx Request Social [...] How often do you attend chur or jain services? More than 4 times per year [...] type documented in this encounter Care Teams Bisque Cleaner Relationship Specialty Start Date End Date Glen Bañuelos DO [address] [place] [address] PCP - General Internal Medicine 03/04/21 01/07/22 On License Of [facility], Pcp [address] [place] [address] PCP - General Internal Medicine 01/08/22 08/26/22 Zuleima Rosas PA-C [address] [place] [address] PCP - General Internal Medicine 08/27/22 11/10/23 Corky Schaefer MD [address] [place] [address] PCP - General Family Practice 11/11/23 Jasson Mcnally MD Internal Medicine 12/18/17 08/26/22 Miko Donis MD [address] [place] [address] Specialist Cardiovascular Disease 01/08/21 Sobeida Velasco NP [address] [place] [address] Cardiology 02/19/21 09/23/23 Mandi Corrigan DNP [address] [place] [address] Specialist Nurse Practitioner Family 09/24/23 documented as of this encounter
--- OUTSIDE RECORDS SUMMARY | 2024-12-21 10:45 | XMS_ITS | Encounter Summary ---
Author Organization [facility] Address [address] [place] [address] Care Team Providers Care Hydro Operator Name Role Phone Jasson Mcnally MD Unavailable Unavai Miko Plata MD Unavailable [phone] Sobeida Velasco REVERBERATORY FURNACE OPERATOR Unavailable [phone] [facility], Pcp Primary Care Provider UnavailZuleima Nash PA-C Primary Care Provider Unavail able Mandi Corrigan DNP Unavailable [phone] Corky Schaefer MD Primary Care Provider Unav ailable Encounter Details Date Type Department Care Team Description 02/20/2022 Hospital Medical Records [address] [place] [id number] [place] [address] Social History Tobacco Use Types Packs/Day Years [...] often do you attend chur ch or scientologist services? More than 4 times per year 01/08/2021 Do you belong to any clubs o r organizations such as orthodox groups, unions, fraternal or athletic groups, or [...] on filedocumented in this encounter Care Teams Hydro Operator Relationship Specialty Start Date End Date Community, Pcp [address] [place] [address] PCP - General Internal Medicine 01/08/22 08/26/22 Zuleima Rosas PA-C [address] [place] [address] PCP - General Internal Medicine 08/27/22 11/10/23 Corky Schaefer MD [address] [place] [address] PCP - General Family Practice 11/11/23 Jasson Mcnally MD Internal Medicine 12/18/17 08/26/22 Miko Donis MD [address] [place] [address] Specialist Cardiovascular Disease 01/08/21 Sobeida Velasco NP [address] [place] [address] Cardiology 02/19/21 09/23/23 Mandi Corrigan, [facility] [address] [place] [address] Specialist Nurse Practitioner Family 09/24/23 documented as of this encounter
--- OUTSIDE RECORDS SUMMARY | 2024-12-21 10:45 | XMS_ITS | Encounter Summary ---
Author Organization [facility] Address [address] [place] [address] Care Team Providers Care Gantry Rigger Name Role Phone Jasson Mcnally MD Unavailable Unavai Miko Plata MD Unavailable Sobeida Velacso COSMETICS SUPERVISOR Unavailable [phone] [facility], Pcp Primary Care Provider Unavailabl e Zuleima Rosas PA-C Primary Care Provider Unavail able Mandi Corrigan DNP Unavailable [phone] Corky Schaefer MD Primary Care Provider Unav ailable Encounter Details Date Type Department Care Team Description 06/12/2022 [facility] Medical Records [address] [place] [address] Zuleima Rosas PA-C Social History Tobacco Use [...] How often do you attend chur or restorationist services? More than 4 times per year [...] on filedocumented in this encounter Care Teams Gantry Rigger Relationship Specialty Start Date End Date Community, Pcp [address] [place] [address] PCP - General Internal Medicine 01/08/22 08/26/22 Zuleima Rosas PA-C [address] [place] [address] PCP - General Internal Medicine 08/27/22 11/10/23 Corky Schaefer MD [address] [place] [address] PCP - General Family Practice 11/11/23 Jasson Mcnally MD Internal Medicine 12/18/17 08/26/22 Miko Donis MD [address] [place] [address] Specialist Cardiovascular Disease 01/08/21 Sobeida Velasco NP [address] [place] [address] Cardiology 02/19/21 09/23/23 Mandi Corrigan, [facility] [address] [place] [address] Specialist Nurse Practitioner Family 09/24/23 documented as of this encounter
--- OUTSIDE RECORDS SUMMARY | 2024-12-21 10:45 | XMS_ITS | Encounter Summary ---
Author Organization [facility] Address [address] [place] [address] Care Team Providers Care Instrument Maker Apprentice Name Role Phone Jasson Mcnally MD Unavailable UnaMiko Baltazar MD Unavailable [phone] Sobeida Velasco NP Unavailable [phone] Glen Bañuelos DO Primary Care Provider Unavaila [facility] Primary Care Provider UnavailZuleima Nash PA-C Primary Care Provider Unavail able Mandi Corrigan DNP Unavailable [phone] Corky Schaefer MD Primary Care Provider Unav ailable Reason for Visit * Reason Onset Date Comments Release Of Information 12/23/2021 Encounter Details Date Type Department Care Team Description 12/23/2021 Telephone Adult [address] [address] Glen Bañuelos DO Release Of Information Social History Tobacco Use Types Packs/Day Years [...] encounter Miscellaneous Notes * Telephone Encounter - Mariel Rodriguez - 12/23/2021 10:16 AM EDT PT came in an signed a release of information for [facility] primary care. Faxed to [employer] and placed in claudia box, documented in this encounter Plan of Treatment Not on file documented as of this encounter Visit Diagnoses Not on filedocumented in this encounter Care Teams Instrument Maker Apprentice Relationship Specialty Start Date End Date Glen Bañuelos DO [address] [place] [address] PCP - General Internal Medicine 03/04/21 01/07/22 [facility], Pcp [address] [place] [address] PCP - General Internal Medicine 01/08/22 08/26/22 Zuleima Rosas PA-C [address] [place] [address] PCP - General Internal Medicine 08/27/22 11/10/23 Corky Schaefer MD [address] [place] [address] PCP - General Family Practice 11/11/23 Jasson Mcnally MD Internal Medicine 12/18/17 08/26/22 Miko Donis MD [address] [place], [place] [address] Specialist Cardiovascular Disease 01/08/21 Sobeida Velasco NP [address] [place], [place] [address] Cardiology 02/19/21 09/23/23 Mandi Corrigan DNP [address] [place] [address] Specialist Nurse Practitioner Family 09/24/23 documented as of this encounter
--- OUTSIDE RECORDS SUMMARY | 2024-12-21 10:45 | XMS_ITS | Clinical Summary ---
Author Organization [facility] Address [address] [place] [address] Care Team Providers Care Crab Picker Name Role Phone Miko Donis MD Unavailable [phone] Mandi Corrigan DNP Unavailable [phone] Corky Schaefer MD Primary Care Provider Unav [...] telangiectasia Overview: PFO, Pulmonary AVMs. Follows at [place], [place] ?coiling-metallic fragment in the CAT scan noted [...] Comments CABG Brother Diabetes Brother at 59- [place] Cancer of the Bladder Father Hypertension Mother [...] week 01/08/2021 How often do you attend [facility] or lutheran services? More than 4 times [...] DENSITY SCREENING 05/07/2023 9, 06/02/2013 (External Completion) BMI CHECK/ADVISE 02/24/2024 05/16/2019 (Com pleted), 05/16/2019, 05/28/2018, Additional history exists Covid-19 Vaccine ( season) 2024 07/16/2021, 12/27/2020, 06/11/2020, Additional history exists INFLUENZA (#1) 2024 11/18/2019 [...] VACCINE Completed 11/18/2019, 05/29/19 19 Care Teams Crab Picker Relationship Specialty Start Date End Date Corky Schaefer MD [address] [place] [address] PCP - General Family Practice 11/11/23 Miko Donis MD [address] [place] [address] Specialist Cardiovascular Disease 01/08/21 Mandi Corrigan DNP [address] [place] [address] [id number] Specialist Nurse Practitioner Family 09/24/23
--- OUTSIDE RECORDS SUMMARY | 2024-12-21 10:45 | XMS_ITS | Encounter Summary ---
Author Organization [facility] Address [address] [place] [address] Care Team Providers Care Air Brake Operator Name Role Phone Jasson Mcnally MD Primary Care Provider Unavailable Jasson Mcnally MD Unavailable Unavai Miko Plata MD Unavailable [phone] Sobeida Velasco NP Unavailable [phone] Glen Bañuelos DO Primary Care Provider Unavaila [facility] Pcp Primary Care Provider UnavailZuleima Nash PADouglasC Primary Care Provider Unavail able Mandi Corrigan DNP Unavailable [phone] Corky Schaefer MD Primary Care Provider Unav ailable Encounter Details Date Type Department Care Team Description 06/28/2020 Reconciling Clerk Report Medical Records [address] [place] [address] Kiel Trotter Social History Tobacco Use Types [...] How often do you attend chur or anabaptist services? More than 4 times per year 01/08/2021 Do you belong to any clubs o r organizations such as presybeterian groups, unions, fraternal or athletic groups, or [...] on filedocumented in this encounter Care Teams Air Brake Operator Relationship Specialty Start Date End Date Jasson Mcnally MD PCP - General 12/18/17 03/03/21 Glen Bañuelos, [address] [place] [address] PCP - General Internal Medicine 03/04/21 01/07/22 [facility], Pcp [address] [place] [address] PCP - General Internal Medicine 01/08/22 08/26/22 Zuleima Rosas PA-C [address] [place] [address] PCP - General Internal Medicine 08/27/22 11/10/23 Corky Schaefer MD [address] [place] [address] PCP - General Family Practice 11/11/23 Jasson Mcnally MD Internal Medicine 12/18/17 08/26/22 Miko Donis MD [address] [place] [address] Specialist Cardiovascular Disease 01/08/21 Sobeida Velasco NP [address] [place] [address] Cardiology 02/19/21 09/23/23 Mandi Corrigan DNP [address] [place] [address] Specialist Nurse Practitioner Family 09/24/23 documented as of this encounter
--- OUTSIDE RECORDS SUMMARY | 2024-12-21 10:45 | XMS_ITS | Encounter Summary ---
Author Organization [facility] Address [address] [place] [address] Care Team Providers Care Geoscience Professor Name Role Phone Jasson Mcnally MD Primary Care Provider Unavailable Jasson Mcnally MD Unavailable Unavai Miko Plata MD Unavailable [phone] Sobeida Velasco NP Unavailable [phone] Glen Bañuelos DO Primary Care Provider Unavaila [facility] Primary Care Provider UnavailZuleima Nash PARadha Primary Care Provider Unavail able Mandi Corrigan DNP Unavailable [phone] Corky Schaefer MD Primary Care Provider Unav ailable Encounter Details Date Type Department Care Team Description 07/04/2019 Information Systems Consultant Report Medical Records [address] [place] [address] [address] [place] [address] Social History Tobacco Use Types Packs/Day Years [...] any clubs o r organizations such as anglican groups, unions, fraternal or athletic groups, or [...] place to sleep or slept in a long term (including now)? No 01/08/2021 Sex Assigned at Date Recorded Not on file Job Start Date Occupation Industry Not on file Not on file Not on file documented as of this encounter Plan of Treatment Not on file documented as of this encounter Visit Diagnoses Not on filedocumented in this encounter Care Teams Geoscience Professor Relationship Specialty Start Date End Date Jasson Mcnally MD PCP - General 12/18/17 03/03/21 Glen Bañuelos DO [address] [place] [address] PCP - General Internal Medicine 03/04/21 01/07/22 [facility] Pcp [address] [place] [address] PCP - General Internal Medicine 01/08/22 08/26/22 Zuleima Rosas PA-C [address] [place] [address] PCP - General Internal Medicine 08/27/22 11/10/23 Corky Schaefer MD [address] [place] [address]861 PCP - General Family Practice 11/11/23 Jasson Mcnally MD Internal Medicine 12/18/17 08/26/22 Miko Donis MD [address] [place] [address] Specialist Cardiovascular Disease 01/08/21 Sobeida Velasco NP [address] [place] [address] Cardiology 02/19/21 09/23/23 Mandi Corrigan DNP [address] [place] [address] Specialist Nurse Practitioner Family 09/24/23 documented as of this encounter
--- OUTSIDE RECORDS SUMMARY | 2024-12-21 10:45 | XMS_ITS | Encounter Summary ---
Author Organization [facility] Address [address] [place] [address] Care Team Providers Care Clinical Data Analyst Name Role Phone Miko Donis MD Unavailable [phone] Sobeida Velasco NP Unavailable [phone] Zuleima Rsoas PA-C Primary Care Provider Unavail able Mandi Corrigan DNP Unavailable [phone] Corky Schaefer MD Primary Care Provider Unav ailable Reason for Visit * Reason Onset Date Comments Faxed Refill 01/12/2023 Encounter Details Date Type Department Care Team Description 01/12/2023 Refill Gastroenterology [address] [place] [address] Nancy Whitt MD Faxed Refill [...] How often do you attend chur or methodist services? More than 4 times per year [...] on filedocumented in this encounter Care Teams Clinical Data Analyst Relationship Specialty Start Date End Date Zuleima Rosas PA-C [address] [place] [address] PCP - General Internal Medicine 08/27/22 11/10/23 Corky Schaefer MD [address] [place] [address] PCP - General Family Practice 11/11/23 Miko Donis MD [address] [place] [address] Specialist Cardiovascular Disease 01/08/21 Sobeida Velasco NP [address] [place] [address] Cardiology 02/19/21 09/23/23 Mandi Corrigan, [facility] [address] [place] [address] Specialist Nurse Practitioner Family 09/24/23 documented as of this encounter
--- OUTSIDE RECORDS SUMMARY | 2024-12-21 10:45 | XMS_ITS | Encounter Summary ---
Author Organization [facility] Address [address] [place] [address] Care Team Providers Care Electronic Warfare Technical Name Role Phone Jasson Mcnally MD Primary Care Provider Unavailable Jasson Mcnally MD Unavailable Unajailenei Miko Plata MD Unavailable [phone] Sobeida Velasco NP Unavailable [phone] Glen Bañuelos DO Primary Care Provider Unavaila [facility] Pcp Primary Care Provider UnavailZuleima Nash PADouglasC Primary Care Provider Unavail able Mandi Corrigan DNP Unavailable [phone] Corky Schaefer MD Primary Care Provider Unav ailable Encounter Details Date Type Department Care Team Description 01/28/2019 Hotel Front Desk Clerk Report Medical Records [address] [place] [address] Aissatou Gordon MD Social History Tobacco Use [...] How often do you attend chur or sabianism services? More than 4 times per year 01/08/2021 Do you belong to any clubs o r organizations such as scientology groups, unions, fraternal or athletic groups, or [...] on filedocumented in this encounter Care Teams Electronic Warfare Technical Relationship Specialty Start Date End Date Jasson Mcnally MD PCP - General 12/18/17 03/03/21 Glen Bañuelos DO [address] [place] [address] PCP - General Internal Medicine 03/04/21 01/07/22 [facility] [address] [place] [address] PCP - General Internal Medicine 01/08/22 08/26/22 Zuleima Rosas PA-C [address] [place] [address] PCP - General Internal Medicine 08/27/22 11/10/23 Corky Schaefer MD [address] [place] [address] PCP - General Family Practice 11/11/23 Jasson Mcnally MD Internal Medicine 12/18/17 08/26/22 Miko Donis MD [address] [place] [address] Specialist Cardiovascular Disease 01/08/21 Sobeida Velasco, JULIA [address] [place] [address] Cardiology 02/19/21 09/23/23 Mandi Corrigan, JOÃO [address] [place] [address] Specialist Nurse Practitioner Family 09/24/23 documented as of this encounter
--- OUTSIDE RECORDS SUMMARY | 2024-12-21 10:45 | XMS_ITS | Encounter Summary ---
Author Organization [facility] Address [address] [place] [address] Care Team Providers Care Gathering Worker Name Role Phone Jasson Mcnally MD Primary Care Provider Unavailable Jasson Mcnally MD Primary Care Provider Unavailable Jasson Mcnally MD Unavailable Unavai Miko Plata MD Unavailable [phone] Sobeida Velasco NP Unavailable [phone] Glen Bañuelos DO Primary Care Provider Unavaila [facility] Primary Care Provider UnavailZuleima Nash PA-C Primary Care Provider Unavail able Mandi Corrigan DNP Unavailable [phone] Corky Schaefer MD Primary Care Provider Unav ailable Encounter Details Date Type Department Care Team Description 11/16/2017 Etl Inform[employer] Developer Report Medical Records [address] [place] [address] Aisstaou Gordon MD Social History Tobacco Use Types [...] often do you attend chur ch or baptism services? More than 4 times per year [...] on filedocumented in this encounter Care Teams Gathering Worker Relationship Specialty Start Date End Date Jasson Mcnally MD PCP - General Internal Medicine 10/06/17 12/17/17 Jasson Mcnally MD PCP - General 12/18/17 03/03/21 Glen Bañuelos DO [address] [place] [address] PCP - General Internal Medicine 03/04/21 01/07/22 [facility] [address] [place] [address] PCP - General Internal Medicine 01/08/22 08/26/22 Zuleima Rosas PA-C [address] [place] [address] PCP - General Internal Medicine 08/27/22 11/10/23 Corky Schaefer MD [address] [place] [address] PCP - General Family Practice 11/11/23 Jasson Mcnally MD Internal Medicine 12/18/17 08/26/22 Miko Donis MD [address] [place] [address] Specialist Cardiovascular Disease 01/08/21 Sobeida Velasco, JULIA [address] [place] [address] Cardiology 02/19/21 09/23/23 Mandi Corrigan, JOÃO [address] [place] [address] Specialist Nurse Practitioner Family 09/24/23 documented as of this encounter
--- OUTSIDE RECORDS SUMMARY | 2024-12-21 10:45 | XMS_ITS | Encounter Summary ---
Author Organization [facility] Address [address] [place] [address] Care Team Providers Care Print Developer Name Role Phone Jasson Mcnally MD Primary Care Provider Unavailable Jasson Mcanlly MD Primary Care Provider Unavailable Jasson Mcnally MD Unavailable Unavai Miko Plata MD Unavailable [phone] Sobeida Velasco NP Unavailable [phone] Glen Bañuelos DO Primary Care Provider Unavaila [facility] Primary Care Provider UnavailZuleima Nash PA-C Primary Care Provider Unavail able Mandi Corrigan DNP Unavailable [phone] Corky Schaefer MD Primary Care Provider Unav ailable Encounter Details Date Type Department Care Team Description 11/24/2017 Orders Only Adult Medicine - [address] [address] Jasson Mcnally MD Preoperative examination; Screening for [...] How often do you attend chur or restorationism services? More than 4 times per year 01/08/2021 Do you belong to any clubs o r organizations such as advent groups, unions, fraternal or athletic groups, or [...] COMPREHENSIVE METABOLIC PANEL (12/22/2017 11:42 AM EDT) [facility] GLUCOSE 106(H) 70 - 100 mg/dL 12/22/2017 4:24 PM [facility] Comment: Reference range applicable to fasting specimens only Based on recommendations from the ADA and AACE, the fasting glucose reference range has been changed to 70-100 mg/dL. This change is effective July 09, 2009 BUN 21 5 - 25 mg/dL 12/22/2017 4:24 PM [facility] CREAT 1.0 0.7 - 1.5 mg/dL 12/22/2017 4:24 PM [facility] BUN/CREAT RATIO 21.0(H) 6.0 - 20.0 12/22/2017 4:24 PM EDT [facility] GFR 59(L) >60 12/22/2017 4:24 PM EDT [facility] Comment: If patient is -Northern Irish, multiply result by 1.21 Chronic Kidney Disease: < 60 ml/min/1.73 square meters Kidney Failure: < 15 ml/min/1.73 square meters Sodium 142 133 - 145 mEq/L 12/22/2017 4:24 PM EDT [facility] Potassium 4.6 3.5 - 5.5 mEq/L 12/22/2017 4:24 PM EDT [facility] Chloride 103 96 - 108 mEq/L 12/22/2017 4:24 PM EDT [facility] CO2 23.9 21.0 - 32.0 mEq/L 12/22/2017 4:24 PM EDT [facility] CALCIUM 9.9 8.5 - 10.5 mg/dL 12/22/2017 4:24 PM EDT [facility] TOTAL PROTEIN 7.4 6.0 - 8.3 gm/dL 12/22/2017 4:24 PM EDT [facility] Albumin 4.6 3.2 - 5.6 gm/dL 12/22/2017 4:24 PM EDT [facility] GLOBULIN 2.8 1.9 - 4.4 gm/dL 12/22/2017 4:24 PM EDT [facility] A/G RATIO 1.6 1.1 - 2.3 12/22/2017 4:24 PM EDT [facility] BILI,TOTAL 0.4 0.0 - 1.2 mg/dL 12/22/2017 4:24 PM EDT [facility] AST (SGOT) 19 10 - 42 U/L 12/22/2017 4:24 PM EDT [facility] ALT( SGPT) 15 10 - 60 U/L 12/22/2017 4:24 PM EDT [facility] ALK PHOS 51 42 - 121 U/L 12/22/2017 4:24 PM EDT [facility] 12/22/2017 11:4 2 AM EDT 12/22/2017 11:42 AM EDT Jasson Mcnally MD LAB [facility] [address] [facility] * (ABNORMAL) CBC (AUTO DIFF PLATELET) [...] Mcnally MD LAB [facility] [address] [facility] documented in this encounter Visit Diagnoses Diagnosis Preoperative examination Preoperative examination, unspecified Screening for deficiency anemia Screening for other and unspecified deficiency anemia documented in this encounter Care Teams Print Developer Relationship Specialty Start Date End Date Jasson Mcnally MD PCP - General Internal Medicine 10/06/17 12/17/17 Jasson Mcnally MD PCP - General 12/18/17 03/03/21 Glen Bañuelos DO [address] [place] [address] PCP - General Internal Medicine 03/04/21 01/07/22 [facility] [address] [place] [address] PCP - General Internal Medicine 01/08/22 08/26/22 Zuleima Rosas PA-C [address] [place] [address] PCP - General Internal Medicine 08/27/22 11/10/23 Corky Schaefer MD [address] [place] [address] PCP - General Family Practice 11/11/23 Jasson Mcnally MD Internal Medicine 12/18/17 08/26/22 Miko Donis MD [address] [place] [address] Specialist Cardiovascular Disease 01/08/21 Sobeida Velasco, JULIA [address] [place] [address] Cardiology 02/19/21 09/23/23 Mandi Corrigan DNP [address] [place] [address] Specialist Nurse Practitioner Family 09/24/23 documented as of this encounter
--- OUTSIDE RECORDS SUMMARY | 2024-12-21 10:45 | XMS_ITS | Encounter Summary ---
Author Organization [facility] Address [address] [place] [address] Care Team Providers Care Quality Director Name Role Phone Jasson Mcnally MD Unavailable UnavaMiko Madrid MD Unavailable [phone] Sobeida Velasco NP Unavailable [phone] [facility], Pcp Primary Care Provider UnavailZuleima Nash PA-C Primary Care Provider Unavail able Mandi Corrigan DNP Unavailable [phone] Corky Schaefer MD Primary Care Provider Unav ailable Reason for Visit * Reason Onset Date Comments APPOINTMENT 05/03/2022 Recall appointme nt Encounter Details Date Type Department Care Team Description 05/03/2022 Telephone Cardio PVC POC [address] [place] [address] Miko Donis MD [address] [place] [address] APPOINTMENT (Recall appointment) Social History Tobacco Use [...] How often do you attend chur or baptism services? More than 4 times [...] on filedocumented in this encounter Care Teams Quality Director Relationship Specialty Start Date End Date Community, Pcp [address] [place] [address] PCP - General Internal Medicine 01/08/22 08/26/22 Zuleima Rosas PA-C [address] [place] [address] PCP - General Internal Medicine 08/27/22 11/10/23 Corky Schaefer MD [address] [place] [address] PCP - General Family Practice 11/11/23 Jasson Mcnally MD Internal Medicine 12/18/17 08/26/22 Miko Donis MD [address] [place] [address] Specialist Cardiovascular Disease 01/08/21 Sobeida Velasco NP [address] [place] [address] Cardiology 02/19/21 09/23/23 Mandi Corirgan DNP [address] [place] [address] Specialist Nurse Practitioner Family 09/24/23 documented as of this encounter
--- OUTSIDE RECORDS SUMMARY | 2024-12-21 10:45 | XMS_ITS | Encounter Summary ---
Author Organization [facility] Address [address] [place] [address] Care Team Providers Care Java User Interface Developer Name Role Phone Jasson Mcnally MD Primary Care Provider Unavailable Jasson Mcnally MD Primary Care Provider Unavailable Jasson Mcnally MD Unavailable Unavai Miko Plata MD Unavailable [phone] Sobeida Velasco NP Unavailable [phone] Glen Bañuelos DO Primary Care Provider Unavaila [facility] Primary Care Provider UnavailZuleima Nash PA-C Primary Care Provider Unavail able Mandi Corrigan DNP Unavailable [phone] Corky Schaefer MD Primary Care Provider Unav ailable Encounter Details Date Type Department Care Team Description 11/24/2017 Release of Information Medical Records [address] [place] [address] Abstract, Provider Social History Tobacco Use Types [...] any clubs o r organizations such as catholic groups, unions, fraternal or athletic groups, or [...] on filedocumented in this encounter Care Teams Java User Interface Developer Relationship Specialty Start Date End Date Jasson Mcnally MD PCP - General Internal Medicine 10/06/17 12/17/17 Jasson Mcnally MD PCP - General 12/18/17 03/03/21 Glen Bañuelos, [address] [place] [address] PCP - General Internal Medicine 03/04/21 01/07/22 [facility], Pcp [address] [place] [address] PCP - General Internal Medicine 01/08/22 08/26/22 Zuleima Rosas PA-C [address] [place] [address] PCP - General Internal Medicine 08/27/22 11/10/23 Corky Schaefer MD [address] [place] [address]955 PCP - General Family Practice 11/11/23 Jasson Mcnally MD Internal Medicine 12/18/17 08/26/22 Miko Donis MD [address] [place] [address] Specialist Cardiovascular Disease 01/08/21 Sobeida Velasco NP [address] [place] [address] Cardiology 02/19/21 09/23/23 Mandi Corrigan DNP [address] [place] [address] Specialist Nurse Practitioner Family 09/24/23 documented as of this encounter
--- OUTSIDE RECORDS SUMMARY | 2024-12-21 10:45 | XMS_ITS | Encounter Summary ---
Author Organization [facility] Address [address] [place] [address] Care Team Providers Care Pediatric Nephrologist Name Role Phone Jasson Mcnally MD Primary Care Provider Unavailable Jasson Mcnally MD Unavailable Unavai Miko Plata MD Unavailable [phone] Sobeida Velasco NP Unavailable [phone] Glen Bañuelos DO Primary Care Provider Unavaila [facility] Primary Care Provider UnavailZuleima Nash PARadha Primary Care Provider Unavail able Mandi Corrigan DNP Unavailable [phone] Corky Schaefer MD Primary Care Provider Unav ailable Encounter Details Date Type Department Care Team Description 08/25/2019 Permastone Applicator Report Medical Records [address] [place] [address] Miko Don[address] MD [address] [place] [address] Social History Tobacco Use Types Packs/Day Years [...] How often do you attend chur or islam services? More than 4 times per year 01/08/2021 Do you belong to any clubs o r organizations such as jew groups, unions, fraternal or athletic groups, or [...] on filedocumented in this encounter Care Teams Pediatric Nephrologist Relationship Specialty Start Date End Date Jasson Mcnally MD PCP - General 12/18/17 03/03/21 Glen Bañuelos DO [address] [place] [address] PCP - General Internal Medicine 03/04/21 01/07/22 [facility] Pcp [address] [place] [address] PCP - General Internal Medicine 01/08/22 08/26/22 uZleima Rosas PA-C [address] [place] [address] PCP - General Internal Medicine 08/27/22 11/10/23 Corky Schaefer MD [address] [place] [address] PCP - General Family Practice 11/11/23 Jasson Mcnally MD Internal Medicine 12/18/17 08/26/22 Miko Donis MD [address] [place] [address] Specialist Cardiovascular Disease 01/08/21 Sobeida Velasco NP [address] [place] [address] Cardiology 02/19/21 09/23/23 Mandi Corrigan DNP [address] [place] [address] Specialist Nurse Practitioner Family 09/24/23 documented as of this encounter
--- OUTSIDE RECORDS SUMMARY | 2024-12-21 10:45 | XMS_ITS | Clinical Summary ---
Author Organization [facility] Address [address] [place] [address] Care Team Providers Care Human Resources Department Supervisor Name Role Phone Corky Schaefer MD Primary [...] before your procedure. 4000 mL 4 Active Additional Information Patient not taking.Reported on 11/21/2024 bisacodyL (DULCOLAX) 5 mg EC tablet Take 2 tablets by mouth right before beginning bowel prep. See instructions provided by the office 2 tablet 4 Active Additional Information Patient not taking.Reported on 11/21/2024 albuterol HFA (PROAIR HFA ; PROVENTIL HFA ; VENTOLIN HFA) 90 mcg/actuation inhaler Inhale 2 puffs by mouth. 1 Active famotidine (PEPCID) 20 mg tablet Take 1 tablet (20 mg total) by mouth 2 (two) times a day. Active PARoxetine (PAXIL) 20 mg tablet Take 1 tablet (20 mg total) by mouth daily. Active pravastatin (PRAVACHOL) 20 mg tablet Take 1 tablet (20 mg total) by mouth 1 (one) time each day. Active vit A/vit C/vit E/zinc/copper (PRESERVISION AREDS ORAL) Take 1 capsule by mouth 2 (two) times a day. Active dilTIAZem CD (CARDIZEM CD) 120 mg 24 hr capsule Take 1 capsule (120 mg total) by mouth 1 (one) time each day. 90 each 3 5 026 Active lisinopriL (PRINIVIL,ZEST RIL) 10 mg tablet Take 1 tablet (10 mg total) by mouth 1 (one) time each day. 90 each 3 5 026 Active lisinopriL (PRINIVIL,ZEST RIL) 20 mg tablet Take 0.5 tablets (10 mg total) by mouth 2 (two) times a day. 025 Discontin ued(Presc riber Discontin ued) Active Problems Problem Noted Date Diagnosed Date Hypertension 11/23/2024 Assessment & Plan (11/23/2024 8:06 PM EDT): The patient's blood pressure is well-controlled in office today. She continues with episodes of postural lightheadedness despite adequate hydration. Will await her Holter monitor and consider adjustment of her medication regimen. SVT (supraventricular tachycardia) ([facility] V24) 11/23/2024 Assessment & Plan (11/23/2024 8:07 PM EDT): The patient has SVT reported on her 14-day monitor through her PCPs office. We have requested these records, but have not yet received them. I will review the monitor and consider addition of diltiazem 120 mg daily for arrhythmia suppression. It is possible that perhaps some of her breathlessness is related to her SVT. It would be interesting to see if her breathing improves if we control this arrhythmia. Again, I will contact the patient once I have reviewed her monitor from her PCP. Pure hypercholesterolemia 11/23/2024 Assessment & Plan (11/23/2024 8:08 PM EDT): We were able to review her lipid profile together on her patient portal, but I have requested the formal report from her PCPs office. Together, we calculated her 10-year ASCVD risk to be over 20%, with the main driver education road instructor being her age. She has been hopeful to eliminate her statin. However, given her elevated risk, she elects to remain on her Pravachol at current dose. As always, heart healthy diet and exercise help to mitigate cardiovascular risk as well. HHT (hereditary hemorrhagic telangiectasia) (CMS /HCC V24) 11/23/2024 Overview (11/23/2024): - multiple pulmonary AVMs requiring embolization and chronic cerebral infarcts - echocardiogram 09/2022 showed LVEF normal 55-60%, no wall motion abnormalities, RV normal size and function without hemodynamically significant valve disease. When compared to echocardiogram from 05/2018, there is not any significant change. Assessment & Plan (11/23/2024 8:09 PM EDT): The patient's breathlessness is stable. She remains quite active without significant limitation. She reportedly had an updated echocardiogram through her PCPs office. Again, I have requested her recent testing. I will follow-up with the patient once I have reviewed the results from her PCP. Encounters Date Type Department Care Team Description 12/04/2024 Telephone [facility] Cardiology [facility] [address] [place] [phone] Mandi Corrigan NP 11/24/2024 Telephone [facility] Cardiology [facility] [address] [place] [address] Tri Hess MA 11/21/2024 10:10 AM EDT Office Visit [facility] Cardiology [facility] [address] [place] [address] Mandi Corrigan NP SVT (supraventricular tachycardia) (CMS/HCC V24) (Primary Dx); Hypertension, unspecified type; Pure hypercholesterolemia; HHT (hereditary hemorrhagic telangiectasia) (CMS/HCC V24) from Last 3 Months Surgical History Surgery Date Site/Laterality Comments SECTION PROCEDURE: HISTORICAL DELIVERY BACK SURGERY 2016 PROCEDURE: HISTORICAL BACK SURGERY; 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 no [...] Comments CABG Brother Diabetes Brother at 59- [place] Bladder Cancer Father Hypertension Mother Hyperlipidemia Other: [...] Safety Answer Date Record ed Physical Abuse Unrecognized value 02/10/2024 Verbal Abuse Unrecognized value 02/10/2024 Comments No Sex and Gender Information Value Date Recorded Sex Assigned at Female 02/25/2021 6:22 PM EST Legal Sex Female 6:15 PM EST Gender Identity Female 02/25/2021 6:22 PM EST Sexual Orientation Not on file Obstetrics History Last Filed Vital Signs Vital Sign Reading Time Taken Comments Blood Pressure 130/66 11/21/2024 10:10 AM EDT Pulse 68 11/21/2024 10:10 AM EDT Temperature 36.6 C (97.8 F) 02/10/2024 3:19 PM EST Respiratory Rate 20 02/10/2024 4:54 PM EST Oxygen Saturation 96% 11/21/2024 10: 10 AM EDT Inhaled Oxygen Concentration - - Weight 63.9 kg (140 lb 12.8 oz) 025 10:10 AM EDT Height 157.5 cm (5' 2 ) 11/21/2024 10:1 0 AM EDT Body Mass Index 25.75 11/21/2024 10:10 AM EDT Plan of Treatment Health Maintenance [...] Procedure Name Priority Date/Time Associated Diagnosis Comments ECG 12-LEAD Routine 11/23/2024 8:10 PM EDT Hypertension, unspecified type EXTERNAL CLINICAL LAB Routine 10/25/2024 10:19 AM EDT EXTERNAL CLINICAL LAB Routine 10/25/2024 9:21 AM EDT COLONOSCOPY Routine 02/10/2024 4:33 PM EST Colon polyps Colon cancer screening [facility] SCREENING DIGITAL Routine 10/08/2023 9:38 AM EDT Encounter for screening mammogram for malignant neoplasm of breast [facility] DEXA AXIAL SKELETON Routine 05/06/2018 3:39 PM EDT Asymptomatic menopausal state from Last 3 Months or Most Recently Relevant to Health Maintenance Results * ECG 12 lead (11/23/2024 8:10 PM EDT) Ventricular Rate ECG 68 BPM GEMUSE Atrial Rate 68 BPM GEMUSE P-R Interval 138 ms GEMUSE QRS Duration 84 ms GEMUSE Q-T Interval 402 ms GEMUSE QTc 427 ms GEMUSE P Wave [place] 58 degrees GEMUSE R [place] 57 degrees GEMUSE T [place] 38 degrees GEMUSE ECG Interpretation Sinus rhythm with Premature atrial complexes Otherwise normal ECG No previous ECGs available Confirmed by Kadi BHAGAT JOHN ([id number]) on 11/24/2024 12:59:31 PM GEMUSE 11/21/2024 10:1 4 AM EDT 11/24/2024 12:59 PM EDT Mandi Shekhar INDUSTRIAL SAFETY AND HEALTH SPECIALIST ECG ORDERABLES Edited Result - Final GEMUSE * External clinical lab (10/25/2024 10:19 AM EDT) Only the most recent of2 resultswithin the time period is included. Historical Provider MD LAB BLOOD ORDERABLES Annabel l Result * COLONOSCOPY Anesthesia - MAC; [facility] ENDOSCOPY (02/10/2024 4:33 PM EST) Anatomical [...] for surveillance. Narrative 02/10/2024 4:36 PM EST [facility] GI Patient Name: Roslyn Hester Procedure Date: [...] verified by the physician, the nurse, the programmer or analyst and the golf technician in the pre-procedure area in the [...] reduce spontaneously). Procedure Code(s): --- Professional --- 79660, Colonoscopy, flexible; with biopsy, single or multiple Diagnosis Code(s): --- Professional --- D12.5, Benign neoplasm of sigmoid colon D12.3, Benign neoplasm of transverse colon (hepatic flexure or splenic flexure) CPT copyright 2020 [employer]. All rights reserved. The codes documented in this report are preliminary and upon drapery examiner review may be revised to meet current compliance requirements. Kiko Jalloh MD 02/10/2024 4:35:56 PM This report has been signed electronically.Kiko Jalloh MD Number of Addenda: 0 Note Initiated On: 02/10/2024 4:08 PM Scope Withdrawal Time: 0 hours 8 minutes 6 seconds Scope In: 4:20:13 PM Scope Out: 4:33:23 PM Endoscopy Department at [facility] - [address] [place] [phone] Procedure Note Kiko Jalloh MD - 02/10/2024 [facility] GI Patient Name: Roslyn Hester Procedure Date: [...] the physician, the nurse, theanesthetist and the golf technician in the pre-procedure area in the [...] reduce spontaneously). Procedure Code(s): --- Professional --- 85320, Colonoscopy, flexible; with biopsy, singleor multiple Diagnosis Code(s): --- Professional --- D12.5, Benign neoplasm of sigmoid colon D12.3, Benign neoplasm of transverse colon (hepatic flexure or splenic flexure) CPT copyright 2020 [employer]. All rights reserved. The codes documented in this report are preliminary and upon drapery examiner reviewmay be revised to meet current compliance requirements. Kiko Jalloh MD 02/10/2024 4:35:56 PM This report has been signed electronically.Kiko Jalloh MD Number of Addenda: 0 Note Initiated On: 02/10/2024 4:08 PM Scope Withdrawal Time: 0 hours 8 minutes 6 seconds Scope In: 4:20:13 PM Scope Out: 4:33:23 PM Endoscopy Department at [facility] - [address] [place] [phone] IMPRESSION: - Three 1 to 3 mm polyps in the sigmoid colon and in the transverse colon, removed with a jumbo cold forceps. Resected and retrieved. - Internal hemorrhoids. Recommendation: - Await pathology results. - Repeat colonoscopy in 5 years for surveillance. us Kiko Jalloh MD GI~PROCEDURE ORDERABLES Fin al Result * [facility] SCREENING DIGITAL (10/08/2023 9:38 AM EDT) Anatomical Region Laterality Modality Mammography 10/08/2023 7:14 AM EDT Narrative 10/08/2023 9:[address] [facility] Diagnostic Imaging Department [address] [place] [address] Patient: ROSLYN HESTER /Age/Sex: 1950 - 73 - F Unit#: [id number] Location/Status: [facility] CLI Mnemonic[facility] Ordering Physician: DANIELLE DE DIOS [facility] Screening Digital - 10/08/23 - 0743 Report Status:Signed EXAM: [facility] Screening Digital EXAM DATE AND TIME: 10/08/2023 7:43 AM HISTORY: Screening. COMPARISON: 10/02/22, 09/30/21, 09/26/20 TECHNIQUE: Bilateral digital breast tomosynthesis was performed in the CC and MLO projections. Computer aided detection with Muzzley 3D 3.1 was employed. TISSUE DENSITY: c. [...] Procedure Note Bailey Landaverde MD - 12/09/2023 [facility] Diagnostic Imaging Department [address] [place] [address] Patient: ROSLYN HESTER /Age/Sex: 1950 - 73 - F Unit#: [id number] Location/Status: [facility] Mnemonic/Ordering Site: [facility] Ordering Physician: DANIELLE DE DIOS [facility] Screening Digital - 10/08/23742 Report Status:Signed EXAM: [facility] Screening Digital EXAM DATE AND TIME: 10/08/2023 7:43 AM HISTORY: Screening. COMPARISON: 10/02/22, 09/30/21, 09/26/20 TECHNIQUE: Bilateral digital breast tomosynthesis was performed in the CCand MLO projections. Computer aided detection with iCAD ProFound AI 3D 3.1was employed. TISSUE DENSITY: c. The [...] GARCIA IMG BI PROCEDURES Final Result * [facility] DEXA AXIAL SKELETON (05/06/2018 3:39 PM EDT) Anatomical Region Laterality Modality Mammography 05/06/2018 2:03 PM EDT Narrative 05/06/2018 3:[address] [facility] Diagnostic Imaging Department [address] [place], [place] [id number] Patient: ROSLYN HESTER D.O.B./Age/Sex: 1950 67 - F Unit#: [id number] Location/Status: SPDIMAM/REG CLI Mnemonic[facility] Ordering Physician: BEVERLEY BONE MD [facility] Dexa Axial Skeleton - 05/06/18 - 153 HISTORY: The patient is a 67-year-old postmenopausal [...] probability of hip fracture of 0.7%. Code 38844 Dictating Physician: LINDA COMBS MD Electronically Signed by: LINDA COMBS MD Dic Date/Time: 05/06/181536 Sign date/Time: 05/06/181538 Procedure Note Linda Combs MD - 02/12/2022 [facility] Diagnostic Imaging Department [address] [place] [address] Patient: ROSLYN HESTER /Age/Sex: 1950 - 67 - F Unit#: [id number] Location/Status: SPDIMAM/REG CLI Mnemonic[facility] Ordering Physician: BEVERLEY BONE MD [facility] Dexa Axial Skeleton - 05/06/181533 HISTORY: [...] density of the femurs bilaterally is 1.101 gm/cs6xlncr is 109% of that of young normals [...] probability of hip fracture of 0.7%. Code 21982 Dictating Physician: LINDA COMBS MD Electronically Signed by: LINDA COMBS MD Dic Date/Time: 05/06/18 1537 Sign date/Time: 05/06/18 1539 Beverley Bone MD IMG BI PROCEDURES Final Result from Last 3 Months or Most Recently Relevant to Health Maintenance Insurance MEDICARE [facility] Care Teams Human Resources Department Supervisor Relationship Specialty Start Date End Date Corky Schaefer MD [address] [place] [address] Dr Colleen MA PCP - General 11/11/23
[2024-12-21 11:31] LABS: MANUAL DIFF FLAG NO
[2024-12-21 11:42] LABS: Appearance Urine Clear; Glucose Urine UA Negative (Negative); PH 5.0 (5.0-9.0); Specific Gravity - Urine 1.015 (1.005-1.025); UMIC TRIGGER UACC YES
[2024-12-21 11:43] LABS: Hematocrit 38.6 % (37.0-47.0); Hemoglobin 12.6 g/dl (12.0-16.0); Imm Gran Abs Auto 0.02 X10*3/uL (0.00-0.03); Imm Gran Pct Auto 0.3 % (0.0-0.4); Lymphocytes Absolute Auto 1.7 X10*3/uL (1.2-4.9); Mean Corpuscular HGB Conc 32.6 g/dl (31.0-35.0); Mean Corpuscular Hemoglobin 31.4 pg (27.0-33.0); Mean Corpuscular Volume 96.3 fL (80.0-98.0); NRBC Abs Auto 0.000 X10*3/uL (0.0-0.012); NRBC Pct Auto 0.0 /100WBC (0.0-0.2); Platelet Count 264 X10*3/uL (160-400); Red Blood Count 4.01 X10*6/uL (4.20-5.50); White Blood Count 7.0 X10*3/uL (4.8-10.8)
[2024-12-21 11:48] LABS: UACC Culture Trigger YES
[2024-12-21 12:26] LABS: Alanine Aminotransferase 26 U/L (0-31); Albumin Level 4.4 g/dL (3.5-5.0); Alkaline Phosphatase 56 U/L (39-117); Anion Gap 10 (12-20); Aspartate Amino Transferase 30 U/L (5-31); Blood Urea Nitrogen 18 mg/dL (9-16); Calcium 9.7 mg/dL (8.4-10.2); Carbon Dioxide 26 mmol/L (22-29); Chloride 110 mmol/L (96-108); Cholesterol 201 mg/dL (<200); Estimated Glomerular Filt Rate 59; HDL Cholesterol 57 mg/dL (>40); Potassium 4.5 mmol/L (3.3-5.1); Sodium 141 mmol/L (135-145); Total Protein 7.2 g/dL (6.5-8.0); Triglycerides 135 mg/dL (<150)
== END 2024-12-21 08:43 | disposition home or self-care (01) ==
LOC: HO.WFDLDS 08:42
PROVIDERS: PCP Physician Assistant; Visit Provider Physician Assistant
DX: Z13.220 Encounter for screening for lipoid disorders (principal); I10 Essential (primary) hypertension; E78.5 Hyperlipidemia, unspecified; R39.9 Unspecified symptoms and signs involving the genitourinary system; K21.9 Gastro-esophageal reflux disease without esophagitis; N80.549 Endometriosis of the appendix, unspecified depth; I48.0 Paroxysmal atrial fibrillation; R25.1 Tremor, unspecified; R73.01 Impaired fasting glucose; R68.89 Other general symptoms and signs; R30.0 Dysuria; Q25.72 Congenital pulmonary arteriovenous malformation; Z79.1 Long term (current) use of non-steroidal anti-inflammatories (NSAID); Z79.899 Other long term (current) drug therapy
CPT/HCPCS: 36415; 80053; 80061; 81001; 84443; 85025; 87086; 87088; 87186; 99212

== ENCOUNTER 2024-12-21 08:42 | Outpatient (AMB) | payer MEDICARE, OTHER, SELFPAY ==
--- NOTE | 2024-12-21 08:49 | A.OFFPC_ITS ---
Vital Signs 12/21/24 08:51 Height 5 ft 1.5 in Weight 140 lb BMI 26.0 BP 130/64 Blood Pressure Location Rt brachial Position Sitting Respiration 12 Pulse 64 Pulse Source Pulse Oximeter Temp 98 F Temp Source Oral Pulse Oximetry (%) 93 Oxygen Delivery Method Room Air Intake Visit Reasons: f/u HTN, diabetes /endoscopy referral Intake Note: Follow up diabetes. Having painful urination. Pharmacy Billing Adjudicator Required: No Allergies No Known Allergies Allergy (Verified 12/21/24 08:52) Medication List - Last Reconciled 12/21/24 by Zuleima Rosas PA-C albuterol sulfate 90 mcg/actuation 2 puffs inhalation Q6H PRN Bifidobacterium infantis (Align (B.infantis)) mg PO dicyclomine 10 mg PO BID diltiazem HCl CD 120 mg PO DAILY famotidine (Acid Joint Finisher (famotidine)) 20 mg PO BID 90 days lisinopril 10 mg PO DAILY meloxicam 7.5 mg PO DAILY PRN multivitamin 1 tab PO DAILY paroxetine HCl 20 mg PO DAILY pravastatin 20 mg PO DAILY Tobacco use date assessed: 12/21/24 Fall risk assessment: No Falls in past year Last assessed Fall Risk: 12/21/24 Dental Screening Dental Screen Date: 10/10/24 HPI f/u HTN, diabetes /endoscopy referral HPI Details Patient is a 74-year-old female with a significant past medical history of impaired fasting glucose, hyperlipidemia, hypertension, anxiety, hereditary hemorrhagic telangiectasia, pulmonary arterial venous malformation presenting today for a up. GI: She was referred last year to GI for a possible endoscopy for ongoing GERD but never heard from [facility] so I then referred her to [facility]. She is scheduled for an endoscopy 01/12. She does have a recent appendectomy in the pathology came back as endometriosis. She does have chronic lower abdominal pain that comes and goes. No difficulty swallowing, weight loss, swelling in the neck. Skip Loader: States that she has tried calling [facility] about 4 times for the endometriosis diagnosis and has not had any of her calls returned. She says that she left a message for the triage nurse but she would like to see someone as she thinks it is the cause of some of her abdominal pain. She wants to see a specialit. CV: Blood pressure today in the office is 130/64. She is currently on lisinopril 10 mg and diltiazem 120 mg. Cholesterol has been controlled with pravastatin 20 mg. She is still with PVC since her TIA in 2006. Vascular: Saw vascular IR at [facility] for embolizing of the pulmonary AVMs. Feeling well since the procedure. Neuro: Seeing Dr. Salazar. Tremor is so far stable. She had a recent MRI which showed previous infarcts. She reports having an MRI done many years ago, around the time that she had a supposed a TIA in 2006. She states that she does not believe that she truly had a TIA at that point. She thinks it was a migraine. MSK: On meloxicam for back pain with Dr. Price. Psych: Anxiety is well-controlled with paroxetine 20 mg. No SI/HI. Uro: Does complain today of possible UTI. States that this morning she started with some dysuria. No malodorous urine, flank pain, fever or chills. No abnormal vaginal discharge or bleeding. No nausea or vomiting Colonoscopy: Up-to-date, 2023, due in 2028. Mammo: mammo utd at [facility] Pap: utd- follows with [facility] Bone density: Up-to-date, 08/13/2023-[facility] Medical History Tremor of both hands Dyslipidemia Hypertension Generalized anxiety disorder Surgical History Hx of section History of back surgery Family History Mother HTN (hypertension) Father Bladder cancer Social History (Updated 10/10/24 @ 11:42 by Naomie Jerome MA) Housing: House Alcohol intake: current Patient Tobacco Use Status: Former Tobacco user Cigarette Packs Per Day: 1 Years Smoked: 30 e-Cigarette/Vaping Use: Never Used Second Hand Smoke Exposure: Yes service: No Current occupational status: retired Cognitive needs: No Hearing needs: No Vision needs: No Questionnaire Thrive Questionnaire Date Thrive assessed: 03/16/24 I am a: Patient What is your living situation today?: I have a steady place to live Within the past 12 months, did the food you bought not last and you didn't have the money to get more?: Never true Within the past 12 months, did you worry whether your food would run out before you got money to buy more?: Never true Do you have trouble paying for medicines?: No Do you have trouble getting transportation to medical appointments?: No Do you have trouble paying your heating and electricity bill?: No Do you have trouble taking care of your child, family member or friend?: No Do you have trouble with day-to-day activities such as bathing, preparing meals, shopping, managing finances, etc.?: No Are you currently unemployed and looking for a job?: No Are you interested in more education?: No Please select the resources that you would like help with: None Currently or been in a relationship where the following occur: No concerns reported THRIVE Score: 0 AUDIT C Alcohol Use Questionnaire (AUDIT-C) 1. How often do you have a drink containing alcohol?: 2-3 times a week 2. How many drinks containing alcohol do you have on a typical day when you are drinking?: 1 or 2 3. How often do you have six or more drinks on one occasion?: Never Total Score: 3 MICHEAL-7 AMB Questionnaire MICHEAL-7 Date MICHEAL - 7 assessed: 05/28/23 Source: Developed by Drs. Nacho Gonzalez, Bell Egan, Dinesh Saxena and colleagues, with an educational katia from [employer]. Physical exam (Primary Care) Vital Signs: Last Vital Signs Temp 98 F 12/21/24 08:51 Pulse 64 12/21/24 08:51 Resp 12 12/21/24 08:51 BP 130/64 12/21/24 08:51 Pulse Ox 93 12/21/24 08:51 Oxygen Delivery Method Room Air 12/21/24 08:51 BMI result Body Mass Index 26.0 Tobacco/Smoking Status: Tobacco use Status Tobacco use date assessed 12/21/24 12/21/24 08:54 Patient Tobacco Use Status Former Tobacco user 12/21/24 08:51 e-Cigarette/Vaping Use Never Used 12/21/24 08:51 Thrive Assessment: Date of Thrive Assessment Date Thrive assessed 03/16/24 12/21/24 08:51 Currently or been in a relationship where the following occur: No concerns reported Const Orientation/consciousness: patient oriented x3 HENMT Ears: hearing grossly normal bilaterally Neck Thyroid: Thyroid normal Lymphatic: no lymphadenopathy noted Resp Auscultation: clear to auscultation bilaterally Cardio Rate: regular rate Rhythm: regular rhythm Heart sounds: S1 normal heart sound present and S2 normal heart sound present GI Inspection: Yes normal to inspection Palpation (GI): Soft to palpation and Other GI palpation findings present (nontender, no cva tenderness) Auscultation: normoactive bowel sounds Rectal Exam - Female: deferred Skin General skin exam: no rashes or lesions noted Neuro General: patient oriented x3, gait normal and no focal motor deficits Coding Level of Care Code Est Pt Level 4 (73786) Complex EM visit Add On G2211 Diagnoses GERD (gastroesophageal reflux disease) K21.9 Primary hypertension I10 Hypertension type: primary hypertension UTI symptoms R39.9 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 Continue current regimen (3) UTI symptoms: Code(s): R39.9 - Unspecified symptoms and signs involving the genitourinary system Category: Medical Plan: We will treat with Macrobid. UA and culture ordered today. We will follow up pending test results. She will let me know if anything worsens or changes. 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 - Endometriosis of the appendix, unspecified depth Category: Medical Plan: Referral to toolroom attendant Oncology for evaluation and consultation Orders: Orders TSH reflex Free T4 Today E78.5 - Hyperlipidemia, unspecified, I10 - Essential (primary) hypertension, R39.9 - Unspecified symptoms and signs involving the genitourinary system UA CC w/rflx Micro + Cult Today E78.5 - Hyperlipidemia, unspecified, I10 - Essential (primary) hypertension, R30.0 - Dysuria, R39.9 - Unspecified symptoms and signs involving the genitourinary system Complete Blood Count Auto Diff Today E78.5 - Hyperlipidemia, unspecified, I10 - Essential (primary) hypertension, R39.9 - Unspecified symptoms and signs involving the genitourinary system Lipid Panel Today E78.5 - Hyperlipidemia, unspecified, I10 - Essential (primary) hypertension, R39.9 - Unspecified symptoms and signs involving the genitourinary system Comprehensive [place]. Panel Fast Today E78.5 - Hyperlipidemia, unspecified, I10 - Essential (primary) hypertension, R39.9 - Unspecified symptoms and signs involving the genitourinary system Referrals Gynecologic Oncology Referral G89.29 - Other chronic pain, N80.549 - Endometriosis of the appendix, unspecified depth, R10.9 - Unspecified abdominal pain Medications: New nitrofurantoin monohyd/m-cryst 100 mg (Macrobid) must administer with a meal/food 100 mg PO Q12H 14 caps 0RF 7 days
[2024-12-21 08:51] VITALS: BP 130/64; PULSE 64; RESP 12; TEMP 36.6; O2SAT 93; BMI 26.0
--- OUTSIDE RECORDS SUMMARY | 2024-12-21 09:22 | XMS_ITS | Clinical Summary ---
Author Organization [address] Address [address] [place] [phone] Care Team Providers Care Nutrition Services Aide Name Role Phone Ruthie Chandra MD Primary [...] (11/28/2016): Added automatically from request for surgery [id number] HHT (hereditary hemorrhagic telangiectasia) 08/2013 Overview (09/07/2023): >>OVERVIEW FOR HEREDITARY HEMORRHAGIC TELANGIECTASIA (HC CODE) WRITTEN ON 11/28/2016 10:27 AM BY MARQUEZ SIMPSON MD Added automatically from request for surgery [id number] GERD (gastroesophageal reflux disease) Eczema Immunizations Immunization [...] Series) 09/15/2001 Osteoporosis screening (bone density) 09/15/2016 Influenza vaccine 09/23/2024 Covid-19 vaccine series ( season) 2024 07/16/2021, 12/27/2020, 06/11/2020, Additional history exists RSV Immunization (1 - 1-dose 75+ series) [...] this topic Medical Devices Implanted Type Area Motorcycle Police Officer Device Identifier Shelf Expiration Date Model / Serial / Lot Handle Lavern Coil Detachment - [id number] Implanted:Qty: 1 on 10/22/2023 by Marquez Simpson MD at [address] [id number] 08/30/2026 RH1 / / [id number] Coil Lavern Complex Standard 5mm X 12 Cm - [id number] Implanted:Qty: 1 on 10/22/2023 by Marquez Simpson MD at [address] [id number] 05/12/2031 [id number] / / [id number] Coil Pod Packing J Soft 5cm - [id number] Implanted:Qty: 1 on 10/22/2023 by Marquez Simpson MD at [address] [id number] 07/26/2031 [id number] / / [id number] Coil Lavern Complex Soft 2mm X 4cm - [id number] Implanted:Qty: 1 on 10/22/2023 by Marquez Simpson MD at [address] Implant [facility] [id number] 07/08/2031 [id number] / / [id number] Plug Microvascular 3mm Mvp3q - [id number] Implanted:Qty: 1 on 10/22/2023 by Marquez Simpson MD at [address] Implant [employer] [id number] 02/22/2025 MVP-3Q / / [id number] Coil Lavern Complex Soft 3mm X 5cm - [id number] Implanted:Qty: 1 on 10/22/2023 by Marquez Simpson MD at [address] [id number] 07/11/2031 [id number] / / [id number] Coil Embo Detach Embold 0bxn6ay - [id number] Implanted:Qty: 1 on 10/22/2023 by Marquez Simpson MD at [address] Implant [employer] [id number] 07/15/2026 [id number] / / [id number] Coil Embo Detach Embold 2teu0ob - [id number] Implanted:Qty: 1 on 10/22/2023 by Marquez Simpson MD at [address] Implant [employer] [id number] 06/23/2026 [id number] / / [id number] Coil Pv Embo Concerto 6wkk76md - [id number] Implanted:2016 by Marquez Simpson MD at [address] (Quantity not on file) Other-impl ant [employer] (MEDT-ZZZZ) 07/28/2019 NV-8-30-H ELIX / / [id number] Amplatzer Vasc Plug4 5mmx10.5 - [id number] Implanted:2016 by Marquez Simpson MD at [address] (Quantity not on file) Other-impl ant [facility] (STJU-ZZZZ) 07/23/2021 [id number]- 005 / / [id number] Embolization Coil - [id number] Implanted:2016 by Marquez Simpson MD at [address] (Quantity not on file) Other-impl ant [employer] PRDT 11/27/2021 [id number] / / [id number] Coil Pv Embo Concerto 0lme20mv - [id number] Implanted:2016 by Marquez Simpson MD at [address] (Quantity not on file) Other-impl ant [employer] (MEDT-ZZZZ) 10/10/2019 NV-5-15-H ELIX / / [id number] Coil Pv Embo Concerto 9eym53wm - [id number] Implanted:2016 by Marquez Simpson MD at [address] (Quantity not on file) Other-impl ant [employer] (MEDT-ZZZZ) 10/10/2019 NV-5-15-H ELIX / / [id number] Coil Pv Embo Concerto 2hje22gt - [id number] Implanted:2016 by Marquez Simpson MD at [address] (Quantity not on file) Other-impl ant [employer] (MEDT-ZZZZ) 09/15/2019 NV-4-10-H ELIX / / [id number] Coil Pv Embo Concerto 8hwt4ro - [id number] Implanted:2016 by Marquez Simpson MD at [address] (Quantity not on file) Other-impl ant [employer] (MEDT-ZZZZ) 09/18/2019 NV-3-8-HE LIX / / [id number] Amplatzer Vasc Plug4 1sju56wd - [id number] Implanted:2016 by Marquez Simpson MD at [address] (Quantity not on file) Other-impl ant [employer] (STJU-ZZZZ) 08/22/2021 [id number]- 004 / / [id number] Coil Embol Mwce 35-4/3 Tornado - [id number] Implanted:2016 by Marquez Simpson MD at [address] (Quantity not on file) Other-impl ant [employer] 11/12/2021 [id number] / / [id number] Coil Embol Mwce 35-4/3 Tornado - [id number] Implanted:2016 by Marquez Simpson MD at [address] (Quantity not on file) Other-impl ant [employer] 11/12/2021 [id number] / / [id number] Embolization Coil - [id number] Implanted:2016 by Marquez Simpson MD at [address] (Quantity not on file) Other-impl ant [employer] 10/13/2021 [id number] / / [id number] Insurance MEDICARE [facility] MEDICARE [facility] MEDICARE [facility] Care Teams Nutrition Services Aide Relationship Specialty Start Date End Date Ruthie Chandra MD [address] [place] [phone] PCP - General Internal Medicine 11/18/16
--- OUTSIDE RECORDS SUMMARY | 2024-12-21 09:22 | XMS_ITS | Encounter Summary ---
Author Organization [facility] Address [address] [place] [phone] Care Team Providers Care Slotter Operator Name Role Phone Ruthie Chandra MD Primary Care Provider Encounter Details Date Type Department Care Team (Late st Contact Info) Description 10/13/2023 Scanned Document Interventional Radiology at [address] [phone] Provider, Historical . Social History Tobacco Use [...] documented as of this encounter Care Teams Slotter Operator Relationship Specialty Start Date End Date Ruthie Chandra MD [address] [place] [phone] PCP - General Internal Medicine 11/18/16 documented as of this encounter
--- OUTSIDE RECORDS SUMMARY | 2024-12-21 09:22 | XMS_ITS | Encounter Summary ---
Author Organization [facility] Address [address] [place] [address] Care Team Providers Care Truckman Name Role Phone Ruthie Chandra MD Primary Care Provider Reason for Visit * Reason Onset Date Comments Appointment 09/08/2023 Encounter Details Date Type Department Care Team ([facility] st Contact Info) Description 09/08/2023 Telephone [facility] Interventional Radiology at [address] [phone] Alvarado Bullock MD [address] [place] [phone] Appointment Social History Tobacco Use Types [...] documented as of this encounter Care Teams Truckman Relationship Specialty Start Date End Date Ruthie Chandra MD [address] [place] [phone] PCP - General Internal Medicine 11/18/16 documented as of this encounter
--- OUTSIDE RECORDS SUMMARY | 2024-12-21 09:22 | XMS_ITS | Encounter Summary ---
Author Organization [facility] Address [address] [place] [address] Care Team Providers Care Brood Hatchery Manager Name Role Phone Ruthie Chandra MD Primary Care Provider Reason for Visit * Reason Onset Date Comments Results 10/06/2023 Encounter Details Date Type Department Care Team ([facility] st Contact Info) Description 10/06/2023 Telephone [facility] Interventional Radiology at [address] [phone] Alvarado Bullock MD [address] [place] [phone] Results Social History Tobacco Use Types [...] documented as of this encounter Care Teams Brood Hatchery Manager Relationship Specialty Start Date End Date Ruthie Chandra MD [address] [place] [phone] PCP - General Internal Medicine 11/18/16 documented as of this encounter
--- OUTSIDE RECORDS SUMMARY | 2024-12-21 09:22 | XMS_ITS | Clinical Summary ---
Author Organization [employer] [facility] Address [address] [place] [address] Care Team Providers Care Wool Washing Machine Operator Name Role Phone Unknown, Primary Care Provider [...] age to complete this topic Care Teams Wool Washing Machine Operator Relationship Specialty Start Date End Date Unknown, PCP - General 01/30/22
== END 2024-12-21 09:13 | disposition home or self-care (01) ==
LOC: HO.HMCFM 08:43
PROVIDERS: PCP Physician Assistant; Visit Provider Physician Assistant
DX: K21.9 Gastro-esophageal reflux disease without esophagitis (principal); I10 Essential (primary) hypertension; R39.9 Unspecified symptoms and signs involving the genitourinary system; N80.549 Endometriosis of the appendix, unspecified depth

== ENCOUNTER 2024-12-26 10:47 | Outpatient (REF) | payer MEDICARE, OTHER, SELFPAY ==
[2024-12-26 14:21] LABS: Appearance Urine Turbid; Glucose Urine UA Negative (Negative); PH 5.0 (5.0-9.0); Specific Gravity - Urine 1.025 (1.005-1.025); UMIC TRIGGER UA YES
[2024-12-26 15:42] LABS: Bacterial Vaginosis PCR NEGATIVE (Negative); Candida Group PCR NOT DETECTED (Not Detect); Candida glab krusei PCR NOT DETECTED (Not Detect); Trichomonas vaginalis PCR NOT DETECTED (Not Detect)
== END 2024-12-26 10:48 | disposition home or self-care (01) ==
LOC: HO.LNP 10:47
PROVIDERS: PCP Physician Assistant; Visit Provider Internal Medicine
DX: F41.1 Generalized anxiety disorder (principal); R39.9 Unspecified symptoms and signs involving the genitourinary system; N89.8 Other specified noninflammatory disorders of vagina; N80.549 Endometriosis of the appendix, unspecified depth; E78.5 Hyperlipidemia, unspecified; Z86.73 Personal history of transient ischemic attack (TIA), and cerebral infarction without residual deficits
CPT/HCPCS: 81001; 81515; 87086; 99212

== ENCOUNTER 2024-12-26 10:47 | Outpatient (AMB) | payer MEDICARE, OTHER, SELFPAY ==
--- NOTE | 2024-12-26 10:54 | MHC.PC.OV ---
Vital Signs 12/26/24 10:57 Height 5 ft 1.5 in Weight 140 lb 8 oz BMI 26.1 BP 122/72 Blood Pressure Location Rt brachial Position Sitting Respiration 14 Pulse 61 Pulse Source Pulse Oximeter Temp 98 F Temp Source Oral Pulse Oximetry (%) 92 Oxygen Delivery Method Room Air Intake Visit Reasons: UTI symptoms not improving on antibiotic Intake Note: Pressure and pain in vaginal area. Christian Education Director Required: No Allergies No Known Allergies Allergy (Verified 12/26/24 10:56) Tobacco use date assessed: 12/21/24 Dental Screening Dental Screen Date: 10/10/24 HPI HPI Comments History of Present Illness Details This is a 74-year-old female with a past medical history of TIA, hereditary hemorrhagic telangiectasia, impaired fasting glucose, hypertension, anxiety and dyslipidemia presenting for urinary complaints Seen 12/21 Uro: Does complain today of possible UTI. States that this morning she started with some dysuria. No malodorous urine, flank pain, fever or chills. No abnormal vaginal discharge or bleeding. No nausea or vomiting Urine culture positive. Placed on macrobid-culture sensitive Says was feeling better for 3-4 days on the antibiotic then yesterday developed vaginal pressure and has been having some discharge and vaginal burning. No fevers. 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 She says that she left a message for the triage nurse but she would like to see someone as she thinks it is the cause of some of her abdominal pain. She wants to see a specialit. Had been having ongoing intermittent lower abdominal discomfort. CT scan in September concerning for appendicitis-s/p appendectomy c/w endometrial tissue. Also with cystitis. She has pending referral to informal waiter/waitress-onc. She also finally got in touch with her screw machine repairer for an appointment. ROS see HPI PHYSICAL EXAM: GENERAL: Alert and oriented x 3. NAD EYES: EOMI. Anicteric. HENT: Moist mucous membranes. No scleral icterus. No cervical lymphadenopathy. LUNGS: Clear to auscultation bilaterally. CARDIOVASCULAR: Regular rate and rhythm. No murmur. No JVD. ABDOMEN: Soft, non-tender +bs. No CVA tenderness EXTREMITIES: No edema. Non-tender. SKIN: No rashes or lesions. Warm. NEUROLOGIC: No focal neurological deficits. CN II-XII grossly intact PSYCHIATRIC: Cooperative. Appropriate mood and affect PFSH Medical History Tremor of both hands Dyslipidemia Hypertension Generalized anxiety disorder Surgical History Hx of section History of back surgery Family History Mother HTN (hypertension) Father Bladder cancer Social History (Updated 10/10/24 @ 11:42 by Naomie Jerome MA) Housing: House Alcohol intake: current Patient Tobacco Use Status: Former Tobacco user Cigarette Packs Per Day: 1 Years Smoked: 30 e-Cigarette/Vaping Use: Never Used Second Hand Smoke Exposure: Yes service: No Current occupational status: retired Cognitive needs: No Hearing needs: No Vision needs: No Questionnaire Thrive Questionnaire Date Thrive assessed: 03/16/24 I am a: Patient What is your living situation today?: I have a steady place to live Within the past 12 months, did the food you bought not last and you didn't have the money to get more?: Never true Within the past 12 months, did you worry whether your food would run out before you got money to buy more?: Never true Do you have trouble paying for medicines?: No Do you have trouble getting transportation to medical appointments?: No Do you have trouble paying your heating and electricity bill?: No Do you have trouble taking care of your child, family member or friend?: No Do you have trouble with day-to-day activities such as bathing, preparing meals, shopping, managing finances, etc.?: No Are you currently unemployed and looking for a job?: No Are you interested in more education?: No Please select the resources that you would like help with: None Currently or been in a relationship where the following occur: No concerns reported THRIVE Score: 0 MICHEAL-7 AMB Questionnaire MICHEAL-7 Date MICHEAL - 7 assessed: 05/28/23 Source: Developed by Drs. Nacho Gonzalez, Bell Egan, Dinesh Saxena and colleagues, with an educational katia from [employer]. Physical exam (Primary Care) Vital Signs: Last Vital Signs Temp 98 F 12/26/24 10:57 Pulse 61 12/26/24 10:57 Resp 14 12/26/24 10:57 BP 122/72 12/26/24 10:57 Pulse Ox 92 12/26/24 10:57 Oxygen Delivery Method Room Air 12/26/24 10:57 BMI result Body Mass Index 26.1 Tobacco/Smoking Status: Tobacco use Status Tobacco use date assessed 12/21/24 12/26/24 10:55 Patient Tobacco Use Status Former Tobacco user 12/26/24 10:55 e-Cigarette/Vaping Use Never Used 12/26/24 10:55 Thrive Assessment: Date of Thrive Assessment Date Thrive assessed 03/16/24 12/26/24 10:55 Currently or been in a relationship where the following occur: No concerns reported Coding Level of Care Code Est Pt Level 4 (88108) Complex EM visit Add On G2211 Diagnoses Vaginal discharge N89.8 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 UTI symptoms R39.9 Assessment & Plan Assessment & Plan (1) Vaginal discharge: Code(s): N89.8 - Other specified noninflammatory disorders of vagina Category: Medical (2) Appendiceal endometriosis: Code(s): N80.549 - Endometriosis of the appendix, unspecified depth Category: Medical (3) UTI symptoms: Code(s): R39.9 - Unspecified symptoms and signs involving the genitourinary system Category: Medical Plan 74 year old for follow up vaginal/pelvic discomfort Continue abx for UTI Placed on fluconazole for likely yeast infection Urine culture sent Self swab for BV Follow up gynecology, informal waiter/waitress onc Orders: Orders Bacterial Vaginosis Panel Today N89.8 - Other specified noninflammatory disorders of vagina, R39.9 - Unspecified symptoms and signs involving the genitourinary system UA w Microscopic Today N89.8 - Other specified noninflammatory disorders of vagina, R39.9 - Unspecified symptoms and signs involving the genitourinary system Urine Culture Today N89.8 - Other specified noninflammatory disorders of vagina, R39.9 - Unspecified symptoms and signs involving the genitourinary system Medications: New fluconazole 150 mg PO Q3D 2 tabs 3RF 2 doses
[2024-12-26 10:57] VITALS: BP 122/72; PULSE 61; RESP 14; TEMP 36.6; O2SAT 92; BMI 26.1
--- OUTSIDE RECORDS SUMMARY | 2024-12-26 13:13 | XMS_ITS | Encounter Summary ---
Author Organization [facility] Address [address] [place] [address] Care Team Providers Care Yield Engineer Name Role Phone Ruthie Chandra MD Primary Care Provider Reason for Visit * Reason Onset Date Comments Results 10/06/2023 Encounter Details Date Type Department Care Team ([facility] st Contact Info) Description 10/06/2023 Telephone [facility] Interventional Radiology at [address] [phone] Alvarado Bullock MD [address] [place] [phone] Results Social History Tobacco Use Types [...] documented as of this encounter Care Teams Yield Engineer Relationship Specialty Start Date End Date Ruthie Chandra MD [address] [place] [phone] PCP - General Internal Medicine 11/18/16 documented as of this encounter
--- OUTSIDE RECORDS SUMMARY | 2024-12-26 13:13 | XMS_ITS | Clinical Summary ---
Author Organization [address] Address [address] [place] [phone] Care Team Providers Care Cost Control Supervisor Name Role Phone Ruthie Chandra MD Primary [...] (11/28/2016): Added automatically from request for surgery [id number] HHT (hereditary hemorrhagic telangiectasia) 08/2013 Overview (09/07/2023): >>OVERVIEW FOR HEREDITARY HEMORRHAGIC TELANGIECTASIA (HC CODE) WRITTEN ON 11/28/2016 10:27 AM BY MARQUEZ SIMPSON MD Added automatically from request for surgery [id number] GERD (gastroesophageal reflux disease) Eczema Immunizations Immunization [...] this topic Medical Devices Implanted Type Area Assistant Commissioner Device Identifier Shelf Expiration Date Model / Serial / Lot Handle Lavern Coil Detachment - [id number] Implanted:Qty: 1 on 10/22/2023 by Marquez Simpson MD at [address] [id number] 08/30/2026 RH1 / / [id number] Coil Lavern Complex Standard 5mm X 12 Cm - [id number] Implanted:Qty: 1 on 10/22/2023 by Marquez Simpson MD at [address] [id number] 05/12/2031 [id number] / / [id number] Coil Pod Packing J Soft 5cm - [id number] Implanted:Qty: 1 on 10/22/2023 by Marquez Simpson MD at [address] [id number] 07/26/2031 [id number] / / [id number] Coil Lavern Complex Soft 2mm X 4cm - [id number] Implanted:Qty: 1 on 10/22/2023 by Marquez Simpson MD at [address] Implant [facility] [id number] 07/08/2031 [id number] / / [id number] Plug Microvascular 3mm Mvp3q - [id number] Implanted:Qty: 1 on 10/22/2023 by Marquez Simpson MD at [address] Implant [employer] [id number] 02/22/2025 MVP-3Q / / [id number] Coil Lavern Complex Soft 3mm X 5cm - [id number] Implanted:Qty: 1 on 10/22/2023 by Marquez Simpson MD at [address] [facility] [id number] 07/11/2031 [id number] / / [id number] Coil Embo Detach Embold 8mjo2ss - [id number] Implanted:Qty: 1 on 10/22/2023 by Marquez Simpson MD at [address] Implant [employer] [id number] 07/15/2026 [id number] / / [id number] Coil Embo Detach Embold 3utd2nk - [id number] Implanted:Qty: 1 on 10/22/2023 by Marquez Simpson MD at [address] Implant [employer] [id number] 06/23/2026 [id number] / / [id number] Coil Pv Embo Concerto 2ytx89ju - [id number] Implanted:2016 by Marquez Simpson MD at [address] (Quantity not on file) Other-impl ant [employer] (MEDT-ZZZZ) 07/28/2019 NV-8-30-H ELIX / / [id number] Amplatzer Vasc Plug4 5mmx10.5 - [id number] Implanted:2016 by Marquez Simpson MD at [address] (Quantity not on file) Other-impl ant [facility] (STJU-ZZZZ) 07/23/2021 9-ATK403- 005 / / [id number] Embolization Coil - [id number] Implanted:2016 by Marquez Simpson MD at [address] (Quantity not on file) Other-impl ant [employer] PRDT 11/27/2021 [id number] / / [id number] Coil Pv Embo Concerto 1qki01au - [id number] Implanted:2016 by Marquez Simpson MD at [address] (Quantity not on file) Other-impl ant [employer] (MEDT-ZZZZ) 10/10/2019 NV-5-15-H ELIX / / [id number] Coil Pv Embo Concerto 1nnt07qu - [id number] Implanted:2016 by Marquez Simpson MD at [address] (Quantity not on file) Other-impl ant [employer] (MEDT-ZZZZ) 10/10/2019 NV-5-15-H ELIX / / [id number] Coil Pv Embo Concerto 3bjp20xy - [id number] Implanted:2016 by Marquez Simpson MD at [address] (Quantity not on file) Other-impl ant [employer] (MEDT-ZZZZ) 09/15/2019 NV-4-10-H ELIX / / [id number] Coil Pv Embo Concerto 8rhm9dw - [id number] Implanted:2016 by Marquez Simpson MD at [address] (Quantity not on file) Other-impl ant [employer] (MEDT-ZZZZ) 09/18/2019 NV-3-8-HE LIX / / [id number] Amplatzer Vasc Plug4 7wos22fk - [id number] Implanted:2016 by Marquez Simpson MD at [address] (Quantity not on file) Other-impl ant [facility] [employer] (STJU-ZZZZ) 08/22/2021 9-KWY144- 004 / / [id number] Coil Embol Mwce 35-4/3 Tornado - [id number] Implanted:2016 by Marquez Simpson MD at [address] (Quantity not on file) Other-impl ant [employer] 11/12/2021 [id number] / / [id number] Coil Embol Mwce 35-4/3 Tornado - [id number] Implanted:2016 by Marquez Simpson MD at [address] (Quantity not on file) Other-impl ant [employer] 11/12/2021 [id number] / / [id number] Embolization Coil - [id number] Implanted:2016 by Marquez Simpson MD at [address] (Quantity not on file) Other-impl ant [employer] 10/13/2021 [id number] / / [id number] Insurance MEDICARE [facility] Care Teams Cost Control Supervisor Relationship Specialty Start Date End Date Ruthie Chandra MD [address] [place] [phone] PCP - General Internal Medicine 11/18/16
--- OUTSIDE RECORDS SUMMARY | 2024-12-26 13:13 | XMS_ITS | Clinical Summary ---
Author Organization [facility] Address [address] [place] [address] Care Team Providers Care Roll Carrier Name Role Phone Unknown, Primary Care Provider [...] age to complete this topic Care Teams Roll Carrier Relationship Specialty Start Date End Date Unknown, PCP - General 01/30/22
--- OUTSIDE RECORDS SUMMARY | 2024-12-26 13:13 | XMS_ITS | Clinical Summary ---
Author Organization [facility] Address [address] [place] [address] Care Team Providers Care Stitch Burnisher Name Role Phone Corky Schaefer MD Primary [...] of her medication regimen. SVT (supraventricular tachycardia) ([facility] V24) 11/23/2024 Assessment & Plan (11/23/2024 8:07 [...] to be over 20%, with the main cat driver being her age. She has been hopeful [...] Type Department Care Team Description 12/04/2024 Telephone [facility] Cardiology [facility] [place] [facility] [address] [place] [phone] Mandi Corrigan NP 11/24/2024 Telephone [facility] Cardiology [facility] [place] - [address] [place] [address] Tri Hess MA 11/21/2024 10:10 AM EDT Office Visit [facility] Cardiology [facility] [place] - [address] [place] [address] Mandi Corrigan NP SVT (supraventricular tachycardia) (CMS/HCC V24) (Primary Dx); Hypertension, unspecified type; Pure hypercholesterolemia; HHT (hereditary hemorrhagic telangiectasia) (CMS/HCC V24) from Last 3 Months Surgical History Surgery Date Site/Laterality Comments SECTION PROCEDURE: HISTORICAL DELIVERY BACK SURGERY 2016 PROCEDURE: HISTORICAL BACK SURGERY; 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); COMMENT: Follows at [facility] Eczema 02/10/2018 DX:Eczema GERD (gastroesophageal reflu x [...] Comments CABG Brother Diabetes Brother at 59- [place] Bladder Cancer Father Hypertension Mother Hyperlipidemia Other: [...] PM EST Colon polyps Colon cancer screening [facility] SCREENING DIGITAL Routine 10/08/2023 9:38 AM EDT Encounter for screening mammogram for malignant neoplasm of breast [facility] DEXA AXIAL SKELETON Routine 05/06/2018 [...] GEMUSE QTc 427 ms GEMUSE P Wave [place] 58 degrees GEMUSE R [place] 57 degrees GEMUSE T [place] 38 degrees GEMUSE ECG Interpretation Sinus rhythm with Premature atrial complexes Otherwise normal ECG No previous ECGs available Confirmed by Kadi BHAGAT JOHN ([id number]) on 11/24/2024 12:59:31 PM GEMUSE 11/21/2024 10:1 4 AM EDT 11/24/2024 12:59 PM EDT Mandi Shekhar NOZZLE CEMENT SPRAYER HELPER ECG ORDERABLES Edited Result - Final GEMUSE * External clinical lab (10/25/2024 10:19 AM EDT) Only the most recent of2 resultswithin the time period is included. Historical Provider MD LAB BLOOD ORDERABLES Annabel l Result * COLONOSCOPY Anesthesia - MAC; [facility] ENDOSCOPY (02/10/2024 4:33 PM EST) [...] for surveillance. Narrative 02/10/2024 4:36 PM EST [facility] GI Patient Name: Roslyn Hester Procedure Date: [...] verified by the physician, the nurse, the construction administrator and the molding technician in the pre-procedure area in the [...] reduce spontaneously). Procedure Code(s): --- Professional --- 84615, Colonoscopy, flexible; with biopsy, single or multiple Diagnosis Code(s): --- Professional --- D12.5, Benign neoplasm of sigmoid colon D12.3, Benign neoplasm of transverse colon (hepatic flexure or splenic flexure) CPT copyright 2020 [employer]. All rights reserved. The codes documented in this report are preliminary and upon nc machinist review may be revised to meet current compliance requirements. Kiko Jalloh MD 02/10/2024 4:35:56 PM This report has been signed electronically.Kiko Jalloh MD Number of Addenda: 0 Note Initiated On: 02/10/2024 4:08 PM Scope Withdrawal Time: 0 hours 8 minutes 6 seconds Scope In: 4:20:13 PM Scope Out: 4:33:23 PM Endoscopy Department at [facility] - [address] [place] [phone] Procedure Note Kiko Jalloh MD - 02/10/2024 [facility] Patient Name: Roslyn Hester Procedure Date: [...] the physician, the nurse, theanesthetist and the molding technician in the pre-procedure area in the [...] reduce spontaneously). Procedure Code(s): --- Professional --- 38411, Colonoscopy, flexible; with biopsy, singleor multiple Diagnosis Code(s): --- Professional --- D12.5, Benign neoplasm of sigmoid colon D12.3, Benign neoplasm of transverse colon (hepatic flexure or splenic flexure) CPT copyright 2020 [employer]. All rights reserved. The codes documented in this report are preliminary and upon nc machinist reviewmay be revised to meet current compliance requirements. Kiko Jalloh MD 02/10/2024 4:35:56 PM This report has been signed electronically.Kiko Jalloh MD Number of Addenda: 0 Note Initiated On: 02/10/2024 4:08 PM Scope Withdrawal Time: 0 hours 8 minutes 6 seconds Scope In: 4:20:13 PM Scope Out: 4:33:23 PM Endoscopy Department at [facility] - [address] [place] [phone] IMPRESSION: - Three 1 to 3 mm polyps in the sigmoid colon and in the transverse colon, removed with a jumbo cold forceps. Resected and retrieved. - Internal hemorrhoids. Recommendation: - Await pathology results. - Repeat colonoscopy in 5 years for surveillance. us Kiko Jalloh MD GI~PROCEDURE ORDERABLES Fin al Result * [facility] SCREENING DIGITAL (10/08/2023 9:38 AM EDT) Anatomical Region Laterality Modality Mammography 10/08/2023 7:14 AM EDT Narrative 10/08/2023 9:38 AM EDT [facility] Diagnostic Imaging Department [address] [place] [address] Patient: ROSLYN HESTER /Age/Sex: 1950 - 73 - F Unit#: [id number] Location/Status: [facility] CLI Mnemonic[facility]ing [facility] Order[facility] Physician: DANIELLE DE DIOS [facility] Screening Digital - 10/08/23 - 0743 Report Status:Signed EXAM: [facility] Screening Digital EXAM DATE AND TIME: 10/08/2023 7:43 AM HISTORY: Screening. COMPARISON: 10/02/22, 09/30/21, 09/26/20 TECHNIQUE: Bilateral digital breast tomosynthesis was performed in the CC and MLO projections. Computer aided detection with [employer] 3D 3.1 was employed. TISSUE DENSITY: c. [...] [facility] Diagnostic Imaging Department [address] [place] [address] Patient: ROSLYN HESTER /Age/Sex: 1950 - 73 - F Unit#: [id number] Location/Status: [facility] Mnemonic/Ordering Site: [facility] Ordering Physician: DANIELLE DE DIOS [facility] Screening Digital - 10/08/23742 Report Status:Signed EXAM: [facility] Screening Digital EXAM DATE AND [...] [facility] Diagnostic Imaging Department [address] [place], [place] [phone] Patient: ROSLYN HESTER D.O.B./Age/Sex: 1950 67 - F Unit#: [id number] Location/Status: SPDIMAM/REG CLI Mnem[facility] Ordering Physician: BEVERLEY BONE MD [facility] Dexa Axial Skeleton - 05/06/18 - 1531 HISTORY: The patient is a 67-year-old postmenopausal [...] probability of hip fracture of 0.7%. Code 70684 Dictating Physician: LINDA COMBS MD Electronically Signed by: LINDA COMBS MD Dic Date/Time: 05/06/181536 Sign date/Time: 05/06/181538 Procedure Note Linda Combs MD - 02/12/2022 [facility] Diagnostic Imaging Department [address] [place] [address] Patient: ROSLYN HESTER /Age/Sex: 1950 - 67 - F Unit#: [id number] Location/Status: SPDIMAM/REG CLI Mnemonic[facility] Ordering Physician: BEVERLEY BONE MD [facility] Dexa Axial Skeleton - 05/06/181533 [...] density of the femurs bilaterally is 1.101 gm/ch7ppzjk is 109% of that of young normals [...] probability of hip fracture of 0.7%. Code 51778 Dictating Physician: LINDA COMBS MD Electronically Signed by: LINDA COMBS MD Dic Date/Time: 05/06/18 1537 Sign date/Time: 05/06/18 1539 Beverley Bone MD IMG BI PROCEDURES Final Result from Last 3 Months or Most Recently Relevant to Health Maintenance Insurance MEDICARE [facility] Care Teams Stitch Burnisher Relationship Specialty Start Date End Date Corky Schaefer MD [address] [place] [address] Dr Colleen [place] PCP - General 11/11/23
--- OUTSIDE RECORDS SUMMARY | 2024-12-26 13:14 | XMS_ITS | Encounter Summary ---
Author Organization [facility] Address [address] [place] [address] Care Team Providers Care Casing Tester Name Role Phone Ruthie Chandra MD Primary Care Provider Reason for Visit * Reason Onset Date Comments Appointment 09/08/2023 Encounter Details Date Type Department Care Team ([facility] st Contact Info) Description 09/08/2023 Telephone [facility] Inter[facility] Radiology at [address] [phone] Alvarado [place] MD [address] [place] [phone] Appointment Social History Tobacco Use Types [...] documented as of this encounter Care Teams Casing Tester Relationship Specialty Start Date End Date Ruthie Chandra MD [address] [place] [phone] PCP - General Internal Medicine 11/18/16 documented as of this encounter
--- OUTSIDE RECORDS SUMMARY | 2024-12-26 13:14 | XMS_ITS | Encounter Summary ---
Author Organization [facility] Address [address] [place] [phone] Care Team Providers Care Sap Data Architect Name Role Phone Ruthie Chandra MD Primary Care Provider Encounter Details Date Type Department Care Team (Late st Contact Info) Description 10/13/2023 Scanned Document Interventional Radiology at [address] [phone] Provider, Historical . Social History Tobacco Use [...] as of this encounter Care Teams Sap Data Architect Relationship Specialty Start Date End Date Ruthie Chandra MD [address] [place] [phone] PCP - General Internal Medicine 11/18/16 documented as of this encounter
== END 2024-12-26 13:07 | disposition home or self-care (01) ==
LOC: HO.HMCFM 10:49
PROVIDERS: PCP Physician Assistant; Visit Provider Internal Medicine
DX: N89.8 Other specified noninflammatory disorders of vagina (principal); N80.549 Endometriosis of the appendix, unspecified depth; R39.9 Unspecified symptoms and signs involving the genitourinary system